=== PATIENT | male | born 1980 | race Caucasian/White ===

== ENCOUNTER 2023-06-08 11:03 | Outpatient (OUT) | payer OTHER, SELFPAY ==
--- NOTE | 2023-06-08 11:10 | XR_ITS ---
The [address] [address] Patient Name: MONICA ARAMBULA MRN: [id number] date: 1980 Sex: M Assigned Patient Location: RAD Current Patient Location: RAD Accession/Order Number: [id number] Exam Date: 06/08/2023 11:17 Report Date: 06/08/2023 11:38 At the request of: CHON GUERRERO Procedure: XR chest 2V EXAM: XR chest 2V HISTORY: Personal history-other diseases respiratory system - Z87.09 COMPARISON: None. TECHNIQUE: PA and lateral views of the chest. FINDINGS: The cardiomediastinal silhouette is normal. 6.8 mm pulmonary nodule in the right upper lobe. There is no pneumothorax. No pleural effusion is noted. The osseous structures are intact. XR/XR chest 2V IMPRESSION: 6.8 mm pulmonary nodule in the right upper lobe. Repeat chest x-ray is recommended in 3-6 months. Electronically authenticated by: ROLAND PARKER Date: 06/08/2023 11:38
--- NOTE | 2023-06-08 11:10 | XR_ITS ---
[address] [address] Patient Name: MONICA ARAMBULA MRN: [id number] date: 1980 Sex: M Assigned Patient Location: RAD Current Patient Location: [facility] Accession/Order Number: [id number] Exam Date: 06/08/2023 11:17 Report Date: 06/08/2023 12:25 At the request of: CHON GUERRERO Procedure: XR shoulder RT min 2V EXAM: XR shoulder RT min 2V HISTORY: Pain in right shoulder M25.511 COMPARISON: None. TECHNIQUE: 3 views FINDINGS: No acute fracture or dislocation. Mild degenerative changes of the acromioclavicular joint. Unremarkable soft tissues. XR/XR shoulder RT min 2V IMPRESSION: Mild degenerative changes as above. Electronically authenticated by: ROLAND PARKER Date: 06/08/2023 12:25
== END 2023-06-08 11:04 | disposition home or self-care (01) ==
LOC: RAD 11:06
PROVIDERS: PCP Nurse Practitioner Family; Visit Provider Nurse Practitioner Family
DX: M25.511 Pain in right shoulder (principal); Z87.09 Personal history of other diseases of the respiratory system; R91.1 Solitary pulmonary nodule
CPT/HCPCS: 71046; 73030

== ENCOUNTER 2023-06-19 02:14 | Emergency (ER) | payer OTHER, SELFPAY ==
[2023-06-19 02:18] VITALS: BP 160/90; PULSE 54; RESP 18; TEMP 36.4; O2SAT 100; BMI 33.2
--- NOTE | 2023-06-19 02:44 | ED.ANXIETY1 ---
HPI - Anxiety General Chief Complaint: Anxiety Stated Complaint: ANXIOUS/FEELS FUNNY Time Seen by Provider: 06/19/23 02:40 Source: patient Mode of arrival: walk-in Limitations: no limitations History of Present Illness HPI narrative: past history of anxiety. States in the past eating could trigger his anxiety. Tonight he felt hungry and ate some cookies. Began to feel like he could not breathe. Like he needed to take a deep breath but is wasn't helping. Drove himself here. No chest pain. No fever. MD complaint: Reports anxiety Related Data Home Medications Medication Instructions Recorded Confirmed atenolol 50 mg tablet 50 mg PO Q24H 06/19/23 06/19/23 citalopram 10 mg/5 mL oral solution 10 mg PO DAILY 06/19/23 06/19/23 Allergies Allergy/AdvReac Type Severity Reaction Status Date / Time hydrocodone [From [place]] Allergy Unknown Verified 06/19/23 02:22 Review of Systems ROS Status of ROS 10 or more systems reviewed and unremarkable except as noted in history and below PFSH PFS Social History Smoking status: Former smoker Exam Constitutional Vital Signs, click to edit/add: Last Vital Signs Temp 97.5 F L 06/19/23 02:18 Pulse 54 L 06/19/23 02:18 Resp 18 06/19/23 02:18 BP 160/90 H 06/19/23 02:18 Pulse Ox 100 06/19/23 02:18 O2 Del Method Room Air 06/19/23 02:18 Common normals: average body habitus and oriented x3 General appearance: anxious HENMT Common normals: normocephalic and head/scalp atraumatic Eye Common normals: EOMs intact bilaterally, conjunctivae normal and no scleral icterus Respiratory Common normals: normal respiratory effort, no retractions, no use of accessory muscles and clear to auscultation bilaterally Cardio Common normals: regular rate, regular rhythm, S1 normal heart sound and S2 normal heart sound GI Common normals: Normal to inspection, nondistended, normoactive bowel sounds present, soft to palpation and non-tender Extremity Common normals: normal to inspection and full ROM Neuro Common normals: oriented x3, moves all extremities, no focal motor deficits and no sensory deficits noted Psych Mood and affect: anxious Course Vital Signs Vital signs: Vital Signs Temperature 97.5 F L 06/19/23 02:18 Pulse Rate 54 L 06/19/23 02:18 Respiratory Rate 18 06/19/23 02:18 Blood Pressure 160/90 H 06/19/23 02:18 Pulse Oximetry 100 06/19/23 02:18 Oxygen Delivery Method Room Air 06/19/23 02:18 Temperature 97.5 F L 06/19/23 02:18 Pulse Rate 54 L 06/19/23 02:18 Respiratory Rate 18 06/19/23 02:18 Blood Pressure 160/90 H 06/19/23 02:18 Pulse Oximetry 100 06/19/23 02:18 Oxygen Delivery Method Room Air 06/19/23 02:18 MDM - Anxiety MDM Narrative Medical decision making narrative: patient presents with anxiety attack. Past history of the same. treated with Benadryl and observed in the department for several hours. Feeling better now and discharged home. Patient to followup with his family doctor Discharge Plan Discharge Chief Complaint: Anxiety Clinical Impression: Acute anxiety Patient Disposition: Home, Self-Care Prescriptions / Home Meds: No Action citalopram 10 mg/5 mL solution 10 mg PO DAILY atenolol 50 mg tablet 50 mg PO Q24H Instructions: Anxiety (ED) Stand Alone Forms: Portal Instructions Referrals: CHON GUERRERO [Primary Care Provider] - 1 week
[2023-06-19] MEDS: DIPHENHYDRAMINE HCL 25 MG CAPSULE 50 MG PO (03:00)
--- NOTE | 2023-06-19 03:31 | PC.NURSE ---
patient states he doesnt feel as panicky and thinks the benadryl is starting to work but wants a little more time for it to take more effect.
[2023-06-19 05:42] VITALS: BP 134/85; PULSE 55; RESP 16; O2SAT 99
== END 2023-06-19 05:44 | disposition home or self-care (01) ==
PROVIDERS: Emergency Provider Internal Medicine; PCP Nurse Practitioner Family
DX: F41.9 Anxiety disorder, unspecified (principal); Z79.899 Other long term (current) drug therapy; Z87.891 Personal history of nicotine dependence
CPT/HCPCS: 99283

== ENCOUNTER 2024-10-10 08:15 | Outpatient (OUT) | payer OTHER, SELFPAY ==
--- NOTE | 2024-10-10 09:19 | PC.NURSE ---
Nursing Note Cardiac Stress Test Reviewed: Medication, allergies and patient history reviewed. Stress Test: [ x] Patient tolerated stress test well. [ ] Patient unable to tolerate walking on treadmill. Switched to Lexiscan stress test. [x ] No chest pain noted per patient [ ] Chest pain that resolved prior to leaving stress lab. [ ] No dyspnea noted. [x ] Dyspnea that resolved prior to leaving stress lab. [x ] Patient left stress lab asymptomatic and hemodynamically stable. [ ] Patient taken to the Emergency Room due to non-resolving symptoms following stress test. [ x] Patient achieved target heart rate. [ ] Patient unable to achieve target heart rate. [ ] Aminophylline administered as reversal agent to Lexiscan (Regadenoson). [ ] Nitro administered. Nursing Comments:Pt tolerated well. No symptoms noted per patient. Pt had regular TM stress test.
--- NOTE | 2024-10-11 06:23 | P.STRESS_ITS ---
Stress Test Stress Test Allergies Allergy/AdvReac Type Severity Reaction Status Date / Time hydrocodone (From [place]) Allergy Unknown Verified 06/19/23 02:22 Requesting physician: CHON GUERRERO Procedure: Exercise stress test General Information: Reason for Stress Test: Chest pain Cardiac History and Risk Factors: Former smoker Resting 12 - Lead Electrocardiogram: No resting EKG was provided for review! Stress Test: Protocol: Lior protocol was followed Exercise capacity: Excellent exercise capacity. Total exercise time of 12 minutes 14 seconds reached Lior stage 5 at 5 MPH, 18 % grade, & 14.2 METs. Blood pressure: Initial: 162/80, Maximum: 204/92 Rate & rhythm: Patient remained in sinus rhythm during the exercise and recovery portions of the study.? The maximum heart rate was 146, which was 83% of the maximum predicted heart rate. ST-segments & T-waves: Poor quality tracings with artifact during exercise despite attempts to adjust signal acquisition. No glaring abnormalities during recovery phase. Patient response/symptoms: There were no symptoms similar to the chief complaint. Interpretation: Non-diagnostic study; did not meet 85% threshold of predicted heart rate. No electrocardiographical evidence of ischemia during recovery. Asymptomatic of chief complaint. Jacob treadmill score is 12.2, which places patient in a low risk category. Clinical correlation required.
== END 2024-10-10 08:16 | disposition home or self-care (01) ==
LOC: CARD 08:15
PROVIDERS: PCP Nurse Practitioner Family; Visit Provider Nurse Practitioner Family
DX: R07.89 Other chest pain (principal); Z82.49 Family history of ischemic heart disease and other diseases of the circulatory system
CPT/HCPCS: 93017

== ENCOUNTER 2024-11-23 04:15 | Emergency (ER) | payer OTHER, SELFPAY ==
[2024-11-23 04:18] VITALS: BP 123/90; PULSE 83; TEMP 37.2; O2SAT 99; BMI 31.7
--- OUTSIDE RECORDS SUMMARY | 2024-11-23 04:25 | XMS_ITS | CCD ---
Author Organization [facility] Care Team Providers Care Shot Grinder Operator Name Role Phone HOANG SALASTorZEKE Unavailable Unavailable NO REFERRING FERMIN Leyva Unavailable Unavailable VEL CHING Unavailable Unavailable Reji Hughes Unavailable Reji Hughes Primary Care Physician [phone] GISSELL, DR DENT Admitting Unavailable ELLEN, DR LEI Primary Care Unavailable GISSELL, DR DENT Attending Unavailable GISSELL, DR DENT Consulting Unavailable ELLEN, DR LEI Primary Care Unavailable ELLEN, DR LEI Admitting Unavailable ELLEN, DR LEI Attending Unavailable ELLEN, DR LEI Consulting Unavailable ZIEBER, DR GUS [place] Consulting Unavailable TIMMIS, DR VEGA Attending Unavailable TIMMIS, DR VEGA Consulting Unavailable ELLEN, DR LEI Primary Care Unavailable TIMMIS, DR VEGA Admitting Unavailable VANESSA, DR GUS [place] Consulting Unavailable ELLEN, DR LEI Primary Care Unavailable GREG RASHEED Admitting Unavailable FRAN, GREG Attending Unavailable FRAN, GREG Consulting Unavailable LIVE LOWERY Consulting Unavailable ELLEN, DR LEI Primary Care Unavailable HILARIO CHEEK Admitting Unavailable ADIA, HILARIO Attending Unavailable HILARIO CHEEK Consulting Unavailable KARMEN, DR CATARINA Gonzalez Admitting Unavailberyl HUGHES, DR LEI Primary Care Unavailable KARMEN, DR CATARINA Gonzalez Attending UnavailSCOTT Parra Consulting Unavailable Mahnaz Castillo Unavailable Gertrudis Pham Unavailable MEL MAST Attending Unavailable Gertrudis Pham APRN Primary Care Provider Noelle Colunga MD Attending Provider Gertrudis Pham Primary Care Unavailable Noelle Colunga Attending Unavailable Keanu Imraad Admitting Unavailable Allergies Allergy Classification Reported Allergen(s) Allergy Type Date of Onset Reaction(s) Facility Acetaminophen (1 source) Acetaminophen Drug Allergy 4 labored breathing [facility] Opioid Agonists (2 sources) HYDROcodone Drug Allergy 4 labored breathing, Unknown Reaction [facility] (4 sources) HYDROcodone; Translations: [HYDROCODONE] Drug Allergy 5 labored breathing [facility] (1 source) Mushroom (edible); Translations: [MUSHROOMS] Propensity to adverse reactions (disorder) [facility] (7 sources) oxyCODONE; Translations: [OXYCODONE] Drug Allergy 5 Unknown [facility] (1 source) Shellfish; Translations: [SHELLFISH DERIVED] Propensity to adverse reactions (disorder) [facility] (1 source) OPIATES; Translations: [OPIATES] Propensity to adverse reactions (disorder) [facility] (2 sources) Acetaminophen / HYDROcodone; Translations: [acetaminophen-hy drocodone] Drug Allergy 5 Dyspnea (finding) [facility] Work Phone: (1 source) Shellfish Propensity to adverse reactions to drug [facility] Work Phone: (6 sources) Acetaminophen / HYDROcodone Drug Allergy 5 labored breathing [facility] (1 source) oxyCODONE Drug Allergy 5 [facility] (1 source) Shellfish Drug allergy (disorder) 0 [facility] (2 sources) Acetaminophen; Translations: [acetaminophen] Drug Allergy 5 labored breathing [facility] Medications Current Medications Medication Drug Class(es) Dates Sig (Normalized) Sig (Original) 0.5 ML semaglutide 0.5 MG/ML Auto-Injector [Wegovy] (2 sources) Start: 09-28-2023 inject 0.25 mg by subcutaneous injection every week Wegovy 0.25 MG/0.5ML 0.25mg Subcutaneous Once a week for 30 days E78.1, Z68.32 05 Sep, 2023 Active atenolol 50 mg oral tablet (12 sources) beta-Adrenergic Nancy Start: 02-17-2024 End: 09-22-2024 take 1 tablet by mouth once daily Atenolol 50 mg tablet Active 50 MG PO Daily September 22, 2024 11:07am take 1 tablet by carole th every twenty-four hours Atenolol 50 MG 1 tablet Oral daily for 90 days Active calcium carbonate 500 mg chewable tablet (1 source) calcium carbonat e 500 MG Chew Tab tablet Chew 500 mg daily. Active citalopram 2 mg/ml oral solution (8 sources) Serotonin Reuptake Inhibitor Start: 03-14-2024 take 30 mg by mouth once daily Citalopram 10 mg/5 mL solution Active 30 MG PO Daily March 13, 2024 11:00pm take 15 mL by mouth once daily C italopram Hydrobromide 10 MG/5ML 15 mL Oral daily for 30 days Active CeleXA Active take 30 mg by mouth once daily c italopram 20 MG Tab tablet Take 30 mg by mouth daily. Active diphenhydrAMINE hydrochloride 25 mg oral capsule (5 sources) Histamine-1 Receptor Antagonist Start: 03-14-2024 take 1 capsule by mouth once daily at bedtime as needed Diphenhydramine Hcl 25 mg capsule Active 25 MG PO Daily at bedtime as needed for insomnia March 13, 2024 11:00pm take 1 capsule by mo [facility] every twenty-four hours diphenhydrAMINE HCl 25 MG 1 capsule at bedtime as needed Orally Once a day Active Fish Oils (2 sources) take 1 capsule by mouth twice daily Fish Oil 500 MG 1 capsule Orally Twice a day Active fluticasone propionate 0.05 mg/actuat metered dose nasal spray (1 source) Corticosteroid Start: 01-30-20 23 take 2 spray(s) nasal route once daily Fluticasone Propionate 50 MCG/ACT 2 sprays Nasally Once a day for 14 day(s) Jan, Active losartan potassium 25 mg oral tablet (10 sources) Angiotensin 2 Receptor Nancy Start: 02-17-20 End: 09-25-20 take 1 tablet by mouth once daily Losartan 25 mg tablet Active 25 MG PO Daily September 25, 2024 1:14pm Start: 08-31-2023 take 1 tablet by carole th every twenty-four hours Losartan Potassium 25 MG 1 tablet Orally Once a day for 30 days Aug, Active Goddard 4-Hni-Okz-Fish Oil (Fish Oil) 1,200 (144-216) mg capsule (2 sources) Start: 03-27-2024 take 1 capsule by mouth once daily Goddard 4-Osy-Gdo-Fish Oil (Fish Oil) 1,200 (144-216) mg capsule Active 1 CAP PO Daily March 26, 2024 11:00pm Start: 03-27-2024 Goddard 3-Dha-Ep a-Fish Oil (Fish Oil) 1,200 (144-216) mg capsule Active CAP PO March 27, 2024 12:00am predniSONE 20 mg oral tablet (1 source) Start: 01-29-2023 take 1 tablet by mouth every twelve hours predniSONE 20 MG 1 tablet Orally bid for 5 day(s) Jan, Active Sod Picosulf-Mag Ox-Citric Ac (1 source) Start: 09-28-2024 Sod Picosulf-M ag Ox-Citric Ac (Clenpiq) 10 mg-3.5 gram- 12 gram/175 mL solution Active 175 ML PO .COMPLEX 350 1 September 28, 2024 12:00am Follow instructions given by office triamcinolone acetonide 1 mg/ml topical cream (2 sources) Corticosteroid Start: 09-25-2024 End: 09-25-2024 Triamcinolone Acetonide 0.1 % cream Active 1 APPLIC TOPICAL Twice daily 80 7 September 25, 2024 1:14pm Completed/Discontinued Medications Medication Drug Class(es) Dates Sig (Normalized) Sig (Original) dextromethorphan hydrobromide 15 mg / guaiFENesin 400 mg / pseudoephedrine hydrochloride 60 mg oral tablet (1 source) alpha-Adrenergic Agonist, Uncompetitive Q-omdkcf-Z-aspartat e Receptor Antagonist, Sigma-1 Agonist Start: 12-01-2021 take 4 tablets by mouth every twenty-four hours as needed Capmist DM 60-15-400 MG as needed Orally every 4-6 hours as needed, max 4 tablets in 24 hours for 5 days Nov, Not-Taking metFORMIN hydrochloride 500 mg oral tablet (5 sources) Biguanide Start: 02-17-2024 End: 09-25-2024 take 1 tablet by mouth twice daily Metformin 500 mg tablet Discontinued 500 MG PO Twice daily 180 90 May 29, 2024 2:21pm September 25, 2024 1:06pm Problems Active Problems Problem Classification Problem Date Documented Date Episodic/Chronic Allergic reactions (2 sources) Eczema; Translations: [Dermatitis, unspecified] 09-25-2024 Episodic Anxiety disorders (20 sources) Anxiety state, unspecified; Translations: [Obsessive-compulsive disorder, unspecified] Onset: 05-21-2015 Chronic Disorders of lipid metabolism (7 sources) Hypertriglyceridemia; Translations: [Pure hyperglyceridemia] Chronic Esophageal disorders (2 sources) Gastro-esophageal reflux disease with esophagitis; Translations: [Gastro-esophageal reflux disease with esophagitis] Onset: 10-09-2018 Chronic Essential hypertension (11 sources) Essential hypertension; Translations: [Essential (primary) hypertension] Chronic Inflammation; infection of eye (except that caused by tuberculosis or sexually transmitteddisease) (4 sources) Abscess of left upper eyelid; Translations: [ABSCESS LEFT UPPER EYELID] Onset: 09-24-2022 Episodic Nonspecific chest pain (2 sources) Atypical chest pain; Translations: [Other chest pain] 09-25-2024 Episodic Other aftercare (1 source) Other long term acute care registered nurse (current) drug therapy; Translations: [OTH [facility] CURRENT DRUG THERAPY] Onset: 11-23-2022 Episodic Other ear and sense organ disorders (4 sources) Otalgia, left ear; Translations: [OTALGIA LEFT EAR] Onset: 09-02-2022 Episodic Other lower respiratory disease (1 source) Personal history of other diseases of the respiratory system Episodic Other nervous system disorders (6 sources) Chronic pain; Translations: [Other chronic pain] 03-27-2024 Chronic Other nervous system disorders (2 sources) Other chronic pain; Translations: [Other chronic pain] Chronic Other non-traumatic joint disorders (1 source) Pain in right shoulder Episodic Other nutritional; endocrine; and metabolic disorders (2 sources) Body mass index 30+ - obesity; Translations: [Body mass index (BMI) 32.0-32.9, adult] Chronic Other nutritional; endocrine; and metabolic disorders (1 source) Body mass index (BMI) 32.0-32.9, adult Chronic Other screening for suspected conditions (not mental disorders or infectious disease) (2 sources) Patient encounter status; Translations: [Encounter for screening for malignant neoplasm of colon] 09-25-2024 Episodic Other skin disorders (1 source) Eruption; Translations: [Rash and other nonspecific skin eruption] 09-25-2024 Episodic Other upper respiratory infections (2 sources) Acute upper respiratory infection, unspecified; Translations: [Acute pharyngitis, unspecified] Onset: 09-02-2022 Episodic Otitis media and related conditions (1 source) Unspecified nonsuppurative otitis media, right ear Episodic Residual codes; unclassified (1 source) Family history of cardiac disorder; Translations: [Family history of ischemic heart disease and other diseases of the circulatory system] 09-25-2024 Episodic Residual codes; unclassified (1 source) Family history of ischemic heart disease and other diseases of the circulatory system; Translations: [Family history of other cardiovascular diseases] 09-25-2024 Episodic Screening or history of mental health and substance abuse (2 sources) Personal history of tobacco use; Translations: [Personal history of nicotine dependence] Onset: 05-21-2015 Episodic Skin and subcutaneous tissue infections (1 source) Cutaneous abscess of face; Translations: [CUTANEOUS ABSCESS OF FACE] Onset: 11-23-2022 Episodic Thyroid disorders (5 sources) Non-toxic uninodular goiter; Translations: [Nontoxic single thyroid nodule] Onset: 05-22-2022 Chronic Unclassified (2 sources) COUGH, UNSPECIFIED; Translations: [COUGH, UNSPECIFIED] Onset: 09-02-2022 Viral infection (1 source) COVID-19; Translations: [COVID-19] Onset: 09-02-2022 Past or Other Problems Problem Classification Problem Date Documented Da te Episodic/Chronic Abdominal pain (4 sources) Epigastric pain; Translations: [EPIGASTRIC PAIN] Onset: 12-30-2021 Episodic Headache, including migraine (1 source) Headache; Translations: [HEADACHE] Onset: 05-21-2015 Episodic Other connective tissue disease (3 sources) Pain in limb; Translations: [Pain in limb] Onset: 05-21-2015 Episodic Other skin disorders (4 sources) Localized swelling, mass and lump, neck; Translations: [LOCALIZED SWELLING MASS AND LUMP NECK] Onset: 06-22-2022 Episodic Unclassified (1 source) COUGH, UNSPECIFIED; Translations: [COUGH, UNSPECIFIED] Onset: 08-31-2022 Results Test Name Value Interpretation Reference Range Facility [facility] 01-29-2023 S. pyogenes Org specific cx Ql (Throat) Negative IND [facility] Other Quick Strep IND [facility] Other Covid-19 PCR (CVDTB)on SARS-CoV-2 (COVID-19) RNA MARIELLA+probe Ql (Unsp spec) Detected Critically abnormal NOT DETECTED [facility] Comment on above: Result Comment: This test is not yet approved or cleared by the [place] FDA. When there are no FDA-approved or cleared tests available, and other criteria are met, FDA can make tests available under an emergency access mechanism called an Emergency Use Authorization (EUA). The EUA for this test is supported by the Factory Clerk of Health and Human Service's declaration that circumstances exist to justify the emergency use of in vitro diagnostics for the detection and/or diagnosis of the virus that causes COVID-19. This EUA will remain in effect for the duration of the COVID-19 declaration justifying emergency of IVDs, unless it is terminated or revoked by the FDA (after which the test may no longer be used). Performed By: #### C VDTBH #### [facility] [address] [place] [address] Dr. Cosmo Portillo GROUP A STREP CULTUREon S. pyogenes Ag Ql (Unsp spec) Culture Observations: NEGATIVE FOR GROUP A STREPTOCOCCUS. Normal [facility] Comment on above: Performed By: #### G RASTCX #### [facility] [address] [place] [address] Dr. Cosmo Portillo STREPT SCREENon 08-31-2022 STREP SCREEN A Negative Normal NEGATIVE [facility] Comment on above: Performed By: #### S SCRN #### [facility] [address] [place] [address] NECK ST W CONon [address] W CON EXAMINATION: CT NECK ST W CON HISTORY: Mass of neck COMPARISON: Ultrasound thyroid 05/22/2022 TECHNIQUE: Axial, Coronal, and Sagittal CT images created with IV contrast. Dose reduction techniques were achieved by using automated exposure control and/or adjustment of mA and/or kV according to patient size and/or use of iterative reconstruction technique. FINDINGS: NASOPHARYNX: No asymmetry of the fossae of Rosenmuller and torus tubarius. ORAL CAVITY: No visible mass. OROPHARYNX: No asymmetry of the facial and lingual tonsils. HYPOPHARYNX: No mass or other visible lesion. LARYNX: No mass or asymmetry of the vocal cords. SINUSES: No significant fluid or mucosal thickening. NECK GLADS: No visible abnormality of the parotid, submandibular, and thyroid glands. LYMPH NODES: No pathological-appear ing or enlarged lymph nodes. VASCULATURE: No suspicious abnormality. BONES: Straightening of the normal lordotic curvature; positioning versus muscle spasm. 6-7 and moderate degenerative disc disease. OTHER: No additional imaging findings. IMPRESSION: 1. No appreciable abnormal findings to account for patient's history. Electronically authenticated by: GUS MENDEZ Date: 2022-06-22 15:41 Normal [facility] Coding Summary.on 06-05-2022 Coding Summary. CD:[id number] CCf9pNk+PGhlYWQ+PE1 HNPTmN41xbJPrzQ0XE2 dEVP7OJSKEZWOHID8AK D4ysXE7JEnwV3NscwOt RsllsJItER14CAk2YVZ 6xTtqLXcfwP6thSAbJ1 u6GjHrSE95hZ38AYjvH UVtZrM1ZgWgpjbpyIIy B7kkJeOpbTYdJkp+PHR hYmxlIHdpZHRoPScxMD PuXoGcmSpkQP7jTx7bU GVyLWNvbGxhcHNlOiBj j4xgNXAzEAjmQD8poHg iY8CcbZZ3FPKak2v5Uy 48dHI+AWVvTRB3tNnsP Tfom977EsHmf9zgGFG0 vQEwEGrbAHP7P34pi0Z 2DLFmHNTePYU6fSK5eW 2pfOfeyxpvO1XwvROwW dS6CUN1oTMkdN2pqFlp jljphZ3yKur+X92AWQ6 QPOKARG5HAld7O6DaGb wvdHI+TB79NUOkWN57e WOmnPUmk8fcbGl9ZjKe NWQkCKZ1oMfzQHgjm3M zEHSbY10xmGNbd9S8AG ObdKtlwCRwXtTebJK2t Z5fGTkplwvqe8azykoc Uwycv0ehiu30bD17J37 sAOygZZEqCVG2BELhSL WdmMqyfd0xiM2dRr7+I Ghea9wpq8jfsAh4PjGf SDIeanEonDxjCWP8p6D uPt89Z6NnqRivt2XhAd h7yd93oAVtz0P2lCP9Z AxfYMFqjS1aQNwsIpP5 IVXhZoVftT27fYGtLRp dRh7tvMhrnWyxHS3uIA HhrmdfOOUpqL2ySGPsr RPqnKahTF1hJBJllohx j788JjMdYNA0QWWhlXT uZ9ZyvR1yEqUcQHKmMC YqQ9QpxJXnTWryX159Q MksAzR6WNUjrzMuI7Ip WBJbsRfyFhK8c2V5Qh1 Bw2WxnvrqPPE4IZefES I6EsHuOdLzIsP2O1PsH pq7BCOqeTmvVK6pX6Md USLlheogjeuwjVL9WJY jXNBalQ60jGWbYWzzYu 2ra7L5x004LBPdGGWno F38Sm6jhXkbGOXzxNJB mH5bcgwdx0jfogjrWvK qZJTzCNg4BYu1GWRddY nsQxOhSJG4UwG1RPN2o MOrzU7dpUbltqreaJ3v Oyc+Q74jgM5pNOZ1GQT 6uixyZJHhshFpNI32ZZ 69N9JsQxrpyWZepQS+P VKdzdUqkBcfID0jJkBu o0xur1QsZXdpB5KpMHM kPTcnHat8ECMzWXL7mM H3tR5dHEVbUPqec4T0l HS2K1LqmnDgud6aw1tw SJNiIBahB99tcUHkw4Z 6EHFgrYL7FDBxuBhpTz DtvE63Ytu+PGNvbGdyb 3UmCwohe0ato4rzxMv9 IjMwJSIgdmFsaWduPSJ 6g1ZiBc72I82qYSlsZT RoPSIxNSUiIHZhbGlnb j1sjJ9oKm8+PGNvbCB3 aJK3cA2aWUMbTnQ9KIa xF457VxBiqCQtNtxyq0 trw0aeuBm8TpGbPBDyh eXklMpvPKH1c8XsYc95 O60sXQudQYTxLUXvIOE bJULxdKmgfw4eoL0dTf 8+FY3fu9zgmu79oU99b HI+MZXmPHF2iPbaXQyz ZGLeoB2lVDweCfU4PXK wGhQzzP35zTPzUGpqOz 3fxBvcsVanGN7cOMVfc efap281RiJcf3edMXHh bLCgSClbOHS5U20bs4W 5IOOuEGBzXSF5hYY9fB 1hbGlnbjogbGVmdDsgd iEmsIhyVAjhBFilN352 IHRvcDsnPlBhdGllbnQ aUwDgTSr2M4OrXes6CH IjiIsePA7ukMOlFDxkI y1wdDujcCqxAG3bRMJc mtsqe217DiJcw4akXEQ weCMwJYtrAPO9R35vq5 S4LQVyZWHcVYM8fUX7h A7eeRvlkmnkbCGlvSvn msZrkMqtLHzrBFpcR82 6IHRvcDsnPkJpcnRoIE ReyDJ3WI03CI25nZQxq 6L3oEF9N7VbGBUbicrg butmkNZ2NBHcWDEflJ3 6Jx8epVxnSt7kDEGeTO C0BLYbrCKcJ7ExzC6uH zTaBBAqGAWdJ1PzhWQw BHwhM118CTxgLqL0OPF ukrBmY5YgQGUtvZpzHg E5d3B3Tq7RW7X0OR49T F66yCAju4X4qJB4E0Xl EUWinaddeyouuMD2RWD tDVXupL18Mz8ycAhzYq 6nVFDkQUL6ZDAzkMZjE 9UytT5lCqBsRJQdAJDy C4IicIYzPVleY094UYs xCgK7VPCshfKlU9VzPK LhmGzqHvC4d9B5Ry3LQ Vf7GF72RA28kNFxv9F3 bKD8W1OhHTSyiulorrh sgUP3QLHuARJtwN40Rf 5dfCkeWo9nUVVgYBC1E QWjtBWaV6SiyN5wSlJe NSSxWFZxZ4JdvQUwBOy hS163WIahAjY9FSFezu QmP0IyRQEtyGejJdM5w 3H8Wo4KPRIkCF30AYE0 dLC0DC61CO37Q3PnTtw vdGFibGU+PHRhYmxlIH dpZHRoPScxMDAlJyBzd VmkHB3yTb7iYLWxJURg mOwjbEDaVvDcu4thBHN uMAtpBZ6wgExtD0TtgI K8AJXxt5d9Rg02E35wU 3JvdXA+EAMdeUL0eCJ2 iY6sAwKqZlU3YGvsO17 9KxNjfKNvYixos3yey0 gmrIy6AdB1OXRactXpd GxpGYO3l0NaQq77F32x IHdpZHRoPSIxNSUiIHZ mkFjewg3jcJ3cCb0+PG SpcKA2kBC7uZ0jWnVsH eY6AVjeE412NvBxpPIj Vseno3eca1mawPo6IwE pBYTcgjAjbVrsBCZ4s6 VnDb10C8EvwXyzw3OeH tf0yx56eTMye5J3dXC6 E2ZpVFQitmbbkBCbaBn qNT0pQOWjxrqqRASxlN 3aWJEoB7p0WcJhQoC5Z ZclL4IkxyL7AGCecKAo MRgmGNK6M61hi3G8JUD eHTReJUD4fOG6wR5yjQ lnbjogbGVmdDsgdmVyd UpqKPvjOQqqU001IXFe ySftRTWyrM1hDEIirAK yiGdkYZ6kTHWwkjdnRy TNErPYVBFEIXCLFKB4Q 0BgJsh6AGAjtQjaAW7q vTImBYxoTr0foClisTz hGV5hRNLwwbouYCYppB 8kWMJknIQqeEnsPY2uX SWridmgp443XhLqINZ7 EWVqoCYsG4VioT2pOwC rOKDvRGNgZ2WzdLMsUI ajJ529FFscNhA8OUFjr kLeX4PeBUTkxSkkTbN8 z1G0Tb7rXZ9zAQ5oEYo 0VK49FF55bLQzn2Y4sC I1I8LwGVCeuvetbvgml AE9LRAjVWUipZ12nNEh EFgrVe2oc1Q4k850PBP tVDEyzR29On3wlAqyXC FmwYGJaM2glwjil7tfh kpdXrJlQAEyKYe0OOt6 XCSyxJjwIlKcWSS1EbO 0UAY7vEDnbF0wyLmegy pggI5lOyy+NDIgWWVhc eN8U6OeMrh7ECHtxKkb SK3kuDXiZLekZy9wuEs xxRyrIF7yONTgcqjfNT LlyO7tDCLoiUVomYjkF Y6vPQUmdrtqx066EfBv WRT0FKZtnJUcE3FzfV7 kUiJmHXSvTMQyZ7KhfR YoJKyhD670XIvjXlR0I HCogpSnV5MzFEVxxQtj RqX5g1P4No2FEWmtGV6 7HR61aHCki4D9qOI8L2 LiLKThoixdblqxiBH4N BToQEVfnE21oYRuYGxw Tn5rj8T6i262MPUjVJK piB32Yp9dbYbvMUSzpO OCbP5gvazck1kabbzjR nGvTSEbXLy9ILc4OVHg uFhnCqOfRIY3QbE1BLD 3jHWmuX7hcKgzjoqdhA 9wOyc+UO6qxbpjjnB3Y K35QZ51Q4QnJhzqdISn bGU+PHRhYmxlIHdpZHR oPScxMDAlJyBzdHlsZT 1zGd7dAWHbGIWemPpmv OAyUnRos8loOUYyDFvf EO9jyNqtZ2BwmUP6TLD nx5s0Yw50A71yF0DwqM A+KLPxtLP6kZA6bV0zX zRmLkN3WJmaH591RoFo zGXcNvjuj6har9sgpVj 9IjMwJSIgdmFsaWduPS U2q1VrMd15J16sTBriF HRoPSIyMCUiIHZhbGln wc2czM9fHh6+PGNvbCB 3tZT5jV6dVjNyIuT6AY uaM281BlElrIYmDqlwP 21bD3SxuHO+PHRyPjx0 NFKzuIfbTT4nhLMqLHb lYx4fQKU9WbTbRaWiZU pkO3ZjSUAidpbvxmkto KU3PUQwLEZrtW36Iv0g eHieOo6zQXDlNOD1IVK rpTSuX7MviB6gVjSrMZ OpYDKfK5VwqEYcDPidZ 748EAvvAsH1QPYnafAf R2IsAOQhwOyqRpC4r3Q 8Wh8XqUnouWEqAJ1xJt SoVGv8F1UwTix1GSKsb XzqIV9diNXwYSptXn5i kFsifAdeMX0jDBWelqm yz932LnKiq0mwUSQxbK CwWZduJBR1F55ot2I2X LPcKTJsVXH5sKE4eY2a bGlnbjogbGVmdDsgdmV vgBppYEvhXWgmJ538KU GjkIqcXxZEHsa0Q9DzN gl9CHFifOtdUL8nuTFc XKnrTw7mfNckaMizYF6 pEGNlmqwsl145YkEbe4 enMMJmxPOqOYzbZWG9U 48ox6U7JCBkWKZbVKY4 mNJ2pD5vfLyxnmqpmCY mdDsgdmVydGljYWwtYW qvA912ITWxyChtXh5XD jn3E5HzLim7PONosWdp MG1ihSImIHckIr2czPk ujEqeOI4uOBXrvrrzi9 71ZgZhy3pkTYDqwZKeL JvzPIA1Y49pz3R2XHDv WZMjFUW2dEP1iW0sdVc nbjogbGVmdDsgdmVydG lxDKinPXnpX031NSMtj DsnPlBheWVyOjwvdGQ+ HJ96sq48Z5FeXansAqy 9BGVwTZM9rMM9wN9nXU YhTLqsm1K3vXL5N3Qwe uJplg7qw5poRGAqCYsi Y29s (more content not included)... Normal [facility] Consent for Treatmenton 05-25 Consent for Treatment [id number] [id number]:[address] [facility] Discharge Instructionson Discharge Instructions [id number]:[address] [facility] ED Clinical Summaryon 2021 ED Clinical Summary [place] [id number] ED Clinical Summary Person Information Name: ELEAZAR MORGAN [place] Age: 41 Years : 1980 Sex: Male Language: Luxembourgish PCP: Reji Hughes DO Marital Status: Phone: [phone] Visit Id: Visit Reason: Throat pain - Adult; LUMP IN THROAT, HARD TO SWALLOW Speciality: Acuity: 4 Enc Type: Emergency Med Service: Emergency Arrival: 06/04/2022 12:24:59 Discharge: 06/04/2022 13:00:26 LOS: 000 00:36 Checkin: 06/04/2022 12:24:59 Checkout: 06/04/2022 13:00:26 Dispo Type: Home (Routine DC) EVENTS: Event Name Event Status Request Date/Time Start Date/Time Complete Date/Time Arrive Complete 06/04/2022 12:24:59 06/04/2022 12:24:59 06/04/2022 12:24:59 Document Home Meds Request 06/04/2022 12:24:59 Triage Complete 06/04/2022 12:24:59 06/04/2022 12:36:38 06/04/2022 12:36:38 Bed Assign Complete 06/04/2022 12:33:08 06/04/2022 12:33:08 06/04/2022 12:33:08 Dr Exam Complete 06/04/2022 12:33:08 06/04/2022 12:34:47 06/04/2022 12:34:47 RN Exam Complete 06/04/2022 12:33:08 06/04/2022 12:47:38 06/04/2022 12:47:38 Registration Complete 06/04/2022 12:34:47 06/04/2022 12:50:59 06/04/2022 12:50:59 Dr Exam Complete 06/04/2022 12:39:39 06/04/2022 12:39:39 06/04/2022 12:39:39 Discharge Complete 06/04/2022 12:40:11 06/04/2022 13:00:31 06/04/2022 13:00:31 Reg Complete Request 06/04/2022 12:50:59 Transfer Complete 06/04/2022 13:00:31 06/04/2022 13:00:31 06/04/2022 13:00:31 ADDRESS: [address] [place] [phone] PHYS DOC NOTES: MEDICAL INFORMATION: Prescriptions Given: PATIENT EDUCATION INFORMATION: Instructions: Thyroid Nodule Follow up: With: Address: When: [address], [facility], [address] [place] [phone] Business (1) In 3 days 06/07/2022 DIAGNOSIS: Thyroid nodule Normal Too [facility] ED Note-Physicianon 06-04-20 ED Note-Physician Basic Information Time Seen: Markel DIAZSteve 06/04/2022 12:34 Chief Complaint pt reports lump on right side of throat that is painful. pt reports difficulty swallowing. had outpt us at [facility]. speech is normal. History of Present Illness 41-year-old male comes to the ED for evaluation of a thyroid nodule. He had recent thyroid ultrasound performed at [facility]. This showed a thyroid nodule with recommendation for repeat scanning at 4 to 6 months. The ultrasound was performed approximate month ago. He states he has had discomfort and is seeking definitive diagnosis. He states he contacted his PCP and was supposed referred to a specialist but this never happened. He has no difficulty with speaking or swallowing. No fever, chills, nausea or vomiting. Review of Systems A 10 point review of systems is negative except as noted above. Medical and Surgical History: Reviewed and noted Social history: Lives at home Tobacco: Denies Physical Exam Vitals & Measurements T: 36.9 ?C(Oral) HR: 68(Peripheral) RR: 18 BP: 150/96 SpO2: 97% Nurses notes and vital signs reviewed and patient is not hypoxic. General: The patient appears well, resting comfortably. Skin: Warm, dry. Head: Atraumatic. Neck: No JVD. Eye: Normal conjunctiva. Ears, Nose, Mouth, and Throat: Moist mucous membranes. No appreciable neck swelling. No appreciable thyroid masses. No difficulty speaking or swallowing. Cardiovascular: Strong distal pulses. Chest wall: Respiratory: Respirations are nonlabored. Back: Normal range of motion. Musculoskeletal: Normal ROM with no gross deformity. Gastrointestinal: Urological: Neurological: Awake and alert. No focal deficits. Follows commands. Psychiatric: Cooperative. Medical Decision Making Patient has a benign physical examination. He has a ultrasound report with him that shows a small thyroid nodule. He is concerned for malignancy. He has no constitutional symptoms. No airway compromise. Difficulty speaking or swallowing. We will give him referral to ENT for further evaluation and definitive diagnosis. Patient was encouraged to return to the ED if symptoms worsen or change. Assessment/Plan Thyroid nodule (E04.1: Nontoxic single thyroid nodule) Disposition Plan Patient Discharge Condition Disposition: Discharged home Condition: Improved and stable Counseled: Patient and/or family were counseled to workup, results, treatment plan and follow-up recommendations Discharge Prescription List Prescriptions No active prescription medications Follow-up With When Contact Information Mel Mast In 3 days 06/07/2022 EDT [address] [facility] [address], [address] [place] [id number] Business (1) Additional Instructions: Patient Education Thyroid Nodule Attestation Patient seen and evaluated by the physician blood donor unit assistant. Attending physician was present in the emergency department and supervised care. This visit was performed by both the physician and an APC. I performed all aspects of the MDM as documented. This report was transcribed using voice recognition software. Every effort was made to ensure accuracy, however, inadvertently computerized manager adult mistakes may be present. Appropriate healthcare PPE was used in evaluating this patient. The patient was placed in a mask. The healthcare provider was wearing mask, gloves, and utilizing proper hand hygiene. All equipment was properly cleansed. Problem List/Past Medical History Ongoing No qualifying data Historical No qualifying data Medications Inpatient No active inpatient medications Home No active home medications Allergies Vicodin (Shortness of breath) Social History Alcohol - Denies Alcohol Use, 06/04/2022 Substance Abuse - Denies Substance Abuse, 06/04/2022 Tobacco - Denies Tobacco Use, 06/04/2022 Lab Results No qualifying data available. Diagnostic Results No qualifying data available. Normal [facility] Comment on above: Result Comment: Elec tronically Signed By: Steve Jean Baptiste PA-C\.br\Date and Time Signed: 06/04/22 12:51 EDT\.br\Electronically Co-Signed By: Vel Rubio DO\.br\Date and Time Co-Signed: 06/04/22 19:19 EDT ED Patient Education Noteon 06-04-2022 ED Patient Education Note Endocrinology Thyroid Nodule A thyroid nodule is an isolated growth of thyroid cells that forms a lump in your thyroid gland. The thyroid gland is a butterfly-shaped gland. It is found in the lower front of your neck. This gland sends chemical messengers (hormones) through your blood to all parts of your body. These hormones are important in regulating your body temperature and helping your body to use energy. Thyroid nodules are common. Most are not cancerous (benign). You may have one nodule or several nodules. Different types of thyroid nodules include nodules that: ? Grow and fill with fluid (thyroid cysts). ? Produce too much thyroid hormone (hot nodules or hyperthyroid). ? Produce no thyroid hormone (cold nodules or hypothyroid). ? Form from cancer cells (thyroid cancers). What are the causes? In most cases, the cause of this condition is not known. What increases the risk? The following factors may make you more likely to develop this condition. ? Age. Thyroid nodules become more common in people who are older than 45 years of age. ? Gender. ? Benign thyroid nodules are more common in women. ? Cancerous (malignant) thyroid nodules are more common in men. ? A family history that includes: ? Thyroid nodules. ? Pheochromocytoma. ? Thyroid carcinoma. ? Hyperparathyroidism . ? Certain kinds of thyroid diseases, such as Jaielne's thyroiditis. ? Lack of iodine in your diet. ? A history of head and neck radiation, such as from previous cancer treatment. What are the signs or symptoms? In many cases, there are no symptoms. If you have symptoms, they may include: ? A lump in your lower neck. ? Feeling a lump or tickle in your throat. ? Pain in your neck, jaw, or ear. ? Having trouble swallowing. Hot nodules may cause symptoms that include: ? Weight loss. ? Warm, flushed skin. ? Feeling hot. ? Feeling nervous. ? A racing heartbeat. Cold nodules may cause symptoms that include: ? Weight gain. ? Dry skin. ? Brittle hair. This may also occur with hair loss. ? Feeling cold. ? Fatigue. Thyroid cancer nodules may cause symptoms that include: ? Hard nodules that feel stuck to the thyroid gland. ? Hoarseness. ? Lumps in the glands near your thyroid (lymph nodes). How is this diagnosed? A thyroid nodule may be felt by your health care provider during a physical exam. This condition may also be diagnosed based on your symptoms. You may also have tests, including: ? An ultrasound. This may be done to confirm the diagnosis. ? A biopsy. This involves taking a sample from the nodule and looking at it under a microscope. ? Blood tests to make sure that your thyroid is working properly. ? A thyroid scan. This test uses a radioactive tracer injected into a vein to create an image of the thyroid gland on a computer screen. ? Imaging tests such as MRI or CT scan. These may be done if: ? Your nodule is large. ? Your nodule is blocking your airway. ? Cancer is suspected. How is this treated? Treatment depends on the cause and size of your nodule or nodules. If the nodule is benign, treatment may not be necessary. Your health care provider may monitor the nodule to see if it goes away without treatment. If the nodule continues to grow, is cancerous, or does not go away, treatment may be needed. Treatment may include: ? Having a cystic nodule drained with a needle. ? Ablation therapy. In this treatment, alcohol is injected into the area of the nodule to destroy the cells. Ablation with heat (thermal ablation) may also be used. ? Radioactive iodine. In this treatment, radioactive iodine is given as a pill or liquid that you drink. This substance causes the thyroid nodule to shrink. ? Surgery to remove the nodule. Part or all of your thyroid gland may need to be removed as well. ? Medicines. Follow these instructions at home: ? Pay attention to any changes in your nodule. ? Take uqcr-log-xlefhob and prescription medicines only as told by your health care provider. ? Keep all follow-up visits as told by your health care provider. This is important. Contact a health care provider if: ? Your voice changes. ? You have trouble swallowing. ? You have pain in your neck, ear, or jaw that is getting worse. ? Your nodule gets bigger. ? Your nodule starts to make it harder for you to breathe. ? Your muscles look like they are shrinking (muscle wasting). Get help right away if: ? You have chest pain. ? There is a loss of consciousness. ? You have a sudden fever. ? You feel confused. ? You are seeing or hearing things that other people do not see or hear (having hallucinations). ? You feel very weak. ? You have mood swings. ? You feel very restless. ? You feel suddenly nauseous or throw up. ? You suddenly have diarrhea. Summary ? A thyroid nodule is an isolated growth of thyroid cells that forms a lump in your thyroid gland. ? Thyroid no (more content not included)... Normal [facility] ED Patient Summaryon 022 ED Patient Summary [address] [address] Patient Discharge Instructions Person Information Name: ELEAZAR MORGAN Age: 41 Years Arrival Date: 06/04/2022 12:24:59 Discharge Diagnosis: Thyroid nodule Primary Care Physician: Reji Hughes DO Provider Information Primary Provider: Vel Rubio DO Advanced Perch Mender:Steve Jean Baptiste PA-C The exam and treatment you received in the Emergency Department were for an urgent problem and are not intended as complete care. It is important that you follow up with a doctor, nurse practitioner, or physician?s blood donor unit assistant for ongoing care. If your symptoms become worse or you do not improve as expected and you are unable to reach your usual health care provider, you should return to the Emergency Department. We are available 24 hours a day. ELEAZAR MORGAN has been given the following list of patient education materials, prescriptions and follow-up instructions: Follow-up Instructions: With: Address: When: Mel Mast [address] [place] [address] [address], [address] [place] [address] Business (1) In 3 days 06/07/2022 In the event that this physician does not participate in your insurance network, please consult with your insurance company to find a nearby participating provider. Patient Education Materials: Thyroid Nodule A MESSAGE TO ALL PATIENTS REGARDING OPIOIDS PRESCRIPTION OPIOIDS: WHAT YOU NEED TO KNOW Prescription opioids can be used to help relieve thqwvnjf-vm-cyyqjl pain and are often prescribed following a surgery or injury, or for certain health conditions. These medications can be an important part of the treatment but also come with serious risks. It is important to work with your healthcare provider to make sure you are getting the safest, most effective care. WHAT ARE THE RISKS AND SIDE EFFECTS OF OPIOID USE? Prescription opioids carry serious risks of addiction and overdose, especially with prolonged use. An opioid overdose, often marked by slowed breathing, can cause sudden . The use of prescription opioids can have a number of side effects as well, even when taken as directed: ? Tolerance?meaning you might need to take more of the medication for the same pain relief ? Physical dependence?meaning you have symptoms of withdrawal when a medication is stopped ? Increased sensitivity to pain ? Constipation ? Nausea, vomiting, and dry mouth ? Sleepiness and dizziness ? Confusion ? Depression ? Low levels of testosterone that can result in lower sex drive, energy, and strength ? Itching and sweating RISKS ARE GREATER WITH: ? History of drug misuse, substance use disorder, or overdose ? Mental health conditions (such as depression or anxiety) ? Sleep apnea ? Older age (65 years and older) ? Avoid alcohol while taking prescription opioids. Also, unless specifically advised by your health care provider, medications to avoid include: ? Benzodiazepines (such as Xanax or Valium) ? Muscle relaxants (such as Soma or Flexeril) ? Hypnotics (such as Ambien or Lunesta) ? Other prescription opioids KNOW YOUR OPTIONS Talk to your health care provider about ways to manage your pain that don?t involve prescription opioids. Some of these options may actually work better and have fewer risks and side effects. Options may include: ? Pain relievers such as acetaminophen, ibuprofen, and naproxen ? Some medication that are also used for depression or seizures ? Physical therapy and exercise ? Cognitive behavioral therapy, a psychological, goal-directed approach, in which patients learn how to modify physical, behavioral, and emotional triggers of pain and stress. IF YOU ARE PRESCRIBED OPIOIDS FOR PAIN: ? Never take opioids in greater amounts or more often than prescribed. ? Follow up with your primary health care provider. o Work together to create a plan on how to manage your pain. o Talk about ways to help manage your pain that don?t involve prescription opioids. o Talk about any and all concerns and side effects. ? Help prevent misuse and abuse o Never sell or share prescription opioids. o Never use another person?s prescription opioids. ? Store prescription opioids in a secure place and out of reach of others (this may include visitors, children, friends, and family). ? Safely dispose of unused prescription opioids: Find your community drug take-back program or your pharmacy mail-back program, or flush them down the toilet, following guidance from the Food and Drug Administration (www.fda.gov/Drugs/ ResourcesForYou). ? Visit www.cdc.gov/drugove rdose to learn about the risks of opioids abuse and overdose. ? If you believe you may be struggling with addiction, tell your health insurance healthcare consultant and ask for guidance or call [facility]?S National Helpline at 6-421-587-AMMQ. c (more content not included)... Normal [facility] US THYROIDon 05-22-2022 US THYROID EXAMINATION: US THYROID HISTORY: Thyroid nodule COMPARISON: No relevant comparison available. FINDINGS: RIGHT LOBE: Triangular shaped hypoechoic 14 x 10 x 9 mm area within posterior mid body; nodule versus shadowing from calcification. Lobe size: 5.1 x 1.9 x 2.2 cm LEFT LOBE: Normal size and echotexture. Lobe size: 3.5 x 1.4 x 1.2 cm ISTHMUS: Normal size and echotexture. Thickness: 3 mm IMPRESSION: 1. No abnormal findings within lower neck in area of patient's palpable lump. 2. Complex nodule versus shadowing from calcification within right lobe. Follow-up ultrasound evaluation of thyroid in 4-6 months is recommended. Electronically authenticated by: GUS MENDEZ Date: 2022-05-22 17:20 Normal [facility] AMYLASEon 12-30-2021 Amylase [Catalytic activity/Vol] 50 U/L Normal 31-110 [facility] Comment on above: Performed By: #### S SCRN #### [facility] [address] [place] [address] [address] Cosmo Portillo CARDIAC ROLAND 3-6on 2 CK [Catalytic activity/Vol] 50 U/L Critically low 55-170 [facility] Comment on above: Performed By: #### C MREP #### [facility] [address] [place] [address] [address] Cosmo Portillo CK.MB [Mass/Vol] 0.68 ng/mL Normal <=2.[address] [facility] Comment on above: Performed By: #### C MREP #### [facility] [address] [place] [address] [address] Cosmo Portillo HSTROP 5.5 pg/mL Normal 4.0-42.2 [facility] Comment on above: Result Comment: CUT- OFF POINTS HAVE BEEN ESTABLISHED BASED ON THE FOURTH UNIVERSAL DEFINITIONS OF MYOCARDIAL INFARCTION. THE UPPER REFERENCE LIMIT (URL) OF TROPONIN, DEFINED THE 99TH PERCENTILE OF cTnI DISTRIBUTION IN A REFERENCE POPULATION, HAS BEEN CONFIRMED THE DECISION THRESHOLD FOR AR DIAGNOSIS. Performed By: #### C MREP #### [facility] [address] [place] [address] [address] Cosmo Portillo CARDIAC ROLAND ADMITon 022 CK [Catalytic activity/Vol] 52 U/L Critically low 55-170 [facility] Comment on above: Performed By: #### C MADM, CMP, JUSTIN, LIPA #### [facility] [address] [place] [address] Dr. Cosmo Portillo CK.MB [Mass/Vol] 0.64 ng/mL Normal <=2.[address] [facility] Comment on above: Performed By: #### C MADM, CMP, JUSTIN, LIPA #### [facility] [address] [place] [address] Dr. Cosmo Portillo HSTROP 5.6 pg/mL Normal 4.0-42.2 [facility] Comment on above: Result Comment: CUT- OFF POINTS HAVE BEEN ESTABLISHED BASED ON THE FOURTH UNIVERSAL DEFINITIONS OF MYOCARDIAL INFARCTION. THE UPPER REFERENCE LIMIT (URL) OF TROPONIN, DEFINED THE 99TH PERCENTILE OF cTnI DISTRIBUTION IN A REFERENCE POPULATION, HAS BEEN CONFIRMED THE DECISION THRESHOLD FOR AR DIAGNOSIS. Performed By: #### C MADM, CMP, JUSTIN, LIPA #### [facility] [address] [place] [address] Dr. Cosmo Portillo MAKENZIE 29.0 ng/mL Normal <=121.0 [facility] Comment on above: Performed By: #### C MADM, CMP, JUSTIN, LIPA #### [facility] [address] [place] [address] Dr. Cosmo Portillo CBC AUTO DIFFon 12-30-2021 BASO # 0.1 103/ul Normal 0.0-0.1 [facility] Comment on above: Performed By: #### C BC #### [facility] [address] [place] [address] Dr. Cosmo Portillo Basophils/100 WBC (Bld) 1.0 % Normal 0.2-2.0 [facility] Comment on above: Performed By: #### C BC #### [facility] [address] [place] [address] Dr. Cosmo Portillo EO # 0.2 103/ul Normal 0.0-0.7 [facility] Comment on above: Performed By: #### C BC #### [facility] [address] [place] [address] Dr. Cosmo Portillo Eosinophils/100 WBC (Bld) 2.4 % Normal 0.9-7.0 [facility] Comment on above: Performed By: #### C BC #### [facility] [address] [place] [address] Dr. Cosmo Portillo Erythrocyte distribution width (RBC) [Ratio] 12.0 % Normal 11.0-15.0 [facility] Comment on above: Performed By: #### C BC #### [facility] [address] [place] [address] Dr. Cosmo Portillo Hematocrit (Bld) [Volume fraction] 43.7 % Normal 42.0-54.0 [facility] Comment on above: Performed By: #### C BC #### [facility] [address] [place] [address] Dr. Cosmo Portillo Hemoglobin (Bld) [Mass/Vol] 15.2 g/dL Normal 14.0-18.0 [facility] Comment on above: Performed By: #### C BC #### [facility] [address] [place] [address] Dr. Cosmo Portillo IG # 0.06 10e3/ul Critically high 0.00-0.03 [facility] Comment on above: Performed By: #### C BC #### [facility] [address] [place] [address] Dr. Cosmo Portillo IG % 0.7 % Critically high 0.0-0.5 [facility] Comment on above: Performed By: #### C BC #### [facility] [address] [place] [address] Dr. Cosmo Portillo LYMPH # 2.5 103/ul Normal 1.2-3.8 [facility] Comment on above: Performed By: #### C BC #### [facility] [address] [place] [address] Dr. Cosmo Portillo Lymphocytes/100 WBC (Bld) 29.1 % Normal 20.5-60.0 [facility] Comment on above: Performed By: #### C BC #### [facility] [address] [place] [address] Dr. Cosmo Portillo MANUAL DIFF REQ NO Normal [facility] Comment on above: Performed By: #### C BC #### [facility] [address] [place] [address] Dr. Cosmo Portillo MCH (RBC) [Entitic mass] 29.7 pg Normal 25.9-34.0 [facility] Comment on above: Performed By: #### C BC #### [facility] [address] [place] [address] Dr. Cosmo Portillo MCHC (RBC) [Mass/Vol] 34.8 g/dL Normal 29.9-35.2 [facility] Comment on above: Performed By: #### C BC #### [facility] [address] [place] [address] Dr. Cosmo Portillo MCV (RBC) [Entitic vol] 85.4 fL Normal 80.0-94.0 [facility] Comment on above: Performed By: #### C BC #### [facility] [address] [place] [address] Dr. Cosmo Portillo MONO # 0.7 103/ul Normal 0.3-0.8 [facility] Comment on above: Performed By: #### C BC #### [facility] [address] [place] [address] Dr. Cosmo Portillo Monocytes/100 WBC (Bld) 8.8 % Normal 1.7-12.0 [facility] Comment on above: Performed By: #### C BC #### [facility] [address] [place] [address] Dr. Cosmo Portillo NEUT # 4.9 103/ul Normal 1.4-6.5 [facility] Comment on above: Performed By: #### C BC #### [facility] [address] [place] [address] Dr. Cosmo Portillo Neutrophils/100 WBC (Bld) 58.0 % Normal 43.0-75.0 [facility] Comment on above: Performed By: #### C BC #### [facility] [address] [place] [address] Dr. Cosmo Portillo Platelet mean volume (Bld) [Entitic vol] 9.2 fL Critically low 9.5-13.5 [facility] Comment on above: Performed By: #### C BC #### [facility] [address] [place] [address] Dr. Cosmo Portillo PLT 236 103/ul Normal 150-450 [facility] Comment on above: Performed By: #### C BC #### [facility] [address] [place] [address] Dr. Cosmo Portillo RBC 5.12 106/ul Normal 4.70-6.10 [facility] Comment on above: Performed By: #### C BC #### [facility] [address] [place] [address] Dr. Cosmo Portillo WBC 8.4 103/ul Normal 4.0-11.0 [facility] Comment on above: Performed By: #### C BC #### [facility] [address] [place] [address] Dr. Cosmo Portillo LIPASEon 12-30-2021 Lipase [Catalytic activity/Vol] 141.0 U/L Normal 23.0-300.0 [facility] Comment on above: Performed By: #### C MADM, CMP, JUSTIN, LIPA #### [facility] [address] [place] [address] Dr. Cosmo Portillo PROF 14(COMP METB)on 022 Albumin [Mass/Vol] 3.5 g/dL Normal 3.5-5.0 [facility] Comment on above: Performed By: #### S SCRN #### [facility] [address] [place] [address] Dr. Cosmo Portillo Albumin/Globulin [Mass ratio] 0.9 {ratio} Normal [facility] Comment on above: Performed By: #### S SCRN #### [facility] [address] [place] [address] [address] Cosmo Portillo ALP [Catalytic activity/Vol] 126 U/L Normal 38-126 [facility] Comment on above: Performed By: #### S SCRN #### [facility] [address] [place] [address] Dr. Cosmo Portillo ALT [Catalytic activity/Vol] 22 U/L Normal 21-72 [facility] Comment on above: Performed By: #### S SCRN #### [facility] [address] [place] [address] [address] Cosmo Portillo Anion gap [Moles/Vol] 11.6 mmol/L Normal [facility] Comment on above: Performed By: #### S SCRN #### [facility] [address] [place] [address] Dr. Cosmo Portillo AST [Catalytic activity/Vol] 17 U/L Normal 17-59 [facility] Comment on above: Performed By: #### S SCRN #### [facility] [address] [place] [address] Dr. Cosmo Portillo Bilirubin [Mass/Vol] 0.5 mg/dL Normal 0.2-1.3 [facility] Comment on above: Performed By: #### S SCRN #### [facility] [address] [place] [address] Dr. Cosmo Portillo Calcium [Mass/Vol] 9.1 mg/dL Normal 8.4-10.2 [facility] Comment on above: Performed By: #### S SCRN #### [facility] [address] [place] [address] Dr. Cosmo Portillo Chloride [Moles/Vol] 100 mmol/L Normal 98-107 [facility] Comment on above: Performed By: #### S SCRN #### [facility] [address] [place] [address] Dr. Cosmo Portillo CO2 [Moles/Vol] 25.2 mmol/L Normal 22.0-30.0 [facility] Comment on above: Performed By: #### S SCRN #### [facility] [address] [place] [address] Dr. Cosmo Portillo Creatinine [Mass/Vol] 1.20 mg/dL Normal 0.66-1.25 [facility] Comment on above: Performed By: #### S SCRN #### [facility] [address] [place] [address] Dr. Cosmo Portillo EGFR-AF CYPRIOT >60 Normal >=60 [facility] Comment on above: Performed By: #### S SCRN #### [facility] [address] [place] [address] Dr. Cosmo Portillo EGFR-NON AF CYPRIOT >60 Normal >=60 [facility] Comment on above: Performed By: #### S SCRN #### [facility] [address] [place] [address] Dr. Cosmo Portillo Globulin (S) [Mass/Vol] 3.9 g/dL Normal [facility] Comment on above: Performed By: #### S SCRN #### [facility] [address] [place] [address] Dr. Cosmo Portillo Glucose [Mass/Vol] 116 mg/dL Critically high 74-106 [facility] Comment on above: Performed By: #### S SCRN #### [facility] [address] [place] [address] Dr. Cosmo Portillo Potassium [Moles/Vol] 3.8 mmol/L Normal 3.4-5.0 [facility] Comment on above: Performed By: #### S SCRN #### [facility] [address] [place] [address] Dr. Cosmo Portillo Protein [Mass/Vol] 7.4 g/dL Normal 6.1-8.2 [facility] Comment on above: Performed By: #### S SCRN #### [facility] [address] [place] [address] Dr. Cosmo Portillo Sodium [Moles/Vol] 133 mmol/L Critically low 137-145 [facility] Comment on above: Performed By: #### S SCRN #### [facility] [address] [place] [address] Dr. Cosmo Portillo Urea nitrogen [Mass/Vol] 19.0 mg/dL Normal 9.0-20.0 [facility] Comment on above: Performed By: #### S SCRN #### [facility] [address] [place] [address] [address] Cosmo Portillo Urea nitrogen/Creatinine [Mass ratio] 15.8 mg/mg Normal [facility] Comment on above: Performed By: #### S SCRN #### [facility] [address] [address] Dr. Cosmo Portillo XR ABD FLAT UP_PA Rosmery 12-30 XR ABD FLAT UP_PA CH EXAM: XR ABD FLAT UP_PA CH HISTORY: Epigastric pain. COMPARISON: CT abdomen pelvis performed 12/12/2019 and chest x-ray performed 09/10/2017 as well as abdominal x-ray performed 10/07/2017. TECHNIQUE: Frontal view of the chest and upright and supine views of the abdomen are obtained. FINDINGS: The cardiopulmonary silhouette is nonenlarged. Pulmonary vascular markings are within normal limits. There is no focal airspace consolidation. The costophrenic angles are clear. No pneumothorax. There is no free air under the diaphragm. The bowel gas pattern is nonobstructive. No dilated loops of small bowel evident and no air-fluid leveling is present. There is no evidence of visceromegaly or suspicious calcifications. Phleboliths are present within the pelvis. The osseous structures appear grossly intact. IMPRESSION: 1. No acute cardiopulmonary process identified. 2. Nonobstructive bowel gas pattern. Electronically authenticated by: LIVE LOWERY Date: 2021-12-30 02:08 [facility]Con 10-09-2018 ABSOLUTE BAS 0.1 X10 Normal [facility] Comment on above: Result Comment: Test ing performed at [place] [address] Performed By: #### L IPA2, ACBC, CHEM7F, ITROT, LIVR ####[place] [address] ABSOLUTE EOS 0.10 X10 Normal [facility] Comment on above: Performed By: #### L IPA2, ACBC, CHEM7F, ITROT, LIVR ####[facility] [place] [address] ABSOLUTE NEUTROPHIL COUNT 4.7 x10 Normal 1.0-7.0 [facility] Comment on above: Performed By: #### L IPA2, ACBC, CHEM7F, ITROT, LIVR ####[place] [address] Basophils/100 WBC Auto (Bld) 1.0 % Normal 0.0-2.0 [facility] Comment on above: Performed By: #### L IPA2, ACBC, CHEM7F, ITROT, LIVR ####[place] [address] DTYPE AUTO DIFF Normal [facility] Comment on above: Performed By: #### L IPA2, ACBC, CHEM7F, ITROT, LIVR ####[place] [address] Eosinophils/100 WBC Auto (Bld) 1.4 % Normal 0.0-11.0 [facility] Comment on above: Performed By: #### L IPA2, ACBC, CHEM7F, ITROT, LIVR ####[place] [address] Lymphocytes Auto #/vol (Bld) 1.80 X10 Normal [facility] Comment on above: Performed By: #### L IPA2, ACBC, CHEM7F, ITROT, LIVR ####[place] [address] Lymphocytes/100 WBC Auto (Bld) 23.6 % Normal 20.0-55.0 [facility] Comment on above: Performed By: #### L IPA2, ACBC, CHEM7F, ITROT, LIVR ####Testing performed at [place] [id number] Monocytes Auto #/vol (Bld) 0.7 X10 Normal [facility] Comment on above: Performed By: #### L IPA2, ACBC, CHEM7F, ITROT, LIVR ####[place] [address] Monocytes/100 WBC Auto (Bld) 9.9 % Normal 0.0-10.0 [facility] Comment on above: Performed By: #### L IPA2, ACBC, CHEM7F, ITROT, LIVR ####[place] [address] Neutrophils/100 WBC Auto (Bld) 64.1 % Normal 37.0-75.0 [facility] Comment on above: Performed By: #### L IPA2, ACBC, CHEM7F, ITROT, LIVR ####[place] [address] Erythrocyte distribution width Auto Ratio (RBC) 13.3 % Normal 11.5-14.5 [facility] Comment on above: Performed By: #### L IPA2, ACBC, CHEM7F, ITROT, LIVR ####[place] [address] Hematocrit Auto Volume Fraction (Bld) 45.8 % Normal 42.0-52.0 [facility] Comment on above: Performed By: #### L IPA2, ACBC, CHEM7F, ITROT, LIVR ####[place] [address] Hemoglobin mass conc (Bld) 16.1 g/dL Normal 14.0-18.0 [facility] Comment on above: Performed By: #### L IPA2, ACBC, CHEM7F, ITROT, LIVR ####[place] [address] MCH Auto Entitic mass (RBC) 29.9 pg Normal 26.0-35.0 [facility] Comment on above: Performed By: #### L IPA2, ACBC, CHEM7F, ITROT, LIVR ####[place] [address] MCHC Auto mass conc (RBC) 35.2 g/dL Normal 27.0-37.0 [facility] Comment on above: Performed By: #### L IPA2, ACBC, CHEM7F, ITROT, LIVR ####[place] [address] MCV Auto Entitic volume (RBC) 84.9 fL Normal 80.0-100.0 [facility] Comment on above: Performed By: #### L IPA2, ACBC, CHEM7F, ITROT, LIVR ####[place] [address] Platelet mean volume Auto Entitic volume (Bld) 7.6 fL Normal 7.4-11.0 [facility] Comment on above: Performed By: #### L IPA2, ACBC, CHEM7F, ITROT, LIVR ####[place] [address] Platelets Auto #/vol (Bld) 237 /cmm Normal 130.0-400.0 [facility] Comment on above: Performed By: #### L IPA2, ACBC, CHEM7F, ITROT, LIVR ####[place] [address] RBC Auto #/vol (Bld) 5.39 /cmm Normal 4.0-6.1 [facility] Comment on above: Performed By: #### L IPA2, ACBC, CHEM7F, ITROT, LIVR ####[place] [address] WBC Auto #/vol (Bld) 7.4 /cmm Normal 3.6-11.0 [facility] Comment on above: Performed By: #### L IPA2, ACBC, CHEM7F, ITROT, LIVR ####[place] [address] CHEM 7 FASTINGon 10-09-2018 Chloride molar conc 104 mmol/L Normal 98-107 [facility] Comment on above: Result Comment: Plea se note: Triglyceride levels of 600mg/dL or higher may positively bias chloride results by approximately 2.1 mmol Performed By: #### L IPA2, ACBC, CHEM7F, ITROT, LIVR ####[place] [address] CO2 molar conc 24 mmol/L Normal 22-30 [facility] Comment on above: Performed By: #### L IPA2, ACBC, CHEM7F, ITROT, LIVR ####[place] [address] Creatinine mass conc 1.1 mg/dL Normal 0.7-1.2 [facility] Comment on above: Performed By: #### L IPA2, ACBC, CHEM7F, ITROT, LIVR ####[place] [address] EST. GFR, >60 Normal [facility] Comment on above: Performed By: #### L IPA2, ACBC, CHEM7F, ITROT, LIVR ####[place] [address] EST. GFR,Non >60 Normal [facility] Comment on above: Performed By: #### L IPA2, ACBC, CHEM7F, ITROT, LIVR ####[place] [address] GFR/1.73 sq M predicted among non-blacks MDRD vol rate/area (S/P/Bld) Average GFR for 30-39 years old = 109. Normal [facility] Comment on above: Result Comment: Proration Clerk carolyne Kidney disease, GFR = <60.Kidney failure, GFR = <15.The GFR estimate is not adjusted for extreme body surface area or acute process, nor has it been validated for women or ethnic groups other than and .Testing performed at [place] [address] Performed By: #### L IPA2, ACBC, CHEM7F, ITROT, LIVR ####[place] [address] Glucose mass conc 105 mg/dL High 70-100 [facility] Comment on above: Result Comment: NORM AL <100 mg/dLPREDIABETES 101-126 mg/dLDIABETES 126 mg/dL or higher Performed By: #### L IPA2, ACBC, CHEM7F, ITROT, LIVR ####[place] [address] Potassium molar conc 4.0 mmol/L Normal 3.5-5.1 [facility] Comment on above: Performed By: #### L IPA2, ACBC, CHEM7F, ITROT, LIVR ####[place] [address] Sodium molar conc 138 mmol/L Normal 137-145 [facility] Comment on above: Performed By: #### L IPA2, ACBC, CHEM7F, ITROT, LIVR ####[place] [address] Urea nitrogen mass conc (Bld) 13 mg/dL Normal 7-20 [facility] Comment on above: Performed By: #### L IPA2, ACBC, CHEM7F, ITROT, LIVR ####[place] [address] ISTAT TROPONIN Ion 8 Troponin I.cardiac mass conc ng/mL Normal 0-0.08 [facility] Comment on above: Result Comment: Test ing performed at [place] [address] Performed By: #### L IPA2, ACBC, CHEM7F, ITROT, LIVR ####[place] [address] LIPASE,SERUMon 10-09-2018 LIPASE,SERUM 137 U/L Normal 23-300 [facility] Comment on above: Result Comment: Test ing performed at [place] [address] Performed By: #### L IPA2, ACBC, CHEM7F, ITROT, LIVR ####[place] [address] LIVER PANELon 10-09-2018 Albumin mass conc 4.3 g/dL Normal 2.9-5.3 [facility] Comment on above: Performed By: #### L IPA2, ACBC, CHEM7F, ITROT, LIVR ####[place] [address] ALP enzyme act/vol 102 U/L Normal 38-126 [facility] Comment on above: Performed By: #### L IPA2, ACBC, CHEM7F, ITROT, LIVR ####[place] [address] ALT enzyme act/vol 20 U/L Low 21-72 [facility] Comment on above: Result Comment: Test ing performed at [place] [address] Performed By: #### L IPA2, ACBC, CHEM7F, ITROT, LIVR ####[place] [address] AST enzyme act/vol 20 U/L Normal 17-59 [facility] Comment on above: Performed By: #### L IPA2, ACBC, CHEM7F, ITROT, LIVR ####[place] [address] Bilirubin mass conc 0.6 mg/dL Normal 0.2-1.3 [facility] Comment on above: Performed By: #### L IPA2, ACBC, CHEM7F, ITROT, LIVR ####[place] [address] Bilirubin.direct mass conc 0.2 mg/dL Normal 0-0.4 [facility] Comment on above: Performed By: #### L IPA2, ACBC, CHEM7F, ITROT, LIVR ####[place] [address] Protein mass conc 7.5 g/dL Normal 6.3-8.2 [facility] Comment on above: Performed By: #### L IPA2, ACBC, CHEM7F, ITROT, LIVR ####Testing performed at [address] [place] [address] Vital Signs Date Time Vital Sign Value Performing Clinician Facility 11-21-2024 10:24-0500 Diastolic blood pressure 86 mm[Hg] Gertrudis Pham HOLISTIC NUTRITIONIST Work Phone: [facility] 11-21-2024 10:24-0500 Heart rate 50 /min Gertrudis Pham HOLISTIC NUTRITIONIST Work Phone: [facility] 11-21-2024 10:24-0500 Respiratory rate 18 /min Gertrudis Pham HOLISTIC NUTRITIONIST Work Phone: [facility] 11-21-2024 10:24-0500 SaO2% (BldA) [Mass fraction] 97 % Gertrudis Pham HOLISTIC NUTRITIONIST Work Phone: [facility] 11-21-2024 10:24-0500 Systolic blood pressure 156 mm[Hg] Gertrudis Pham HOLISTIC NUTRITIONIST Work Phone: [facility] 11-21-2024 08:12-0500 Body height 175.26 cm Gertrudis Pham HOLISTIC NUTRITIONIST Work Phone: [facility] 11-21-2024 08:12-0500 Body weight 97.52 kg Gertrudis Pham HOLISTIC NUTRITIONIST Work Phone: [facility] 09-25-2024 13:02-0500 Body height 175.26 cm Gertrudis Pham HOLISTIC NUTRITIONIST Work Phone: [facility] 09-25-2024 13:02-0500 Body mass index (BMI) [Ratio] 32.1 kg/m2 Gertrudis Pham HOLISTIC NUTRITIONIST Work Phone: [facility] 09-25-2024 13:02-0500 Body temperature 97.6 [degF] Gertrudis Pham HOLISTIC NUTRITIONIST Work Phone: [facility] 09-25-2024 13:02-0500 Body weight 98.54 kg Gertrudis Pham APRN Work Phone: [facility] 09-25-2024 13:02-0500 Diastolic blood pressure 82 mm[Hg] Gertrudis Ankit HOLISTIC NUTRITIONIST Work Phone: [facility] 09-25-2024 13:02-0500 Heart rate 72 /min Gertrudis Ankit HOLISTIC NUTRITIONIST Work Phone: [facility] 09-25-2024 13:02-0500 SaO2% (BldA) [Mass fraction] 97 % Gertrudis Ankit HOLISTIC NUTRITIONIST Work Phone: [facility] 09-25-2024 13:02-0500 Systolic blood pressure 128 mm[Hg] Gertrudis Ankit HOLISTIC NUTRITIONIST Work Phone: [facility] 03-27-2024 13:12-0400 Body height 175.26 cm [facility] 03-27-2024 13:12-0400 Body mass index (BMI) [Ratio] 32.1 kg/m2 [facility] 03-27-2024 13:12-0400 Body weight 98.88 kg [facility] 03-27-2024 13:12-0400 Diastolic blood pressure 80 mm[Hg] [facility] 03-27-2024 13:12-0400 Heart rate 61 /min [facility] 03-27-2024 13:12-0400 SaO2% (BldA) [Mass fraction] 98 % [facility] 03-27-2024 13:12-0400 Systolic blood pressure 112 mm[Hg] [facility] 09-28-2023 13:00-0500 Body height 175.26 cm Gertrudis Pham Other [employer] Other 09-28-2023 13:00-0500 Body mass index (BMI) [Ratio] 32.78 kg/m2 Gertrudis Pham Other [employer] Other 09-28-2023 13:00-0500 Body weight 100.7 kg Gertrudis Schreibersaadiar Other [employer] Other 09-28-2023 13:00-0500 Diastolic blood pressure 82 mm[Hg] Gertrudis Abdoulrbacher Other [employer] Other 09-28-2023 13:00-0500 SaO2% (BldA) [Mass fraction] 98 % Gertrudis Valeriaacher Other [employer] Other 09-28-2023 13:00-0500 Systolic blood pressure 126 mm[Hg] Gertrudis Valeriaacher Other [employer] Other 08-31-2023 13:00-0500 Body height 175.26 cm Gertrudis Prakashr Other [employer] Other 08-31-2023 13:00-0500 Body mass index (BMI) [Ratio] 32.63 kg/m2 Gertrudis Prakashr Other [employer] Other 08-31-2023 13:00-0500 Body weight 100.25 kg Gertrudis Prakashr Other [employer] Other 08-31-2023 13:00-0500 Diastolic blood pressure 84 mm[Hg] Gertrudis Valeriaacher Other [employer] Other 08-31-2023 13:00-0500 SaO2% (BldA) [Mass fraction] 96 % Gertrudisjake Shawacher Other [employer] Other 08-31-2023 13:00-0500 Systolic blood pressure 144 mm[Hg] Gertrudis Randallyahaira Other [employer] Other 05-26-2023 13:00-0400 Body height 175.26 cm Gertrudis Randallyahaira Other [employer] Other 05-26-2023 13:00-0400 Body mass index (BMI) [Ratio] 33.67 kg/m2 Gertrudis Randallyahaira Other [employer] Other 05-26-2023 13:00-0400 Body weight 103.42 kg Gertrudis Pham Other [employer] Other 05-26-2023 13:00-0400 Diastolic blood pressure 70 mm[Hg] Gertrudis Pham Other [employer] Other 05-26-2023 13:00-0400 Systolic blood pressure 120 mm[Hg] Gertrudis Pham Other [employer] Other 01-29-2023 10:05-0400 Body height 175.26 cm Mahnaz Anna Other [employer] Other 01-29-2023 10:05-0400 Body mass index (BMI) [Ratio] 34.05 kg/m2 Mahnaz Anna Other [employer] Other 01-29-2023 10:05-0400 Body temperature 96.4 [degF] Mahnaz Anna Other [employer] Other 01-29-2023 10:05-0400 Body weight 104.6 kg Mahnaz Castillo Other [employer] Other 01-29-2023 10:05-0400 Diastolic blood pressure 92 mm[Hg] Mahnaz Castillo Other [employer] Other 01-29-2023 10:05-0400 Respiratory rate 18 /min Mahnaz Castillo Other [employer] Other 01-29-2023 10:05-0400 SaO2% (BldA) [Mass fraction] 99 % Mahnaz Castillo Other [employer] Other 01-29-2023 10:05-0400 Systolic blood pressure 130 mm[Hg] Mahnaz Castillo Other [facility] [employer] [employer] Other 06-04-2022 12:34-0400 Body temperature 98.42 [degF] Vel Rubio [facility] 06-04-2022 12:34-0400 Diastolic blood pressure 96 mm[Hg] Vel Rubio [facility] 06-04-2022 12:34-0400 Heart rate 68 /min Vel Rubio [facility] 06-04-2022 12:34-0400 Respiratory rate 18 /min Vel Rubio [facility] 06-04-2022 12:34-0400 SaO2% (BldA) [Mass fraction] 97 % Vel Rubio [facility] 06-04-2022 12:34-0400 Systolic blood pressure 150 mm[Hg] Vel Rubio [facility] Encounters Encounter Date Encounter Type Care Provider Facility Start: 11-21-2024 Non-patient / Non-visit Odalys Pham APRN Work Phone: [facility] Work Phone: Start: 11-21-2024 End: 11-21-2024 Admission to same day surgery center Gertrudis Ankit HOLISTIC NUTRITIONIST Work Phone: [facility] Work Phone: Start: 11-21-2024 End: 11-21-2024 ambulatory Gertrudis Ankit HOLISTIC NUTRITIONIST Work Phone: [facility] Work Phone: Start: 09-25-2024 End: 09-25-2024 Patient encounter procedure Gertrudis Pham HOLISTIC NUTRITIONIST Work Phone: [facility] Work Phone: Start: 09-19-2024 Non-patient / Non-visit Odalys salty Pham HOLISTIC NUTRITIONIST Work Phone: [facility] Work Phone: Start: 05-31-2024 End: 05-31-2024 ambulatory MEL MAST Not Available Start: 03-27-2024 Patient encounter status [facility] Start: 03-27-2024 End: 03-27-2024 ambulatory [facility] Work Phone: Start: 03-27-2024 End: 03-27-2024 Encounter for general adult medical examination without abnormal findings [facility] Start: 03-27-2024 End: 03-27-2024 Patient encounter procedure [facility] Work Phone: Start: 02-17-2024 Non-patient / Non-visit [facility] Work Phone: Start: 09-30-2023 End: 09-30-2023 ambulatory Gertrudis Pham Other [facility] [employer] Other Start: 09-30-2023 Telephone encounter Gertrudis Helm [facility] Start: 09-28-2023 End: 09-28-2023 ambulatory Gertrudis Schreiberluis Other [employer] Other Start: 09-28-2023 Office outpatient vi sit 15 minutes Gertrudis Schreiberluis [facility] Start: 08-31-2023 End: 08-31-2023 ambulatory Gertrudis Shawjayce Other [employer] Other Start: 08-31-2023 Office outpatient vi sit 15 minutes Gertrudis Schreiberluis [facility] Start: 05-26-2023 End: 05-26-2023 ambulatory Gertrudis Schreiberluis Other [employer] Other Start: 05-26-2023 Encounter for genera l adult medical examination without abnormal findings Gertrudis Pham [facility] Start: 05-26-2023 Periodic preventive med est patient 40-64yrs Gertrudis Pham [facility] Start: 01-29-2023 End: 01-29-2023 ambulatory Mahnaz Castillo Other [employer] Other Start: 01-29-2023 Office outpatient vi sit 15 minutes Mahnaz Castillo [facility] Start: 11-21-2022 End: 11-21-[address] JAILENE BORRERO Facility:[facility] Start: 09-24-2022 End: 09-24-[address] CATARINA PERAZA Facility:[facility] Start: 08-31-2022 End: 08-31-[address] REJI HUGHES Facility:[facility] Start: 06-22-2022 End: 06-23-[address] MEL MAST Facility:[facility] Start: 06-04-2022 End: 06-04-2022 Emergency department patient visit Vel Rubio [facility] Start: 05-22-2022 End: 05-23-[address] REJI HUGHES Facility:[facility] Start: 12-30-2021 End: 12-30-[address] REJI HUGHES Facility:[facility] Start: 10-11-2018 End: 10-11-2018 Patient encounter procedure Historical Provider [facility] [employer] [facility] Start: 10-09-2018 End: 10-09-2018 Emergency department patient visit VEL CHING [facility] Start: 05-21-2015 End: 05-21-2015 Emergency department patient visit DILEEP SALAS Facility:[facility] Procedures Date Procedure Procedure Detail Performing Clinician Start: 11-21-2024 Screening colonoscopy Kobe Pham APRN Work Phone: Start: 10-09-2018 End: 10-09-2018 CARDIAC RHYTHM Historical Provider Plan of Treatment Date Care Activity Detail Author Start: 11-21-2024 [facility] Start: 09-25-2024 Patient referral [facility] Work Phone: Start: 06-25-2018 Influenza vaccination INFLUENZA VACCINE (#1) [facility] Work Phone: Start: 1998 Third diphtheria, tetanus and acellular pertussis (DTaP) vaccination TDAP (ADULT) [facility] Work Phone: Start: 1997 Tetanus vaccination TETANUS [facility] Work Phone: Start: 1992 HIV screening HIV SCREENING DISCUSSION [facility] Work Phone: Cardiovascular stres s testing [facility] Patient Education Hemorrhoids Co jose angel polyps Know your Meds [facility] Work Phone: Patient referral [facility] Work Phone: Payers Date Payer Category Payer Self-pay 2015 [employer] ( and others) [id number] 3.19 1979 Unknown [id number] 1979 Unknown [id number] 1979 Unknown [id number] 1979 Unknown [id number] 1979 Unknown [id number] 1979 Unknown [id number] 1979 Unknown [id number] 1959 [employer] ( and others) [id number] Unknown [id number] Unknown [id number] Social History Date Type Detail Facility Start: 10-09-2018 End: 11-21-2024 Tobacco smoking status NHIS Former smoker [facility] Sex Assigned At Not on file [facility] Work Phone: Tobacco smoking status No Smokin g Status Entered [facility] Sex Assigned At Male [facility] Start: 03-27-2024 Tobacco smoking stat [facility] Never smoked tobacco (finding) [facility] Start: 1980 Sex Assigned At Male F [facility] Start: 11-21-2024 Sex Patient sex un known (finding) [facility] Goals Date Patient Goal Desired Activity /State Functional Status Date Assessment Result Facility 06-04-2022 Functional Status N/A [facility] Clinical Notes 06-04-2022 to 11-21-2024 Note Date & Type Note Facility 11-21-2024 Procedure note [facility] 11-21-2024 History and physi lainey note [facility] 09-25-2024 Evaluation note Diagnosis Onset Date Resolution Anxiety acute September 25, 2024 1:01pm Atypical chest pain acute Decem juliana 2023 1:01pm Eczema acute September 25, 2024 1:01pm Family history of heart disease acute September 25, 2024 1:01pm Hypertriglyceridemia acute Dece mber 2023 1:01pm Primary hypertension acute Dece mb2023 1:01pm PTSD (post-traumatic stress disorder) acute September 25, 2024 1:01pm Screening for colon cancer acute September 25, 2024 1:01pm [facility] Work Phone: [phone]) 660-762812-05-2023 Evaluation note* Encounter Date Diagnosis Assessment Notes Treatment Notes Treatment Clinical Notes Sep, Primary hypertension (ICD-10 - I10) To goal. Prior to your visit today we reviewed your chart and outlined the tetsing and treatment needed for your care. We discussed the possible complications of high blood pressure, including increased risk for heart disease, stroke, and kidney disease. Our goal is to keep your blood pressure below 130/85 (an preferably < 120/80) and maintain a healthy weight with a BMI less than 26. We are working together to acheive these goals with the following plan; healthier diet, increased activity and exercise, understanding your medicaitons, and your complaince. You have been given relevant education handouts. Sep, Hypertriglyceridemia (ICD-10 - E78.1) Currently has been working on diet and exercise but has not been able to lose weight. Sep, BMI 32.0-32.9,adult (ICD-10 - Z68.32) Patient is advised to work on healthy diet choices and appropriate servings, weight control, regular exercise as directed, reduced fat intake, and salt avoidance. Patient voiced understanding of this and agrees to this plan. The patient will begin Wegovy to help with both glycemic control and satiety. The risks, benefits and side effects were discussed; including but not limited to the risk of nausea, diarrhea and headache. The risk of hypoglycemia was particularly in conjunction with other diabetes medications and dose adjustments were discussed. The patient was also counseled on the risk of pancreatitis. Patient was counseled on the risk of medullary thyroid cancer seen in rat models. The patient denies any previous history of pancreatitis, pancreatic cancer, chronic kidney disease or personal or family history of medullary thyroid cancer or MEN syndrome. The patient was counseled on the potential worsening of diabetic retinopathy and watch closely for any visual changes and monitor patient closely with diabetic utilization review specialist. -Begin 0.25 Wegovy every week. The patient will stop the Wegovy any significant nausea, vomiting, abdominal pain or other side effects. Intial weight is 222 [employer] Other 11-07-2023 Evaluation note* Encounter Date Diagnosis Assessment Notes Treatment Notes Treatment Clinical Notes Aug, Primary hypertension (ICD-10 - I10) Above goal. Discussed with pt and will add Losartan to regimen, pt agreeable and would like to proceed. Follow-up in 4 weeks. Prior to your visit today we reviewed your chart and outlined the tetsing and treatment needed for your care. We discussed the possible complications of high blood pressure, including increased risk for heart disease, stroke, and kidney disease. Our goal is to keep your blood pressure below 130/85 (an preferably < 120/80) and maintain a healthy weight with a BMI less than 26. We are working together to acheive these goals with the following plan; healthier diet, increased activity and exercise, understanding your medicaitons, and your complaince. You have been given relevant education handouts. [employer] Other 08-02-2023 Evaluation note* Encounter Date Diagnosis Assessment Notes Treatment Notes Treatment Clinical Notes May, Anxiety (ICD-10 - F41.9) Remains stable on current therapeutic dose. Patient is encouraged to stay active and remain involved. Try to keep themselves busy. Take medication as directed and we will continue to monitor. [facility]. May, Wellness examination (ICD-10 - Z00.00) Personalized health advice was given to the beneficiary including a written plan for screenings discussed and provided. Advanced care planning reviewed and/or information given as requested. Additional counseling was provided here today in regards to general topics regarding health education were discussed in detail. All preventative issues were discussed including remaining a nonsmoker, colorectal screening, the importance of proper sleep for brain health maintenance, maintaining a heart-healthy balanced diet, recognizing and addressing signs of anxiety and depression, maintaining positive relationships with family and friends. May, PTSD (post-traumatic stress disorder) (ICD-10 - F43.10) May, Primary hypertension (ICD-10 - I10) To goal. Prior to your visit today we reviewed your chart and outlined the tetsing and treatment needed for your care. We discussed the possible complications of high blood pressure, including increased risk for heart disease, stroke, and kidney disease. Our goal is to keep your blood pressure below 130/85 (an preferably < 120/80) and maintain a healthy weight with a BMI less than 26. We are working together to acheive these goals with the following plan; healthier diet, increased activity and exercise, understanding your medicaitons, and your complaince. You have been given relevant education handouts. May, Other chronic pain (ICD-10 - G89.29) XR ordered, RICE therapy. otc ibuprofen/tylenol prn for pain. ice/warm compresses as directed. immediate eval if warning symptoms of neurovascular compromise. Will call with update and further recommendations once resutls recieved. otherwise follow up with if new/worsening symptoms. pt verbalizes understanding and agrees c tx plan. 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 Order placed. [employer] Other 04-07-2023 Evaluation note* Encounter Date Diagnosis Assessment Notes Treatment Notes Treatment Clinical Notes Jan, Sore throat (ICD-10 - J02.9) Jan, Right otitis media with effusion (ICD-10 - H65.91) Middle ear infection: adult home care material was printed Drink plenty fluids, get plenty of rest. Take the prednisone as prescribed until gone. Use the fluticasone nasal spray as prescribed and your symptoms improved. Take Tylenol or Motrin as needed for aches pains or fevers. Follow-up with your family physician if no improvement in 2 to 3 days [employer] Other 08-11-2022 Hospital Discharge instructions Patient Education 06/04/2022 13:00:31 Thyroid Nodule Thyroid Nodule A thyroid nodule is an isolated growth of thyroid cells that forms a lump in your thyroid gland. The thyroid gland is a butterfly-shaped gland. It is found in the lower front of your neck. This glandsends chemical messengers (hormones) through your blood to all parts of your body. These hormones are important in regulating your body temperature and helping your body to use energy. Thyroid nodules are common. Most are not cancerous (benign). You may have one nodule or several nodules. Different types of thyroid nodules include nodules that: Grow and fill with fluid (thyroid cysts). Produce too much thyroid hormone (hot nodules or hyperthyroid). Produce no thyroid hormone (cold nodules or hypothyroid). Form from cancer cells (thyroid cancers). What are the causes? In most cases, the cause of this condition is not known. What increases the risk? The following factors may make you more likely to develop this condition. Age. Thyroid nodules become more common in people who are older than 45 years of age. Gender. ?Benign thyroid nodules are more common in women. ?Cancerous (malignant) thyroid nodules are more common in men. A family history that includes: ?Thyroid nodules. ?Pheochromocytoma. ?Thyroid carcinoma. ?Hyperparathyroidism. Certain kinds of thyroid diseases, such as Jailene's thyroiditis. Lack of iodine in your diet. A history of head and neck radiation, such as from previous cancer treatment. What are the signs or symptoms? In many cases, there are no symptoms. If you have symptoms, they may include: A lump in your lower neck. Feeling a lump or tickle in your throat. Pain in your neck, jaw, or ear. Having trouble swallowing. Hot nodules may cause symptoms that include: Weight loss. Warm, flushed skin. Feeling hot. Feeling nervous. A racing heartbeat. Cold nodules may cause symptoms that include: Weight gain. Dry skin. Brittle hair. This may also occur with hair loss. Feeling cold. Fatigue. Thyroid cancer nodules may cause symptoms that include: Hard nodules that feel stuck to the thyroid gland. Hoarseness. Lumps in the glands near your thyroid (lymph nodes). How is this diagnosed? A thyroid nodule may be felt by your health care provider during a physical exam. This condition may also be diagnosed based on your symptoms. You may also have tests, including: An ultrasound. This may be done to confirm the diagnosis. A biopsy. This involves taking a sample from the nodule and looking at it under a microscope. Blood tests to make sure that your thyroid is working properly. A thyroid scan. This test uses a radioactive tracer injected into a vein to create an image of the thyroid gland on a computer screen. Imaging tests such as MRI or CT scan. These may be done if: ?Your nodule is large. ?Your nodule is blocking your airway. ?Cancer is suspected. How is this treated? Treatment depends on the cause and size of your nodule or nodules. If the nodule is benign, treatment may not be necessary. Your health care provider may monitor the nodule to see if it goes away without treatment. If the nodule continues to grow, is cancerous, or does not go away, treatment may beneeded. Treatment may include: Having a cystic nodule drained with a needle. Ablation therapy. In this treatment, alcohol is injected into the area of the nodule to destroy thecells. Ablation with heat (thermal ablation) may also be used. Radioactive iodine. In this treatment, radioactive iodine is given as a pill or liquid that you drink. This substance causes the thyroid nodule to shrink. Surgery to remove the nodule. Part or all of your thyroid gland may need to be removed as well. Medicines. Follow these instructions at home: Pay attention to any changes in your nodule. Take [id number]-xgmoajw and prescription medicines only as told by your health care provider. Keep all follow-up visits as told by your health care provider. This is important. Contact a health care provider if: Your voice changes. You have trouble swallowing. You have pain in your neck, ear, or jaw that is getting worse. Your nodule gets bigger. Your nodule starts to make it harder for you to breathe. Your muscles look like they are shrinking (muscle wasting). Get help right away if: You have chest pain. There is a loss of consciousness. You have a sudden fever. You feel confused. You are seeing or hearing things that other people do not see or hear (having hallucinations). You feel very weak. You have mood swings. You feel very restless. You feel suddenly nauseous or throw up. You suddenly have diarrhea. Summary A thyroid nodule is an isolated growth of thyroid cells that forms a lump in your thyroid gland. Thyroid nodules are common. Most are not cancerous (benign). You may have one nodule or several nodules. Treatment depends on the cause and size of your nodule or nodules. If the nodule is benign, treatment may not be necessary. Your health care provider may monitor the nodule to see if it goes away without treatment. If the nodule continues to grow, is cancerous, or does not go away, treatment may be needed. This information is not intended to replace advice given to you by your health care provider. Make sure you discuss any questions you have with your health care provider. Document Released: 09/03/2005 Document Revised: 05/26/2019 Document Reviewed: 05/29/2019 [employer] Patient Education 2020 [employer]. Follow Up Care 06/04/2022 12:26:56 With:Mel Mast Address: [address] [place] [address], [address] [place] [address]- Business (1) When:06/07/2022 12:40:08 [facility]08-11-2022 Evaluation + Plan noteExtracted from: Title:ED Note Author:Steve Jean Baptiste PA-C te:06/04/22 Thyroid nodule (E04.1: Nonto xic single thyroid nodule) [facility] [employer] Other Evaluation note* Diagnosis Onset Date Resolution Status Anxiety acute Hypertriglyceridemia acute Other chronic pain acute Primary hypertension acute PTSD (post-traumatic stress disorder) acute Wellness examination acute [facility] Work Phone: History and physical note Author Noelle Colunga [facility] Note Date/Time November 21, 2024 9 :34am [facility] [address] [place], [place] [id number] Gastroenterology H&P Signed Patient: Eleazar Morgan MR#: [id number] 1622 : 1980 Acct:[id number] Age/Sex: 44 / M Adm Date: 5 Loc: Room: Type: [facility] Attending Dr: Noelle Colunga MD Copies to: MD Gertrudis Pierre, HOLISTIC NUTRITIONIST, BRAID FOLDER~ Date of Service: 11/21/2024 HISTORY & PHYSICAL: Patient's history with special attention to the cardiovascular, pulmonary systems and the current problem was reviewed with the patient immediately prior to the procedure. Present medications and doses reviewed in the EMR. Allergies and pertinent laboratory tests were also reviewedat this time in the EMR. The physical examination, as below, was then performed. Indication, assessment and HPI: 44-year-old man here for screening colonoscopy Family history of GI malignancy? No PHYSICAL EXAMINATION General appearance: NAD Skin: No jaundice Head: NC/AT Eyes: Anicteric Neck: Supple Lungs: Normal respiratory effort, no use of accessory muscles Abdomen: nondistended Neuro: Ox3. REVIEW OF SYSTEMS Constitutional: Denies malaise, fevers Cardiovascular: Denies chest pain, palpitations Respiratory: Denies shortness of breath, wheezing Gastrointestinal: As per HPI Genitourinary: Denies dysuria, polyuria Musculoskeletal: Denies joint swelling, joint stiffness Neurological: Denies confusion, numbness, tingling Endocrine: Denies fatigue Written informed consent obtained from the patient. Risks (including but not limited to perforation, infection, bloating, bleeding, need for emergent surgeryand loss of life), benefits and alternatives explained and questions answered. The patient verbalized understanding. Based on history patient is an appropriate candidate for the procedure. Noelle Colunga M.D. Documented By: Noelle Colunga MD 11/21/2425 Signed By: <Electronically signed by Noelle Colunga MD> 11/21/24 1359 [facility] Work Phone: History general Narrative - Reported* Type Description Date Medical History PTSD Medical History anxiety Surgical History peritonsillar abscess Surgical History tonsillectomy and adenoidectomy Surgical History lipoma Hospitalization History see above [facility] [employer] Other Hospital course Narrative No data available for this section [facility] Discharge instructions Additional Instructions DISCHARGE INSTRUCTIONS FOR COLONOSCOPY WHAT TO EXPECT: - You may feel full, gassy or cramping after your procedure. In some cases, this may be from a few hours to a day. Walking may help relieve the discomfort. - If you have polyp(s) removed you may note some minor bloody discharge after your first bowel movements. - You should begin to recover from anesthesia within 1 hour of the procedure, however may feel groggy for the next 24 hours. DO's AND DON'Ts: - Call your doctor right away if you have a hard abdomen, severe pain, are passing lots of bright red blood or clots. - Call your doctor if you develop any rashes, hives or difficulty breathing. - Let your doctor know if you have not had a bowel movement by 3 days after your procedure. - If you take 81 mg aspirin for your heart it is safe to resume this medication. - If you take other blood thinner medications your doctor will instruct you when these can safely be resumed. - Do NOT drive for 24 hours. - Do NOT operate machinery such as power tools, [employer] mowers, snow blowers, sewing machines, etc. for 24 hours. - Avoid alcoholic beverages and drugs for allergies, nerves, or sleep. - Do NOT stay alone. Do NOT leave your child unattended. - Do NOT make important personal or business decisions or sign any legal documents. - Eat solid foods and drink liquids in smaller amounts than usual until normal appetite returns. If you should experience an upset stomach, liquids high in sugar content (soda, David-Aid, non-acid juices) are recommended. - You can resume normal activities tomorrow. FOLLOW UP & RECOMMENDATIONS: -Notify the doctor if you have any problems. -Repeat colonoscopy in 3 years. -Follow up with PCP. -Office number [phone]. [facility] Work Phone: Progress note No data available for this section [facility] Summary Purpose Family History No Family History Records Found Relationship Condition Age at Onset Recorded Date/T santino father Unknown Relationship Condition Age at Onset Recorded Date/T santino father Unknown grandparent Diabetes mellitus Unknown Heart disease Unknown Advance Directives No Advanced Directives Records Found Advance Directive Response Recorded Date/ Time Advance Directives No March 27 1:11pm Advance Directive Response Recorded Date/ Time Advance Directives No March 27 12:11pm Chief Complaint and Reason for Visit Chief Complaint Amb Documentation 6 month follow up Reason for Visit Anxiety Hypertriglyceridemia Other chronic pain Primary hypertension PTSD (post-traumatic stress disorder) Wellness examination Chief Complaint Admit Date CC Adult Risk Stratification September 192023 12:27pm 6 month f/u September 25, 2024 1 :01pm Screening November 21, 2024 7 :50am Screening November 21, 2024 9 :25am Reason for Visit Admit Date Anxiety September 25, 2024 1 :01pm Atypical chest pain September 25, 2024 1 :01pm Eczema September 25, 2024 1 :01pm Family history of heart disease September 25, 2024 1:01pm Hypertriglyceridemia September 25, 2024 1:01pm Primary hypertension September 25, 2024 1:01pm PTSD (post-traumatic stress disorder) De shwetaber 2023 1:01pm Screening for colon cancer September 25, 2024 1:01pm Additional Source Comments (unrecognized sect ion and content) No Status Records FoundNo Status Records FoundNo Status Records FoundNo Status Records FoundNo Status Records FoundNo Status Records Found INFORMATION SOURCE (unrecogn ized section and content) DATE CREATED AUTHOR 04/20/2018 [facility] DATE CREATED AUTHOR AUTHOR'S ORGANIZ ATION 10/13/2018 [facility] DATE CREATED AUTHOR AUTHOR'S ORGANIZ ATION 06/18/2022 [facility] DATE CREATED AUTHOR AUTHOR'S ORGANIZ ATION 11/23/2022 [facility] DATE CREATED AUTHOR AUTHOR'S ORGANIZ ATION 06/02/2024 [facility] EPIC DATE CREATED AUTHOR AUTHOR'S ORGANIZ ATION 11/22/2024 [facility] Care Team (unrecognized sect ion and content) Team Status: Active Member Role Status Dates Gertrudis Pham APRN MOTION STUDY ENGINEER-C Primary Care Provider Active Team Status: Active Member Role Status Dates Reji Hughes DO Primary Care Provider Active Start: February 17, 2024 PAULETTE Antonio Attending Provider Active Start : February 17, 2024 Team Status: Inactive Member Role Status Dates Gertrudis Pham APRN MOTION STUDY ENGINEER-C Primary Care Provider, Attending Provider Active Start: March 27, 2024 End: March 27, 2024 Team Status: Active Member Role Status Dates Gertrudis Pham APRN MOTION STUDY ENGINEER-C Primary Care Provider, Attending Provider Active Start: September 19, 2024 Team Status: Inactive Member Role Status Dates Gertrudis Pham APRN MOTION STUDY ENGINEER-C Primary Care Provider, Attending Provider Active Start: September 25, 2024 End: September 25, 2024 Team Status: Inactive Member Role Status Dates Gertrudis Pham APRN MOTION STUDY ENGINEER-C Primary Care Provider Active Start: October End: November 21, 2024 Noelle Colunga MD Attending Provider Active Start: November 21, 2024 End: November 21, 2024 Team Status: Active Member Role Status Dates Gertrudis Pham APRN MOTION STUDY ENGINEER-C Primary Care Provider Active Start: October Noelle Colunga MD Attending Provider, Other Provider Active Start: November 21, 2024 REASON FOR VISIT (unrecogniz ed section and content) sore throatEstablish/Right S houlderBP Medication4 week follow upMedications Goals (unrecognized section and content) Goals may be documented in a n alternate section FOR RECORDS PERTAINING TO PATIENTS WHO ARE OR HAVE BEEN ENROLLED IN A CHEMICAL DEPENDENCY/SUBSTANCEABUSE PROGRAM, SOME INFORMATION MAY BE OMITTED. This clinical summary was aggregated from multiple sources. Caution should be exercised in using it in the provision of clinical care. This summary normalizes information from multiple sources, and as a consequence, information in this document may materially change the coding, format and clinical context of patient data. In addition, data may be omitted in some cases. CLINICAL DECISIONS SHOULD BE BASED ON THE PRIMARY CLINICAL RECORDS. [employer] provides no warranty or guarantee of the accuracy or completeness of information in this document.
--- NOTE | 2024-11-23 04:33 | PC.NURSE ---
patient complains of nausea and vomiting diarrhea onset last night around 11: 00 pm
--- NOTE | 2024-11-23 04:39 | ED_ITS ---
HPI - Nausea/Vomiting/Diarrhea General Chief complaint: Nausea/Vomiting/Diarrhea Stated complaint: FLU LIKE SYMPTOMS/ GENERAL WEAKNESS Time Seen by Provider: 11/23/24 04:30 Source: patient Mode of arrival: Wheelchair Limitations: no limitations History of Present Illness HPI Narrative: 44 male presents for nausea vomiting and diarrhea which started at 11 PM, 5 and half hours ago. He states to children in his house were throwing up tonight as well. No hematemesis or hematochezia and he has not had a fever. Related Data Home Medications ?Medication ?Instructions ?Recorded ?Confirmed atenolol 50 mg tablet 50 mg PO Q24H 06/19/23 06/19/23 citalopram 10 mg/5 mL oral solution 10 mg PO DAILY 06/19/23 06/19/23 Previous Rx's ?Medication ?Instructions ?Recorded ondansetron 4 mg disintegrating 4 mg PO Q6H PRN nausea and 11/23/24 tablet vomiting #20 tabs Allergies Allergy/AdvReac Type Severity Reaction Status Date / Time hydrocodone (From [place]) Allergy Unknown Unknown Verified 11/23/24 04:23 Review of Systems ROS Narrative A ten point review of systems is negative except as noted above. PFSH PFSH Social History Smoking status: Former smoker Exam Narrative Exam Narrative: Nurses note and vital signs reviewed and patient is not hypoxic. General: The patient appears well and in no apparent distress. Patient is resting comfortably on cart. Skin: Warm, dry, pallor noted. There is no rash noted. Head: Normocephalic, atraumatic Eye: Normal conjunctiva, no drainage Ears, Nose, Mouth, and Throat: oral mucosa is moist. Nares patent. Cardiovascular: Regular Rate and Rhythm Respiratory: Patient is in no distress, no accessory muscle use, lungs are clear to auscultation, no wheezing, rales or rhonchi Back: non-tender GI: Soft and nontender Musculoskeletal: The patient has no evidence of calf tenderness, no pitting edema, symmetrical pulses noted bilaterally Neurological: A&O, normal speech Psychiatric: Cooperative Constitutional Vital Signs, click to edit/add: Last Vital Signs Temp 98.9 F 11/23/24 04:18 Pulse 83 11/23/24 04:18 Resp 22 H 11/23/24 04:18 BP 123/90 11/23/24 04:18 Pulse Ox 99 11/23/24 04:18 O2 Del Method Room Air 11/23/24 04:18 Course Vital Signs Vital signs: Vital Signs Temperature 98.9 F 11/23/24 04:18 Pulse Rate 83 11/23/24 04:18 Respiratory Rate 22 H 11/23/24 04:18 Blood Pressure 123/90 11/23/24 04:18 Pulse Oximetry 99 11/23/24 04:18 Oxygen Delivery Method Room Air 11/23/24 04:18 Temperature 98.9 F 11/23/24 04:18 Pulse Rate 83 11/23/24 04:18 Respiratory Rate 22 H 11/23/24 04:18 Blood Pressure 123/90 11/23/24 04:18 Pulse Oximetry 99 11/23/24 04:18 Oxygen Delivery Method Room Air 11/23/24 04:18 MDM - Nausea/Vomiting/Diarrhea MDM Narrative Medical decision making narrative: Blood work is nonspecific and he feels improved after being given IV fluids and IV Zofran. Prescription given for Zofran ODT. Treatment diagnosis and follow- up were discussed with the patient. Differential Diagnosis Differential diagnosis: Likely food poisoning, gastroenteritis and dehydration Lab Data Attestation: I reviewed the patient's lab results. Labs: Lab Results 11/23/24 11/23/24 Range/Units 04:23 04:45 WBC 12.3 H (4.0-11.0) 10^3/uL RBC 5.76 (4.70-6.10) 10^6/uL Hgb 17.4 (14.0-18.0) g/dL Hct 49.1 (42.0-54.0) % MCV 85.2 (80.0-94.0) fL MCH 30.2 (25.9-34.0) pg MCHC 35.4 H (29.9-35.2) g/dL RDW 11.9 (11.0-15.0) % Plt Count 213 (150-450) 10^3/uL MPV 9.8 (9.5-13.5) fL Seg Neuts % (Manual) 88.0 H (43.0-75.0) Lymphocytes % (Manual) 5.0 L (20.5-60.0) % Monocytes % (Manual) 7.0 (1.7-12.0) % Eosinophils % (Manual) 0.0 L (0.9-7.0) % Basophils % (Manual) 0.0 L (0.2-2.0) % Neutrophils # (Manual) 10.82 H (1.4-6.5) 10^3/uL Band Neutrophils # 0.6 H (0.0-0.3) 10^3/uL Lymphocytes # (Manual) 0.61 L (1.20-3.80) 10^3/uL Monocytes # (Manual) 0.86 H (0.30-0.80) 10^3/uL Eosinophils # (Manual) 0.00 (0.00-0.70) 10^3/uL Basophils # (Manual) 0.00 (0.00-0.10) 10^3/uL Sodium 138 (136-145) mmol/L Potassium 4.2 (3.5-5.1) mmol/L Chloride 102 (98-107) mmol/L Carbon Dioxide 21.5 (21.0-32.0) mmol/L Anion Gap 18.7 BUN 19.0 H (7.0-18.0) mg/dL Creatinine 1.38 H (0.70-1.30) mg/dL Est GFR ( Amer) >60 (>=60 mL/min/1.73m^2) Est GFR (Non-Af Amer) 56 L (>=60 mL/min/1.73m^2) BUN/Creatinine Ratio 13.8 Glucose 154 H (74-106) mg/dL Calcium 9.2 (8.5-10.1) mg/dL Influenza Type A Ag Negative Influenza Type B Ag Negative SARS-CoV-2 Ag (CV2AG) Negative (NEGATIVE) Discharge Plan Discharge Chief Complaint: Nausea/Vomiting/Diarrhea Clinical Impression: Nausea, vomiting, and diarrhea Patient Disposition: Home, Self-Care Time of Disposition Decision: 06:53 Condition: Good Mode of Transportation: Private Vehicle Prescriptions / Home Meds: New ondansetron 4 mg tablet,disintegrating 4 mg PO Q6H PRN (Reason: nausea and vomiting) Qty: 20 0RF No Action citalopram 10 mg/5 mL solution 10 mg PO DAILY atenolol 50 mg tablet 50 mg PO Q24H Print Language: Gabonese Instructions: Acute Nausea and Vomiting (ED), Acute Diarrhea (ED) Referrals: CHON GUERRERO [Primary Care Provider] - 1 week
[2024-11-23 04:55] LABS: Hematocrit 49.1 % (42.0-54.0); Hemoglobin 17.4 g/dL (14.0-18.0); Mean Corpuscular HGB Conc 35.4 g/dL (29.9-35.2); Mean Corpuscular Hemoglobin 30.2 pg (25.9-34.0); Mean Corpuscular Volume 85.2 fL (80.0-94.0); Mean Platelet Volume 9.8 fL (9.5-13.5); Platelet Count 213 10^3/uL (150-450); Red Blood Count 5.76 10^6/uL (4.70-6.10); Red Cell Distribution Width 11.9 % (11.0-15.0); White Blood Count 12.3 10^3/uL (4.0-11.0)
[2024-11-23 05:00] LABS: Anion Gap 18.7; BUN Creatinine Ratio 13.8; Calcium 9.2 mg/dL (8.5-10.1); Carbon Dioxide 21.5 mmol/L (21.0-32.0); Chloride 102 mmol/L (98-107); Estimated GFR (African America >60 (>=60 mL/min/1.73m^2); Estimated GFR (Non-African Ame 56 (>=60 mL/min/1.73m^2); Glucose 154 mg/dL (74-106); Potassium 4.2 mmol/L (3.5-5.1); Sodium 138 mmol/L (136-145)
[2024-11-23] MEDS: 0.9 % SODIUM CHLORIDE 1,000 ML 1000 ML IV ×2 (05:00→06:03)
[2024-11-23] MEDS: ONDANSETRON PF 4 MG/2 ML VIAL IV ×2 (05:00→05:40)
[2024-11-23 05:08] LABS: Influenza Virus A Antigen Negative; Influenza Virus B Antigen Negative; Internal Control Within Normal Limits; SARS-CoV-2 Ag NEGATIVE (NEGATIVE)
[2024-11-23 05:29] LABS: Band Neutrophils Absolute 0.6 10^3/uL (0.0-0.3); Lymphocytes Absolute Manual 0.61 10^3/uL (1.20-3.80); Monocytes Absolute Manual 0.86 10^3/uL (0.30-0.80); Segmented Neut Absolute Manual 10.82 10^3/uL (1.4-6.5)
== END 2024-11-23 07:09 | disposition home or self-care (01) ==
PROVIDERS: Emergency Provider Emergency Medicine; PCP Nurse Practitioner Family
DX: R11.2 Nausea with vomiting, unspecified (principal); R19.7 Diarrhea, unspecified; Z87.891 Personal history of nicotine dependence
CPT/HCPCS: 36415; 80048; 85007; 85027; 87804; 87811; 96361; 96374; 96376; 99284; J2405

== ENCOUNTER 2025-03-16 15:25 | Emergency (ER) | payer OTHER, SELFPAY ==
--- OUTSIDE RECORDS SUMMARY | 2024-07-04 11:00 | XMS_ITS | Encounter Summary ---
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 This section includes the names of all active insurance providers for the patient. Insurance Provider Type of Coverage Plan Name Start of Policy Coverage End of Policy Coverage Group Number Member ID Insurance Provider's Telephone Number Policy Fiore's Name Patient's Relationship to Policy Fiore [facility] 2024 [facility] Oct 25, 2024 [employer] [id number] [phone] PRICILLA ARAMBULA PATIENT Selected Encounter This section includes the information on record at [place] for the Encounter. Date/Time Encounter Type Encounter Description Reason Provider Source Jul 04, 2024 03:00 PM OFFICE O/P EST MOD 30 MIN [facility] - [facility] ICD-10-CM F43.12 Post-traumatic stress disorder, chronic CORE,OLIVIA SEQUEIRA Encounter Template Text not used by [place] Assessments - Encounter Diagnoses This section includes the primary and secondary diagnoses documented for the Encounter. Date/Time Primary/Secondary Diagnosis Diagnosis Name Provider Source Jul 05, 2024 05:41 AM PRIMARY Post-traumatic stress disorder, chronic [facility] Jul 05, 2024 05:41 AM SECONDARY Generalized anxiety disorder OLIVIA WRIGHT [facility] Jul 05, 2024 05:41 AM SECONDARY Panic disorder [episodic paroxysmal anxiety] OLIVIA WRIGHT [facility] Plan of Treatment: Future Appointments (+ 6 months) and Future Tests (+/- 45 days) The Plan of Treatment section includes future care activities for the patient from all [place] treatmentfacilities. This section includes future appointments and future orders which are active, pending or scheduled. Future Appointments This section includes appointments that were scheduled to occur 6 months from the date of the Encounter, up to a maximum of 20 appointments. The data comes from all [place] treatment facilities. Appointment Date/Time Appointment Type Appointme nt Facility Name Nov 30, 2024 01:00 PM AMBULATORY - NONE [facility] Dec 04, 2024 01:00 PM AMBULATORY - PSYCHIATRY [facility] Active, Pending, and Scheduled Orders This section includes a listing of several types of active, pending, and scheduled orders, including clinic medications orders, diagnostic test orders, procedure orders and consult orders; where the start date of the order is 45 days before the date of the Encounter or 45 days after the date of theEncounter. The data comes from all [place] treatment facilities. Test Date/Time Test Type Test Details Facility Name Jul 26, 2024 12:00 AM Laboratory - Chemi stry Order OCCULT BLOOD FIT X1 SCREEN ([facility] ONLY) STOOL FECES SP [facility] Social History: Smoking Status (Most current) and Tobacco Use (All prior to encounter date) This section includes the most current, and the historical, smoking and tobacco- related health factors from the [place] facility where the Encounter took place. Current Smoking Status This section includes the most current smoking, or tobacco-related health factor, from the [place] facility where the Encounter took place. Date/Time Current Smoking Status Comment Facil ity Jul 07, 2023 01:00 PM VA-TOBACCO FORMER USER [facility] Tobacco Use History This section includes a history of the smoking, or tobacco-related health factors, that were collected on or before the date of the Encounter. The data comes from the [place] facility where the Encounter took place. Date/Time Smoking Status/Tobacco Use Comment F acility Jul 07, 2023 01:00 PM VA-TOBACCO QUIT 15 YRS OR MORE [facility] Jun 24, 2022 01:30 PM VA-TOBACCO FORMER USER [facility] Jun 24, 2022 01:30 PM VA-TOBACCO QUIT 5 TO < 15 YRS [facility] May 10, 2019 02:27 PM VA-TOBACCO NEVER USED [facility] Apr 04, 2018 11:26 AM VA-TOBACCO FORMER USER [facility] Apr 04, 2018 11:26 AM VA-TOBACCO QUIT 5 TO < 15 YRS [facility] Advance Directives: All historical and current Section Date Range: From patient's date of to the date document was created. This section includes ALL of a patient's completed or amended VA Advance and Rescinded Directives. The entries below indicate that a directive exists for the patient, but an actual copy is not included with this document. The data comes from all [place] facilities. Date Advance Directives Provider Source Feb 18, 2016 ADVANCE DIRECTIVE DISCUSSION ABDULLAHI VILLAGOMEZ GARIBAY [facility] Encounter Notes: All associated encounter notes This section contains the clinical notes associated to the Encounter. Date/Time Encounter Note(s) Provider Source Jul 04, 2024 03:19 PM PSYCHIATRY NOTE: LOCAL TITLE: [facility] PSYCHIATRY NOTE (T) STANDARD TITLE: PSYCHIATRY NOTE DATE OF NOTE: JUL 04, 2024@15:19 ENTRY DATE: JUL 04, 2024@15:20:17 AUTHOR: OLIVIA WRIGHT COSIGNER: URGENCY: STATUS: COMPLETED PSYCHIATRIC PROGRESS NOTE Time in: 1515 pm Time out: 1600 pm Total time: 30 minutes Therapy time: 16 minutes CC: medication follow up HPI: is a 43 year old male 80% SC 70% for PTSD. denies depression. He reports his appetite has been good. Good motivation. His anxiety is daily but not panic level like it used to be . He reports he use to have multiple panic attacks a day. 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 He reports he feels his medication is working and doesn't want to try anything else. His sleep is fine, I have nightmares but go back to sleep. He denies suicidal and homicidal thoughts or plans. SUBSTANCE USE HX: Nicotine : denies Alcohol : denies Cannabis : denies ALLERGIES: ALLERGIES/ADVERSE REACTIONS Type: DRUG Date/Time Reactant Severity Reaction 12/22/2022 15:42 LISINOPRIL COUGH 03/07/2007 13:45 OXYCODONE UNKNOWN 03/07/2007 13:44 VICODIN UNKNOWN Type: FOOD Date/Time Reactant Severity Reaction 12/22/2022 15:41 SHELLFISH DYSPNEA Active Outpatient Medications (including Supplies): Active Outpatient Medications Status ===== 1) ATENOLOL 50MG TAB TAKE ONE TABLET BY MOUTH EVERY DAY ACTIVE FOR HIGH BLOOD PRESSURE 2) CITALOPRAM HYDROBROMIDE 10MG/5ML SOLN TAKE 15ML BY ACTIVE MOUTH EVERY DAY Active Non-VA Medications Status ===== 1) Non-VA DIPHENHYDRAMINE HCL 25MG CAP 25MG MOUTH AT ACTIVE BEDTIME 3 Total Medications LABS: [facility] - Chem & Hematology (max 6 months) ---- No data available CY - Cytopathology (max 6 months) No data available EM - Electron Microscopy (max 6 months) ------ No data available FABRICE - Microbiology (max 6 months) No data available SP - Surgical Pathology (max 6 months) ----- No data available REVIEW OF SYSTEMS: Muscle strength and Tone: Gait and Station: PHYSICAL EXAM: Vitals: Measurement DT TEMP PULSE RESP BP HEIGHT F(C) IN(CM) 07/04/2024 14:39 97.6(36.4) 51 16 114/69 69(175.26) Measurement DT WEIGHT PAIN LB(KG)[BMI] 07/04/2024 14:39 MENTAL STATUS EXAMINATION: Level of Consciousness: Alert and Oriented to 4 Behavior: Cooperative - Eye Contact: Good Grooming & Hygiene: Good - Dress: Kempt Psychomotor Activity: WNL Speech: Normal rate, volume and prosody Cognition: Thought Process: Thought Content: Delusions: Hallucinations: Suicidal Ideation: - Intent to : Homicidal Ideation: Mood: Affect: Insight: - Judgment: SELF-MEDICATION ASSESSMENT: Current medication regime reviewed with Client. Client/caregiver was able to verbalize names of medications, dosage, indications, common side effects and proper administration. Client/caregiver knowledgeable regarding obtaining refills, security and proper storage. Client/caregiver assessed to be appropriate to self-medicate. Patient was educated on condition, diagnosis, treatment plan, options for treatment, side effects, tardive dyskinesia, metabolic effects, addictive potential, risk/benefit ratio and use off-label medications. RISK ASSESSMENT Does patient have firearms at home? Yes Patient assessed for other lethal means? Yes Suicidal risk assessment completed: Yes Prior suicide attempts: The risk for harming self is considered: Acute - Low Chronic - Low Risk factors: Access to lethal means History of mental health hospitalization(s) Medical conditions and health-related problems Psychological conditions Protective factors: Supportive and caring family and friends Ovid skills (such as problem-solving, conflict resolution, anger management, impulse control, etc.) Access to appropriate medical and mental health care Access to immediate and ongoing support and care Violence assessment completed: Yes Prior history of violence: No The risk of violence towards others is considered: Low PSYCHOTHERAPY NOTE Therapy provided: supportive Issues discussed: medication, mood PTSD symptoms Goals of therapy: active listening, support Treatment plan: continue plan of care MEDICATION MANAGEMENT TREATMENT PLAN DIAGNOSIS: PTSD GOALS OF THERAPY: lower symptoms METHOD OF THERAPY/INTERVENTIONS: Will continue to assess adherence and efficacy of medications Will continue to monitor symptoms and reassess at the next apt PROGRESS TOWARDS GOAL: Patient is compliant with medication - patient reports symptoms continue to be adequately controlled TREATMENT PLAN UPDATED: Date: Jun Treatment Plan has been discussed with patient/caregiver. IMPRESSION/FORMULATION: [place] verbalizes his medication continues to manage symptoms and does not want to change to anything else. He has been eating healthier and losing weight. He continues with low anxiety daily but can deal with it . He denies side effects . He denies suicidal and homicidal thoughts or plans. DIAGNOSIS/PLAN: PTSD, panic disorder in remission , personality disorder 1. Continue Citalopram hydrobromide 10 mg/5mL solution 2. Vistaril 25 mg BID prn anxiety Does patient have a diagnosis or history of opioid use disorder or stimulant use disorder? No RTC:3 months Patient was provided with the [facility]/ Crisis Line - Dial [phone], press #1 . Instructed to call 911 or to go to the nearest ER if suicidal ideation occurs. Call clinic with any questions, concerns or in crisis. Follow up with PCP for medical issues. Medication education and counseling for new medications added today was provided to the patient/caregiver based on the individual's needs. This included why the medication was prescribed, how it should be taken and for how long, what to expect from it and what happens if not taken as prescribed. The patient/caregiver was also informed about risks and potential adverse effects of this medication and agreed to medication trial. I certify that the patient/caregiver understood my education and instructions. MEDICATION RECONCILIATION MEDICATION RECONCILIATION REPORT reviewed and discussed with patient. VA prescription medications: Patient verifies that they are in receipt of a complete and accurate list of medications. Prescription medications from another source: Patient verifies that they are in receipt of a complete and accurate list of medications. Over the counter medications, vitamins, herbals, and nutritional supplements: Patient verifies that they are in receipt of a complete and accurate list of medications. Reviewed current medications with the patient and gave them an updated list. /hernan/ OLIVIA WRIGHT CLINICAL NURSE SPECIALIST Signed: 07/05/2024 05:41 OLIVIA WRIGHT CBKAY Jul 04, 2024 03:16 PM PRIMARY CARE NURSI MYNOR NOTE: LOCAL TITLE: OUTPATIENT NURSING INTAKE NOTE (T) STANDARD TITLE: PRIMARY CARE NURSING NOTE DATE OF NOTE: JUL 04, 2024@15:16 ENTRY DATE: JUL 04, 2024@15:16:46 AUTHOR: GUS PARK COSIGNER: URGENCY: STATUS: COMPLETED Hemoglobin A1C Results: Collection DT Specimen Test Name Result Units Ref Range 04/04/2018 11:32 BLOOD HEMOGLOBIN A1C 5.2 % 3.0 - 6.1 01/31/2016 09:00 BLOOD HEMOGLOBIN A1C 4.9 % 3.0 - 6.1 04/11/2014 13:46 BLOOD HEMOGLOBIN A1C 5.1 % 3.0 - 6.1 Review Allergies Allergies reviewed and updated per protocol. ALLERGIES/ADVERSE REACTIONS Type: DRUG Date/Time Reactant Severity Reaction 12/22/2022 15:42 LISINOPRIL COUGH 03/07/2007 13:45 OXYCODONE UNKNOWN 03/07/2007 13:44 VICODIN UNKNOWN Type: FOOD Date/Time Reactant Severity Reaction 12/22/2022 15:41 SHELLFISH DYSPNEA MEDICATION LIST REVIEW REPORT Patient states no change in documented OTC/Herbals at this visit. 1. Has the patient been feeling sad or distressed? No 2. Has the patient been having personal or family problems? No 3. Has the patient been experiencing worry and/or stress? No 4. Has the patient been having problems with drugs and/or alcohol? No 5. Crisis Line pocket card was provided to patient. No/patient declined [facility] not documented this visit. /hernan/ GUS PARK LICENSED PRACTICAL NURSE Signed: 07/04/2024 15:17 GUS PARK OC
--- OUTSIDE RECORDS SUMMARY | 2024-12-04 09:00 | XMS_ITS | Encounter Summary ---
Author Name [facility] [facility] [place] Address [address] [place] [address] Care Team Providers Care Tunnel Kiln Firer Name Role Phone JAIME BROOKS Primary Care [...] Fiore's Name Patient's Relationship to Policy Fiore [facility] [address] [facility] Oct 25, 2024 [facility] [phone] PRICILLA ARAMBULA PATIENT Selected Encounter This section includes the information on record at [place] for the Encounter. Date/Time Encounter Type Encounter Description Reason Provider Source Dec 04, 2024 01:00 PM OFFICE O/P EST MOD 30 MIN [facility] - [facility] ICD-10-CM F43.12 Post-traumatic stress disorder, chronic CORE,OLIVIA L IHE Encounter Template Text not used by [place] Assessments - Encounter Diagnoses This section includes the primary and secondary diagnoses documented for the Encounter. Date/Time Primary/Secondary Diagnosis Diagnosis Name Provider Source Dec 04, 2024 01:17 PM PRIMARY Post-traumatic stress disorder, chronic CORE,OLIVIA L [facility] Dec 04, 2024 01:17 PM SECONDARY Generalized anxiety disorder KYLE,OLIVIA CARRENO [facility] Dec 04, 2024 01:17 PM SECONDARY Other specified phobia OLIVIA WRIGHT [facility] Dec 04, 2024 01:17 PM SECONDARY Panic disorder [episodic paroxysmal anxiety] KYLE,OLIVIA Streeter [facility] Plan of Treatment: Future Appointments (+ 6 months) and Future Tests (+/- 45 days) The Plan of Treatment section includes future care activities for the patient from [facility] [place] [facility] This section includes future appointments and future orders which are active, pending or scheduled. Future Appointments This section includes appointments that were scheduled to occur 6 months from the date of the Encounter, up to a maximum of 20 appointments. The data comes from all [place] treatment facilities. Appointment Date/Time Appointment Type Appointme nt Facility Name May 28, 2025 01:00 PM AMBULATORY - PSYCHIATRY [facility] Active, Pending, and Scheduled Orders This section includes a listing of several types of active, pending, and scheduled orders, including clinic medications orders, diagnostic test orders, procedure orders and consult orders; where the start date of the order is 45 days before the date of the Encounter or 45 days after the date of theEncounter. The data comes from all [facility]. Test Date/Time Test Type Test Details Facility Name Nov 29, 2024 12:00 AM Laboratory - Chemi stry Order COMPREHENSIVE METABOLIC PANEL LT GREEN PLASMA SP [facility] Nov 29, 2024 12:00 AM Laboratory - Chemi stry Order OCCULT BLOOD FIT X1 SCREEN VIAL (FOBT) FECES [facility] Nov 29, 2024 12:00 AM Laboratory - Chemi stry Order [facility] Nov 29, 2024 12:00 AM Laboratory - Chemi stry Order PROSTATE SPECIFIC ANTIGEN GOLD TOP SERUM EV [facility] Nov 29, 2024 12:00 AM Laboratory - Chemi stry Order MAGNESIUM LT GREEN PLASMA [facility] Lab Results: +/- 30 days of the encounter This section includes the Chemistry and Hematology Lab Results on record with [place] for the patient. Radiology Reports and Pathology Reports are provided separately, in subsequent sections. Lab Results This section contains the Chemistry/Hematology Results that were resulted 30 days before or 30 daysafter the date of the Encounter. Date/Time Source Result Type Result - Unit Interpretation Reference Range Specimen Type Comment Nov 30, 2024 01:06 PM [facility] PROSTATE SPECIFIC ANTIGEN SERUM Specimen Type : SERUM Comment: TPSA Testing males >= 70 y/o is not recommended if there is a TPSA history of previously normal PSA testing. TPSA Assay performed on Act-On Software using CMIA methodology. TPSA Patient results determined by assays using different TPSA manufacturers or methods may not be comparable. Ordering Provider: KIT MASSEY Report Released Date/Time: Dec 15, 2023 01:51 PM Reporting Lab: [address] [address] Performing Lab: [address] [address] PROSTATE SPECIFIC ANTIGEN 0.912 ng/mL <2 .500 Nov 30, 2024 01:06 PM [facility] MAGNESIUM PLASMA Specimen Type: PLASMA Comment: DLDLREF RANGE: NEAR OR ABOVE OPTIMAL: 100-129 mg/dL BORDERLINE DLDLHIGH: 130-159 mg/dL HIGH: 160-189 mg/dL VERY HIGH: >=190 GLUCOSE The ADA recommends a fasting glucose of 99 mg/dL as the GLUCOSE upper limit of normal. TP Per package insert reference range for recumbent is 6.0 to 7.8 TP g/dL and for >60 y/o is lower by 0.2 g/dL. Plasma samples will TP generally have higher values (about 0.2 to 0.4 g/dL higher) due TP to presence of fibrinogen. TRIG REF RANGE: BORDERLINE HIGH: 150-199 mg/dL HIGH: 200-499 mg/dL TRIG VERY HIGH: >=500 mg/dL CHOL REF RANGE: BORDERLINE HIGH: 200-239 mg/dL HIGH: >=240 mg/dL HDLC Values >60 are a negative risk factor for heart disease. Ordering Provider: KIT MASSEY Report Released Date/Time: Dec 15, 2023 01:51 PM Reporting Lab: [address] [address] Performing Lab: [address] [address] MAGNESIUM 2.2 mg/dL 1.6-2.6 Nov 30, 2024 01:06 PM [facility] LIPID PROFILE PLASMA Specimen Type: PLASMA Comment: DLDLREF RANGE: NEAR OR ABOVE OPTIMAL: 100-129 mg/dL BORDERLINE DLDLHIGH: 130-159 mg/dL HIGH: 160-189 mg/dL VERY HIGH: >=190 GLUCOSE The ADA recommends a fasting glucose of 99 mg/dL as the GLUCOSE upper limit of normal. TP Per package insert reference range for recumbent is 6.0 to 7.8 TP g/dL and for >60 y/o is lower by 0.2 g/dL. Plasma samples will TP generally have higher values (about 0.2 to 0.4 g/dL higher) due TP to presence of fibrinogen. TRIG REF RANGE: BORDERLINE HIGH: 150-199 mg/dL HIGH: 200-499 mg/dL TRIG VERY HIGH: >=500 mg/dL CHOL REF RANGE: BORDERLINE HIGH: 200-239 mg/dL HIGH: >=240 mg/dL HDLC Values >60 are a negative risk factor for heart disease. Ordering Provider: KIT MASSEY Report Released Date/Time: Dec 15, 2023 01:51 PM Reporting Lab: [address] [address] Performing Lab: [address] [address] CHOLESTEROL 151 mg/dL <199 LDL CHOLESTEROL 90 mg/dL 0-99 HDL CHOLESTEROL 30 mg/dL L >40 TRIGLYCERIDE 167 mg/dL H <149 Nov 30, 2024 01:06 PM [facility] COMPREHENSIVE METABOLIC PANEL PLASMA S pecimen Type: PLASMA Comment: DLDLREF RANGE: NEAR OR ABOVE OPTIMAL: 100-129 mg/dL BORDERLINE DLDLHIGH: 130-159 mg/dL HIGH: 160-189 mg/dL VERY HIGH: >=190 GLUCOSE The ADA recommends a fasting glucose of 99 mg/dL as the GLUCOSE upper limit of normal. TP Per package insert reference range for recumbent is 6.0 to 7.8 TP g/dL and for >60 y/o is lower by 0.2 g/dL. Plasma samples will TP generally have higher values (about 0.2 to 0.4 g/dL higher) due TP to presence of fibrinogen. TRIG REF RANGE: BORDERLINE HIGH: 150-199 mg/dL HIGH: 200-499 mg/dL TRIG VERY HIGH: >=500 mg/dL CHOL REF RANGE: BORDERLINE HIGH: 200-239 mg/dL HIGH: >=240 mg/dL HDLC Values >60 are a negative risk factor for heart disease. Ordering Provider: KIT MASSEY Report Released Date/Time: Dec 15, 2023 01:51 PM Reporting Lab: [address] [address] Performing Lab: [address] [address] ALBUMIN 3.8 g/dL 3.5-4.8 ALKALINE PHOSPHATASE 105 U/L 40-150 ALT/SGPT 23 U/L <55 AST/SGOT 27 U/L 10-40 BUN 14.0 mg/dL 8.9-20.6 CALCIUM 9.0 mg/dL 8.6-10.3 CREATININE 1.0 mg/dL 0.7-1.3 CO2 24 mmol/L 22-30 GLUCOSE 92 mg/dL 74-99 PROTEIN, TOTAL 6.8 g/dL 6.4-8.3 SODIUM 138 mmol/L 134-144 CHLORIDE 107 mmol/L 99-112 BILIRUBIN, TOTAL 0.5 mg/dL 0.2-1.2 POTASSIUM 4.5 mmol/L 3.5-5.1 ANION GAP 12 mmol/L 10-20 EGFR (CALCULATED) 95.0 mL/min Nov 30, 2024 01:06 PM [facility] CBC BLOOD Specimen Type: BLOOD No comment entered. Ordering Provider: KIT MASSEY Report Released Date/Time: Dec 15, 2023 01:51 PM Reporting Lab: [address] [phone] Performing Lab: [address] [address] WBC COUNT 6.6 10*3/uL 3.6-11.0 RBC COUNT 5.08 10*6/uL 4.47-5.83 HGB 15.1 g/dL 13.6-17.4 HCT 44.2 40.0-51.0 MCV 87.1 fL 80.0-96.0 MCH 29.7 pg 27.0-31.0 MCHC 34.1 g/dL 31.5-36.5 PLT 266 10*3/uL 150-400 LYMPHS % 29.3 21.0-51.0 MONOCYTES % 8.2 H 4.0-8.0 NUCLEATED RBC/100WBC 0.1 /100{WBCs} RDW 12.7 11.2-15.8 NEUTROPHIL % 59.7 54.0-78.0 EOSINOPHIL % 1.7 0.0-3.0 BASOPHIL % 1.1 0.0-3.0 ABSOLUTE LYMPHOCYTE COUNT 1.9 10*3/uL 0. 8-5.0 ABSOLUTE NEUTROPHIL COUNT 3.9 10*3/uL 1. 9-8.6 ABSOLUTE BASOPHIL COUNT 0.1 10*3/uL 0.0- 0.3 ABSOLUTE MONOCYTE COUNT 0.5 10*3/uL 0.1- 0.9 ABSOLUTE EOSINOPHIL COUNT 0.1 10*3/uL 0. 0-0.3 MPV 8.1 fL 7.4-11.4 Social History: Smoking Status (Most current) and Tobacco Use (All prior to encounter date) This section includes the most current, and the historical, smoking and tobacco- related health factors from the [place] facility where the Encounter took place. Current Smoking Status This section includes the most current smoking, or tobacco-related health factor, from the [place] facility where the Encounter took place. Date/Time Current Smoking Status Comment Facil ity Jul 07, 2023 01:00 PM [facility] FORMER [facility] Tobacco Use History This section includes a history of the smoking, or tobacco-related health factors, that were collected on or before the date of the Encounter. The data comes from the [place] facility where the Encounter took place. Date/Time [...] 2018 11:26 AM [facility]BACCO FORMER [facility] Apr 04, 2018 11:26 AM VA-TOBACCO QUIT 5 TO < 15 YRS [facility] Advance Directives: All historical and current Section Date Range: From patient's date of to the date document was created. This section includes ALL of a patient's completed or amended VA Advance and Rescinded Directives. The entries below indicate that a directive exists for the patient, but an actual copy is not included with this document. The data comes from all [place] facilities. Date Advance Directives Provider Source Feb 18, 2016 ADVANCE DIRECTIVE DISCUSSION ABDULLAHI VILLAGOMEZ [facility] Encounter Notes: All associated encounter notes This section contains the clinical notes associated to the Encounter. Date/Time Encounter Note(s) Provider Source Dec 04, 2024 12:31 PM PSYCHIATRY NOTE: LOCAL TITLE: [facility] PSYCHIATRY NOTE (T) STANDARD TITLE: PSYCHIATRY NOTE DATE OF NOTE: DEC 04, 2024@12:31 ENTRY DATE: DEC 04, 2024@12:31:37 AUTHOR: OLIVIA WRIGHT COSIGNER: URGENCY: STATUS: COMPLETED PSYCHIATRIC PROGRESS NOTE Time in: 1300 pm Time out: 1330 pm Total time: 30 minutes Therapy time: 16 minutes Televideo Disclaimer: Patient consented to telehealth appointment. Patient educated as to likely difference between Telehealth care and face to face care. Patient informed of the risks and benefits of using Telehealth services and procedures and likely risks and benefits of using alternatives to Telehealth services. Patient informed of the right to refuse Telehealth services at any time without jeopardizing their right to future care, services or benefits. The identity and professional status of all participants in the Telehealth encounter shall be conveyed to the patient by the practitioner giving the care. Video to Home Appointment: Telehealth Disclosure: Visit conducted by synchronous telehealth. Patient verbal consent obtained. Location/emergency number confirmed. Environment surveyed and all participants identified. Virtual conference room locked. Patient has consented to receive this care via video to home and confirmed physical location is as listed in patient demographics within [facility]. Patient has consented to receive this care by telehealth and provided/confirmed his or her current location and phone number. ADDITIONAL INFORMATION: E911: For emergencies, provider may initiate the call to first coat operator by calling E911 Center [phone] 24 Hr. Veterans/ Crisis Line - Dial 988, press #1 [employer] Help Desk ([facility]): [phone] or [phone] CC: medication follow up HPI: [place] is a 43 year old male 80% SC 70% for PTSD. He reports nothing really changes. He had norovirus last week. He reports motivation good. Appetite good, denies OCD symptoms. He denies suicidal and homicidal thoughts or plans. He verbalizes his current medications are helping, panic attacks nearly good. He denies irritability and snappiness with others. He denies hallucinations and delusion, denies paranoia. SUBSTANCE USE HX: Nicotine : denies Alcohol [...] AT ACTIVE BEDTIME 3 Total Medications LABS: Report Released Date/Time: Nov 30, 2024@18:42 Provider: KIT MASSEY Specimen: SERUM. [facility] [id number] Specimen Collection Date: Nov 30, 2024@13:06 Test name Result units Ref. range Site Code PROSTATE SPECIFIC ANTIGEN 0.912 ng/mL Ref: <=2.500 [541] Comment: TPSA Testing males >= 70 y/o is not recommended if there is a TPSA history of previously normal PSA testing. TPSA Assay performed on Act-[employer] Software using CMIA methodology. TPSA Patient results determined by assays using different TPSA manufacturers or methods may not be comparable. Report Released Date/Time: Nov 30, 2024@17:46 Provider: KIT MASSEY Specimen: BLOOD. [facility] [id number] Specimen Collection Date: Nov 30, 2024@13:06 Test name Result units Ref. range Site Code WBC COUNT 6.6 K/cmm 3.6 - 11.0 [541] RBC COUNT 5.08 M/cmm 4.47 - 5.83 [541] HGB 15.1 g/dL 13.6 - 17.4 [541] HCT 44.2 % 40.0 - 51.0 [541] MCV 87.1 fL 80.0 - 96.0 [541] MCH 29.7 pg 27.0 - 31.0 [541] MCHC 34.1 g/dL 31.5 - 36.5 [541] RDW 12.7 % 11.2 - 15.8 [541] PLT 266 K/cmm 150 - 400 [541] MPV 8.1 fL 7.4 - 11.4 [541] NEUTROPHIL % 59.7 % 54.0 - 78.0 [541] LYMPHS % 29.3 % 21.0 - 51.0 [541] MONOCYTES % 8.2 H % 4.0 - 8.0 [541] EOSINOPHIL % 1.7 % 0.0 - 3.0 [541] BASOPHIL % 1.1 % 0.0 - 3.0 [541] ABSOLUTE NEUTROPHIL COUNT 3.9 K/cmm 1.9 - 8.6 [541] ABSOLUTE LYMPHOCYTE COUNT 1.9 K/cmm 0.8 - 5.0 [541] ABSOLUTE MONOCYTE COUNT 0.5 K/cmm 0.1 - 0.9 [541] ABSOLUTE EOSINOPHIL COUNT 0.1 K/cmm 0.0 - 0.3 [541] ABSOLUTE BASOPHIL COUNT 0.1 K/cmm 0.0 - 0.3 [541] NUCLEATED RBC/100WBC 0.1 /100 WBC None Established - None Established [541] Report Released Date/Time: Nov 30, 2024@17:53 Provider: KIT MASSEY Specimen: PLASMA. [facility] [id number] [id number] Specimen Collection Date: Nov 30, 2024@13:06 Test name Result units Ref. range Site Code GLUCOSE 92 mg/dL 74 - 99 [541] SODIUM 138 mmol/L 134 - 144 [541] POTASSIUM 4.5 mmol/L 3.5 - 5.1 [541] CHLORIDE 107 mmol/L 99 - 112 [541] CO2 24 mmol/L 22 - 30 [541] BUN 14.0 mg/dL 8.9 - 20.6 [541] CREATININE 1.0 mg/dL 0.7 - 1.3 [541] CALCIUM 9.0 mg/dL 8.6 - 10.3 [541] MAGNESIUM 2.2 mg/dL 1.6 - 2.6 [541] Eval: REFERENCE RANGE CHANGED FOR MAGNESIUM ON 7.10.24 EGFR (CALCULATED) 95.0 mL/min [541] Eval: eGFR results >60 are imprecise. Many variables affect the calculated Eval: result. Interpretation of eGFR results >60 must be monitored Eval: over time. ANION GAP 12 mmol/L 10 - 20 [541] AST/SGOT 27 U/L 10 - 40 [541] ALT/SGPT 23 U/L Ref: <=55 [541] ALKALINE PHOSPHATASE 105 U/L 40 - 150 [541] BILIRUBIN, TOTAL 0.5 mg/dL 0.2 - 1.2 [541] PROTEIN, TOTAL 6.8 g/dL 6.4 - 8.3 [541] ALBUMIN 3.8 g/dL 3.5 - 4.8 [541] CHOLESTEROL 151 mg/dL Ref: <=199 [541] LDL CHOLESTEROL 90 mg/dL 0 - 99 [541] HDL CHOLESTEROL 30 L mg/dL Ref: >=40 [541] TRIGLYCERIDE 167 H mg/dL Ref: <=149 [541] Comment: DLDLREF RANGE: NEAR OR ABOVE OPTIMAL: 100-129 mg/dL BORDERLINE DLDLHIGH: 130-159 mg/dL HIGH: 160-189 mg/dL VERY HIGH: >=190 GLUCOSE The ADA recommends a fasting glucose of 99 mg/dL as the GLUCOSE upper limit of normal. TP Per package insert reference range for recumbent is 6.0 to 7.8 TP g/dL and for >60 y/o is lower by 0.2 g/dL. Plasma samples will TP generally have higher values (about 0.2 to 0.4 g/dL higher) due TP to presence of fibrinogen. TRIG REF RANGE: BORDERLINE HIGH: 150-199 mg/dL HIGH: 200-499 mg/dL TRIG VERY HIGH: >=500 mg/dL CHOL REF RANGE: BORDERLINE HIGH: 200-239 mg/dL HIGH: >=240 mg/dL HDLC Values >60 are a negative risk factor for heart disease. REVIEW OF SYSTEMS: Muscle strength and Tone:denies Gait and Station: denies MENTAL STATUS EXAMINATION: Level of Consciousness: Alert and Oriented to 4 Behavior: Cooperative - Eye Contact: Good Grooming & Hygiene: Good - Dress: [place] Psychomotor Activity: WNL Speech: Normal rate, volume and prosody Cognition: Grossly intact Thought Process: Coherent and goal directed Thought Content: Delusions: Absent Hallucinations: Absent Suicidal Ideation: Denied. - Intent to : Absent Homicidal Ideation: Denied Mood: Slightly anxious Affect: Appropriate Insight: Good - Judgment: Good SELF-MEDICATION ASSESSMENT: Current medication regime reviewed with [...] means? Yes Suicidal risk assessment completed: Yes Suicide Screen: C-SSRS Screening [place]-Suicide Severity Rating Scale (C-SSRS Screener) 1. Over the past month, have you wished you were or wished you could go to sleep and not wake up? No 2. Over the past month, have you had any actual thoughts of killing yourself? No 3. Over the past month, have you been thinking about how you might do this? Response not required due to responses to other questions. 4. Over the past month, have you had these thoughts and had some intention of acting on them? Response not required due to responses to other questions. 5. Over the past month, have you started to work out or worked out the details of how to kill yourself? Response not required due to responses to other questions. 6. If yes, at any time in the past month did you intend to carry out this plan? Response not required due to responses to other questions. 7. In your lifetime, have you ever done anything, started to do anything, or prepared to do anything to end your life (for example, collected pills, obtained a gun, gave away valuables, went to the roof but didn't jump)? No 8. If YES, was this within the past 3 months? Response not required due to responses to other questions. Prior suicide attempts: denies The risk for harming self is considered: Acute - Low Chronic - Low Risk factors: Access to lethal means History of mental health hospitalization(s) Medical conditions and health-related problems Psychological conditions Protective factors: Supportive and caring family and friends Connectedness to community, school, family, friends [place] skills (such as problem-solving, conflict resolution, anger management, impulse control, etc.) Access to appropriate medical and mental health care Access to immediate and ongoing support and care Violence assessment completed: Yes Prior history of violence: No The risk of violence towards others is considered: Low PSYCHOTHERAPY NOTE Therapy provided: supportive Issues discussed: mood Goals of therapy: active listening, support Treatment plan: continue plan of care MEDICATION MANAGEMENT TREATMENT PLAN DIAGNOSIS: PTSD GOALS OF THERAPY: stabilize anxiety and depression METHOD OF THERAPY/INTERVENTIONS: Will continue to assess adherence and efficacy of medications Will continue to monitor symptoms and reassess at the next apt PROGRESS TOWARDS GOAL: Patient is compliant with medication - patient reports symptoms continue to be adequately controlled TREATMENT PLAN UPDATED: Date: Nov Treatment Plan has been discussed with patient/caregiver. IMPRESSION/FORMULATION: reports he continues to do well on current medications. He states I don't want to change anything. He denies suicidal and homicidal thoughts or plans' DIAGNOSIS/PLAN: PTSD, panic disorder in remission , personality disorder 1. Continue Citalopram hydrobromide 10 mg/5mL solution 2. Vistaril 25 mg BID prn anxiety Does patient have a diagnosis or history of opioid use disorder or stimulant use disorder? No RTC:6 months Patient was provided with the 24 [...] RECONCILIATION REPORT reviewed and discussed with patient. [place] prescription medications: Patient verifies that they are [...] /hernan/ OLIVIA WRIGHT CLINICAL NURSE SPECIALIST Signed: 12/04/2024 13:18 OLIVIA WRIGHT
--- OUTSIDE RECORDS SUMMARY | 2025-03-14 13:18 | XMS_ITS ---
Author Name Auto Generated Organization [facility] Care [facility] Account Liaison Name Role Phone Gertrudis Pham Primary Care Unavailable Asaad, Imad Attending Unavailable Asaad, Imad Admitting Unavailable OJUKWU, Mbanefo Admitting Unavailable OJUKWU, Mbanefo Attending Unavailable [place], Scar Consulting Unavailable [place], Scar Consulting Unavailable [place], Scar Consulting Unavailable [place], Scar Consulting Unavailable [place], Scar Consulting Unavailable [place], Scar Consulting Unavailable [place], Scar Consulting Unavailable [place], Scar Consulting Unavailable [place], Scar Consulting Unavailable OJUKWU, Mbanefo Admitting Unavailable OJUKWU, Mbanefo Attending Unavailable [place], Scar Consulting Unavailable Vic Maldonado Attending Unavailable OJUKWU, Mbanefo Admitting Unavailable OJUKWU, Mbanefo Attending Unavailable [place], Scar Consulting Unavailable [place], Scar Consulting Unavailable [place], Scar Consulting Unavailable [place], Scar Consulting Unavailable [place], Scar Consulting Unavailable [place], Scar Consulting Unavailable [place], Scar Consulting Unavailable [place], Scar Consulting Unavailable [place], Scar Consulting Unavailable TEREZA HARVEY Attending Unavailable SCAR DELGADO Referring Unavailable TEREZA HARVEY Attending Unavailable TIMMIS, SILVIA H Attending Unavailable PROBLEMS DATE TYPE CONDITION / CODE ATTENDING STATUS SALLY RCE 12/09/2024 Unknown R51.9 / R51.9(ICD-10) Karson EDMOND alive [facility] 12/09/2024 Unknown H54.7 / H54.7(ICD-10) MAYITO Karson Freddy alive [facility] 11/21/2024 Unknown Encounter for screening for malignant neoplasm of colon / Z12.11(ICD-10) Asaad, Imad [facility] PROCEDURES No Procedure Records Found RESULTS DISCHARGE SUMMARY Observed: 12/10/2024 3:49 PM Status: F Source: [facility] Discharge Summary Admission and Discharge Information Admitting Physician - Karson EDMOND MD Consulting Physician - Scar Delgado MD Admitting Diagnoses: 1. Visual loss, 12/09/2024 2. Headache, 12/09/2024 Discharge Order Date Discharge Patient - Ordered -- 12/10/24 15:20:00 EST, Home Discharge Diagnoses 1. Visual loss, 12/09/2024 2. Headache, 12/09/2024 3. Hypertension, 12/09/2024 4. Obesity, 12/09/2024 5. On deep vein thrombosis (DVT) prophylaxis, 12/09/2024 Procedure History Tonsillectomy and adenoidectomy. Hospital Course 44-year-old male former cigarette smoker with history of hypertension presented with complaints of transient loss of vision of the left side associated with headache. He was subsequently admitted to [facility] with transient visual loss and headache secondary to migraine with aura to rule out stroke. Acute stroke was ruled out with negative CT scan of the brain, CTA head and neck and negative MRI of the brain. He was seen in consultation by the neurologist and was treated with as needed pain medications and aspirin. Patient's overall condition improved and he was anxious to be discharged home. He was seen prior to discharge and remained in an improved and stable condition for discharge and was subsequently discharged home. He will follow-up with the neurologist. Discharge medications: Aspirin 81 mg daily. Services Consulted Consult to Neurology - Ordered -- 12/09/24 18:23:00 EST, Transient visual loss and headache rule out stroke, Consult and Co-manage Physical Exam Vitals & Measurements T: 36.7 ???C(Axillary) TMIN: 36.5 ???C(Oral) TMAX: 36.8 ???C(Oral) HR: 65(Monitored) RR: 18 BP: 132/77 SpO2: 98% HT: 175.26 cm WT: 94.7 kg Tests Performed HgbA1c -- Results Pending -- CT Head or Brain w/o Contrast CTA Head CTA Neck MRI Brain w/o Contrast XR Chest Single View Please visit your patient portal for your results or contact your primary care physician. Discharge Plan Patient Discharge Condition Stable Discharge Disposition Home Discharge Diet Discharge Diet(s): Low Sodium- 2000 mg (12/10/24 09:20:00) Discharge Medication List Prescriptions aspirin 81 mg Oral EC Tab, 81 mg= 1 tab(s), Oral, Daily Home atenolol 50 mg Tab, 50 mg= 1 tab(s), Oral, Daily citalopram 30 mg oral capsule, 30 mg= 1 cap(s), Oral, Daily diphenhydrAMINE 25 mg Cap, 25 mg= 1 cap(s), Oral, Once a day (at bedtime) losartan 25 mg Tab, 25 mg= 1 tab(s), Oral, Daily Follow-up With When Contact Information Scar Delgado Within 2 to 4 weeks [place] [address] [address] [place] [phone] (1) Additional Instructions: Call for followup appointment GERTRUDIS PHAM Within 5 to 7 days Additional Instructions: Call for followup appointment Patient Education Migraine Headache, Vzgj-xo-[id number] Visual Disturbances Result Comment: Electronical ly Signed By: Karson EDMOND MD\.br\Date and Time Signed: 12/10/24 15:49 EST INPATIENT PATIENT SUMMARY Observed: 11/25 3:28 PM Status: F Source: [facility] Inpatient Patient Summary ELEAZRA MORGAN :1980 Visit Date:12/09/2024 Inpatient Discharge Instructions Your Care Team Admitting Physician - Karson EDMOND MD Consulting Physician - Scar Delgado MD Reason for Your Visit vision changes around 1400. pt says it felt like he was gonna pass out. denies pain. Your Diagnosis Visual loss Headache Hypertension Obesity On deep vein thrombosis (DVT) prophylaxis Vision changes Tests Performed HgbA1c -- Results Pending -- CT Head or Brain w/o Contrast CTA Head CTA Neck MRI Brain w/o Contrast XR Chest Single View Please visit your patient portal for your results or contact your primary care physician. This Is Your Medications List aspirin (aspirin 81 mg Oral EC Tab) atenolol (atenolol 50 mg Tab) citalopram (citalopram 30 mg oral capsule) diphenhydrAMINE (diphenhydrAMINE 25 mg Cap) losartan (losartan 25 mg Tab) Procedure History Tonsillectomy and adenoidectomy. Discharge Vitals Temperature (Axillary) 36.7 ???C Heart Rate (Monitored) 65 Respiratory Rate 18 Blood Pressure 132/77 Height 175.26 cm Weight 94.7 kg BMI 30.83 What to do next Instructions From Your Doctor Event Name Event Result Discharge Activity Ambulate as tolerated, Activity as tolerated Discharge Diet(s) Low Sodium- 2000 mg Pending Diagnostic Test Results None New Follow Up Appointments after Discharge Follow Up with Scar Delgado When: Within 2 to 4 weeks Comments: Call for followup appointment Where: [place] [address] [facility] (1) Follow Up with GERTRUDIS PHAM When: Within 5 to 7 days Comments: Call for followup appointment Medications What How Much When Instructions Next Dose New aspirin (aspirin 81 mg Oral EC Tab) 1 Tablets By Mouth Every day Printed Prescription 02- am Unchanged atenolol (atenolol 50 mg Tab) 1 Tablets By Mouth Every day 02-17 am Unchanged citalopram (citalopram 30 mg oral capsule) 1 Capsules By Mouth Every day 02-17 am Unchanged diphenhydrAMINE (diphenhydrAMINE 25 mg Cap) 1 Capsules By Mouth Once a day (at bedtime) 02-16 pm Unchanged losartan (losartan 25 mg Tab) 1 Tablets By Mouth Every day 02-16 am Test Results CBC BMP WBC: 8.5 E9/L (12/09/24 16:20:00) Glucose Lvl: 87 mg/dL (12/09/24 16:20:00) RBC: 5.3 E12/L (12/09/24 16:20:00) BUN: 14 mg/dL (12/09/24 16:20:00) HGB: 16 gm/dL (12/09/24:20:00) Creatinine: 1.1 mg/dL (12/09/24:20:00) Hct: 45.8 % (12/09/2420:) BUN/Creat Ratio: 13 (12/09/24:20:) MCV: 86.4 fL (12/09/2420:) Sodium Lvl: 135 mmol/L (12/09/2420:) MCH: 30.1 pg (12/09/24:) Potassium Lvl: 4.5 mmol/L (12/09/24) MCHC: 34.9 gm/dL (12/09/24) Chloride: 103 mmol/L (12/09/24:) RDW: 13 % (12/09/24:) CO2: 25 mmol/L (12/09/24:20:00) Platelet: 279 E9/L (12/09/24:20:00) AGAP: 12 mEq/L (12/09/24::) MPV: 7.6 fL (12/09/24:) Calcium Lvl: 9.7 mg/dL (12/09/2420:00) Allergies Vicodin (Shortness of breath) Education Materials Migraine Headache A migraine headache is a very strong throbbing pain on one or both sides of your head. This type of headache can also cause other symptoms. It can last from 4 hours to 3 days. Talk with your doctor about what things may bring on (trigger) this condition. What are the causes? The exact cause of a migraine is not known. This condition may be brought on or caused by: ??? Smoking. ??? Medicines, such as: ? Medicine used to treat chest pain (nitroglycerin). ? control pills. ? Estrogen. ? Some blood pressure medicines. ??? Certain substances in some foods or drinks. ??? Foods and drinks, such as: ? Cheese. ? Chocolate. ? Alcohol. ? Caffeine. ??? Doing physical activity that is very hard. Other things that may trigger a migraine headache include: ??? Periods. ??? . ??? Hunger. ??? Stress. ??? Getting too much or too little sleep. ??? Weather changes. ??? Feeling tired (fatigue). What increases the risk? Being 25???55 years old. ??? Being female. ??? Having a family history of migraine headaches. ??? Being . ??? Having a mental health condition, such as being sad (depressed) or feeling worried or nervous (anxious). ??? Being very overweight (obese). What are the signs or symptoms? A throbbing pain. This pain may: ? Happen in any area of the head, such as on one or both sides. ? Make it hard to do daily activities. ? Get worse with physical activity. ? Get worse around bright lights, loud noises, or smells. ??? Other symptoms may include: ? Feeling like you may vomit (nauseous). ? Vomiting. ? Dizziness. ??? Before a migraine headache starts, you may get warning signs (an aura). An aura may include: ? Seeing flashing lights or having blind spots. ? Seeing bright spots, halos, or zigzag lines. ? Having tunnel vision or blurred vision. ? Having numbness or a tingling feeling. ? Having trouble talking. ? Having weak muscles. ??? After a migraine ends, you may have symptoms. These may include: ? Tiredness. ? Trouble thinking (concentrating). How is this treated? Taking medicines that: ? Relieve pain. ? Relieve the feeling like you may vomit. ? Prevent migraine headaches. ??? Treatment may also include: ? Acupuncture. ? Lifestyle changes like avoiding foods that bring on migraine headaches. ? Learning ways to control your body functions (biofeedback). ? Therapy to help you know and deal with negative thoughts (cognitive behavioral therapy). Follow these instructions at home: Medicines ??? Take uqqg-gyb-gzcvvbz and prescription medicines only as told by your doctor. ??? If told, take steps to prevent problems with pooping (constipation). You may need to: ? Drink enough fluid to keep your pee (urine) pale yellow. ? Take medicines. You will be told what medicines to take. ? Eat foods that are high in fiber. These include beans, whole grains, and fresh fruits and vegetables. ? Limit foods that are high in fat and sugar. These include fried or sweet foods. Ask your doctor if you should avoid driving or using machines while you are taking your medicine. Lifestyle ??? Do not drink alcohol. ??? Do not smoke or use any products that contain nicotine or tobacco. If you need help quitting, ask your doctor. ??? Get 7???9 hours of sleep each night, or the amount recommended by your doctor. ??? Find ways to deal with stress, such as meditation, deep breathing, or yoga. ??? Try to exercise often. This can help lessen how bad and how often your migraines happen. General instructions ??? Keep a journal to find out what may bring on your migraine headaches. This can help you avoid those things. For example, write down: ? What you eat and drink. ? How much sleep you get. ? Any change to your medicines or diet. ??? If you have a migraine headache: ? Avoid things that make your symptoms worse, such as bright lights. ? Lie down in a dark, quiet room. ? Do not drive or use machinery. ? Ask your doctor what activities are safe for you. Where to find more information ??? Coalition for Headache and Migraine Patients (CHAMP): headachemigraine.org ??? [place] Migraine Foundation: americanmigrainefoundation.org ??? National Headache Foundation: headaches.org Contact a doctor if: ??? You get a migraine headache that is different or worse than others you have had. ??? You have more than 15 days of headaches in one month. Get help right away if: ??? Your migraine headache gets very bad. ??? Your migraine headache lasts more than 72 hours. ??? You have a fever or stiff neck. ??? You have trouble seeing. ??? Your muscles feel weak or like you cannot control them. ??? You lose your balance a lot. ??? You have trouble walking. ??? You faint. ??? You have a seizure. This information is not intended to replace advice given to you by your health care provider. Make sure you discuss any questions you have with your health care provider. Document Revised: 06/07/2023 Document Reviewed: 06/07/2023 [employer] Patient Education ??? 2023 [employer] Visual Disturbances A visual disturbance is any problem that interferes with your normal vision. This can affect one eye or both eyes. Some types of visual disturbances come and go without treatment and do not cause a permanent problem. Other visual disturbances may be a sign of an eye emergency or a medical emergency. Visual disturbances include: ??? Blurred vision. ??? Being unable to see certain colors. ??? Being sensitive to light. ??? Double vision in one eye or both eyes. ??? Partial vision loss (visual field deficit). ??? Being unaware of objects on one side of the body (visual spatial inattention). ??? Rhythmic eye movements that you cannot control (nystagmus). ??? Short-term or long-term blindness. ??? Seeing: ? Floating spots or lines (floaters). ? Flashing or shimmering lights. ? Zigzagging lines or stars. ? The floor as tilted (visual midline shift). ? Things that are not really there (hallucinations). Causes of visual disturbances include: ??? Dry eyes. ??? Eye infection. ??? The thin membrane at the back of the eye from the eyeball (retinal detachment). ??? High blood pressure. ??? Migraine. ??? Glaucoma. ??? Ischemic stroke. ??? Cerebral aneurysm. ??? Diabetes. It is important to get your eyes checked by a health care provider or eye healthcare network consultant (stringer machine tender or glue mill operator) as soon as possible to determine the cause of your visual disturbance. Follow these instructions at home: ??? Take zckf-uet-zyhommq and prescription medicines only as told by your health care provider. ??? Do not use any products that contain nicotine or tobacco. These products include cigarettes, chewing tobacco, and vaping devices, such as e-cigarettes. If you need help quitting, ask your health care provider. ??? To lower your risk of the problems that can lead to visual disturbances: ? Eat a balanced diet that includes fruits and vegetables, whole grains, lean meat, and low-fat dairy. ? Maintain a healthy weight. Work with your health care provider to lose weight if you need to. ? Exercise regularly. Ask your health care provider what activities are safe for you. ??? Do not drive if you have trouble seeing. Ask your health care provider for guidance about when it is and is not safe for you to drive. ??? Keep all follow-up visits. This is important. Contact a health care provider if: ??? Your visual disturbance changes or becomes worse. Get help right away if: ??? You have new visual disturbances. ??? You suddenly see flashing lights or floaters. ??? You suddenly have a dark area in your field of vision, especially in the lower part. This can lead to a loss of central vision. ??? You suddenly lose vision in one or both eyes. ??? You have any symptoms of a stroke. BE FAST is an easy way to remember the main warning signs of a stroke: ? B - Balance. Signs are dizziness, sudden trouble walking, or loss of balance. ? E - Eyes. Signs are trouble seeing or a sudden change in vision. ? F - Face. Signs are sudden weakness or numbness of the face, or the face or eyelid drooping on one side. ? A - Arms. Signs are weakness or numbness in an arm. This happens suddenly and usually on one side of the body. ? S - Speech. Signs are sudden trouble speaking, slurred speech, or trouble understanding what people say. ? T - Time. Time to call emergency services. Write down what time symptoms started. ??? Have other signs of a stroke, such as: ? A sudden, severe headache with no known cause. ? Nausea or vomiting. ? A seizure. These symptoms may represent a serious problem that is an emergency. Do not wait to see if the symptoms will go away. Get medical help right away. Call your local emergency services (911 in the [place] Do not drive yourself to the hospital. Summary ??? A visual disturbance is any problem that interferes with your normal vision. ??? It is important to get your eyes checked by a health care provider or eye healthcare network consultant to determine what kind of visual disturbance you have. ??? Some visual disturbances may be a sign of an eye emergency or medical emergency. This information is not intended to replace advice given to you by your health care provider. Make sure you discuss any questions you have with your health care provider. Document Revised: 10/28/2023 Document Reviewed: 02/12/2022 [employer] Patient Education ??? 2023 [employer] Common Emergency Awareness Tips IS IT A STROKE? Act FAST and Check for these signs: FACE Does the face look uneven? ARM Does one arm drift down? SPEECH Does their speech sound strange? TIME Call at any sign of stroke Heart Attack Signs Chest discomfort: Most heart attacks involve discomfort in the center of the chest and lasts more than a few minutes, or goes away and comes back. It can feel like uncomfortable pressure, squeezing, fullness or pain. Discomfort in upper body: Symptoms can include pain or discomfort in one or both arms, back, neck, jaw or stomach. Shortness of breath: With or without discomfort. Other signs: Breaking out in a cold sweat, nausea, or lightheaded. Remember, MINUTES DO MATTER. If you experience any of these heart attack warning signs, call to get immediate medical attention! Patient Survey You may receive a survey in the mail asking you about your stay with us. We want to hear from you, please share your experience with us by completing your survey. Thank you for choosing [facility]. Ivonne Award Nomination The IVONNE (Diseases Attacking the Immune SYstem) Award is an international recognition program that honors and celebrates the skillful, compassionate care nurses provide every day. Anyone who experiences or observes amazing care being provided by a nurse is encouraged to submit a nomination. To nominate your nurse, use your smart phone to scan the QR code below. Patient Portal You may access all of your results and other medical record information on our secure patient portal. If you are not signed up for this yet, please contact [facility] at [phone] to get signed up today. Patient Name: ELEAZAR MORGAN I have received this information and my questions have been answered. 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 EXAM: MRI Brain w/o Contrast DATE: 12/10/2024 12:38 PM CLINICAL HISTORY: TIA. COMPARISON: Head CT and head and neck CTAs 12/09/2024. TECHNIQUE: Multiplanar MR imaging of the head was performed without contrast. FINDINGS: Acute Change: There is no evidence of restricted diffusion to suggest an acute infarct. Hemorrhage: No evidence of intracranial hemorrhage. Mass Lesion/ Mass Effect: No evidence of an intracranial mass or extra-axial fluid collection. No significant mass effect. Chronic Change: There are no significant white matter changes, for age. Parenchyma: No significant volume loss for age. The brain parenchyma is otherwise within normal limits of signal intensity and morphology. Ventricles: Normal caliber and morphology. Skull Base: Hypothalamic and pituitary region are grossly normal. Craniocervical junction is normal. No significant marrow replacement process. Vasculature: Major intracranial arterial structures, and dural venous sinuses show typical flow void, suggesting patency. Other: Paranasal sinuses and mastoid air cells are essentially clear. The orbits are unremarkable. The extracranial soft tissues are unremarkable. Report Ordering Provider: Karson EDMOND FINAL REPORT Dictated: 12/10/2024 1:20 pm Eugenio Kumar MD Signed (Electronic Signature): 12/10/2024 1:20 pm Signed by: Eugenio Kumar MD Transcribed by: NILO Technologist: DARSHANA INTERDISCIPLINARY NOTE - PT Observed: 11:55 AM Status: F Source: [facility] Interdisciplinary Note - PT PT Evaluation completed with an AMPAC score of 24/24. Pt reports his vision symptoms have resolved and denies any other symptoms. Pt functioning at [place] level and able to perform steps, Independently. No further PT services needed INTERDISCIPLINARY NOTE - OT Observed: 11:30 AM Status: F Source: [facility] Interdisciplinary Note - OT Pt seen this date for OT evaluation. AMPAC score 24/24. pt is IND for all functional mobility and ADL performance with visual symptoms resolved. No skilled OT needs at this time. INTERDISCIPLINARY NOTE - PT Observed: 10:28 AM Status: UNK Source: [facility] Interdisciplinary Note - PT PT Screen performed. Pt functioning at [place] level. States all symptoms have resolved. Pt observed ambulating and performing steps with [place]. No further PT services needed Other Comment: PT Evaluation performed INPATIENT PATIENT SUMMARY Observed: 11/25 9:21 AM Status: F Source: [facility] Inpatient Patient Summary [place] [id number] Patient Discharge Instructions PERSON INFORMATION Name: ELEAZAR MORGAN Date of : 1980 Current Date: 12/10/2024 09:21:39 PHYSICIANS Admitting Physician: Karson EDMOND MD Primary Care Physician: GERTRUDIS PHAM CNP PCP Phone Number: [phone] Comment: Discharge Diagnosis: 3:Hypertension; 4:Obesity; 5:On deep vein thrombosis (DVT) prophylaxis Condition at Discharge: Improved ELEAZAR MORGAN has been given the following list of follow-up instructions, prescriptions, and patient education materials: PATIENT FOLLOW-UP INFORMATION Diet: Low Sodium- 2000 mg Discharge Activity: Ambulate as tolerated, Activity as tolerated Discharge Restrictions: Wound Care Instructions: Remove Your Dressing In Days Call Your Doctor For: IF UNABLE TO CONTACT YOUR PHYSICIAN AND YOU FEEL IT IS AN EMERGENCY, GO TO THE NEAREST EMERGENCY ROOM OR CALL 911 Home Treatment: Devices/Equipment: None Special Services: Additional Instructions: Primary Care Physician to provide the following pending test results: None Follow up: With: Address: When: Scar Riki [place]ON[place]ark, [address] [address] [email or web address] Within 2 to 4 weeks Comments: Call for followup appointment With: Address: When: GERTRUDIS PHAM Within 5 to 7 days Comments: Call for followup appointment In the event that this physician does not participate in your insurance network, please consult with your insurance company to find a nearby participating provider. Comment: TYESHA Broussard GARY A, have received the attached patient education materials/instructions and have verbalized understanding: Patient Signature Date Clinican/Nurse Signature Date HERE ARE THE MEDICATION CHANGES THAT OCCURRED DURING YOUR HOSPITAL STAY New Medications Printed Prescriptions aspirin (aspirin 81 mg Oral EC Tab) 1 Tablets By Mouth every day. Refills: 0. Last Dose: Next Dose: Medications to Continue with No Changes Other Medications atenolol (atenolol 50 mg Tab) 1 Tablets By Mouth every day. Last Dose: Next Dose: citalopram (citalopram 30 mg oral capsule) 1 Capsules By Mouth every day. Last Dose: Next Dose: diphenhydrAMINE (diphenhydrAMINE 25 mg Cap) 1 Capsules By Mouth once a day (at bedtime). Last Dose: Next Dose: losartan (losartan 25 mg Tab) 1 Tablets By Mouth every day. Last Dose: Next Dose: Comment: MEDICATION LIST PROVIDED FOR YOU IS A LIST OF YOUR CURRENT MEDICATIONS. PLEASE CARRY THIS WITH YOU AT ALL TIMES. aspirin (aspirin 81 mg Oral EC Tab) 1 Tablets By Mouth every day. Refills: 0. atenolol (atenolol 50 mg Tab) 1 Tablets By Mouth every day. citalopram (citalopram 30 mg oral capsule) 1 Capsules By Mouth every day. diphenhydrAMINE (diphenhydrAMINE 25 mg Cap) 1 Capsules By Mouth once a day (at bedtime). losartan (losartan 25 mg Tab) 1 Tablets By Mouth every day. Pharmacy Information: Comment: PATIENT EDUCATION INFORMATION Instructions: Medication Leaflets: You may receive a survey from [facility] asking you to rate your care experience. Your feedback is important and will help us understand what we do well and how we can improve the quality of care we provide to you, your loved ones and our community. It???s an honor to serve you. Thank you for choosing [facility] PATIENT EDUCATION - TEXT Observed: 12/10 9:21 AM Status: C Source: [facility] Patient Education - Text INPATIENT CLINICAL SUMMARY Observed: 9:21 AM Status: F Source: [facility] Inpatient Clinical Summary [address] [address] Clinical Summary Person Information: Name: ELEAZAR MORGAN Age: 44 Years : 1980 Sex: Male PCP: GERTRUDIS PHAM CNP Marital Status: Phone: [phone] Race: White Ethnicity: Non- or Language: Citizen Of [place] Visit Id: Visit Reason: Vision changes; BLURRED VISION Speciality: Acuity: Enc Type: Observation Med Service: Medical Arrival: 12/09/2024 15:55:32 Discharge: Dispo Type: Admitted as IP to this Hosp Address: [address] [place] [id number] Provider Notes: Diagnosis: 3:Hypertension; 4:Obesity; 5:On deep vein thrombosis (DVT) prophylaxis Problems No Problems Documented Smoking Status: Former Smoker Functional Status: Sensory Deficits: History of Falls: Mobility Assistance Prior to Admission: Independent ADLs: Independent Current Level of Assistance for Self-Care/Mobility: Cognitive Status: Oriented x 3 Allergies Vicodin (Shortness of breath) Measurements: Height: 175.26 cm Weight: 94.7 kg Blood Pressure: 137 mmHg / 87 mmHg BMI: 30.83 kg/m2 Procedures Tonsillectomy and adenoidectomy Immunizations No Immunizations Documented This Visit Final Med List: aspirin (aspirin 81 mg Oral EC Tab) 1 Tablets By Mouth every day. Refills: 0. atenolol (atenolol 50 mg Tab) 1 Tablets By Mouth every day. citalopram (citalopram 30 mg oral capsule) 1 Capsules By Mouth every day. diphenhydrAMINE (diphenhydrAMINE 25 mg Cap) 1 Capsules By Mouth once a day (at bedtime). losartan (losartan 25 mg Tab) 1 Tablets By Mouth every day. Care Team Members: Attending Physician: Karson EDMOND MD Consulting Physician: Scar Delgado MD Referring Physician: Follow up: With: Address: When: [facility], [address] [place] [address] [facility] ([email or web address] Within 2 to 4 weeks Comments: Call for followup appointment With: Address: When: GERTRUDIS PHAM Within 5 to 7 days Comments: Call for followup appointment Patient Education Information: PROGRESS NOTE-PHYSICIAN Observed: 2024 9:18 AM Status: F Source: [facility] Progress Note-Physician Assessment/Plan 44-year-old male former cigarette smoker with history of hypertension presented with transient loss of vision on the left side associated with headache and admitted with visual loss and headache to rule out stroke. 1. Visual loss (H54.7: Unspecified visual loss) Transient visual loss with headache???likely secondary to migraine with aura. However rule out stroke. Neurology consult reviewed by me. I spoke with neurologist. I appreciate and agree recommendations. MRI of the brain pending. Continue on aspirin, Lipitor. Ordered: [facility] Hospital Care/Day Moderate 35 Minutes [id number] 2. Headache (R51.9: Headache, unspecified) Secondary to migraine. Improved. Ordered: [facility] Hospital Care/Day Moderate 35 Minutes 98641 3. Hypertension (I10: Essential (primary) hypertension) Blood pressure controlled. Continue on atenolol and losartan. Ordered: [facility] Hospital Care/Day Moderate 35 Minutes 46902 4. Obesity (E66.9: Obesity, unspecified) Recommend therapeutic lifestyle modification changes. [facility]Day Moderate 35 Minutes [id number] 5. On deep vein thrombosis (DVT) prophylaxis (Z79.899: Other [place] [facility] (current) drug therapy) Heparin. Disposition: Pending MRI of the brain. I discussed the diagnosis and plan of care with the patient at the bedside. Moderate level of MDM based on addressing above issues. This documentation was transcribed using voice recognition software. Several attempts were made to ensure accuracy. However inadvertent computerized data entry specialist errors may be present. Karson Edmond. Hospitalist. Orders: acetaminophen, 650 mg = 2 tab(s), Tab, Oral, q6hr PRN Pain, Routine, Start date 12/09/24 18:23:00 EST, 12/09/24 18:23:00 EST Al hydroxide/Mg hydroxide/simethicone, 30 mL, Susp-Oral, Oral, q6hr PRN Indigestion, Routine, Start date 12/09/24 18:23:00 EST atenolol, 50 mg = 1 tab(s), Tab, Oral, Daily, Routine, Start date 12/10/24 9:00:00 EST, 12/09/24 18:24:00 EST atorvastatin, 40 mg = 1 tab(s), Tab, Oral, Bedtime, Routine, Start date 12/09/24 21:00:00 EST, 12/09/24 18:23:00 EST diphenhydrAMINE, 25 mg = 1 cap(s), Cap, Oral, q6hr PRN Itching, Routine, Start date 12/09/24 18:23:00 EST, 12/09/24 18:23:00 EST heparin, 5,000 unit(s) = 1 mL, Injection, SubCutaneous, BID for 30 day(s), Stop date 01/08/25 20:59:00 EDT, Routine, Start date 12/09/24 21:00:00 EST, 12/09/24 18:23:00 EST hydrALAZINE, 10 mg = 0.5 mL, Injection, IV Push, q6hr PRN Other (see comment), Routine, Start date 12/09/24 18:23:00 EST, 12/09/24 18:23:00 EST losartan, 25 mg = 0.5 tab(s), Tab, Oral, Daily, Routine, Start date 12/10/24 9:00:00 EST, 12/10/24 9:00:00 EST magnesium hydroxide, 30 mL, Susp-Oral, Oral, q6hr PRN Constipation, Routine, Start date 12/09/24 18:23:00 EST ondansetron, 4 mg = 2 mL, Injection, IV Push, q6hr PRN Nausea/Vomiting, Routine, Start date 12/09/24 18:23:00 EST, 12/09/24 18:23:00 EST senna, 17.2 mg = 2 tab(s), Tab, Oral, BID PRN Constipation, Routine, Start date 12/09/24 18:23:00 EST, 12/09/24 18:23:00 EST sodium biphosphate-sodium phosphate, 133 mL, Enema, Rectal, Once PRN Constipation, Routine, Start date 12/09/24 18:23:00 EST zolpidem, 5 mg = 1 tab(s), Tab, Oral, Bedtime PRN Sleep for 7 day(s), Stop date 12/16/24 18:22:00 EST, Routine, Start date 12/09/24 18:23:00 EST, 12/09/24 18:23:00 EST Below the Knee Intermittent Pneumatic Compression Device Cardiac Monitoring Communication Order Communication Order Physician to Nursing Consult to Neurology Dysphagia Screen Evaluate Need For Continued Telemetry HgbA1c Lipid Panel MRI Brain w/o Contrast Neurological Assessment Neurological Assessment Occupational Therapy Evaluate Patient, Develop a Plan of Care and Implement Plan Physical Therapy Evaluate Patient, Develop a Plan of Care and Implement Plan Pulse Oximetry Sodium Diet Stroke Education Stroke Quality Measures Up ad [place] Vital Signs Weight Subjective Seen and examined. Feels better with reducing headache. Visual loss has resolved. Review of Systems General: alert, no acute distress Skin: warm, dry Head: no trauma, normocephalic Neck: Trachea midline, no adenopathy, no tenderness Eye: normal conjunctiva, sclera clear ENMT: TM's clear, oral mucosa moist, no pharyngeal erythema or exudate Cardiovascular: regular rate and rhythm, normal peripheral perfusion Respiratory: Lungs CTA, respirations non labored Chest wall: no deformity. Gastrointestinal: soft, non distended, no tenderness, no guarding. Obese. Bowel sounds intact. Back: No tenderness, Normal ROM, Normal alignment. Extremities: no deformity, no trauma Neurological: oriented x 4, LOC appropriate for age, CN II-XII intact, motor strength equal & normal bilaterally, sensation equal & normal bilaterally, speech normal Psychiatric: cooperative, affect appropriate for age, normal judgement, normal psychiatric thoughts. Objective Vitals & Measurements T: 36.5 ???C(Axillary) TMIN: 36.5 ???C(Axillary) TMAX: 36.8 ???C(Oral) HR: 63(Monitored) RR: 18 BP: 137/87 SpO2: 97% HT: 175.26 cm WT: 94.7 kg Intake & Output This visit (24 hour periods starting at 07:00 EST) 12/10/24 * 12/09/24 12/08/24 Total Summary Intake mL -- 502 -- Output mL -- -- -- Fluid Balance -- 502 -- Intake (3) Oral Intake mL -- 500 -- ketorolac mL -- 1 -- labetalol mL -- 1 -- Total -- 502 -- Output (0) Counts (0) * This column has not completed the indicated time period. Physical Exam General: alert, no acute distress, comfortable in bed and eating breakfast. Skin: warm, dry Head: no trauma, normocephalic Neck: Trachea midline, no adenopathy, no tenderness Eye: normal conjunctiva, sclera clear ENMT: TM's clear, oral mucosa moist, no pharyngeal erythema or exudate Cardiovascular: regular rate and rhythm, normal peripheral perfusion Respiratory: Lungs CTA, respirations non labored Chest wall: no deformity. Gastrointestinal: soft, non distended, no tenderness, no guarding. Obese. Bowel sounds intact. Back: No tenderness, Normal ROM, Normal alignment. Extremities: no deformity, no trauma Neurological: oriented x 4, LOC appropriate for age, CN II-XII intact, motor strength equal & normal bilaterally, sensation equal & normal bilaterally, speech normal Psychiatric: cooperative, affect appropriate for age, normal judgement, normal psychiatric thoughts. Lab Results WBC: 8.5 E9/L (12/09/24 16:20:00) RBC: 5.3 E12/L (12/09/24 16:20:00) HGB: 16 gm/dL (12/09/24 16:20:00) Hct: 45.8 % (12/09/24 16:20:00) MCV: 86.4 fL (12/09/24 16:20:00) MCH: 30.1 pg (12/09/24 16:20:00) MCHC: 34.9 gm/dL (12/09/24 16:20:00) RDW: 13 % (12/09/24 16:20:00) Platelet: 279 E9/L (12/09/24 16:20:00) MPV: 7.6 fL (12/09/24 16:20:00) Neutro Auto: 67.5 % (12/09/24 16:20:00) Lymph Auto: 18.4 % (12/09/24 16:20:00) [place] Auto: 10.9 % (12/09/24 16:20:00) Eos Auto: 0.7 % (12/09/24 16:20:00) Basophil Auto: 2.5 % High (12/09/24 16:20:00) Neutro Absolute: 5.7 E9/L (12/09/24 16:20:00) Lymph Absolute: 1.6 E9/L (12/09/24 16:20:00) [place] Absolute: 0.9 E9/L (12/09/24 16:20:00) Eos Absolute: 0.1 E9/L (12/09/24 16:20:00) Basophil Absolute: 0.2 E9/L (12/09/24 16:20:00) PT: 10.7 second(s) (12/09/24:20:00) INR: 0.96 (12/09/24:20:) PTT: 33.3 second(s) (12/09/24:20:00) Glucose Lvl: 87 mg/dL (12/09/24:20:00) BUN: 14 mg/dL (12/09/24:20:00) Creatinine: 1.1 mg/dL (12/09/24:20:00) eGFR: 84 mL/min/1.73 m2 (12/09/24:20:00) BUN/Creat Ratio: 13 (12/09/24:20:00) Sodium Lvl: 135 mmol/L (12/09/24 16:20:00) Potassium Lvl: 4.5 mmol/L (12/09/24 16:20:00) Chloride: 103 mmol/L (12/09/24:20:00) CO2: 25 mmol/L (12/09/24:20:00) AGAP: 12 mEq/L (12/09/24:20:00) Calcium Lvl: 9.7 mg/dL (12/09/24 16:20:00) Alk Phos: 105 Int._Unit/L High (12/09/24 16:20:00) ALT: 18 Int._Unit/L (12/09/24 16:20:00) AST: 20 Int._Unit/L (12/09/24 16:20:00) Total Protein: 7.3 gm/dL (12/09/24 16:20:00) Albumin Lvl: 4.3 gm/dL (12/09/24 16:20:00) Globulin: 3 gm/dL (12/09/24 16:20:00) A/G Ratio: 1.4 (12/09/24 16:20:00) Bili Total: 0.7 mg/dL (12/09/24 16:20:00) Chol: 183 mg/dL (12/10/24 06:08:00) Tri mg/dL High (12/10/24 06:08:00) HDL: 37 mg/dL (12/10/24 06:08:00) LDL Direct: 86 mg/dL (12/10/24 06:08:00) VLDL: 50 mg/dL High (12/10/24 06:08:00) Troponin HS: 3.7 pg/mL Low (12/09/24 16:20:00) Glucose Cap: 84 mg/dL (12/09/24 16:10:00) POC Device SN: [id number] (12/09/24 16:10:00) POC User ID: [id number] (12/09/24 16:10:00) POC Username: [email or web address] Username (12/09/24 16:10:00) UA Spec Desc: Clean Catch (12/09/24 17:24:00) UA Color: Colorless Abnormal (12/09/24 17:24:00) UA Clarity: Clear (12/09/24 17:24:00) UA Spec Grav: 1.025 (12/09/24 17:24:00) UA pH: 7.5 (12/09/24 17:24:00) UA Protein: Negat (12/09/24 17:24:00) UA Glucose: Negat (12/09/24 17:24:00) UA Ketones: Negat (12/09/24 17:24:00) UA Bili: Negat (12/09/24 17:24:00) UA Blood: Negat (12/09/24 17:24:00) UA Nitrite: Negat (12/09/24 17:24:00) UA Urobilinogen: Negat (12/09/24 17:24:00) UA Leuk Est: Negat (12/09/24 17:24:00) Problem List/Past Medical History Ongoing No qualifying data Historical No qualifying data Medications Inpatient acetaminophen 325 mg Tab, 650 mg= 2 tab(s), Oral, q6hr, PRN Al hydroxide/Mg hydroxide/simethicone 200 mg-200 mg-20 mg/5 mL oral suspension, 30 mL, Oral, q6hr, PRN atenolol 50 mg Tab, 50 mg= 1 tab(s), Oral, Daily atorvastatin 40 mg Tab, 40 mg= 1 tab(s), Oral, Bedtime citalopram 20 mg Tab, 30 mg= 1.5 tab(s), Oral, Daily diphenhydrAMINE 25 mg Cap, 25 mg= 1 cap(s), Oral, q6hr, PRN Fleet Enema, 133 mL, Rectal, Once, PRN heparin 5000 units/mL Inj, 5000 unit(s)= 1 mL, SubCutaneous, BID hydrALAZINE 20 mg/mL Inj, 10 mg= 0.5 mL, IV Push, q6hr, PRN losartan 50 mg Tab, 25 mg= 0.5 tab(s), Oral, Daily Milk of Magnesia 8% Susp-Oral, 30 mL, Oral, q6hr, PRN ondansetron 4 mg/2 mL Inj, 4 mg= 2 mL, IV Push, q6hr, PRN senna 8.6 mg Tab, 17.2 mg= 2 tab(s), Oral, BID, PRN zolpidem 5 mg Tab, 5 mg= 1 tab(s), Oral, Bedtime, PRN Home atenolol 50 mg Tab, 50 mg= 1 tab(s), Oral, Daily citalopram 30 mg oral capsule, 30 mg= 1 cap(s), Oral, Daily diphenhydrAMINE 25 mg Cap, 25 mg= 1 cap(s), Oral, Once a day (at bedtime) losartan 25 mg Tab, 25 mg= 1 tab(s), Oral, Daily Result Comment: Electronical ly Signed By: MAYITO LAUREN, Karson\.br\Date and Time Signed: 12/10/24 09:18 EST CONSULTATION NOTE Observed: 12/10/2024 7:18 AM Status: F Source: [facility] Consultation Note Chief Complaint vision changes around 1400. pt says it felt like he was gonna pass out. denies pain. Reason for Consultation Transient visual loss and headache rule out stroke History of Present Illness The patient is a 44-year-old male who was asked to see in neurological consultation for headache and vision loss. The patient has past medical history significant for hypertension. Patient does report episodic headaches which occur approximately 2 times per week. The patient states that he had a typical headache however this was associated with left visual field tunnel vision associated with blurred vision and kaleidoscope vision in the peripheral vision of the eye. States that this lasted for 45 minutes and then resolved. He states he had a second episode that lasted 15 minutes. He denies any unilateral numbness, weakness, slurred speech associated with the episodes. The patient was evaluated in the emergency room with a noncontrast CT scan of the brain which did not reveal evidence of acute infarct or hemorrhage. The patient did have a CT angiogram performed which did not reveal evidence of large vessel intracranial extra cranial cerebral artery stenosis or occlusion. The patient currently states that he is back to his baseline. Review of Systems Constitutional: no fever, no chills, no sweats, no weakness Respiratory: no shortness of breath, no cough, no orthopnea, no wheezing Cardiovascular: no chest pain, no palpitations, no edema Additional ROS info: Except as noted in the above Review of Systems and in the History of Present Illness all other systems have been reviewed and are negative or noncontributory. Physical Exam Vitals & Measurements T: 36.7 ???C(Oral) TMIN: 36.6 ???C(Oral) TMAX: 36.8 ???C(Oral) HR: 63(Peripheral) RR: 18 BP: 124/71 SpO2: 99% HT: 175.26 cm WT: 94.7 kg The patient is awake and alert. The patient is oriented x3. Language is intact including comprehension and fluency, fund of knowledge is intact, memory is intact. Cranial nerves: Pupils are equal round and reactive to light and accommodation, extraocular movements intact, visual delgado are full to confrontation, funduscopic exam is normal, face is symmetric bilaterally, sensations intact in the face, palate elevates bilaterally, tongue protrudes midline, hearing is intact to finger rub, shoulder shrug is symmetric. Motor exam: Strength testing is 5 out of 5 MRC scale strength in all 4 extremities. Deep tendon reflexes are 2+ and symmetric. Tone is normal throughout. Plantar reflexes flexor bilaterally. Sensory exam: Sensations intact to light touch and pinprick sensation in all 4 extremities. Cerebellar exam: [id number] reveals no ataxia. Gait is normal. The neurological exam was performed by a healthcare professional which was witnessed and supervised by me via video telemedicine visit consented to by the patient or appropriate patient sales representative sales manager. Date/Time:12/10/24 0755 Level of Consciousness: Alert = 0 Current month and age: Answers both correctly = 0 Open and close eyes/sugarcane planter release hand: Obeys both correctly = 0 Best gaze: Normal = 0 Visual field testing: No visual field loss = 0 Facial paresis: Normal symmetric movement = 0 Motor function left arm: Normal = 0 Motor function right arm: Normal = 0 Motor function left leg: Normal = 0 Motor function right leg: Normal = 0 Limb ataxia: No ataxia = 0 Sensory: Normal = 0 Best language: No aphasia = 0 Dysarthria: Normal articulation = 0 Extinction and inattention: Normal = 0 Total Score (severe deficit >22): 0 Notes: Assessment/Plan The patient is a 44 year old male with headache manifested as Pressure-type headache associated with left visual field tunnel vision and peripheral vision obscuration manifest as blurred or kaleidoscope vision.. Possible etiologies include an intracranial process such as hemorrhage or mass effect however the patient did have a CT scan of the brain which I personally reviewed and does not reveal any evidence of an acute intracranial process. Other possible etiologies include migraine headache or migraine variant contributing to the patient's symptoms. The patient did have CT angiogram of the head and neck which did not reveal evidence of large vessel intracranial extra cranial cerebral artery stenosis or occlusion. Recommend obtaining an MRI scan of the brain to assess for an acute intracranial process such as stroke which might have contributed to the patient's symptoms. I recommend aspirin 81 mg daily for secondary stroke prevention for now. I'll make further recommendations based on patient's clinical course and above evaluation. 1. Visual loss (H54.7: Unspecified visual loss) 2. Headache (R51.9: Headache, unspecified) 3. Hypertension (I10: Essential (primary) hypertension) 4. Obesity (E66.9: Obesity, unspecified) 5. 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 Medications Inpatient acetaminophen 325 mg Tab, 650 mg= 2 tab(s), Oral, q6hr, PRN Al hydroxide/Mg hydroxide/simethicone 200 mg-200 mg-20 mg/5 mL oral suspension, 30 mL, Oral, q6hr, PRN atenolol 50 mg Tab, 50 mg= 1 tab(s), Oral, Daily atorvastatin 40 mg Tab, 40 mg= 1 tab(s), Oral, Bedtime citalopram 20 mg Tab, 30 mg= 1.5 tab(s), Oral, Daily diphenhydrAMINE 25 mg Cap, 25 mg= 1 cap(s), Oral, q6hr, PRN Fleet Enema, 133 mL, Rectal, Once, PRN heparin 5000 units/mL Inj, 5000 unit(s)= 1 mL, SubCutaneous, BID hydrALAZINE 20 mg/mL Inj, 10 mg= 0.5 mL, IV Push, q6hr, PRN losartan 50 mg Tab, 25 mg= 0.5 tab(s), Oral, Daily Milk of Magnesia 8% Susp-Oral, 30 mL, Oral, q6hr, PRN ondansetron 4 mg/2 mL Inj, 4 mg= 2 mL, IV Push, q6hr, PRN senna 8.6 mg Tab, 17.2 mg= 2 tab(s), Oral, BID, PRN zolpidem 5 mg Tab, 5 mg= 1 tab(s), Oral, Bedtime, PRN Home atenolol 50 mg Tab, 50 mg= 1 tab(s), Oral, Daily citalopram 30 mg oral capsule, 30 mg= 1 cap(s), Oral, Daily diphenhydrAMINE 25 mg Cap, 25 mg= 1 cap(s), Oral, Once a day (at bedtime) losartan 25 mg Tab, 25 mg= 1 tab(s), Oral, Daily Allergies Vicodin (Shortness of breath) Social History Alcohol - Denies Alcohol Use, 06/04/2022 Never, 12/09/2024 Substance Abuse - Denies Substance Abuse, 06/04/2022 Never, 12/09/2024 Tobacco - No Risk, 12/09/2024 Former smoker, quit more than 30 days ago Tobacco Use:., 12/09/2024 Lab Results WBC: 8.5 E9/L (12/09/24 16:20:00) RBC: 5.3 E12/L (12/09/24 16:20:00) HGB: 16 gm/dL (12/09/24 16:20:00) Hct: 45.8 % (12/09/24 16:20:00) MCV: 86.4 fL (12/09/24 16:20:00) MCH: 30.1 pg (12/09/24 16:20:00) MCHC: 34.9 gm/dL (12/09/24 16:20:00) RDW: 13 % (12/09/24 16:20:00) Platelet: 279 E9/L (12/09/24 16:20:00) MPV: 7.6 fL (12/09/24 16:20:00) Neutro Auto: 67.5 % (12/09/24 16:20:00) Lymph Auto: 18.4 % (12/09/24 16:20:00) [place] Auto: 10.9 % (12/09/24 16:20:00) Eos Auto: 0.7 % (12/09/24 16:20:00) Basophil Auto: 2.5 % High (12/09/24 16:20:00) Neutro Absolute: 5.7 E9/L (12/09/24 16:20:00) Lymph Absolute: 1.6 E9/L (12/09/24 16:20:00) [place] Absolute: 0.9 E9/L (12/09/24 16:20:00) Eos Absolute: 0.1 E9/L (12/09/24 16:20:00) Basophil Absolute: 0.2 E9/L (12/09/24 16:20:00) PT: 10.7 second(s) (12/09/24 16:20:00) INR: 0.96 (12/09/24 16:20:00) PTT: 33.3 second(s) (12/09/24 16:20:00) Glucose Lvl: 87 mg/dL (12/09/24 16:20:00) BUN: 14 mg/dL (12/09/24 16:20:00) Creatinine: 1.1 mg/dL (12/09/24 16:20:00) eGFR: 84 mL/min/1.73 m2 (12/09/24 16:20:00) BUN/Creat Ratio: 13 (12/09/24 16:20:00) Sodium Lvl: 135 mmol/L (12/09/24 16:20:00) Potassium Lvl: 4.5 mmol/L (12/09/24 16:20:00) Chloride: 103 mmol/L (12/09/24:20:00) CO2: 25 mmol/L (12/09/24 16:20:00) AGAP: 12 mEq/L (12/09/24:20:00) Calcium Lvl: 9.7 mg/dL (12/09/24 16:20:00) Alk Phos: 105 Int._Unit/L High (12/09/24 16:20:00) ALT: 18 Int._Unit/L (12/09/24 16:20:00) AST: 20 Int._Unit/L (12/09/24 16:20:00) Total Protein: 7.3 gm/dL (12/09/24 16:20:00) Albumin Lvl: 4.3 gm/dL (12/09/24:20:00) Globulin: 3 gm/dL (12/09/24 16:20:00) A/G Ratio: 1.4 (12/09/24 16:20:00) Bili Total: 0.7 mg/dL (12/09/24 16:20:00) Chol: 183 mg/dL (12/10/24 06:08:00) Tri mg/dL High (12/10/24 06:08:00) HDL: 37 mg/dL (12/10/24 06:08:00) LDL Direct: 86 mg/dL (12/10/24 06:08:00) VLDL: 50 mg/dL High (12/10/24 06:08:00) Troponin HS: 3.7 pg/mL Low (12/09/24 16:20:00) Glucose Cap: 84 mg/dL (12/09/24 16:10:00) POC Device SN: [id number] (12/09/24 16:10:00) POC User ID: [id number] (12/09/24 16:10:00) POC Username: [email or web address] Username (12/09/24 16:10:00) UA Spec Desc: Clean Catch (12/09/24 17:24:00) UA Color: Colorless Abnormal (12/09/24 17:24:00) UA Clarity: Clear (12/09/24 17:24:00) UA Spec Grav: 1.025 (12/09/24 17:24:00) UA pH: 7.5 (12/09/24 17:24:00) UA Protein: Negat (12/09/24 17:24:00) UA Glucose: Negat (12/09/24 17:24:00) UA Ketones: Negat (12/09/24 17:24:00) UA Bili: Negat (12/09/24 17:24:00) UA Blood: Negat (12/09/24 17:24:00) UA Nitrite: Negat (12/09/24 17:24:00) UA Urobilinogen: Negat (12/09/24 17:24:00) UA Leuk Est: Negat (12/09/24 17:24:00) Result Comment: Electronical ly Signed By: Brittney Maynard RN\.br\Date and Time Signed: 12/10/24 07:19 EST\.br\Electronically Co-Signed By: Scar Delgado MD\.br\Date and Time Co-Signed: 12/10/24 09:55 EST\.br\Electronically Co- Signed By: Brittney Maynard RN CONSULTATION NOTE Observed: 12/10/2024 7:18 AM Status: F Source: [facility] Consultation Note Chief Complaint vision changes around 1400. pt says it felt like he was gonna pass out. denies pain. Reason for Consultation Transient visual loss and headache rule out stroke History of Present Illness The patient is a 44-year-old male who was asked to see in neurological consultation for headache and vision loss. The patient has past medical history significant for hypertension. Patient does report episodic headaches which occur approximately 2 times per week. The patient states that he had a typical headache however this was associated with left visual field tunnel vision associated with blurred vision and kaleidoscope vision in the peripheral vision of the eye. States that this lasted for 45 minutes and then resolved. He states he had a second episode that lasted 15 minutes. He denies any unilateral numbness, weakness, slurred speech associated with the episodes. The patient was evaluated in the emergency room with a noncontrast CT scan of the brain which did not reveal evidence of acute infarct or hemorrhage. The patient did have a CT angiogram performed which did not reveal evidence of large vessel intracranial extra cranial cerebral artery stenosis or occlusion. The patient currently states that he is back to his baseline. Review of Systems Constitutional: no fever, no chills, no sweats, no weakness Respiratory: no shortness of breath, no cough, no orthopnea, no wheezing Cardiovascular: no chest pain, no palpitations, no edema Additional ROS info: Except as noted in the above Review of Systems and in the History of Present Illness all other systems have been reviewed and are negative or noncontributory. Physical Exam Vitals & Measurements T: 36.7 ???C(Oral) TMIN: 36.6 ???C(Oral) TMAX: 36.8 ???C(Oral) HR: 63(Peripheral) RR: 18 BP: 124/71 SpO2: 99% HT: 175.26 cm WT: 94.7 kg The patient is awake and alert. The patient is oriented x3. Language is intact including comprehension and fluency, fund of knowledge is intact, memory is intact. Cranial nerves: Pupils are equal round and reactive to light and accommodation, extraocular movements intact, visual delgado are full to confrontation, funduscopic exam is normal, face is symmetric bilaterally, sensations intact in the face, palate elevates bilaterally, tongue protrudes midline, hearing is intact to finger rub, shoulder shrug is symmetric. Motor exam: Strength testing is 5 out of 5 MRC scale strength in all 4 extremities. Deep tendon reflexes are 2+ and symmetric. Tone is normal throughout. Plantar reflexes flexor bilaterally. Sensory exam: Sensations intact to light touch and pinprick sensation in all 4 extremities. Cerebellar exam: [id number]-wa-nlfw reveals no ataxia. Gait is normal. The neurological exam was performed by a healthcare professional which was witnessed and supervised by me via video telemedicine visit consented to by the patient or appropriate patient sales representative sales manager. Date/Time:12/10/24 0755 Level of Consciousness: Alert = 0 Current month and age: Answers both correctly = 0 Open and close eyes/sugarcane planter release hand: Obeys both correctly = 0 Best gaze: Normal = 0 Visual field testing: No visual field loss = 0 Facial paresis: Normal symmetric movement = 0 Motor function left arm: Normal = 0 Motor function right arm: Normal = 0 Motor function left leg: Normal = 0 Motor function right leg: Normal = 0 Limb ataxia: No ataxia = 0 Sensory: Normal = 0 Best language: No aphasia = 0 Dysarthria: Normal articulation = 0 Extinction and inattention: Normal = 0 Total Score (severe deficit >22): 0 Notes: Assessment/Plan The patient is a 44 year old male with headache manifested as Pressure-type headache associated with left visual field tunnel vision and peripheral vision obscuration manifest as blurred or kaleidoscope vision.. Possible etiologies include an intracranial process such as hemorrhage or mass effect however the patient did have a CT scan of the brain which I personally reviewed and does not reveal any evidence of an acute intracranial process. Other possible etiologies include migraine headache or migraine variant contributing to the patient's symptoms. The patient did have CT angiogram of the head and neck which did not reveal evidence of large vessel intracranial extra cranial cerebral artery stenosis or occlusion. Recommend obtaining an MRI scan of the brain to assess for an acute intracranial process such as stroke which might have contributed to the patient's symptoms. I recommend aspirin 81 mg daily for secondary stroke prevention for now. I'll make further recommendations based on patient's clinical course and above evaluation. 1. Visual loss (H54.7: Unspecified visual loss) 2. Headache (R51.9: Headache, unspecified) 3. Hypertension (I10: Essential (primary) hypertension) 4. Obesity (E66.9: Obesity, unspecified) 5. 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 Medications Inpatient acetaminophen 325 mg Tab, 650 mg= 2 tab(s), Oral, q6hr, PRN Al hydroxide/Mg hydroxide/simethicone 200 mg-200 mg-20 mg/5 mL oral suspension, 30 mL, Oral, q6hr, PRN atenolol 50 mg Tab, 50 mg= 1 tab(s), Oral, Daily atorvastatin 40 mg Tab, 40 mg= 1 tab(s), Oral, Bedtime citalopram 20 mg Tab, 30 mg= 1.5 tab(s), Oral, Daily diphenhydrAMINE 25 mg Cap, 25 mg= 1 cap(s), Oral, q6hr, PRN Fleet Enema, 133 mL, Rectal, Once, PRN heparin 5000 units/mL Inj, 5000 unit(s)= 1 mL, SubCutaneous, BID hydrALAZINE 20 mg/mL Inj, 10 mg= 0.5 mL, IV Push, q6hr, PRN losartan 50 mg Tab, 25 mg= 0.5 tab(s), Oral, Daily Milk of Magnesia 8% Susp-Oral, 30 mL, Oral, q6hr, PRN ondansetron 4 mg/2 mL Inj, 4 mg= 2 mL, IV Push, q6hr, PRN senna 8.6 mg Tab, 17.2 mg= 2 tab(s), Oral, BID, PRN zolpidem 5 mg Tab, 5 mg= 1 tab(s), Oral, Bedtime, PRN Home atenolol 50 mg Tab, 50 mg= 1 tab(s), Oral, Daily citalopram 30 mg oral capsule, 30 mg= 1 cap(s), Oral, Daily diphenhydrAMINE 25 mg Cap, 25 mg= 1 cap(s), Oral, Once a day (at bedtime) losartan 25 mg Tab, 25 mg= 1 tab(s), Oral, Daily Allergies Vicodin (Shortness of breath) Social History Alcohol - Denies Alcohol Use, 06/04/2022 Never, 12/09/2024 Substance Abuse - Denies Substance Abuse, 06/04/2022 Never, 12/09/2024 Tobacco - No Risk, 12/09/2024 Former smoker, quit more than 30 days ago Tobacco Use:., 12/09/2024 Lab Results WBC: 8.5 E9/L (12/09/24 16:20:00) RBC: 5.3 E12/L (12/09/24 16:20:00) HGB: 16 gm/dL (12/09/24 16:20:00) Hct: 45.8 % (12/09/24 16:20:00) MCV: 86.4 fL (12/09/24 16:20:00) MCH: 30.1 pg (12/09/24 16:20:00) MCHC: 34.9 gm/dL (12/09/24 16:20:00) RDW: 13 % (12/09/24 16:20:00) Platelet: 279 E9/L (12/09/24 16:20:00) MPV: 7.6 fL (12/09/24 16:20:00) Neutro Auto: 67.5 % (12/09/24 16:20:00) Lymph Auto: 18.4 % (12/09/24 16:20:00) [place] Auto: 10.9 % (12/09/24 16:20:00) Eos Auto: 0.7 % (12/09/24 16:20:00) Basophil Auto: 2.5 % High (12/09/24 16:20:00) Neutro Absolute: 5.7 E9/L (12/09/24 16:20:00) Lymph Absolute: 1.6 E9/L (12/09/24 16:20:00) [place] Absolute: 0.9 E9/L (12/09/24 16:20:00) Eos Absolute: 0.1 E9/L (12/09/24 16:20:00) Basophil Absolute: 0.2 E9/L (12/09/24 16:20:00) PT: 10.7 second(s) (12/09/24 16:20:00) INR: 0.96 (12/09/24 16:20:00) PTT: 33.3 second(s) (12/09/24 16:20:00) Glucose Lvl: 87 mg/dL (12/09/24 16:20:00) BUN: 14 mg/dL (12/09/24 16:20:00) Creatinine: 1.1 mg/dL (12/09/24 16:20:00) eGFR: 84 mL/min/1.73 m2 (12/09/24 16:20:00) BUN/Creat Ratio: 13 (12/09/24 16:20:00) Sodium Lvl: 135 mmol/L (02/15/25 16:20:00) Potassium Lvl: 4.5 mmol/L (12/09/24 16:20:00) Chloride: 103 mmol/L (12/09/24 16:20:00) CO2: 25 mmol/L (12/09/24 16:20:00) AGAP: 12 mEq/L (12/09/24 16:20:00) Calcium Lvl: 9.7 mg/dL (12/09/24 16:20:00) Alk Phos: 105 Int._Unit/L High (12/09/24 16:20:00) ALT: 18 Int._Unit/L (12/09/24 16:20:00) AST: 20 Int._Unit/L (12/09/24 16:20:00) Total Protein: 7.3 gm/dL (12/09/24 16:20:00) Albumin Lvl: 4.3 gm/dL (12/09/24:20:00) Globulin: 3 gm/dL (12/09/24:20:00) A/G Ratio: 1.4 (12/09/24 16:20:00) Bili Total: 0.7 mg/dL (12/09/24 16:20:00) Chol: 183 mg/dL (12/10/24 06:08:00) Tri mg/dL High (12/10/24 06:08:00) HDL: 37 mg/dL (12/10/24 06:08:00) LDL Direct: 86 mg/dL (12/10/24 06:08:00) VLDL: 50 mg/dL High (12/10/24 06:08:00) Troponin HS: 3.7 pg/mL Low (12/09/24 16:20:00) Glucose Cap: 84 mg/dL (12/09/24 16:10:00) POC Device SN: [id number] (12/09/24 16:10:00) POC User ID: [id number] (12/09/24 16:10:00) POC Username: [email or web address] Username (12/09/24 16:10:00) UA Spec Desc: Clean Catch (12/09/24 17:24:00) UA Color: Colorless Abnormal (12/09/24 17:24:00) UA Clarity: Clear (12/09/24 17:24:00) UA Spec Grav: 1.025 (12/09/24 17:24:00) UA pH: 7.5 (12/09/24 17:24:00) UA Protein: Negat (12/09/24 17:24:00) UA Glucose: Negat (12/09/24 17:24:00) UA Ketones: Negat (12/09/24 17:24:00) UA Bili: Negat (12/09/24 17:24:00) UA Blood: Negat (12/09/24 17:24:00) UA Nitrite: Negat (12/09/24 17:24:00) UA Urobilinogen: Negat (12/09/24 17:24:00) UA Leuk Est: Negat (12/09/24 17:24:00) Result Comment: Electronical ly Signed By: Brittney Maynard RN\.br\Date and Time Signed: 12/10/24 07:19 EST\.br\Electronically Co-Signed By: Scar Delgado MD\.br\Date and Time Co-Signed: 12/10/24 09:55 EST LIPID PANEL Collected: 12/10/2024 6:08 AM Status: F Source: [facility] TYPE CODE TESTS RESULT OUT OF RANGE REFERENCE UNITS LAB 2092-12([facility]) CHOLESTEROL:M CNC:PT:SER/PL :QN: 183 Normal 120-200 mg/dL LAB 2085-06([facility]) CHOLESTEROL.I N HDL:MCNC:PT:S ER/PLAS:QN: 37 Unknown mg/dL Result Comment: '>= 60 LOW R ISK' '<= 40 HIGH RISK' LAB 2088-10([facility]) CHOLESTEROL.I N LDL:MCNC:PT:S ER/PLAS:QN: 86 Normal <=129 mg/dL LAB 2571-8([facility]) TRIGLYCERIDE: MCNC:PT:SER/P LAS:QN: 250 High <=149 mg/dL LAB 55936-4([facility]) CHOLESTEROL.I N VLDL:MCNC:PT: SER/PLAS:QN:C ALCULATED 50 High 7-40 mg/dL Performed By: #### [id number] # ### [facility] [address] [place] [address] HGBA1C Collected: 12/10/2024 6:08 AM Status: F Source: [facility] TYPE CODE TESTS RESULT OUT OF RANGE REFERENCE UNITS LAB 4548-4(LOINC) HEMOGLOBIN A1C/HEMOGLOBIN. TOTAL:MFR:PT:BL D:QN: 5.2 Normal <=5.9 % Performed By: #### [id number] #### [facility] [address] [place] [address] ED PATIENT EDUCATION NOTE Observed: 11/25 7:48 PM Status: F Source: [facility] ED Patient Education Note ED PATIENT SUMMARY Observed: 12/09/2024 7:48 PM Status: F Source: [facility] ED Patient Summary [address] [address] Patient Discharge Instructions Person Information Name: ELEAZAR MORGAN Age: 44 Years Arrival Date: 12/09/2024 15:55:32 Discharge Diagnosis: 3:Hypertension; 4:Obesity; 5:On deep vein thrombosis (DVT) prophylaxis Primary Care Physician: GERTRUDIS PHAM CNP Provider Information Primary Provider: Vic Maldonado DO Advanced Care Associate:None The exam and treatment you received in the Emergency Department were for an urgent problem and are not intended as complete care. It is important that you follow up with a doctor, nurse practitioner, or physician???s assistant professor of physics for ongoing care. If your symptoms become worse or you do not improve as expected and you are unable to reach your usual health care provider, you should return to the Emergency Department. We are available 24 hours a day. KATIEELEAZAR OCONNOR has been given the following list of patient education materials, prescriptions and follow-up instructions: Follow-up Instructions: In the event that this physician does not participate in your insurance network, please consult with your insurance company to find a nearby participating provider. Patient Education Materials: A MESSAGE TO ALL PATIENTS REGARDING OPIOIDS PRESCRIPTION OPIOIDS: WHAT YOU NEED TO KNOW Prescription opioids can be used to help relieve ulzraxca-eh-wamlyl pain and are often prescribed following a [...] as well, even when taken as directed: ??? Tolerance???meaning you might need to take more of the medication for the same pain relief ??? Physical dependence???meaning you have symptoms of withdrawal when a medication is stopped ??? Increased sensitivity to pain ??? Constipation ??? Nausea, vomiting, and dry mouth ??? Sleepiness and dizziness ??? Confusion ??? Depression ??? Low levels of testosterone that can result in lower sex drive, energy, and strength ??? Itching and sweating RISKS ARE GREATER WITH: ??? History of drug misuse, substance use disorder, or overdose ??? Mental health conditions (such as depression or anxiety) ??? Sleep apnea ??? Older age (65 years and older) ??? Avoid alcohol while taking prescription opioids. Also, unless specifically advised by your health care provider, medications to avoid include: ??? Benzodiazepines (such as Xanax or Valium) ??? Muscle relaxants (such as Soma or Flexeril) ??? Hypnotics (such as Ambien or Lunesta) ??? Other prescription opioids KNOW YOUR OPTIONS Talk to your health care provider about ways to manage your pain that don???t involve prescription opioids. Some of these options may actually work better and have fewer risks and side effects. Options may include: ??? Pain relievers such as acetaminophen, ibuprofen, and naproxen ??? Some medication that are also used for depression or seizures ??? Physical therapy and exercise ??? Cognitive behavioral therapy, a psychological, goal-directed approach, in which patients learn how to modify physical, behavioral, and emotional triggers of pain and stress. IF YOU ARE PRESCRIBED OPIOIDS FOR PAIN: ??? Never take opioids in greater amounts or more often than prescribed. ??? Follow up with your primary health care provider. o Work together to create a plan on how to manage your pain. o Talk about ways to help manage your pain that don???t involve prescription opioids. o Talk about any and all concerns and side effects. ??? Help prevent misuse and abuse o Never sell or share prescription opioids. o Never use another person???s prescription opioids. ??? Store prescription opioids in a secure place and out of reach of others (this may include visitors, children, friends, and family). ??? Safely dispose of unused prescription opioids: Find your community drug take-back program or your pharmacy mail-back program, or flush them down the toilet, following guidance from the Food and Drug Administration (www.fda.gov/Drugs/ResourcesForYou). ??? Visit www.cdc.gov/drugoverdose to learn about the risks of opioids abuse and overdose. ??? If you believe you may be struggling with addiction, tell your health career portals teacher and ask for guidance or call [facility]???S Ev[employer] Helpline at 7-300-098-[employer]. v Source: US Department of Health and Human Services/Center for Disease Control & Prevention [facility] Medications Given: Medication Dose Route labetalol 5.00 mg IV Push Left Antecubital [place] ketorolac 30.00 mg IV Left Antecubital [place] Medication Information: Comment: Patient Portal You may access all of your results and other medical record information on our secure patient portal. If you are not signed up for this yet, please contact [facility] at [phone] to get signed up today. IVONNE Award Nomination The IVONNE (Diseases Attacking the Immune SYstem) Award is an international recognition program that honors and celebrates the skillful, compassionate care nurses provide every day. Anyone who experiences or observes amazing care being provided by a nurse is encouraged to submit a nomination. To nominate your nurse, use your smart phone to scan the QR code below. You may receive a survey from [employer] asking you to rate your care experience. Your feedback is important and will help us understand what we do well and how we can improve the quality of care we provide to you, your loved ones and our community. It???s an honor to serve you. Thank you for choosing [facility] Patient Education Materials: TYESHA Broussard GARY A , have received the following patient education materials/instructions and have verbalized understanding: Patient Education Materials: Follow-up Instructions: Patient Signature Date Clinician/Nurse Signature Date 12/09/2024 19:48:23 ED CLINICAL SUMMARY Observed: 12/09/2024 7:48 PM Status: F Source: [facility] ED Clinical Summary [place] [id number] ED Clinical Summary Person Information Name: ELEAZAR MORGAN [facility] Age: 44 Years : 1980 Sex: Male Language: Citizen Of [place] PCP: GERTRUDIS PHAM CNP Marital Status: Phone: [phone] Visit Id: Visit Reason: Vision changes; BLURRED VISION Speciality: Acuity: 2 Enc Type: Observation Med Service: Medical Arrival: 12/09/2024 15:55:32 Discharge: LOS: 000 03:53 Checkin: 12/09/2024 15:55:32 Checkout: 12/09/2024 19:48:21 Dispo Type: Admitted as IP to this [facility] EVENTS: Event Name Event Status Request Date/Time Start Date/Time Complete Date/Time Arrive Complete 12/09/2024 15:55:32 12/09/2024 15:55:32 12/09/2024 15:55:32 Document Home Meds Request 12/09/2024 15:55:32 Triage Complete 12/09/2024 15:55:32 12/09/2024 16:14:10 12/09/2024 16:14:10 Registration Complete 12/09/2024 16:00:54 12/09/2024 16:00:54 12/09/2024 16:00:54 Reg Complete Request 12/09/2024 16:00:54 Reg Bed Request Complete 12/09/2024 16:00:54 12/09/2024 16:00:54 12/09/2024 16:00:54 Bed Assign Complete 12/09/2024 16:08:54 12/09/2024 16:08:54 12/09/2024 16:08:54 Dr Exam Complete 12/09/2024 16:08:54 12/09/2024 16:11:22 12/09/2024 16:11:22 RN Exam Complete 12/09/2024 16:08:54 12/09/2024 16:28:45 12/09/2024 16:28:45 Registration Start 12/09/2024 16:11:22 12/09/2024 17:55:09 Pending Labs Complete 12/09/2024 16:11:53 12/09/2024 16:11:53 12/09/2024 16:11:53 CT Complete 12/09/2024 16:13:22 12/09/2024 16:13:56 12/09/2024 16:19:42 Dr Exam Complete 12/09/2024 16:13:57 12/09/2024 16:13:57 12/09/2024 16:13:57 EKG Complete 12/09/2024 16:14:26 12/09/2024 16:35:21 NPO Request 12/09/2024 16:14:26 Pending Labs Complete 12/09/2024 16:14:26 12/09/2024 18:32:11 Blood Collect Request 12/09/2024 16:14:26 Lab Complete 12/09/2024 16:14:26 12/09/2024 16:54:00 Patient Care Request 12/09/2024 16:14:26 X-Ray Complete 12/09/2024 16:14:26 12/09/2024 16:19:09 12/09/2024 16:20:53 RT Request 12/09/2024 16:14:26 Wet Read Complete 12/09/2024 16:20:53 12/09/2024 16:39:36 12/09/2024 16:39:36 RR Stroke Request 12/09/2024 16:22:03 Pending Labs Complete 12/09/2024 16:26:19 12/09/2024 16:26:19 12/09/2024 16:54:00 Lab Complete 12/09/2024 16:26:19 12/09/2024 16:26:19 12/09/2024 16:54:00 RR Stroke Request 12/09/2024 16:28:45 CT Complete 12/09/2024 17:04:04 12/09/2024 17:04:32 12/09/2024 17:21:30 Meds Admin Complete 12/09/2024 17:19:09 12/09/2024 17:26:24 Meds Admin Complete 12/09/2024 17:48:25 12/09/2024 17:51:18 Observation Request 12/09/2024 17:55:08 Patient Care Request 12/09/2024 17:55:10 Patient Care Request 12/09/2024 17:55:10 Patient Care Request 12/09/2024 17:55:11 Patient Care Request 12/09/2024 17:55:11 Consult Request 12/09/2024 17:55:33 Hospitalist Consult Request 12/09/2024 17:55:33 Patient Care Request 12/09/2024 18:25:16 Consult Request 12/09/2024 18:25:16 Pending Labs Request 12/09/2024 18:25:16 Lab Request 12/09/2024 18:25:16 Meds Admin Request 12/09/2024 18:25:16 MRI Request 12/09/2024 18:25:16 Patient Care Request 12/09/2024 18:25:41 Inpatient Bed Ready Complete 12/09/2024 19:48:21 12/09/2024 19:48:21 12/09/2024 19:48:21 ADDRESS: [address] [place] [address] [id number] PHYS DOC NOTES: MEDICAL INFORMATION: Prescriptions Given: PATIENT EDUCATION INFORMATION: Instructions: Follow up: DIAGNOSIS: 3:Hypertension; 4:Obesity; 5:On deep vein thrombosis (DVT) prophylaxis HISTORY AND PHYSICAL Observed: 6:26 PM Status: F Source: [facility] History and Physical Chief Complaint vision changes around 1400. pt says it felt like he was gonna pass out. denies pain. History of Present Illness 44-year-old male former cigarette smoker with history of hypertension presented with transient loss of vision on the left side associated with headache. According to the patient he was in his usual state of health until today around 2 PM when he developed some visual changes. It felt like he was losing his peripheral vision on the left side. Above symptom was associated with dizziness that he felt like he was going to pass out. However he did not pass out. Above symptoms was associated with a headache also. His is a nurse who asked him to go to the emergency room. While in the emergency room the symptoms abated but reoccurred again hence he was referred for admission. He denies any chest pain, double vision, nausea, vomiting, palpitations, tingling, numbness or weakness of any body parts. In the emergency room his blood pressure was elevated and he was treated with labetalol and ketorolac for pain and he feels better now. He is being admitted with visual loss and headache to rule out stroke. Review of Systems Constitutional: no fever, no chills, no sweats, no weakness Skin: no Jaundice, no rash, no lesions, nopetechiae ENMT: no ear pain, no sore throat, no congestion, no hoarseness Respiratory: no shortness of breath, no cough, no orthopnea, no wheezing Cardiovascular: no chest pain, no palpitations, no edema Gastrointestinal: no nausea, no vomiting, no diarrhea, no GI bleeding Genitourinary: no dysuria, no hematuria, no discharge, no pain Musculoskeletal: no back pain, no trauma Neurologic: no headache, mild dizziness, no numbness, no weakness Psychiatric: no sleeping problems, no irritability, no mood swings/depression. Heme/Lymph: no bleeding tendency, no bruising tendency, no petechiae, no swollen nodes Allergy/Immunologic: no seasonal allergies, no food allergies, no recurrent infections, no impaired immunity Additional ROS info: Except as noted in the above Review of Systems and in the History of Present Illness all other systems have been reviewed and are negative or noncontributory. Scoring Michelle Fall Risk Score: 35 (12/09/24) Physical Exam Vitals & Measurements T: 36.8 ???C(Oral) HR: 65(Monitored) RR: 16 BP: 150/99 SpO2: 99% HT: 175 cm WT: 98.4 kg General: alert, no acute distress, comfortable in bed on room air. Skin: warm, dry Head: no trauma, normocephalic Neck: Trachea midline, no adenopathy, no tenderness Eye: normal conjunctiva, sclera clear ENMT: TM's clear, oral mucosa moist, no pharyngeal erythema or exudate Cardiovascular: regular rate and rhythm, normal peripheral perfusion Respiratory: Lungs CTA, respirations non labored Chest wall: no deformity. Gastrointestinal: soft, non distended, no tenderness, no guarding. Obese. Bowel sounds intact. Back: No tenderness, Normal ROM, Normal alignment. Extremities: no deformity, no trauma Neurological: oriented x 4, LOC appropriate for age, CN II-XII intact, motor strength equal & normal bilaterally, sensation equal & normal bilaterally, speech normal Psychiatric: cooperative, affect appropriate for age, normal judgement, normal psychiatric thoughts. Lab Results WBC: 8.5 E9/L (12/09/24 16:20:00) RBC: 5.3 E12/L (12/09/24 16:20:00) HGB: 16 gm/dL (12/09/24 16:20:00) Hct: 45.8 % (12/09/24 16:20:00) MCV: 86.4 fL (12/09/24 16:20:00) MCH: 30.1 pg (12/09/24 16:20:00) MCHC: 34.9 gm/dL (12/09/24 16:20:00) RDW: 13 % (12/09/24 16:20:00) Platelet: 279 E9/L (12/09/24 16:20:00) MPV: 7.6 fL (12/09/24 16:20:00) Neutro Auto: 67.5 % (12/09/24 16:20:00) Lymph Auto: 18.4 % (12/09/24 16:20:00) [place] Auto: 10.9 % (12/09/24 16:20:00) Eos Auto: 0.7 % (12/09/24 16:20:00) Basophil Auto: 2.5 % High (12/09/24 16:20:00) Neutro Absolute: 5.7 E9/L (12/09/24 16:20:00) Lymph Absolute: 1.6 E9/L (12/09/24 16:20:00) [place] Absolute: 0.9 E9/L (12/09/24 16:20:00) Eos Absolute: 0.1 E9/L (12/09/24 16:20:00) Basophil Absolute: 0.2 E9/L (12/09/24 16:20:00) PT: 10.7 second(s) (12/09/24 16:20:00) INR: 0.96 (12/09/24 16:20:00) PTT: 33.3 second(s) (12/09/24 16:20:00) Glucose Lvl: 87 mg/dL (12/09/24 16:20:00) BUN: 14 mg/dL (12/09/24 16:20:00) Creatinine: 1.1 mg/dL (12/09/24:20:00) eGFR: 84 mL/min/1.73 m2 (12/09/24 16:20:00) BUN/Creat Ratio: 13 (12/09/24 16:20:00) Sodium Lvl: 135 mmol/L (12/09/24 16:20:00) Potassium Lvl: 4.5 mmol/L (12/09/24 16:20:00) Chloride: 103 mmol/L (12/09/24 16:20:00) CO2: 25 mmol/L (12/09/24 16:20:00) AGAP: 12 mEq/L (12/09/24 16:20:00) Calcium Lvl: 9.7 mg/dL (12/09/24 16:20:00) Alk Phos: 105 Int._Unit/L High (12/09/24 16:20:00) ALT: 18 Int._Unit/L (12/09/24 16:20:00) AST: 20 Int._Unit/L (12/09/24 16:20:00) Total Protein: 7.3 gm/dL (12/09/24 16:20:00) Albumin Lvl: 4.3 gm/dL (12/09/24 16:20:00) Globulin: 3 gm/dL (12/09/24 16:20:00) A/G Ratio: 1.4 (12/09/24 16:20:00) Bili Total: 0.7 mg/dL (12/09/24 16:20:00) Troponin HS: 3.7 pg/mL Low (12/09/24 16:20:00) Glucose Cap: 84 mg/dL (12/09/24 16:10:00) POC Device SN: [id number] (12/09/24 16:10:00) POC User ID: [id number] (12/09/24 16:10:00) POC Username: [email or web address] Username (12/09/24 16:10:00) UA Spec Desc: Clean Catch (12/09/24 17:24:00) UA Color: Colorless Abnormal (12/09/24 17:24:00) UA Clarity: Clear (12/09/24 17:24:00) UA Spec Grav: 1.025 (12/09/24 17:24:00) UA pH: 7.5 (12/09/24 17:24:00) UA Protein: Negat (12/09/24 17:24:00) UA Glucose: Negat (12/09/24 17:24:00) UA Ketones: Negat (12/09/24 17:24:00) UA Bili: Negat (12/09/24 17:24:00) UA Blood: Negat (12/09/24 17:24:00) UA Nitrite: Negat (12/09/24 17:24:00) UA Urobilinogen: Negat (12/09/24 17:24:00) UA Leuk Est: Negat (12/09/24 17:24:00) Diagnostic Results CT brain analyzed by me: No acute brain pathology. CTA head and neck analyzed by me: No significant large vessel stenosis. Chest x-ray analyzed by me: No acute lung pathology. EKG analyzed by me: Sinus bradycardia. Rate of [address]-T segment changes. Assessment/Plan 44-year-old male former cigarette smoker with history of hypertension presented with transient loss of vision on the left side associated with headache and is being admitted with visual loss and headache to rule out stroke. 1. Visual loss (H54.7: Unspecified visual loss) Transient visual loss with headache???likely secondary to migraine???however rule out stroke. Admit to regular medical floor. I ordered MRI of the brain. Neurology consulted. Started patient on aspirin, Lipitor. Neurochecks. Bedside dysphagia test done. Patient does not have dysphagia. Ordered: Initial Hospital Care/Day Moderate 55 Minutes 62949 2. Headache (R51.9: Headache, unspecified) May be secondary to migraine headache versus uncontrolled hypertension. Improved. Treated with ketorolac in the emergency room. Continue as needed pain medications. Ordered: Initial Hospital Care/Day Moderate 55 Minutes 18518 3. Hypertension (I10: Essential (primary) hypertension) Continue on atenolol 50 mg daily and losartan 25 mg daily Ordered: Initial Hospital Care/Day Moderate 55 Minutes 51571 4. Obesity (E66.9: Obesity, unspecified) Recommend therapeutic lifestyle modification changes. Ordered: Initial Hospital Care/Day Moderate 55 Minutes 63403 5. 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 Disposition: The patient will be admitted under observation status with anticipation of staying less than 2 midnights in the hospital for the treatment of above transient left visual loss and headache to rule out stroke. I discussed the diagnosis and plan of care with the patient and spouse at the bedside. Moderate level of MDM based on addressing above issues. This documentation was transcribed using voice recognition software. Several attempts were made to ensure accuracy. However inadvertent computerized data entry specialist errors may be present. Karson Edmond. Hospitalist. Orders: acetaminophen, 650 mg = 2 tab(s), Tab, Oral, q6hr PRN Pain, Routine, Start date 12/09/24 18:23:00 EST, 12/09/24 18:23:00 EST Al hydroxide/Mg hydroxide/simethicone, 30 mL, Susp-Oral, Oral, q6hr PRN Indigestion, Routine, Start date 12/09/24 18:23:00 EST atenolol, 50 mg = 1 tab(s), Tab, Oral, Daily, Routine, Start date 12/10/24 9:00:00 EST, 12/09/24 18:24:00 EST atorvastatin, 40 mg = 1 tab(s), Tab, Oral, Bedtime, Routine, Start date 12/09/24 21:00:00 EST, 12/09/24 18:23:00 EST diphenhydrAMINE, 25 mg = 1 cap(s), Cap, Oral, q6hr PRN Itching, Routine, Start date 12/09/24 18:23:00 EST, 12/09/24 18:23:00 EST heparin, 5,000 unit(s) = 1 mL, Injection, SubCutaneous, BID for 30 day(s), Stop date 01/08/25 20:59:00 EDT, Routine, Start date 12/09/24 21:00:00 EST, 12/09/24 18:23:00 EST hydrALAZINE, 10 mg = 0.5 mL, Injection, IV Push, q6hr PRN Other (see comment), Routine, Start date 12/09/24 18:23:00 EST, 12/09/24 18:23:00 EST losartan, 25 mg = 0.5 tab(s), Tab, Oral, Daily, Routine, Start date 12/10/24 9:00:00 EST, 12/10/24 9:00:00 EST magnesium hydroxide, 30 mL, Susp-Oral, Oral, q6hr PRN Constipation, Routine, Start date 12/09/24 18:23:00 EST ondansetron, 4 mg = 2 mL, Injection, IV Push, q6hr PRN Nausea/Vomiting, Routine, Start date 12/09/24 18:23:00 EST, 12/09/24 18:23:00 EST senna, 17.2 mg = 2 tab(s), Tab, Oral, BID PRN Constipation, Routine, Start date 12/09/24 18:23:00 EST, 12/09/24 18:23:00 EST sodium biphosphate-sodium phosphate, 133 mL, Enema, Rectal, Once PRN Constipation, Routine, Start date 12/09/24 18:23:00 EST zolpidem, 5 mg = 1 tab(s), Tab, Oral, Bedtime PRN Sleep for 7 day(s), Stop date 12/16/24 18:22:00 EST, Routine, Start date 12/09/24 18:23:00 EST, 12/09/24 18:23:00 EST Below the Knee Intermittent Pneumatic Compression Device Cardiac Monitoring Communication Order Communication Order Physician to Nursing Consult to Neurology Dysphagia Screen Evaluate Need For Continued Telemetry HgbA1c Lipid Panel MRI Brain w/o Contrast Neurological Assessment Neurological Assessment Occupational Therapy Evaluate Patient, Develop a Plan of Care and Implement Plan Physical Therapy Evaluate Patient, Develop a Plan of Care and Implement Plan Pulse Oximetry Sodium Diet Stroke Education Stroke Quality Measures Up ad [place] Vital Signs Weight Problem List/Past Medical History Ongoing No qualifying data Historical No qualifying data Medications Inpatient acetaminophen 325 mg Tab, 650 mg= 2 tab(s), Oral, q6hr, PRN Al hydroxide/Mg hydroxide/simethicone 200 mg-200 mg-20 mg/5 mL oral suspension, 30 mL, Oral, q6hr, PRN atenolol 50 mg Tab, 50 mg= 1 tab(s), Oral, Daily atorvastatin 40 mg Tab, 40 mg= 1 tab(s), Oral, Bedtime diphenhydrAMINE 25 mg Cap, 25 mg= 1 cap(s), Oral, q6hr, PRN Fleet Enema, 133 mL, Rectal, Once, PRN heparin 5000 units/mL Inj, 5000 unit(s)= 1 mL, SubCutaneous, BID hydrALAZINE 20 mg/mL Inj, 10 mg= 0.5 mL, IV Push, q6hr, PRN losartan 50 mg Tab, 25 mg= 0.5 tab(s), Oral, Daily Milk of Magnesia 8% Susp-Oral, 30 mL, Oral, q6hr, PRN ondansetron 4 mg/2 mL Inj, 4 mg= 2 mL, IV Push, q6hr, PRN senna 8.6 mg Tab, 17.2 mg= 2 tab(s), Oral, BID, PRN zolpidem 5 mg Tab, 5 mg= 1 tab(s), Oral, Bedtime, PRN Home No active home medications Allergies Vicodin (Shortness of breath) Social History Alcohol - Denies Alcohol Use, 06/04/2022 Never, 12/09/2024 Substance Abuse - Denies Substance Abuse, 06/04/2022 Never, 12/09/2024 Tobacco - Denies Tobacco Use, 06/04/2022 Never (less than 100 in lifetime) Tobacco Use:. Never Smokeless Tobacco Use:., 12/09/2024 Result Comment: Electronical ly Signed By: MAYITO LAUREN, Karson\.br\Date and Time Signed: 12/09/24 18:26 EST UA WITH CULT RFLX Collected: 5:24 PM Status: F Source: [facility] TYPE CODE TESTS RESULT OUT OF RANGE REFERENCE UNITS LAB 9194-2([facility]) CLASS:TYPE:PT :URINE COLLECTION METHOD:NOM:* Clean Catch Normal LAB 69828-9([facility]) COLOR:TYPE:PT :URINE:NOM:AU TO Colorless Abnormal Yellow Result Comment: Microscopic readings are only performed on those samples that meet specific criteria set forth by [facility]. LAB 88486-5([facility]) CLARITY:TYPE: PT:URINE:NOM: Clear Normal Clear LAB 5811-5([facility]) SPECIFIC GRAVITY:RDEN: PT:URINE:SEMI QN:TEST STRIP 1.025 Unknown 1.005-1.030 LAB 5803-2([facility]) PH:LSCNC:PT:U RINE:SEMIQN:T EST STRIP 7.5 Unknown 5.0-9.0 LAB 21392-5([facility]) PROTEIN:PRTHR :PT:URINE:ORD :TEST STRIP Negative Normal Negative mg/dL LAB 39146-4(LOINC) GLUCOSE:PRTHR :PT:URINE:ORD :TEST STRIP Negative Normal Negative mg/dL LAB 44878-6(LOINC) KETONES:PRTHR :PT:URINE:ORD :TEST STRIP.AUTOMAT ED Negative Normal Negative mg/dL LAB 69065-1(LOINC) BILIRUBIN:PRT HR:PT:URINE:O RD:TEST STRIP.AUTOMAT ED Negative Normal Negative mg/dL LAB 48936-8(LOINC) HEMOGLOBIN:MC NC:PT:URINE:S EMIQN:TEST STRIP.AUTOMAT ED Negative Normal Negative mg/dL LAB 35202-6(LOINC) NITRITE:PRTHR :PT:URINE:ORD :TEST STRIP.AUTOMAT ED Negative Normal Negative mg/dL LAB 92335-8(LOINC) UROBILINOGEN: MCNC:PT:URINE :SEMIQN:TEST STRIP Negative Normal Negative mg/dL LAB 80220-8(LOINC) LEUKOCYTE ESTERASE:PRTH R:PT:URINE:OR D:TEST STRIP.AUTOMAT ED Negative Normal Negative CD:[id number] Performed By: #### [id number] #### [facility] [address] [place] [address] CTA NECK Observed: 12/09/2024 5:04 PM Status: F Source: [facility] Exam Date/Time: 12/09/2024 17:21 EST Reason for Exam: Stroke, follow up;Other (please specify) Report IMPRESSION: NEGATIVE CTA NECK. NEGATIVE CTA HEAD. EXAMINATION: CTA NECK WITH INTRAVENOUS CONTRAST MEDIUM. CLINICAL HISTORY: RAPID RESPONSE STROKE, FOLLOW UP COMPARISON: NONE TECHNIQUE: CTA neck obtained and formatted as contiguous axial images from aortic arch to skull base. Thin cut, overlap, 3-D MIP, sagittal, coronal, right and left anterior oblique reconstruction obtained during postprocessing. Intravenous contrast medium utilized. CTA head with intravenous contrast medium obtained and formatted as contiguous axial images. Thin cut, overlap, 3-D MIP, sagittal, and coronal reconstruction obtained during postprocessing. Intravenous contrast medium utilized. FINDINGS: RIGHT CAROTID: Right common carotid artery: [Arises from right brachiocephalic trunk. Normal in course and caliber]. Right carotid bifurcation: [Patent.] 0% stenosis by NASCET criteria. Right internal carotid artery: [Cervical, petrous, lacerum, clinoid, cavernous, and communicating segments patent.] LEFT CAROTID: Left common carotid artery: [Arises from aortic arch. Normal in course and caliber.] Left carotid bifurcation: [Patent.] 0% stenosis by NASCET criteria. Left internal carotid artery:[Cervical, petrous, lacerum, clinoid, cavernous, and communicating segments patent.] RIGHT VERTEBRAL: Right vertebral artery arises from right subclavian artery. Pre foraminal, foraminal, extradural, and intradural segments patent. Report LEFT VERTEBRAL: Left vertebral artery arises from left subclavian artery. Pre foraminal, foraminal, extradural, and intradural segments patent. CTA HEAD WITH INTRAVENOUS CONTRAST MEDIUM. FINDINGS: Anterior communicating artery:[Patent]. Right anterior cerebral artery: [A1 segment patent.] [A2 segment patent.] Left anterior cerebral artery: [A1 segment patent.] [A2 segment patent.] Right internal carotid artery: [Communicating segment patent.] Left internal carotid artery: [Communicating segments patent.] Right middle cerebral artery :[M1 segment patent.] [M2 segment patent.] Left middle cerebral artery: [M1 segment patent.] [M2 segment patent.] Right posterior communicating artery: [Congenitally absent.] Left posterior communicating artery: [Congenitally absent.] Persistent circulation: [Identified.] Right posterior cerebral artery: [P1 segment patent.] [P2 segment patent.] Left posterior cerebral artery: [P1 segment patent.] [P2 segment patent.] Basilar tip and basilar artery: [Patent.] All CT scans at this facility use dose modulation, iterative reconstruction, and/or weight based dosing when appropriate to reduce radiation dose to as low as reasonably achievable. Ordering Provider: Vic Maldonado FINAL REPORT Dictated: 12/10/2024 8:25 am James Hi MD Signed (Electronic Signature): 12/10/2024 8:25 am Signed by: James Hi MD Transcribed by: NILO Technologist: PRAVEEN CTA HEAD Observed: 12/09/2024 5:04 PM Status: F Source: [facility] Exam Date/Time: 12/09/2024 17:21 EST Reason for Exam: Cerebral hemorrhage suspected;Other (please specify) Report IMPRESSION: NEGATIVE CTA NECK. NEGATIVE CTA HEAD. EXAMINATION: CTA NECK WITH INTRAVENOUS CONTRAST MEDIUM. CLINICAL HISTORY: RAPID RESPONSE STROKE, FOLLOW UP COMPARISON: NONE TECHNIQUE: CTA neck obtained and formatted as contiguous axial images from aortic arch to skull base. Thin cut, overlap, 3-D MIP, sagittal, coronal, right and left anterior oblique reconstruction obtained during postprocessing. Intravenous contrast medium utilized. CTA head with intravenous contrast medium obtained and formatted as contiguous axial images. Thin cut, overlap, 3-D MIP, sagittal, and coronal reconstruction obtained during postprocessing. Intravenous contrast medium utilized. FINDINGS: RIGHT CAROTID: Right common carotid artery: [Arises from right brachiocephalic trunk. Normal in course and caliber]. Right carotid bifurcation: [Patent.] 0% stenosis by NASCET criteria. Right internal carotid artery: [Cervical, petrous, lacerum, clinoid, cavernous, and communicating segments patent.] LEFT CAROTID: Left common carotid artery: [Arises from aortic arch. Normal in course and caliber.] Left carotid bifurcation: [Patent.] 0% stenosis by NASCET criteria. Left internal carotid artery:[Cervical, petrous, lacerum, clinoid, cavernous, and communicating segments patent.] RIGHT VERTEBRAL: Right vertebral artery arises from right subclavian artery. Pre foraminal, foraminal, extradural, and intradural segments patent. Report LEFT VERTEBRAL: Left vertebral artery arises from left subclavian artery. Pre foraminal, foraminal, extradural, and intradural segments patent. CTA HEAD WITH INTRAVENOUS CONTRAST MEDIUM. FINDINGS: Anterior communicating artery:[Patent]. Right anterior cerebral artery: [A1 segment patent.] [A2 segment patent.] Left anterior cerebral artery: [A1 segment patent.] [A2 segment patent.] Right internal carotid artery: [Communicating segment patent.] Left internal carotid artery: [Communicating segments patent.] Right middle cerebral artery :[M1 segment patent.] [M2 segment patent.] Left middle cerebral artery: [M1 segment patent.] [M2 segment patent.] Right posterior communicating artery: [Congenitally absent.] Left posterior communicating artery: [Congenitally absent.] Persistent circulation: [Identified.] Right posterior cerebral artery: [P1 segment patent.] [P2 segment patent.] Left posterior cerebral artery: [P1 segment patent.] [P2 segment patent.] Basilar tip and basilar artery: [Patent.] All CT scans at this facility use dose modulation, iterative reconstruction, and/or weight based dosing when appropriate to reduce radiation dose to as low as reasonably achievable. Ordering Provider: Vic Maldonado FINAL REPORT Dictated: 12/10/2024 8:26 am James Hi MD Signed (Electronic Signature): 12/10/2024 8:26 am Signed by: James Hi MD Transcribed by: NILO Technologist: PRAVEEN ED NOTE-PHYSICIAN Observed: 12/09/2024 5:01 PM Status: F Source: [facility] ED Note-Physician Basic Information Time Seen: Vic Maldonado DO 12/09/2024 16:13 Chief Complaint vision changes around 1400. pt says it felt like he was gonna pass out. denies pain. History of Present Illness Patient is a 44 year old male presenting with visual changes. Patient stated he was driving home from a workout today around 1400 when he started having vision changes. Patient described the changes as kaleidoscope-like with his peripheral vision blurring. The patient could not tell which eye was experiencing those changes. Patient has a history of panic disorder and almost passed out when he experienced these visual changes. When the patient arrived home he attempted to read and found that the letters were overlapping each other and he had a difficult time reading. Patient then decided to come to the ER for evaluation. Patient endorsed a headache last night that started in the right neck and radiated along the right hemicranium to the right forehead. The headache went away after the patient went to bed. Patient denies any history of migraine headaches or visual changes. The patient has no history of stroke, atrial fibrillation, tobacco use and brain tumors. No other aggravating or relieving factors no other associated symptoms no other prior treatments or complaints. Family: Reviewed and noncontributory Social: lives at home Review of systems negative unless otherwise specified in the HPI. Physical Exam Vitals & Measurements T: 36.8 ???C(Oral) HR: 62(Peripheral) RR: 18 BP: 168/97 SpO2: 100% HT: 175 cm WT: 98.4 kg BMI: 32.13 General: The patient appears well and in no apparent distress. Patient is resting comfortably on cart. Skin: Warm, dry, no pallor noted. Head: Normocephalic, atraumatic Neck: No JVD Eye: PERRLA, EOMI ENT: Moist mucus membranes Cardiovascular: Regular rate normal peripheral perfusion Respiratory: No respiratory distress no accessory muscle use Chest Wall: no deformity Musculoskeletal: normal ROM, no deformity, no swelling GI: Soft no obvious distention. No rebound or rigidity. No guarding. No tenderness. Neurological: A&O moves all extremities equal strength and symmetry. No evidence of facial droop, no drift in all four extremities, sensation to temperature and light touch intact of LE and UE bilaterally, finger to nose intact, visual delgado intact. Pupils round and reactive to light. Stroke scale score is 0 performed by me at 3:59 PM Procedure Patient is not a candidate for tenecteplase given stroke scale score of 0 with nondisabling symptoms. Medical Decision Making Workup in the ER has been reviewed and noted. Initial head CT is negative. Labs benign. Patient did have some elevated blood pressure therefore was treated with IV labetalol here. He had complete resolution of symptoms but then they did recur therefore we added on CT angiogram. I was called by the radiologist there are no obvious large vessel occlusions. However the patient still has some trouble with the peripheral vision on that left side. He has developed a little bit of a headache on the right side as well so it is unclear this may be complex migraine but with his age, hypertension, and symptom constellation Case discussed with hospitalist for admission as he will need further testing. Critical care time 30 minutes exclusive from separate billable procedures I, Dr. Maldonado had a [id number] interaction with the patient. I personally performed a physical exam and medical decision making. I have verified the documentation by the student as accurately representing the information obtained. Assessment/Plan Headache (R51.9: Headache, unspecified) Visual loss (H54.7: Unspecified visual loss) Orders: ketorolac, 30 mg = 1 mL, Injection, IV, Once, Stop date 12/09/24 17:48:00 EST, STAT, Start date 12/09/24 17:48:00 EST, 12/09/24 17:48:00 EST labetalol, 5 mg = 1 mL, Injection, IV Push, Once, Stop date 12/09/24 17:18:00 EST, STAT, Start date 12/09/24 17:18:00 EST, 12/09/24 17:18:00 EST Capillary Glucose POC CTA Head CTA Neck ED Physician consult Hospitalist for continued care Medications Administered Given ketorolac 30 mg/mL Inj 1 mL, 30 mg, IV labetalol 5 mg/mL IV Domenica, 5 mg, IV Push Disposition Plan Discharge Prescription List Prescriptions No active prescription medications Follow-up No qualifying data available Problem List/Past Medical History Ongoing No qualifying data Historical No qualifying data Medications Inpatient No active inpatient medications Home No active home medications Allergies Vicodin (Shortness of breath) Social History Alcohol - Denies Alcohol Use, 06/04/2022 Never, 12/09/2024 Substance Abuse - Denies Substance Abuse, 06/04/2022 Never, 12/09/2024 Tobacco - Denies Tobacco Use, 06/04/2022 Never (less than 100 in lifetime) Tobacco Use:. Never Smokeless Tobacco Use:., 12/09/2024 Lab Results WBC: 8.5 E9/L (12/09/24 16:20:00) RBC: 5.3 E12/L (12/09/24 16:20:00) HGB: 16 gm/dL (12/09/24 16:20:00) Hct: 45.8 % (12/09/24 16:20:00) MCV: 86.4 fL (12/09/24 16:20:00) MCH: 30.1 pg (12/09/24 16:20:00) MCHC: 34.9 gm/dL (12/09/24 16:20:00) RDW: 13 % (12/09/24 16:20:00) Platelet: 279 E9/L (12/09/24 16:20:00) MPV: 7.6 fL (12/09/24 16:20:00) Neutro Auto: 67.5 % (12/09/24 16:20:00) Lymph Auto: 18.4 % (12/09/24 16:20:00) [place] Auto: 10.9 % (12/09/24 16:20:00) Eos Auto: 0.7 % (12/09/24 16:20:00) Basophil Auto: 2.5 % High (12/09/24 16:20:00) Neutro Absolute: 5.7 E9/L (12/09/24 16:20:00) Lymph Absolute: 1.6 E9/L (12/09/24 16:20:00) [place] Absolute: 0.9 E9/L (12/09/24 16:20:00) Eos Absolute: 0.1 E9/L (12/09/24 16:20:00) Basophil Absolute: 0.2 E9/L (12/09/24 16:20:00) PT: 10.7 second(s) (12/09/24 16:20:00) INR: 0.96 (12/09/24 16:20:00) PTT: 33.3 second(s) (12/09/24 16:20:00) Glucose Lvl: 87 mg/dL (12/09/24 16:20:00) BUN: 14 mg/dL (12/09/24 16:20:00) Creatinine: 1.1 mg/dL (12/09/24 16:20:00) eGFR: 84 mL/min/1.73 m2 (12/09/24:20:00) BUN/Creat Ratio: 13 (12/09/24 16:20:00) Sodium Lvl: 135 mmol/L (12/09/24 16:20:00) Potassium Lvl: 4.5 mmol/L (12/09/24:20:00) Chloride: 103 mmol/L (12/09/24:20:00) CO2: 25 mmol/L (12/09/24:20:00) AGAP: 12 mEq/L (12/09/24:20:00) Calcium Lvl: 9.7 mg/dL (12/09/24 16:20:00) Alk Phos: 105 Int._Unit/L High (12/09/24 16:20:00) ALT: 18 Int._Unit/L (12/09/24 16:20:00) AST: 20 Int._Unit/L (12/09/24 16:20:00) Total Protein: 7.3 gm/dL (12/09/24 16:20:00) Albumin Lvl: 4.3 gm/dL (12/09/24 16:20:00) Globulin: 3 gm/dL (12/09/24 16:20:00) A/G Ratio: 1.4 (12/09/24 16:20:00) Bili Total: 0.7 mg/dL (12/09/24 16:20:00) Troponin HS: 3.7 pg/mL Low (12/09/24 16:20:00) Glucose Cap: 84 mg/dL (12/09/24 16:10:00) POC Device SN: [id number] (12/09/24 16:10:00) POC User ID: [id number] (12/09/24 16:10:00) POC Username: [email or web address] Username (12/09/24 16:10:00) UA Spec Desc: Clean Catch (12/09/24 17:24:00) UA Color: Colorless Abnormal (12/09/24 17:24:00) UA Clarity: Clear (12/09/24 17:24:00) UA Spec Grav: 1.025 (12/09/24 17:24:00) UA pH: 7.5 (12/09/24 17:24:00) UA Protein: Negat (12/09/24 17:24:00) UA Glucose: Negat (12/09/24 17:24:00) UA Ketones: Negat (12/09/24 17:24:00) UA Bili: Negat (12/09/24 17:24:00) UA Blood: Negat (12/09/24 17:24:00) UA Nitrite: Negat (12/09/24 17:24:00) UA Urobilinogen: Negat (12/09/24 17:24:00) UA Leuk Est: Negat (12/09/24 17:24:00) Diagnostic Results No qualifying data available. EKG Results EC12/09/24: SINUS BRADYCARDIA No ectopy no ST elevation BORDERLINE ECG Signed By: Vic Maldonado DO 12/09/2024 16:39:24 Result Comment: Electronical ly Signed By: Evelio Cardenas MS, III\.br\Electronically Co-Signed By: Vic Maldonado DO\.br\Date and Time Co-Signed: 12/09/24 17:57 EST ED NOTE-PHYSICIAN Observed: 12/09/2024 5:01 PM Status: F Source: [facility] ED Note-Physician Basic Information Time Seen: Vic Maldonado DO 12/09/2024 16:13 Chief Complaint vision changes around 1400. pt says it felt like he was gonna pass out. denies pain. History of Present Illness Patient is a 44 year old male presenting with visual changes. Patient stated he was driving home from a workout today around 1400 when he started having vision changes. Patient described the changes as kaleidoscope-like with his peripheral vision blurring. The patient could not tell which eye was experiencing those changes. Patient has a history of panic disorder and almost passed out when he experienced these visual changes. When the patient arrived home he attempted to read and found that the letters were overlapping each other and he had a difficult time reading. Patient then decided to come to the ER for evaluation. Patient endorsed a headache last night that started in the right neck and radiated along the right hemicranium to the right forehead. The headache went away after the patient went to bed. Patient denies any history of migraine headaches or visual changes. The patient has no history of stroke, atrial fibrillation, tobacco use and brain tumors. No other aggravating or relieving factors no other associated symptoms no other prior treatments or complaints. Family: Reviewed and noncontributory Social: lives at home Review of systems negative unless otherwise specified in the HPI. Physical Exam Vitals & Measurements T: 36.8 ???C(Oral) HR: 62(Peripheral) RR: 18 BP: 168/97 SpO2: 100% HT: 175 cm WT: 98.4 kg BMI: 32.13 General: The patient appears well and in no apparent distress. Patient is resting comfortably on cart. Skin: Warm, dry, no pallor noted. Head: Normocephalic, atraumatic Neck: No JVD Eye: PERRLA, EOMI ENT: Moist mucus membranes Cardiovascular: Regular rate normal peripheral perfusion Respiratory: No respiratory distress no accessory muscle use Chest Wall: no deformity Musculoskeletal: normal ROM, no deformity, no swelling GI: Soft no obvious distention. No rebound or rigidity. No guarding. No tenderness. Neurological: A&O moves all extremities equal strength and symmetry. No evidence of facial droop, no drift in all four extremities, sensation to temperature and light touch intact of LE and UE bilaterally, finger to nose intact, visual delgado intact. Pupils round and reactive to light. Stroke scale score is 0 performed by me at 3:59 PM Procedure Patient is not a candidate for tenecteplase given stroke scale score of 0 with nondisabling symptoms. Medical Decision Making Workup in the ER has been reviewed and noted. Initial head CT is negative. Labs benign. Patient did have some elevated blood pressure therefore was treated with IV labetalol here. He had complete resolution of symptoms but then they did recur therefore we added on CT angiogram. I was called by the radiologist there are no obvious large vessel occlusions. However the patient still has some trouble with the peripheral vision on that left side. He has developed a little bit of a headache on the right side as well so it is unclear this may be complex migraine but with his age, hypertension, and symptom constellation Case discussed with hospitalist for admission as he will need further testing. Critical care time 30 minutes exclusive from separate billable procedures I, Dr. Maldonado had a dakt-fx-vphi interaction with the patient. I personally performed a physical exam and medical decision making. I have verified the documentation by the student as accurately representing the information obtained. Assessment/Plan Headache (R51.9: Headache, unspecified) Visual loss (H54.7: Unspecified visual loss) Orders: ketorolac, 30 mg = 1 mL, Injection, IV, Once, Stop date 12/09/24 17:48:00 EST, STAT, Start date 12/09/24 17:48:00 EST, 12/09/24 17:48:00 EST labetalol, 5 mg = 1 mL, Injection, IV Push, Once, Stop date 12/09/24 17:18:00 EST, STAT, Start date 12/09/24 17:18:00 EST, 12/09/24 17:18:00 EST Capillary Glucose POC CTA Head CTA Neck ED Physician consult Hospitalist for continued care Medications Administered Given ketorolac 30 mg/mL Inj 1 mL, 30 mg, IV labetalol 5 mg/mL IV Domenica, 5 mg, IV Push Disposition Plan Discharge Prescription List Prescriptions No active prescription medications Follow-up No qualifying data available Problem List/Past Medical History Ongoing No qualifying data Historical No qualifying data Medications Inpatient No active inpatient medications Home No active home medications Allergies Vicodin (Shortness of breath) Social History Alcohol - Denies Alcohol Use, 06/04/2022 Never, 12/09/2024 Substance Abuse - Denies Substance Abuse, 06/04/2022 Never, 12/09/2024 Tobacco - Denies Tobacco Use, 06/04/2022 Never (less than 100 in lifetime) Tobacco Use:. Never Smokeless Tobacco Use:., 12/09/2024 Lab Results WBC: 8.5 E9/L (12/09/24 16:20:00) RBC: 5.3 E12/L (12/09/24 16:20:00) HGB: 16 gm/dL (12/09/24 16:20:00) Hct: 45.8 % (12/09/24 16:20:00) MCV: 86.4 fL (12/09/24 16:20:00) MCH: 30.1 pg (12/09/24 16:20:00) MCHC: 34.9 gm/dL (12/09/24 16:20:00) RDW: 13 % (12/09/24 16:20:00) Platelet: 279 E9/L (12/09/24 16:20:00) MPV: 7.6 fL (12/09/24 16:20:00) Neutro Auto: 67.5 % (12/09/24 16:20:00) Lymph Auto: 18.4 % (12/09/24 16:20:00) [place] Auto: 10.9 % (12/09/24 16:20:00) Eos Auto: 0.7 % (12/09/24 16:20:00) Basophil Auto: 2.5 % High (12/09/24 16:20:00) Neutro Absolute: 5.7 E9/L (12/09/24 16:20:00) Lymph Absolute: 1.6 E9/L (12/09/24 16:20:00) [place] Absolute: 0.9 E9/L (12/09/24 16:20:00) Eos Absolute: 0.1 E9/L (12/09/24 16:20:00) Basophil Absolute: 0.2 E9/L (12/09/24 16:20:00) PT: 10.7 second(s) (12/09/24 16:20:00) INR: 0.96 (12/09/24:20:00) PTT: 33.3 second(s) (12/09/24 16:20:00) Glucose Lvl: 87 mg/dL (12/09/24 16:20:00) BUN: 14 mg/dL (12/09/24 16:20:00) Creatinine: 1.1 mg/dL (12/09/24 16:20:00) eGFR: 84 mL/min/1.73 m2 (12/09/24 16:20:00) BUN/Creat Ratio: 13 (12/09/24 16:20:00) Sodium Lvl: 135 mmol/L (12/09/24 16:20:00) Potassium Lvl: 4.5 mmol/L (12/09/24 16:20:00) Chloride: 103 mmol/L (12/09/24 16:20:00) CO2: 25 mmol/L (12/09/24 16:20:00) AGAP: 12 mEq/L (12/09/24 16:20:00) Calcium Lvl: 9.7 mg/dL (12/09/24 16:20:00) Alk Phos: 105 Int._Unit/L High (12/09/24 16:20:00) ALT: 18 Int._Unit/L (12/09/24 16:20:00) AST: 20 Int._Unit/L (12/09/24 16:20:00) Total Protein: 7.3 gm/dL (12/09/24 16:20:00) Albumin Lvl: 4.3 gm/dL (12/09/24 16:20:00) Globulin: 3 gm/dL (12/09/24 16:20:00) A/G Ratio: 1.4 (12/09/24 16:20:00) Bili Total: 0.7 mg/dL (12/09/24 16:20:00) Troponin HS: 3.7 pg/mL Low (12/09/24 16:20:00) Glucose Cap: 84 mg/dL (12/09/24 16:10:00) POC Device SN: [id number] (12/09/24 16:10:00) POC User ID: [id number] (12/09/24 16:10:00) POC Username: POC Username (12/09/24 16:10:00) UA Spec Desc: Clean Catch (12/09/24 17:24:00) UA Color: Colorless Abnormal (12/09/24 17:24:00) UA Clarity: Clear (12/09/24 17:24:00) UA Spec Grav: 1.025 (12/09/24 17:24:00) UA pH: 7.5 (12/09/24 17:24:00) UA Protein: Negat (12/09/24 17:24:00) UA Glucose: Negat (12/09/24 17:24:00) UA Ketones: Negat (12/09/24 17:24:00) UA Bili: Negat (12/09/24 17:24:00) UA Blood: Negat (12/09/24 17:24:00) UA Nitrite: Negat (12/09/24 17:24:00) UA Urobilinogen: Negat (12/09/24 17:24:00) UA Leuk Est: Negat (12/09/24 17:24:00) Diagnostic Results No qualifying data available. EKG Results EC12/09/24: SINUS BRADYCARDIA No ectopy no ST elevation BORDERLINE ECG Signed By: Vic Maldonado DO 12/09/2024 16:39:24 Result Comment: Electronical ly Signed By: Vic Maldonado DO\.br\Date and Time Signed: 12/09/24 17:57 EST BB DRAW & HOLD Collected: 4:36 PM Status: F Source: [facility] TYPE CODE TESTS RESULT OUT OF RANGE REFERENCE UNITS LAB 16823725([facility]) BB D&H Sample drawn for Blood Ba Normal Performed By: #### [id number] #### [facility] [address] Collected: 12/09/2024 4:20 PM Status: F Source: [facility] TYPE CODE TESTS RESULT OUT OF RANGE REFERENCE UNITS LAB 2345-7([facility]) GLUCOSE:MCNC:P T:SER/PLAS:QN: 87 Normal 55-199 mg/dL LAB 3094-0([facility]) UREA NITROGEN:MCNC: PT:SER/PLAS:QN : 14 Normal 5-21 mg/dL LAB 2160-0([facility]) CREATININE:MCN C:PT:SER/PLAS: QN: 1.1 Normal 0.5-1.3 mg/dL LAB 79899-6([facility]) CALCIUM:MCNC:P T:SER/PLAS:QN: 9.7 Normal 8.9-11.1 mg/dL LAB 2951-2([facility]) SODIUM:SCNC:PT :SER/PLAS:QN: 135 Normal 135-145 mmol/L LAB 2823-3([facility]) POTASSIUM:SCNC :PT:SER/PLAS:Q N: 4.5 Normal 3.5-5.3 mmol/L LAB 2075-0([facility]) CHLORIDE:SCNC: PT:SER/PLAS:QN : 103 Normal 101-111 mmol/L LAB 2028-9([facility]) CARBON DIOXIDE:SCNC:P T:SER/PLAS:QN: 25 Normal 21-31 mmol/L LAB 6768-6([facility]) ALKALINE PHOSPHATASE:CC NC:PT:SER/PLAS :QN: 105 High 21-98 Int._Unit /L LAB 1975-2([facility]) BILIRUBIN:MCNC :PT:SER/PLAS:Q N: 0.7 Normal 0.0-1.1 mg/dL LAB 1751-7([facility]) ALBUMIN:MCNC:P T:SER/PLAS:QN: 4.3 Normal 3.3-5.0 gm/dL LAB 2885-2([facility]) PROTEIN:MCNC:P T:SER/PLAS:QN: 7.3 Normal 6.0-7.8 gm/dL LAB 1744-2([facility]) ALANINE AMINOTRANSFERA SE:CCNC:PT:SER /PLAS:QN:NO ADDITION OF P-5'-P 18 Normal 6-46 Int._Unit /L LAB 1920-8([facility]) ASPARTATE AMINOTRANSFERA SE:CCNC:PT:SER /PLAS:QN: 20 Normal 5-43 Int._Unit /L LAB 3097-3([facility]) UREA NITROGEN/CREAT ININE:MRTO:PT: SER/PLAS:QN: 13 Normal 10-20 No Units LAB 67250-1([facility]) ANION GAP:SCNC:PT:SE R/PLAS:QN: 12 Normal 6-16 mEq/L LAB 04055-3([facility]) GLOBULIN:MCNC: PT:SER:QN:CALC ULATED 3.0 Normal 1.4-4.0 gm/dL LAB 59938-5([facility]) ALBUMIN/GLOBUL IN:MCRTO:PT:SE R:QN: 1.4 Normal 1.1-2.2 Performed By: #### [id number] # ### [facility] [address] [place] [address] TROPONIN 0 HR. Collected: 4:20 PM Status: F Source: [facility] TYPE CODE TESTS RESULT OUT OF RANGE REFERENCE UNITS LAB 82380912([facility]) Troponin HS 3.70 Low 15.90-38.40 pg/mL Result Comment: The 95% CI ( Confidence Interval) PPV (Positive Predictive Value) for myocardial infarction in females is 38 pg/mL, in males 51 pg/mL. The results should be used in conjunction with clinical conditions of myocardial infarction. (Access High Sensitivity Troponin I Instructions For Use, Jamar Yovanny, May 2018) Performed By: #### [id number] #### [facility] [address] [place] [address] CBC W/ AUTO DIFF Collected: 12/09/2024 4:20 PM Statu s: F Source: [facility] TYPE CODE TESTS RESULT OUT OF RANGE REFERENCE UNITS LAB 00782-5([facility]) LEUKOCYTES^^SAUL ECTED FOR NUCLEATED ERYTHROCYTES:NCN C:PT:BLD:QN:AUTO MATED COUNT 8.5 Normal 4.0-11.0 E9/L LAB 789-8([facility]) ERYTHROCYTES:NCN C:PT:BLD:QN:AUTO MATED COUNT 5.3 Normal 4.3-5.9 E12/L LAB 718-7(INC) HEMOGLOBIN:MCNC: PT:BLD:QN: 16.0 Normal 13.5-17.5 gm/dL LAB 4544-3(LOINC) HEMATOCRIT:VFR:P T:BLD:QN:AUTOMAT ED COUNT 45.8 Normal 37.7-49.0 % LAB 788-0(LOINC) ERYTHROCYTE DISTRIBUTION WIDTH:RATIO:PT:R BC:QN:AUTOMATED COUNT 13.0 Normal 10.9-14.2 % LAB 785-6(LOINC) ERYTHROCYTE MEAN CORPUSCULAR HEMOGLOBIN:ENTMA SS:PT:RBC:QN:AUT OMATED COUNT 30.1 Normal 27.0-34.0 pg LAB 786-4(LOINC) ERYTHROCYTE MEAN CORPUSCULAR HEMOGLOBIN CONCENTRATION:MC NC:PT:RBC:QN:AUT OMATED COUNT 34.9 Normal 31.4-36.0 gm/dL LAB 787-2(LOINC) ERYTHROCYTE MEAN CORPUSCULAR VOLUME:ENTVOL:PT :RBC:QN:AUTOMATE D COUNT 86.4 Normal 80.0-100.0 fL LAB 14892-3(LOINC) PLATELET MEAN VOLUME:ENTVOL:PT :BLD:QN:AUTOMATE D COUNT 7.6 Normal 6.4-10.8 fL LAB 777-3(LOINC) PLATELETS:NCNC:P T:BLD:QN:AUTOMAT ED COUNT 279.0 Normal 150.0-500.0 E9/L LAB 70834-9(INC) NEUTROPHILS/100 LEUKOCYTES:NFR:P T:BLD:QN: 67.5 Normal 36.0-75.0 % LAB 731-0(INC) LYMPHOCYTES:NCNC :PT:BLD:QN:AUTOM ATED COUNT 18.4 Normal 14.0-50.0 % LAB 742-7(INC) MONOCYTES:NCNC:P T:BLD:QN:AUTOMAT ED COUNT 0.9 Normal 0.2-1.0 E9/L LAB 713-8([facility]) EOSINOPHILS/100 LEUKOCYTES:NFR:P T:BLD:QN:AUTOMAT ED COUNT 0.7 Normal 0.0-8.0 % LAB 704-7(INC) BASOPHILS:NCNC:P T:BLD:QN:AUTOMAT ED COUNT 2.5 High 0.0-2.0 % LAB 751-8(INC) NEUTROPHILS:NCNC :PT:BLD:QN:AUTOM ATED COUNT 5.7 Normal 2.0-7.5 E9/L LAB 04709-3(INC) LYMPHOCYTES:NCNC :PT:BLD:QN: 1.6 Normal 1.0-4.0 E9/L LAB 03302-4(LOINC) EOSINOPHILS:NCNC :PT:BLD:QN: 0.1 Normal 0.0-0.5 E9/L LAB 91078-1(INC) BASOPHILS/LEUKOC YTES:NFR.DF:PT:B LD:QN:AUTOMATED COUNT 0.2 Normal 0.0-0.2 E9/L Performed By: #### [id number] # ### [facility] [address] [place] [address] PT & PTT Collected: 5 4:20 PM Status: F Source: [facility] TYPE CODE TESTS RESULT OUT OF RANGE REFERENCE UNITS LAB 5902-2([facility]) COAGULATION TISSUE FACTOR INDUCED:TIME:P T:PPP:QN:COAG 10.7 Normal 9.4-12.5 second(s ) Result Comment: 15 days - 4 weeks 1 - 5 months 6 -11 months 1 ??? 5 years 6 ??? 10 years 11 -17 years Mean: 11.2 (9.5 ??? 12.6) Mean: 11.0 (9.7 ??? 12.8) Mean: 11.0 (9.8 ??? 13.0) Mean: 11.3 (9.9 ??? 13.4) Mean: 11.7 (10.0 ??? 14.6) Mean: 11.8 (10.0 - 14.1) Pediatric Reference ranges were obtained from a study by [place]. prepared from 1437 samples obtained at 7 different centers using the same coagulation reagent and instrumentation as [facility]. Currently there are no coagulation studies available worldwide for children to 14 days, and no normal ranges. LAB 06935-5([facility]) COAGULATION SURFACE INDUCED:TIME:P T:PPP:QN:COAG 33.3 Normal 25.1-36.5 second(s ) Result Comment: Parameter 15 days - 4 weeks 1 - 5 months 6 - 11 months 1 - 5 years 6 - 10 years 11 - 17 years PTT Mean: 35.4 (27.6-45.6) Mean: 33.5 (24.8-40.7) Mean: 32.4 (25.1-40.7) Mean: 31.6 (24.0-39.2) Mean: 31.6 (26.9-38.7) Mean: 31.0 (24.6-38.4) Pediatric Reference ranges were obtained from a study by [place] al. prepared from 1437 samples obtained at 7 different centers using the same coagulation reagent and instrumentation as [facility]. Currently there are no coagulation studies available worldwide for children to 14 days, and no normal ranges. Heparin therapeutic range (represented by Anti-Factor Xa activity of 0.2 - 0.4 U/mL) corresponds to PTT of 56.6 - 109.0 sec. LAB 6301-6(INC) COAGULATION TISSUE FACTOR INDUCED.INR:RE LTIME:PT:PPP:Q N:COAG 0.96 Unknown Result Comment: INR results are specifically intended to assess patients stabilized on long-term Anticoagulation therapy suggested INR???s ???Less Intensive Anticoagulation??? 2.0 ??? 3.0 Conventional Range 3.0 ??? 4.5 Performed By: #### [id number] #### [facility] [address] [place] [address] EGFR Collected: 4:20 PM Status: F Source: [facility] TYPE CODE TESTS RESULT OUT OF RANGE REFERENCE UNITS LAB 58794020([facility]) eGFR 84 Normal >=59 mL/min/1 .7 3 m2 Performed By: #### [id number] #### [facility] [address] [place] [address] XR CHEST SINGLE VIEW Observed: 4:19 PM Status: F Source: [facility] Exam Date/Time: 12/09/2024 16:20 EST Reason for Exam: Chest pain Report IMPRESSION: PROBABLE CALCIFIED GRANULOMA RIGHT MIDLUNG. COMPARISON WITH OLD FILMS WOULD BE HELPFUL. F THIS CANNOT BE OBTAINED, AND IF CLINICAL CONCERN WARRANTS, EITHER SHORT-TERM FOLLOW-UP CHEST RADIOGRAPH IN 3-6 MONTHS, OR CT OF THE CHEST MAY BE OBTAINED FOR FURTHER EVALUATION RULE OUT MALIGNANCY. CHEST RADIOGRAPH. CLINICAL HISTORY: Chest pain COMPARISON: NONE. FINDINGS: Osseous structures intact. Cardiopericardial silhouette normal. Pulmonary vasculature normal. 6 mm nodule right fifth intercostal space. Lungs otherwise clear. Ordering Provider: Haylie Caceres FINAL REPORT Dictated: 12/10/2024 11:40 am James Hi MD Signed (Electronic Signature): 12/10/2024 11:40 am Signed by: James Hi MD Transcribed by: NILO Technologist: MARISA CT HEAD OR BRAIN W/O CONTRAST Observed: 12/09/2024 4:13 PM Status: F Source: [facility] Exam Date/Time: 12/09/2024 16:19 EST Reason for Exam: Stroke Report IMPRESSION: NO ACUTE FINDINGS. FINDINGS DISCUSSED VIA TELEPHONE WITH DR. MALDONADO IN THE EMERGENCY DEPARTMENT BY DR.ARCHANA XIAO, OF [facility], AT 1746 HOURS, DECEMBER 09, 2024. CT BRAIN WITHOUT INTRAVENOUS CONTRAST MEDIUM. HISTORY: RAPID RESPONSE. RULE OUT STROKE.. TECHNICAL FACTORS: CT imaging of the brain was obtained and formatted as 5 mm contiguous axial images. 2.5 mm contiguous axial images were obtained through the osseous structures. Sagittal and coronal reconstruction obtained during postprocessing. Comparison: None. Findings: Extra-axial spaces: Normal. Intracranial hemorrhage: None. Ventricular system: Without anomaly. Basal Cisterns: Normal. Cerebral Parenchyma: Without anomaly. Midline Shift: None. Cerebellum: Normal. Paranasal sinuses and mastoid air cells: Normal. Visualized Orbits: Normal. All CT scans at this facility use dose modulation, iterative reconstruction, and/or weight based dosing when appropriate to reduce radiation dose to as low as reasonably achievable. Report Ordering Provider: Haylie Caceres FINAL REPORT Dictated: 12/10/2024 9:40 am James Hi MD Signed (Electronic Signature): 12/10/2024 9:40 am Signed by: James Hi MD Transcribed by: NILO Technologist: PRAVEEN CAPILLARY GLUCOSE POC Collected: 12/09/2024 4:10 PM Status: F Source: [facility] TYPE CODE TESTS RESULT OUT OF RANGE REFERENCE UNITS LAB 2340-8([facility]) GLUCOSE:MCNC: PT:BLD:SEMIQN :TEST STRIP.AUTOMAT ED 84 Normal 55-99 mg/dL Result Comment: Notified RN/ Performed By: #### [id number] #### [facility] [address] [place] [address] L Observed: 11/21/2024 9:39 AM Status: F Source: [facility] ----- ------- Specimen: [id number] Received: 11/21/24 Status: BARBIE Garzaabel Num: [id number] Spec Type: Surgical Subm Dr: Noelle Colunga MD Tissues: A Colon Biopsy (CECAL POLYPS) B Colon Biopsy (ASCENDING COLON POLYP) C Colon Biopsy (DESCENDING COLON POLYP) Procedures: HE/6, Gross/Micro L4/3 ----- ------- Age/ Patient Sex Location Account Attending Physician ----- ------- Eleazar Morgan /[facility] [id number] Noelle Colunga MD ----- ------- SPEC NUM: [id number] RECD: 11/21/24 STATUS: BARBIE DENIA NUM: [id number] PRINCESS: 11/21/24 [facility] DR: Noelle Colunga MD ENTERED: 11/21/[address]: SPEC TYPE: Surgical DEPT: S ENTERED BY: [id number] RECV BY: [id number] ORDERED: HE/6, Gross/Micro L4/3 ORDERED: HE/6, Gross/Micro L4/3 Pathological Diagnosis A. Colon, cecum, polypectomy: - Benign colonic mucosa with lymphoid aggregates and focal hyperplastic changes. - No evidence of adenomatous polyp identified. B. Colon, ascending, polypectomy: - Fragments of tubular adenoma. C. Colon, descending, polypectomy: - Benign colonic mucosa with focal adenomatous changes. Clinical Information Screening, colon polyps. Gross Description Part A is received in formalin labeled with the patients name, date of , and cecal polyps are three dash-saleh, focally erythematous, friable, 0.2, 0.3 and 0.3 cm in greatest dimension polypoid fragments. The specimen is entirely submitted in a single cassette. (1, ns, S20-592 A) Part B is received in formalin labeled with the patients name, date of , and ascending colon are four dash-saleh, focally erythematous, friable, 0.3 to 0.5 cm in greatest dimension ----- ------- Specimen: [id number] Received: 11/21/24 Status: BARBIE Denia Num: [id number] Spec Type: Surgical Subm Dr: Noelle Colunga MD Tissues: A Colon Biopsy (CECAL POLYPS) B Colon Biopsy (ASCENDING COLON POLYP) C Colon Biopsy (DESCENDING COLON POLYP) Procedures: HE/6, Gross/Micro L4/3 ----- ------- Patient: Eleazar Morgan [id number] (Continued) ----- ------- Specimen: [id number] Received: 11/21/24 (Continued) Gross Description (Continued) Signed (signature on file) Jose Mattson MD 11/22/24 1019 ----- ------- Specimen: [id number] Received: 11/21/24 Status: SALLYIris Loza Num: [id number] Spec Type: Surgical Subm Dr: Noelle Colunga MD Tissues: A Colon Biopsy (CECAL POLYPS) B Colon Biopsy (ASCENDING COLON POLYP) C Colon Biopsy (DESCENDING COLON POLYP) Procedures: HE/6, Gross/Micro L4/3 ----- ------- Patient: Eleazar Morgan [id number] (Continued) ----- ------- Specimen: [id number] Received: 11/21/24 (Continued) Gross Description (Continued) polypoid fragments. The specimen is entirely submitted in a single cassette. (1, ns, Z38- 942 B) Part C is received in formalin labeled with the patients name, date of , and descending colon is a dash-saleh, focally erythematous, friable, 0.7 cm in greatest dimension polypoid strip. The specimen is entirely submitted in a single cassette. (1, ns, C99-162 C) Microscopic Description A-C: Microscopic examination is performed. CPT Codes 63835 x3 ----- ------- ----- ------- Specimen: [id number] Received: 11/21/24 Status: BARBIE Garzaabel Num: [id number] Spec Type: Surgical Subm Dr: Noelle Colunga MD Tissues: A Colon Biopsy (CECAL POLYPS) B Colon Biopsy (ASCENDING COLON POLYP) C Colon Biopsy (DESCENDING COLON POLYP) Procedures: HE/6, Gross/Micro L4/3 ----- ------- Patient: Eleazar Morgan [id number] (Continued) ----- ------- Signed (signature on file) Jose Mattson MD 11/22/24 1019 ALLERGIES DATE TYPE / CODE NAME / CODE REACTION SEVERITY SOURCE 11/21/2024 Drug Allergy/4160 56268(SNOMED CT) hydrocodone/F00 6922488(RXNORM) labored breathing Moderate (Severity Modifier) (Qualifier Value) [facility] 11/21/2024 Drug Allergy/4160 20609(SNOMED CT) acetaminophen/F 842884674(RXNOR M) labored breathing Moderate (Severity Modifier) (Qualifier Value) [facility] /[id number] (SNOMED CT) Alisha [address] [facility] ENCOUNTERS ADMIT/DISCHARGE ACCOUNT NUMBER ADMITTING ENCOUNTER CLASS LOCATION SOURCE 03/14/2025/03/14/20 [id number] Ambulatory Building:BSR NEURO [facility] 01/17/2025/01/18/20 [id number] Ambulatory Building:BSR NEURO [facility] 12/09/2024 [id number] OJOSUEKWU, Mbanefo Ambulatory [facility]Buildin[facility]oom: G409Nad: 01 [facility] 12/09/2024/12/10/19 [id number] MAYITO, Mbanefo Ambulatory [facility]Build[facility]: G254Wzu: 01 [facility] 12/09/2024 [id number] Emergency FTMCBuilding: EDRoom: ED-07Bed: CD:[id number] [facility] 12/09/2024 [id number] MAYITO Mbrajivfo Ambulatory FTMCBuilding: FT.EDHOLDRoom : 07Bed: A [facility] 11/21/2024/11/21/19 [id number] Noelle [facility] 05/31/2024/05/31/20 24 [id number] Ambulatory Building:KATARZYNA Simmons [facility] EPIC PAYERS ENCOUNTER GUARANTOR PAYER SUBSCRIBER SOURCE 03/14/2025 ELEAZAR PENCEDOB: [place] [address]Gor: (HP) Primary Insurance:JEYSON gi Number: [id number] Date:2015-08-19 ELEAZAR PENCEDOB: [id number] [place] [address] [facility] EPIC 01/17/2025 ELEAZAR PENCEDOB: [place] [address]Zmc: (HP) Primary Insurance:Manolo erwiny Number: [id number] Date:2015-08-19 ELEAZAR PENCEDOB: [id number] [place] [address] [facility] EPIC 12/09/2024 ELEAZAR A PENCEDOB: [address] MAIN STTel: (HP) Primary Insurance:[facility] CLAIMPolicy Number: [id number] Date:2024-12-09 ELEAZAR A [facility] 12/09/2024 ELEAZAR A PENCEDOB: [address] MA[address] STTel: (HP) Primary Insurance:[facility] CLAIMPolicy Number: [id number] Date:2024-12-09 [facility]/09/2024 ELEAZAR A PENCEDOB: [address] MAIN STTel: (HP) Primary Insurance:[facility] CLAIMPolicy Number: [id number] Date:2024-12-09 [facility] A [facility] 12/09/2024 ELEAZAR A PENCEDOB: [address] MA[address] STTel: (HP) Primary Insurance:[facility] CLAIMPolicy Number: [id number] Date:2024-12-09 ELEAZAR QUINN [facility] 11/21/2024 Eleazar Hayes [address] [place] [address]Djv: (HP) Primary Insurance:[employer] for LifePolicy Number: [id number] e Date:[id number] [address]NR: Eleazar Hayes PenceDOB: [id number] [place] [address]Bra: (HP) [facility] 11/21/2024 Secondary Insurance:Self PayPolicy Number: Effective Date:2024-09-26 NOT GIVENUNK [facility] 05/31/2024 ELEAZAR PENCEDOB: [place] [address]Rmu: (HP) [facility] Number: [id number] e Date:2015-08-19 ELEAZAR PENCEDOB: [id number] [place] [address] [facility] EPIC
--- OUTSIDE RECORDS SUMMARY | 2025-03-14 13:40 | XMS_ITS | Encounter Summary ---
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 Role Phone Gertrudis Pham NP Primary Care Provider Gita Oliva Unavailable Reason for Visit * Reason Comments Decreased Visual Acuity Encounter Details Date Type Department Care Team (Late Contact Info) Description 03/14/2025 1:40 PM EDT Office Visit [facility] [place] [address] [place] [phone] Gita Oliva PA [address] [place] [address] Ocular migraine (CMS/HCC) (Primary Dx); Transient visual loss of left eye Social History Tobacco Use Types Packs/Day Years Used Date Smoking Tobacco: Former Cigarettes 1 10 0 11/25/2002 - 06/13/2012 Smokeless Tobacco: Former Chew Quit: 06/13/2012 Tobacco Cessation:Counseling Given: Not Answered Alcohol Use Standard Drinks/Week Comments Not Currently 0 (1 standard drink = 0.6 oz pur e alcohol) Sex and Gender Information Value Date Recorded Sex Assigned at Not on file Legal Sex Male 7:16 PM EDT Gender Identity Not on file Sexual Orientation Not on file documented as of this encounter Last Filed Vital Signs Vital Sign Reading Time Taken Comments Blood Pressure 162/108 03/14/2025 1:35 PM EDT Pulse 52 03/14/2025 1:35 PM EDT Temperature - - Respiratory Rate - - Oxygen Saturation 99% 03/14/2025 1:35 PM EDT Inhaled Oxygen Concentration - - Weight 97.1 kg (214 lb) 03/14/2025 1:35 PM EDT Height 175.3 cm (5' 9 ) 03/14/2025 1:35 PM EDT Body Mass Index 31.6 03/14/2025 1:35 PM EDT documented in this encounter Progress Notes * SCOTT Bowling - 03/14/2025 1:40 PM EDT Images from the original note were not included. Subjective Eleazar Morgan is a 44 y.o. 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 TONSILLECTOMY Family History Problem Relation Name Age of Onset Anxiety disorder Mother Renetta No Known Problems Sister x2 No Known Problems Brother x3 Social History Tobacco Use Smoking status: Former Current packs/day: 0.00 Average packs/day: 1 pack/day for 10.0 years (10.0 ttl pk-yrs) Types: Cigarettes Start date: 11/25/2002 Quit date: 06/13/2012 Years since quittin.7 Smokeless tobacco: Former Types: Chew Quit date: 06/13/2012 Substance Use Topics Alcohol use: Not Currently Medication Documentation Review Audit Reviewed by Bren Navarro LPN (Licensed Nurse) on 03/14/25 at 1335 Medication Order Taking? Sig Documenting Provider Last Dose Status atenolol (Tenormin) 50 MG tablet [id number] No Take 50 mg by mouth Daily Mel Roque MD Taking Active citalopram (CeleXA) 10 MG tablet [id number] No Take 10 mg by mouth 1 (one) time each day at the same time Mel Roque MD Taking Active citalopram (CeleXA) 20 MG tablet [id number] No Take 20 mg by mouth 1 (one) time each day at the same time Mel oRque MD Taking Active losartan (Cozaar) 25 MG tablet [id number] No Take 25 mg by mouth Daily Mel Roque MD Taking Active omega-3 (fish oil) 1000 MG capsule [id number] No Take 1,000 mg by mouth Daily Mel Roque MD Taking Active HPI Acute Neurological Problem Pertinent negatives include no chest pain, coughing, fatigue, headaches, myalgias, nausea or vomiting. He has had a couple of episodes since the last appt with a kalediscope in his peripheral vision both eyes. He notes this lasted 20-30 minutes. His symptoms in his eyes were not accompanied by a headache. He states that he sleeps well at night. He denies nausea and vomiting with the headaches. He denies photophobia and phonophobia. This is not influencing his ADLs. He notes that he does get daily headaches. He takes Tylenol and Motrin almost daily and this helps intermittently. He notes these are located all over . He notes that he does not always see a pattern with his headaches and visual changes. He at times has his visual changes around 9-10pm. His BP is high today but this is more controlled at home. He is following with his PCP for BP. ROS Review of Systems Constitutional: Negative for appetite change and fatigue. HENT: Negative for tinnitus and voice change. Eyes: Negative for photophobia and visual disturbance. Respiratory: Negative for apnea, cough and shortness of breath. Cardiovascular: Negative for chest pain and palpitations. Gastrointestinal: Negative for nausea and vomiting. Musculoskeletal: Negative for back pain and myalgias. Neurological: Negative for dizziness, seizures, syncope, light-headedness and headaches. Psychiatric/Behavioral: Negative for confusion. Objective Visit Vitals BP (!) 162/108 Pulse 52 Ht 5' 9 Wt 214 lb SpO2 99% BMI 31.60 kg/m?? Smoking Status Former BSA 2.17 m?? Neurological Exam Mental Status Awake, alert and oriented to person, place and time. Oriented to person, place, time and situation.Recent and remote memory are intact. Speech is normal. Language is fluent with no aphasia. Attention and concentration are normal. Cranial Nerves CN II: Visual delgado full to confrontation. CN III, IV, : Abnormal extraocular movements: Left esotropia. Normal lids and orbits bilaterally.Pupils equal round and reactive to light bilaterally. CN VII: Right: There is no facial weakness. Left: There is no facial weakness. CN VIII: Hearing is normal. CN IX, X: Palate elevates symmetrically CN XI: Shoulder shrug strength is normal. CN XII: Tongue midline without atrophy or fasciculations. Sensory Light touch is normal in upper and lower extremities. Coordination Xuunuw-ms-fray, rapid alternating movements and sdnw-di-kiql normal bilaterally without dysmetria. Gait Normal casual, toe, heel and tandem gait. 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 LUE Strength deltoid, biceps, triceps, wrist extensors, wrist extensors, wrist flexor, zipper machine operator strength 5/5. RLE Strength illopsoas, quadriceps, tibialis anterior, and gastrocnemius strength 5/5. LLE Strength illopsoas, quadriceps, tibialis anterior, and gastrocnemius strength 5/5. Tone Normal tone x4 extremities. Reflexes: RUE biceps reflex 2, LUE biceps reflex 2, RLE knee reflex 2, LLE knee reflex 2, Assessment and Plan Diagnoses and all orders for this visit: Ocular migraine (CMS/HCC) - divalproex (Depakote) 125 MG EC tablet; Take 1 tablet (125 mg) by mouth in the morning and 1 tablet (125 mg) before bedtime. Do not crush, chew, or split. Transient visual loss of left eye Patient presented to [facility] 12/09/2024 after he experienced episodic headachesfor the prior 2 weeks and then developed left visual field impairment with blurred vision and kaleidoscope vision in the peripheral aspect of his eye, possibly due to ocular migraine. He notes this lasted for around 45 minutes and then resolved. He then had a repeat episode which lasted 15 minutes. He denied focally unilateral symptoms. CT of the brain revealed no evidence of acute infarct or hemorrhage. CTA of the head and neck revealed no evidence of large vessel intracranial or extracranial cerebral artery stenosis or occlusion. MRI of the brain was unremarkable. Aspirin was started for secondary stroke prevention for now. He notes he has seen an eye doctor as well and was told everything looked okay . He continues with intermittent kaleidescope vision to is periphery. These are not directly associated with concurrent migraines but he does note that he gets daily headaches. He has tried Tylenol and Motrin OTC and at times this is beneficial, and at times, they are not. Plan: Trial Depakote 125mg PO BID for headache prevention. I counseled the patient on the side effects of medications. Continue to follow with PCP for blood pressure management. He denies current chest pain or shortness of breath. He will remain on his antihypertensives as prescribed by PCP. I counseled the patient on stroke signs and symptoms and advised the patient to go immediately to the emergency room should these symptoms develop. The patient states understanding. Follow up 2 months documented in this encounter Plan of Treatment Upcoming Encounters Date Type Department Care Team (Late st Contact Info) Description 06/20/2025 3:40 PM EDT Office Visit [facility] [address] [place] [phone] Gita Neal NP [address] [place], [place] documented as of this encounter Visit Diagnoses Diagnosis Ocular migraine (CMS/[facility])- Primary Variants of migraine, not elsewhere classified, without mention of intractable migraine without mention of status migrainosus Transient visual loss of left eye documented in this encounter Care Teams Jewelry Casting Model Maker Relationship Specialty Start Date End Date Gertrudis Pham NP [address] [facility] [place] [address] PCP - General Family Medicine 05/31/24 Gita Oliva PA [address] [place] [address] Physician Senior Agricultural Assistant Neurology 01/17/25 documented as of this encounter
[2025-03-16 15:28] VITALS: BP 137/87; PULSE 57; TEMP 36.7; O2SAT 98; BMI 31.9
--- NOTE | 2025-03-16 15:39 | XR_ITS ---
The [address] [address] Patient Name: MONICA ARAMBULA MRN: [id number] date: 1980 Sex: M Assigned Patient Location: ER Current Patient Location: ED.MAIN Accession/Order Number: [id number] Exam Date: 03/16/2025 16:15 Report Date: 03/16/2025 16:16 At the request of: HARESH CHAVEZ Procedure: XR elbow LT min 3V 3 views leftelbow plain film COMPARISON :None HISTORY: Left elbow pain. Fell. ACUTE FINDINGS: None DEGENERATIVE CHANGE: Unremarkable SOFT TISSUE FINDINGS: Unremarkable JOINT EFFUSION: None POSTOP CHANGES: None BONE MINERALIZATION: Adequate XR/XR elbow LT min 3V IMPRESSION: No acute displaced fracture Impression dictated by: David Crawford M.D. 03/16/2025 4:16 PM Dictation Location: [place] [address] Electronically authenticated by: [id number] Y Date: 03/16/2025 16:16
--- NOTE | 2025-03-16 15:39 | ED.UPPEXIN1 ---
Documented by User: SCOTT Galarza 03/16/25 16:18 HPI HPI - Extremity Injury (Upper) General Chief Complaint: Extremity Injury, Upper Stated Complaint: LEFT UPPER EXTREMITY PAIN Time Seen by Provider: 03/16/25 15:26 Source: patient Mode of arrival: walk-in Limitations: no limitations History of Present Illness HPI narrative: Patient is a 44-year-old male who presents to the ER for evaluation of left elbow pain. Patient states on Wednesday he was doing [employer] and his elbow came down hard on a structure. No skin injury but he has noticed some bruising swelling and tenderness to the very tip of his olecranon. He is right-hand dominant. He denies any pain to the distal radius wrist or proximal shoulder. Patient denies the need for any additional pain medications but is concerned about injury to his elbow with persistent symptoms over the past 3 to 4 days. Kvng any head or neck injuries and does bijal to stay in shape as a hobby MD complaint: injury to: Reports left and elbow Hand dominance: right Place: Reports other (dojo) Severity: mild Relieving factors: Reports none Exacerbating factors: Reports movement of extremity Context: Denies fall Associated symptoms: Reports denies other symptoms Related Data Home Medications ?Medication ?Instructions ?Recorded ?Confirmed atenolol 50 mg tablet 50 mg PO Q24H 06/19/23 03/16/25 citalopram 10 mg/5 mL oral solution 10 mg PO DAILY 06/19/23 03/16/25 losartan 25 mg tablet 50 mg PO DAILY 03/16/25 03/16/25 Previous Rx's ?Medication ?Instructions ?Recorded ondansetron 4 mg disintegrating 4 mg PO Q6H PRN nausea and 11/23/24 tablet vomiting #20 tabs Allergies Allergy/AdvReac Type Severity Reaction Status Date / Time hydrocodone (From [facility]) Allergy Unknown Unknown Verified 11/23/24 04:23 Opioid HPI Opioid Management Most Recent Pain and Opioid Data: Last Pain Scale 5 Today, 15:36 Review of Systems ROS Constitutional Denies: fever, chills or change in weight Eyes Denies: change in vision Ears, nose, mouth, and throat Denies: throat pain, neck pain or throat swelling Cardiovascular Denies: chest pain, palpitations or edema Respiratory Denies: shortness of breath or cough Musculoskeletal Reports: joint pain (left elbow); Denies: back pain, neck pain or extremity pain Integumentary/Breast Denies: rash, itching or redness Neurological Denies: headache Psychiatric Denies: anxiety PFSH PFSH Social History Smoking status: Former smoker Little interest or pleasure in doing things: not at all Feeling down, depressed, or hopeless: not at all Exam Narrative Exam Narrative: Nurse's notes and vital signs reviewed. Patient is not hypoxic. General: The patient appears well and in no apparent distress. Patient is resting comfortably on cart. Skin: Warm, dry, no pallor noted. Head: Normocephalic, atraumatic Eye: Normal conjunctiva Respiratory: Patient is in no distress Musculoskeletal: The elbow noted for bruising minimal swelling directly over the olecranon process. Wrist shows no obvious deformity. Denies pain with syndesmotic compression of the distal forearm or wrist, proximal forearm mildly tender but no pain to the radial head majority of pain is localized to the olecranon process distal triceps appears intact with patient able to extend his elbow and flex with full pronation supination. There was mild swelling noted to ip of olecranon with no bursal effusion. The patient has full range of motion despite pain. The patient had no tenderness in the anatomical snuff box. The patient had no pain with axial loading of the thumb. Pulses are intact at brachial and radial 2+. There was no deficit at shoulder. The patient has normal capillary refill to all distal digits. The patient has no evidence of cyanosis or mottling. The patient is able to flex and extend all digits without difficulty. Neurological: A&O x4, normal sensory, normal motor Psychiatric: Cooperative Constitutional Vital Signs, click to edit/add: Last Vital Signs Temp 98.1 F 03/16/25 15:28 Pulse 57 L 03/16/25 15:28 Resp 18 03/16/25 15:28 BP 137/87 03/16/25 15:28 Pulse Ox 98 03/16/25 15:28 Course Vital Signs Vital signs: Vital Signs Temperature 98.1 F 03/16/25 15:28 Pulse Rate 57 L 03/16/25 15:28 Respiratory Rate 18 03/16/25 15:28 Blood Pressure 137/87 03/16/25 15:28 Pulse Oximetry 98 05/23/25 15:28 Temperature 98.1 F 03/16/25 15:28 Pulse Rate 57 L 03/16/25 15:28 Respiratory Rate 18 03/16/25 15:28 Blood Pressure 137/87 03/16/25 15:28 Pulse Oximetry 98 03/16/25 15:28 MDM - Extremity Injury (Upper) MDM Narrative Medical decision making narrative: Ice pack applied on arrival patient declines the need for additional pain medication but he is agreeable to x-ray to rule out fracture. 3 view x-ray right left elbow shows no acute fracture no significant effusion minimal soft tissue swelling directly over the olecranon there is no significant bursal swelling but contusion is present we discussed ice and [id number] Motrin patient declines the need for any prescription medication he will continue to take it easy with the elbow until symptoms improve he is given the name of local orthopedic for follow-up if symptoms do not continue to improve with conservative care. Patient may return to the ER if symptoms worsen or new symptoms develop was thankful for time spent at bedside .. He is aware that the x-ray was preliminary read and will call if any discrepancy with radiologist Imaging Data xray left elbow: Radiologist's impression: ITS Impressions Elbow X-Ray 03/16/25 15:39 IMPRESSION: No acute displaced fracture Impression dictated by: David Crawford M.D. 03/16/2025 4:16 PM Dictation Location: [place] [address] Electronically authenticated by: [id number] Y Date: 03/16/2025 16:16 Discharge Plan Discharge Chief Complaint: Extremity Injury, Upper Clinical Impression: Contusion of left elbow, Elbow pain, left Patient Disposition: Home, Self-Care Time of Disposition Decision: 16:14 Condition: Good Prescriptions / Home Meds: No Action citalopram 10 mg/5 mL solution 10 mg PO DAILY atenolol 50 mg tablet 50 mg PO Q24H losartan 25 mg tablet 50 mg PO DAILY ondansetron 4 mg tablet,disintegrating 4 mg PO Q6H PRN (Reason: nausea and vomiting) Qty: 20 0RF Print Language: Citizen [place] Instructions: Contusion in Adults (ED) Additional Instructions: Dr. Cole ortho- works with Dr. Costa. call Wednesday for appt if needed Referrals: CHON GUERRERO [Primary Care Provider, Unknown] - 1 week Scar Costa MD [Physician, Orthopedics] - As needed Discharge Date/Time: 03/16/25 16:32 Documented by User: David Mcclure MD 03/16/25 18:51 HPI HPI - Extremity Injury (Upper) General Chief Complaint: Extremity Injury, Upper Stated Complaint: LEFT UPPER EXTREMITY PAIN Time Seen by Provider: 03/16/25 15:26 Related Data Home Medications ?Medication ?Instructions ?Recorded ?Confirmed atenolol 50 mg tablet 50 mg PO Q24H 06/19/23 03/16/25 citalopram 10 mg/5 mL oral solution 10 mg PO DAILY 06/19/23 03/16/25 losartan 25 mg tablet 50 mg PO DAILY 03/16/25 03/16/25 Previous Rx's ?Medication ?Instructions ?Recorded ondansetron 4 mg disintegrating 4 mg PO Q6H PRN nausea and 11/23/24 tablet vomiting #20 tabs Allergies Allergy/AdvReac Type Severity Reaction Status Date / Time hydrocodone (From [facility]) Allergy Unknown Unknown Verified 11/23/24 04:23 Opioid HPI Opioid Management Most Recent Pain and Opioid Data: Last Pain Scale 5 Today, 15:36 PFSH PFSH Social History Smoking status: Former smoker Little interest or pleasure in doing things: not at all Feeling down, depressed, or hopeless: not at all Exam Constitutional Vital Signs, click to edit/add: Last Vital Signs Temp 98.1 F 03/16/25 15:28 Pulse 57 L 03/16/25 15:28 Resp 18 03/16/25 15:28 BP 137/87 03/16/25 15:28 Pulse Ox 98 03/16/25 15:28 Course Vital Signs Vital signs: Vital Signs Temperature 98.1 F 03/16/25 15:28 Pulse Rate 57 L 03/16/25 15:28 Respiratory Rate 18 03/16/25 15:28 Blood Pressure 137/87 03/16/25 15:28 Pulse Oximetry 98 03/16/25 15:28 Temperature 98.1 F 03/16/25 15:28 Pulse Rate 57 L 03/16/25 15:28 Respiratory Rate 18 03/16/25 15:28 Blood Pressure 137/87 03/16/25 15:28 Pulse Oximetry 98 03/16/25 15:28 MDM - Extremity Injury (Upper) MDM Narrative Medical decision making narrative: Ice pack applied on arrival patient declines the need for additional pain medication but he is agreeable to x-ray to rule out fracture. 3 view x-ray right left elbow shows no acute fracture no significant effusion minimal soft tissue swelling directly over the olecranon there is no significant bursal swelling but contusion is present we discussed ice and [id number]-izlhpti Motrin patient declines the need for any prescription medication he will continue to take it easy with the elbow until symptoms improve he is given the name of local orthopedic for follow-up if symptoms do not continue to improve with conservative care. Patient may return to the ER if symptoms worsen or new symptoms develop was thankful for time spent at bedside .. He is aware that the x-ray was preliminary read and will call if any discrepancy with radiologist I, Dr Mcclure, have reviewed the above progress note and course of action in the ER; agree with the above. I have personally gone over history and physical, and discussed disposition and treatment plan with the PA. Imaging Data xray left elbow: Radiologist's impression: ITS Impressions Elbow X-Ray 03/16/25 15:39 IMPRESSION: No acute displaced fracture Impression dictated by: David Crawford M.D. 03/16/2025 4:16 PM Dictation Location: [place] [address] Electronically authenticated by: [id number] Y Date: 03/16/2025 16:16 Discharge Plan Discharge Chief Complaint: Extremity Injury, Upper Clinical Impression: Contusion of left elbow, Elbow pain, left Patient Disposition: Home, Self-Care Time of Disposition Decision: 16:14 Condition: Good Prescriptions / Home Meds: No Action citalopram 10 mg/5 mL solution 10 mg PO DAILY atenolol 50 mg tablet 50 mg PO Q24H losartan 25 mg tablet 50 mg PO DAILY ondansetron 4 mg tablet,disintegrating 4 mg PO Q6H PRN (Reason: nausea and vomiting) Qty: 20 0RF Print Language: Citizen [place] Instructions: Contusion in Adults (ED) Additional Instructions: Dr. Cole ortho- works with Dr. Costa. call Wednesday for appt if needed Referrals: CHON GUERRERO [Primary Care Provider, Unknown] - 1 week Scar Costa MD [Physician, Orthopedics] - As needed Discharge Date/Time: 03/16/25 16:32
--- OUTSIDE RECORDS SUMMARY | 2025-03-16 15:45 | XMS_ITS | Continuity of Care Document ---
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 5.0 11/30 Specimen Type: BLOOD No comment entered. Ordering Provider: RODDY MASSEY R Report Released Date/Time: Dec 15, 2023 01:51 PM Reporting Lab: [address] [phone] Performing Lab: [address] [phone] [facility] CBC NEUTROPHIL S [#/VOLUME] IN BLOOD 3.9 10*3/uL 1.9 - 8.6 11/30 Specimen Type: BLOOD No comment entered. Ordering Provider: RODDY MASSEY Report Released Date/Time: Dec 15, 2023 01:51 PM Reporting Lab: [place] [phone] Performing Lab: [place] [id number] CBC BASOPHILS [#/VOLUME] IN BLOOD BY AUTOMATED COUNT 0.1 10*3/uL 0.0 - 0.3 11/30 Specimen Type: BLOOD No comment entered. Ordering Provider: RODDY MASSEY Report Released Date/Time: Dec 15, 2023 01:51 PM Reporting Lab: [place] [phone] Performing Lab: [place] [id number] CBC MONOCYTES [#/VOLUME] IN BLOOD BY AUTOMATED COUNT 0.5 10*3/uL 0.1 - 0.9 11/30 Specimen Type: BLOOD No comment entered. Ordering Provider: RODDY MASSEY Report Released Date/Time: Dec 15, 2023 01:51 PM Reporting Lab: [place] [phone] Performing Lab: [place] [id number] CBC EOSINOPHIL S [#/VOLUME] IN BLOOD BY AUTOMATED COUNT 0.1 10*3/uL 0.0 - 0.3 11/30 Specimen Type: BLOOD No comment entered. Ordering Provider: RODDY MASSEY Report Released Date/Time: Dec 15, 2023 01:51 PM Reporting Lab: [place] [phone] Performing Lab: [place] [id number] CBC PLATELET MEAN VOLUME [ENTITIC VOLUME] IN BLOOD BY AUTOMATED COUNT 8.1 fL 7.4 - 11.4 11/30 Specimen Type: BLOOD No comment entered. Ordering Provider: RODDY MASSEY Report Released Date/Time: Dec 15, 2023 01:51 PM Reporting Lab: [place] [phone] Performing Lab: [place] [phone] [place] [address] LIPID PROFILE CHOLESTERO L [MASS/VOLU ME] IN SERUM OR PLASMA 201 mg/dL 135 - 200 12/07 H Specimen Type: PLASMA Comment: TRIGLYCERID E REF RANGE: NORMAL <150 mg/dL BORDERLINE HIGH: 150-199 TRIGLYCERID E mg/dL HIGH: 200-499 mg/dL VERY HIGH: >=500 mg/dL CREATININE eGFR was calculated using the CKD-EPI 2020 equation. Ordering Provider: ORDDY MASSEY Report Released Date/Time: Oct 14, 2023 02:53 PM Reporting Lab: [place] [phone] Performing Lab: [address] LIPID PROFILE CHOLESTERO L IN LDL [MASS/VOLU ME] IN SERUM OR PLASMA BY DIRECT ASSAY 119.0 mg/dL 0 - 110 12/07 H Specimen Type: PLASMA Comment: TRIGLYCERID E REF RANGE: NORMAL <150 mg/dL BORDERLINE HIGH: 150-199 TRIGLYCERID E mg/dL HIGH: 200-499 mg/dL VERY HIGH: >=500 mg/dL CREATININE eGFR was calculated using the CKD-EPI 2020 equation. Ordering Provider: RODDY MASSEY Report Released Date/Time: Oct 14, 2023 02:53 PM Reporting Lab: [place] [phone] Performing Lab: [place] [phone] LIPID PROFILE CHOLESTERO L IN HDL [MASS/VOLU ME] IN SERUM OR PLASMA 36 mg/dL 40 - 60 12/07 L Specimen Type: PLASMA Comment: TRIGLYCERID E REF RANGE: NORMAL <150 mg/dL BORDERLINE HIGH: 150-199 TRIGLYCERID E mg/dL HIGH: 200-499 mg/dL VERY HIGH: >=500 mg/dL CREATININE eGFR was calculated using the CKD-EPI 2020 equation. Ordering Provider: RODDY MASSEY Report Released Date/Time: Oct 14, 2023 02:53 PM Reporting Lab: [place] [phone] Performing Lab: [place] [phone] [facility] LIPID PROFILE TRIGLYCERI DE [MASS/VOLU ME] IN SERUM OR PLASMA 176 mg/dL 0 - 149 12/07 H Specimen Type: PLASMA Comment: TRIGLYCERID E REF RANGE: NORMAL <150 mg/dL BORDERLINE HIGH: 150-199 TRIGLYCERID E mg/dL HIGH: 200-499 mg/dL VERY HIGH: >=500 mg/dL CREATININE eGFR was calculated using the CKD-EPI 2020 equation. Ordering Provider: RODDY MASSEY Report Released Date/Time: Oct 14, 2023 02:53 PM Reporting Lab: [place] [phone] Performing Lab: [place] [phone] [place] [address] COMPREHE NSIVE METABOLI C PANEL ALBUMIN [MASS/VOLU ME] IN SERUM OR PLASMA 3.7 g/dL 3.2 - 4.8 12/07 Specimen Type: PLASMA Comment: TRIGLYCERID E REF RANGE: NORMAL <150 mg/dL BORDERLINE HIGH: 150-199 TRIGLYCERID E mg/dL HIGH: 200-499 mg/dL VERY HIGH: >=500 mg/dL CREATININE eGFR was calculated using the CKD-EPI 2020 equation. Ordering Provider: RODDY MASSEY Report Released Date/Time: Oct 14, 2023 02:53 PM Reporting Lab: [place] [phone] Performing Lab: [place] [phone] COMPREHE NSIVE METABOLI C PANEL ALKALINE PHOSPHATAS E [ENZYMATIC ACTIVITY/V OLUME] IN SERUM OR PLASMA 104 U/L 46 - 116 12/07 Specimen Type: PLASMA Comment: TRIGLYCERID E REF RANGE: NORMAL <150 mg/dL BORDERLINE HIGH: 150-199 TRIGLYCERID E mg/dL HIGH: 200-499 mg/dL VERY HIGH: >=500 mg/dL CREATININE eGFR was calculated using the CKD-EPI 2020 equation. Ordering Provider: RODDY MASSEY Report Released Date/Time: Oct 14, 2023 02:53 PM Reporting Lab: [place] [phone] Performing Lab: [place] [phone] [place] [address] COMPREHE NSIVE METABOLI C PANEL ALANINE AMINOTRANS FERASE [ENZYMATIC ACTIVITY/V OLUME] IN SERUM OR PLASMA 17 U/L 10 - 45 12/07 Specimen Type: PLASMA Comment: TRIGLYCERID E REF RANGE: NORMAL <150 mg/dL BORDERLINE HIGH: 150-199 TRIGLYCERID E mg/dL HIGH: 200-499 mg/dL VERY HIGH: >=500 mg/dL CREATININE eGFR was calculated using the CKD-EPI 2020 equation. Ordering Provider: RODDY MASSEY Report Released Date/Time: Oct 14, 2023 02:53 PM Reporting Lab: [place] [phone] Performing Lab: [address] COMPREHE NSIVE METABOLI C PANEL ASPARTATE AMINOTRANS FERASE [ENZYMATIC ACTIVITY/V OLUME] IN SERUM OR PLASMA 18 U/L 0 - 33.9 12/07 Specimen Type: PLASMA Comment: TRIGLYCERID E REF RANGE: NORMAL <150 mg/dL BORDERLINE HIGH: 150-199 TRIGLYCERID E mg/dL HIGH: 200-499 mg/dL VERY HIGH: >=500 mg/dL CREATININE eGFR was calculated using the CKD-EPI 2020 equation. Ordering Provider: RODDY MASSEY Report Released Date/Time: Oct 14, 2023 02:53 PM Reporting Lab: [place] [phone] Performing Lab: [place] [phone] COMPREHE NSIVE METABOLI C PANEL UREA NITROGEN [MASS/VOLU ME] IN SERUM OR PLASMA 15 mg/dL - 12/07 Specimen Type: PLASMA Comment: TRIGLYCERID E REF RANGE: NORMAL <150 mg/dL BORDERLINE HIGH: 150-199 TRIGLYCERID E mg/dL HIGH: 200-499 mg/dL VERY HIGH: >=500 mg/dL CREATININE eGFR was calculated using the CKD-EPI 2020 equation. Ordering Provider: RODDY MASSEY Report Released Date/Time: Oct 14, 2023 02:53 PM Reporting Lab: [place] [phone] Performing Lab: [place] [phone] [place] [address] COMPREHE NSIVE METABOLI C PANEL CALCIUM [MASS/VOLU ME] IN SERUM OR PLASMA 9.3 mg/dL 8.7 - 10.4 12/07 Specimen Type: PLASMA Comment: TRIGLYCERID E REF RANGE: NORMAL <150 mg/dL BORDERLINE HIGH: 150-199 TRIGLYCERID E mg/dL HIGH: 200-499 mg/dL VERY HIGH: >=500 mg/dL CREATININE eGFR was calculated using the CKD-EPI 2020 equation. Ordering Provider: RODDY MASSEY Report Released Date/Time: Oct 14, 2023 02:53 PM Reporting Lab: [place] [phone] Performing Lab: [address] COMPREHE NSIVE METABOLI C PANEL CREATININE [MASS/VOLU ME] IN SERUM OR PLASMA 1.1 mg/dL 0.70 - 1.30 12/07 Specimen Type: PLASMA Comment: TRIGLYCERID E REF RANGE: NORMAL <150 mg/dL BORDERLINE HIGH: 150-199 TRIGLYCERID E mg/dL HIGH: 200-499 mg/dL VERY HIGH: >=500 mg/dL CREATININE eGFR was calculated using the CKD-EPI 2020 equation. Ordering Provider: RODDY MASSEY Report Released Date/Time: Oct 14, 2023 02:53 PM Reporting Lab: [place] [phone] Performing Lab: [place] [id number] COMPREHE NSIVE METABOLI C PANEL CARBON DIOXIDE, TOTAL [MOLES/VOL UME] IN SERUM OR PLASMA 25 mmol/L - 12/07 Specimen Type: PLASMA Comment: TRIGLYCERID E REF RANGE: NORMAL <150 mg/dL BORDERLINE HIGH: 150-199 TRIGLYCERID E mg/dL HIGH: 200-499 mg/dL VERY HIGH: >=500 mg/dL CREATININE eGFR was calculated using the CKD-EPI 2020 equation. Ordering Provider: RODDY MASSEY Report Released Date/Time: Oct 14, 2023 02:53 PM Reporting Lab: [place] [phone] Performing Lab: [place] [phone] [facility] COMPREHE NSIVE METABOLI C PANEL GLUCOSE [MASS/VOLU ME] IN SERUM OR PLASMA 89 mg/dL 74 - 106 12/07 Specimen Type: PLASMA Comment: TRIGLYCERID E REF RANGE: NORMAL <150 mg/dL BORDERLINE HIGH: 150-199 TRIGLYCERID E mg/dL HIGH: 200-499 mg/dL VERY HIGH: >=500 mg/dL CREATININE eGFR was calculated using the CKD-EPI 2020 equation. Ordering Provider: RODDY MASSEY Report Released Date/Time: Oct 14, 2023 02:53 PM Reporting Lab: [place] [phone] Performing Lab: [place] [phone] COMPREHE NSIVE METABOLI C PANEL PROTEIN [MASS/VOLU ME] IN SERUM OR PLASMA 6.9 g/dL 6.4 - 8.5 12/07 Specimen Type: PLASMA Comment: TRIGLYCERID E REF RANGE: NORMAL <150 mg/dL BORDERLINE HIGH: 150-199 TRIGLYCERID E mg/dL HIGH: 200-499 mg/dL VERY HIGH: >=500 mg/dL CREATININE eGFR was calculated using the CKD-EPI 2020 equation. Ordering Provider: RODDY MASSEY Report Released Date/Time: Oct 14, 2023 02:53 PM Reporting Lab: [place] [phone] Performing Lab: [place] [phone] COMPREHE NSIVE METABOLI C PANEL SODIUM [MOLES/VOL UME] IN SERUM OR PLASMA 137 mmol/L 136 - 148 12/07 Specimen Type: PLASMA Comment: TRIGLYCERID E REF RANGE: NORMAL <150 mg/dL BORDERLINE HIGH: 150-199 TRIGLYCERID E mg/dL HIGH: 200-499 mg/dL VERY HIGH: >=500 mg/dL CREATININE eGFR was calculated using the CKD-EPI 2020 equation. Ordering Provider: RODDY MASSEY Report Released Date/Time: Oct 14, 2023 02:53 PM Reporting Lab: [place] [phone] Performing Lab: [place] [phone] [place] [address] COMPREHE NSIVE METABOLI C PANEL CHLORIDE [MOLES/VOL UME] IN SERUM OR PLASMA 105 mmol/L 98 - 107 12/07 Specimen Type: PLASMA Comment: TRIGLYCERID E REF RANGE: NORMAL <150 mg/dL BORDERLINE HIGH: 150-199 TRIGLYCERID E mg/dL HIGH: 200-499 mg/dL VERY HIGH: >=500 mg/dL CREATININE eGFR was calculated using the CKD-EPI 2020 equation. Ordering Provider: RODDY MASSEY R Report Released Date/Time: Oct 14, 2023 02:53 PM Reporting Lab: [place] [phone] Performing Lab: [place] [phone] COMPREHE NSIVE METABOLI C PANEL BILIRUBIN. TOTAL [MASS/VOLU ME] IN SERUM OR PLASMA 0.7 mg/dL 0.3 - 1.2 12/07 Specimen Type: PLASMA Comment: TRIGLYCERID E REF RANGE: NORMAL <150 mg/dL BORDERLINE HIGH: 150-199 TRIGLYCERID E mg/dL HIGH: 200-499 mg/dL VERY HIGH: >=500 mg/dL CREATININE eGFR was calculated using the CKD-EPI 2020 equation. Ordering Provider: RODDY MASSEY Report Released Date/Time: Oct 14, 2023 02:53 PM Reporting Lab: [place] [phone] Performing Lab: [place] [id number] COMPREHE NSIVE METABOLI C PANEL POTASSIUM [MOLES/VOL UME] IN SERUM OR PLASMA 4.2 mmol/L 3.5 - 5.1 12/07 Specimen Type: PLASMA Comment: TRIGLYCERID E REF RANGE: NORMAL <150 mg/dL BORDERLINE HIGH: 150-199 TRIGLYCERID E mg/dL HIGH: 200-499 mg/dL VERY HIGH: >=500 mg/dL CREATININE eGFR was calculated using the CKD-EPI 2020 equation. Ordering Provider: RODDY MASSEY Report Released Date/Time: Oct 14, 2023 02:53 PM Reporting Lab: [place] [phone] Performing Lab: [place] [phone] [facility] COMPREHE NSIVE METABOLI C PANEL ANION GAP IN SERUM OR PLASMA 11.2 mmol/L 10 - 12/07 Specimen Type: PLASMA Comment: TRIGLYCERID E REF RANGE: NORMAL <150 mg/dL BORDERLINE HIGH: 150-199 TRIGLYCERID E mg/dL HIGH: 200-499 mg/dL VERY HIGH: >=500 mg/dL CREATININE eGFR was calculated using the CKD-EPI 2020 equation. Ordering Provider: RODDY MASSEY Report Released Date/Time: Oct 14, 2023 02:53 PM Reporting Lab: [place] [phone] Performing Lab: [place] [phone] COMPREHE NSIVE METABOLI C PANEL GLOMERULAR FILTRATION RATE/1.73 SQ M.PREDICTE D [VOLUME RATE/AREA] IN SERUM, PLASMA OR BLOOD BY CREATININE -BASED FORMULA (CKD-EPI 2020) 85 mL/min 12/07 Specimen Type: PLASMA Comment: TRIGLYCERID E REF RANGE: NORMAL <150 mg/dL BORDERLINE HIGH: 150-199 TRIGLYCERID E mg/dL HIGH: 200-499 mg/dL VERY HIGH: >=500 mg/dL CREATININE eGFR was calculated using the CKD-EPI 2020 equation. Ordering Provider: RODDY MASSEY Report Released Date/Time: Oct 14, 2023 02:53 PM Reporting Lab: [place] [phone] Performing Lab: [place] [id number] URINALYS IS SPECIFIC GRAVITY OF URINE 1.020 1.016 - 1.022 12/07 Specimen Type: URINE No comment entered. Ordering Provider: RODDY MASSEY Report Released Date/Time: Oct 14, 2023 02:53 PM Reporting Lab: [place] [phone] Performing Lab: [place] [id number] URINALYS IS GLUCOSE [MASS/VOLU ME] IN URINE BY TEST STRIP Negative mg/dL 12/07 Specimen Type: URINE No comment entered. Ordering Provider: SHILPA,AL EX R Report Released Date/Time: Oct 14, 2023 02:53 PM Reporting Lab: [place] [phone] Performing Lab: [place] [phone] [place] [address] URINALYS IS PROTEIN [MASS/VOLU ME] IN URINE BY TEST STRIP Negative mg/dL - 29 12/07 Specimen Type: URINE No comment entered. Ordering Provider: RODDY MASSEY R Report Released Date/Time: Oct 14, 2023 02:53 PM Reporting Lab: [address] [phone] Performing Lab: [place] [phone] [place] [address] URINALYS IS PH OF URINE BY TEST STRIP 5.0 5.0 - 8.0 12/07 Specimen Type: URINE No comment entered. Ordering Provider: RODDY MASSEY R Report Released Date/Time: Oct 14, 2023 02:53 PM Reporting Lab: [place] [phone] Performing Lab: [place] [phone] [place] [address] URINALYS IS NITRITE [PRESENCE] IN URINE BY TEST STRIP Negative 12/07 Specimen Type: URINE No comment entered. Ordering Provider: RODDY MASSEY Report Released Date/Time: Oct 14, 2023 02:53 PM Reporting Lab: [place] [phone] Performing Lab: [place] [phone] [place] [address] URINALYS IS LEUKOCYTE ESTERASE [PRESENCE] IN URINE BY TEST STRIP Negative 12/07 Specimen Type: URINE No comment entered. Ordering Provider: RODDY MASSEY R Report Released Date/Time: Oct 14, 2023 02:53 PM Reporting Lab: [address] [phone] Performing Lab: [place] [phone] [facility] URINALYS IS CLARITY OF URINE Clear 12/07 Specimen Type: URINE No comment entered. Ordering Provider: RODDY MASSEY R Report Released Date/Time: Oct 14, 2023 02:53 PM Reporting Lab: [place] [phone] Performing Lab: [place] [id number] URINALYS IS BILIRUBIN. TOTAL [MASS/VOLU ME] IN URINE BY TEST STRIP Negative mg/dL - 0.4 12/07 Specimen Type: URINE No comment entered. Ordering Provider: RODDY MASSEY Report Released Date/Time: Oct 14, 2023 02:53 PM Reporting Lab: [place] [phone] Performing Lab: [place] [id number] URINALYS IS HEMOGLOBIN [PRESENCE] IN URINE BY TEST STRIP Negative mg/dL <0.05 - 0.05 12/07 Specimen Type: URINE No comment entered. Ordering Provider: RODDY MASSEY Report Released Date/Time: Oct 14, 2023 02:53 PM Reporting Lab: [place] [phone] Performing Lab: [place] [phone] [place] [address] URINALYS IS UROBILINOG EN [MASS/VOLU ME] IN URINE Negative mg/dL - 1 12/07 Specimen Type: URINE No comment entered. Ordering Provider: RODDY MASSEY Report Released Date/Time: Oct 14, 2023 02:53 PM Reporting Lab: [place] [phone] Performing Lab: [place] [id number] URINALYS IS KETONES [MASS/VOLU ME] IN URINE BY TEST STRIP Negative mg/dL - 9 12/07 Specimen Type: URINE No comment entered. Ordering Provider: RODDY MASSEY Report Released Date/Time: Oct 14, 2023 02:53 PM Reporting Lab: [place] [phone] Performing Lab: [place] [phone] [facility] URINALYS IS COLOR OF URINE Light-Ye llow 12/07 Specimen Type: URINE No comment entered. Ordering Provider: RODDY MASSEY R Report Released Date/Time: Oct 14, 2023 02:53 PM Reporting Lab: [place] [phone] Performing Lab: [place] [phone] [place] [address] CBC LEUKOCYTES [#/VOLUME] IN BLOOD BY AUTOMATED COUNT 6.8 10*3/uL 3.6 - 11.0 12/07 Specimen Type: BLOOD No comment entered. Ordering Provider: RODDY MASSEY R Report Released Date/Time: Oct 14, 2023 02:53 PM Reporting Lab: [place] [phone] Performing Lab: [place] [id number] CBC ERYTHROCYT ES [#/VOLUME] IN BLOOD BY AUTOMATED COUNT 5.15 10*6/uL 4.47 - 5.83 12/07 Specimen Type: BLOOD No comment entered. Ordering Provider: RODDY MASSEY R Report Released Date/Time: Oct 14, 2023 02:53 PM Reporting Lab: [place] [phone] Performing Lab: [place] [id number] CBC HEMOGLOBIN [MASS/VOLU ME] IN BLOOD 15.4 g/dL 13.6 - 17.4 12/07 Specimen Type: BLOOD No comment entered. Ordering Provider: RODDY MASSEY R Report Released Date/Time: Oct 14, 2023 02:53 PM Reporting Lab: [address] [phone] Performing Lab: [place] [phone] [place] [address] CBC HEMATOCRIT [VOLUME FRACTION] OF BLOOD BY AUTOMATED COUNT 45.4 40.0 - 51.0 12/07 Specimen Type: BLOOD No comment entered. Ordering Provider: RODDY MASSEY R Report Released Date/Time: Oct 14, 2023 02:53 PM Reporting Lab: [place] [phone] Performing Lab: [address] [phone] [facility] CBC MCV [ENTITIC VOLUME] BY AUTOMATED COUNT 88.1 fL 80.0 - 96.0 12/07 Specimen Type: BLOOD No comment entered. Ordering Provider: RODDY MASSEY Report Released Date/Time: Oct 14, 2023 02:53 PM Reporting Lab: [address] [phone] Performing Lab: [place] [phone] [place] [address] CBC MCH [ENTITIC MASS] BY AUTOMATED COUNT 29.9 pg 27.0 - 31.0 12/07 Specimen Type: BLOOD No comment entered. Ordering Provider: RODDY MASSEY Report Released Date/Time: Oct 14, 2023 02:53 PM Reporting Lab: [place] [phone] Performing Lab: [place] [id number] CBC MCHC [MASS/VOLU ME] BY AUTOMATED COUNT 33.9 g/dL 31.5 - 36.5 12/07 Specimen Type: BLOOD No comment entered. Ordering Provider: RODDY MASSEY Report Released Date/Time: Oct 14, 2023 02:53 PM Reporting Lab: [place] [phone] Performing Lab: [place] [id number] CBC PLATELETS [#/VOLUME] IN BLOOD BY AUTOMATED COUNT 237 10*3/uL 150 - 400 12/07 Specimen Type: BLOOD No comment entered. Ordering Provider: RODDY MASSEY R Report Released Date/Time: Oct 14, 2023 02:53 PM Reporting Lab: [address] [address] Performing Lab: [place] [id number] CBC LYMPHOCYTE S/100 LEUKOCYTES IN BLOOD BY AUTOMATED COUNT 25.2 21.0 - 51.0 12/07 Specimen Type: BLOOD No comment entered. Ordering Provider: RODDY MASSEY R Report Released Date/Time: Oct 14, 2023 02:53 PM Reporting Lab: [place] [phone] Performing Lab: [place] [phone] [facility] CBC MONOCYTES/ 100 LEUKOCYTES IN BLOOD BY AUTOMATED COUNT 9.5 4.0 - 8.0 12/07 H Specimen Type: BLOOD No comment entered. Ordering Provider: RODDY MASSEY Report Released Date/Time: Oct 14, 2023 02:53 PM Reporting Lab: [place] [phone] Performing Lab: [place] [phone] [place] [address] CBC NUCLEATED ERYTHROCYT ES/100 LEUKOCYTES [RATIO] IN BLOOD BY MANUAL COUNT 0.1 /100{WBC s} 12/07 Specimen Type: BLOOD No comment entered. Ordering Provider: RODDY MASSEY Report Released Date/Time: Oct 14, 2023 02:53 PM Reporting Lab: [place] [phone] Performing Lab: [place] [phone] [place] [address] CBC ERYTHROCYT E DISTRIBUTI ON WIDTH [RATIO] BY AUTOMATED COUNT 12.9 11.2 - 15.8 12/07 Specimen Type: BLOOD No comment entered. Ordering Provider: RODDY MASSEY Report Released Date/Time: Oct 14, 2023 02:53 PM Reporting Lab: [place] [phone] Performing Lab: [place] [phone] [place] [address] CBC NEUTROPHIL S/100 LEUKOCYTES IN BLOOD BY AUTOMATED COUNT 63.0 54.0 - 78.0 12/07 Specimen Type: BLOOD No comment entered. Ordering Provider: RODDY MASSEY Report Released Date/Time: Oct 14, 2023 02:53 PM Reporting Lab: [place] [phone] Performing Lab: [place] [phone] [facility] CBC EOSINOPHIL S/100 LEUKOCYTES IN BLOOD BY AUTOMATED COUNT 1.4 0.0 - 3.0 12/07 Specimen Type: BLOOD No comment entered. Ordering Provider: RODDY MASSEY R Report Released Date/Time: Oct 14, 2023 02:53 PM Reporting Lab: [place] [id number] Performing Lab: [place] [id number] [place] [address] CBC BASOPHILS/ 100 LEUKOCYTES IN BLOOD BY AUTOMATED COUNT 0.9 0.0 - 3.0 12/07 Specimen Type: BLOOD No comment entered. Ordering Provider: RODDY MASSEY R Report Released Date/Time: Oct 14, 2023 02:53 PM Reporting Lab: [address] [id number] Performing Lab: [place] [id number] [facility] CBC LYMPHOCYTE S [#/VOLUME] IN BLOOD BY AUTOMATED COUNT 1.7 10*3/uL 0.8 - 5.0 12/07 Specimen Type: BLOOD No comment entered. Ordering Provider: RODDY MASSEY Report Released Date/Time: Oct 14, 2023 02:53 PM Reporting Lab: [place] [id number] Performing Lab: [place] [id number] [place] [address] CBC NEUTROPHIL S [#/VOLUME] IN BLOOD 4.3 10*3/uL 1.9 - 8.6 12/07 Specimen Type: BLOOD No comment entered. Ordering Provider: RODDY MASSEY Report Released Date/Time: Oct 14, 2023 02:53 PM Reporting Lab: [place] [id number] Performing Lab: [place] [id number] [facility] CBC BASOPHILS [#/VOLUME] IN BLOOD BY AUTOMATED COUNT 0.1 10*3/uL 0.0 - 0.3 12/07 Specimen Type: BLOOD No comment entered. Ordering Provider: RODDY MASSEY R Report Released Date/Time: Oct 14, 2023 02:53 PM Reporting Lab: [address] [id number] Performing Lab: [place] [id number] [facility] CBC MONOCYTES [#/VOLUME] IN BLOOD BY AUTOMATED COUNT 0.6 10*3/uL 0.1 - 0.9 12/07 Specimen Type: BLOOD No comment entered. Ordering Provider: RODDY MASSEY Report Released Date/Time: Oct 14, 2023 02:53 PM Reporting Lab: [address] [phone] Performing Lab: [place] [id number] [facility] CBC EOSINOPHIL S [#/VOLUME] IN BLOOD BY AUTOMATED COUNT 0.1 10*3/uL 0.0 - 0.3 12/07 Specimen Type: BLOOD No comment entered. Ordering Provider: RODDY MASSEY Report Released Date/Time: Oct 14, 2023 02:53 PM Reporting Lab: [place] [id number] Performing Lab: [place] [id number] [place] [address] CBC PLATELET MEAN VOLUME [ENTITIC VOLUME] IN BLOOD BY AUTOMATED COUNT 8.4 fL 7.4 - 11.4 12/07 Specimen Type: BLOOD No comment entered. Ordering Provider: RODDY MASSEY Report Released Date/Time: Oct 14, 2023 02:53 PM Reporting Lab: [place] [id number] Performing Lab: [place] [id number] [facility] Vital Signs Combined list of inpatient and outpatient Vital Signs from Department of Defense and Veterans Affairs, ranging from 12 months to all on record, depending upon the facility. Vital Sign Value Date Comments Source SYSTOLIC BLOOD PRESSURE 114 07/04/2024 14:39:43 [facility] DIASTOLIC BLOOD PRESSURE 69 07/04/2024 14:39:43 [facility] PULSE OXIMETRY 96 07/04/2024 14:39:43 [facility] HEIGHT 69 07/04/2024 14:39:43 [facility] TEMPERATURE 97.6 07/04/2024 14:39:43 [facility] PULSE 51 07/04/2024 14:39:43 [facility] RESPIRATION 16 07/04/2024 14:39:43 [facility] Encounters Combined list of: 1) Encounters from Department of Veterans Affairs facilities going backup to the last 18 months, not all VA inpatient encounters are included; 2) Encounters from the Department of Defense facilities going backup to 280 months. Location Location Details Encounter Type Encounter Number Reason For Visit Attending Provider ADM Date DC Date Status Disposition Source Jeanine [place](Urolog [place]) OUTPATIENT [id number] seeks [facility] kristyjam ROLAND JIMENEZ 07/07 Released w/o Limitations [place]Urol [place] Theater Facility OUTPATIENT [id number] 05/27 Released w/o Limitations Theater Fac[facility] OUTPATIENT [id number] 07/09 Released w/o Limitations Theater Facilit y Theater Facility OUTPATIENT [id number] 08/20 Released w/o Limitations Theater Facilit y [place]ine [place]Hear[place] Conserv[place] ([facility])) OUTPATIENT [id number] POST DPELOYM CHON RANDALL 11/16 Released w/o Limitations [place]Hear [place] Conserv [place]ion ([facility])) [place]ine [place]utz [place](ZZPhys ical Exam ([facility])) OUTPATIENT [id number] ets MARLI Nazario 01/15 Released w/o Limitations [place]ine [place](ZZPh ysical Exam ([facility])) [place]([facility] Optometry ) OUTPATIENT [id number] CAROLYN Morrissey 01/15 Released w/o Limitations [place]ine Lutz [place]([facility]) [place] OUTPATIENT [id number] ets REX JOSHI 01/20 Released w/o Limitations [place]([facility]ear[place] Conservat ion ([facility])) OUTPATIENT [id number] follow up QUIQUE CARROLL 01/20 Released w/o Limitations [place]ine [place]utz [place](Hear [place] Conserv ation ([place] [facility])) EV CB OFFICE O/P EST MOD 30 MIN [id number] Diagnos is: ICD-10- CM I10 Essenti al (primar y) hyperte nsion SHILPA,A EVELYN R 12/15 [place] [facility] OFF[facility] O/P EST MOD 30 MIN [id number] Diagnos is: ICD-10- CM F43.12 Post-tr aumatic stress disorde r, chronic CORE,DANET TE L 07/04 [place] [facility] Outpatient Encounter [id number] 08/09 [facility] Outpatient Encounter [id number] 10/30 [facility] Outpatient Encounter [id number] 11/21 [facility] EV [facility] OFFICE O/P EST MOD 30 MIN [id number] Diagnos is: ICD-10- CM F43.12 Post-tr aumatic stress disorde r, chronic CORE,DANET TE L 12/04 [place] [facility] Outpatient Encounter [id number] 12/06 [facility] Outpatient Encounter [id number] 02/05 [facility] Outpatient Encounter [id number] 02/06 [facility] Procedures Combined list of: 1) Procedures from Department of Veterans Affairs facilities going back up to thelast 18 months, not all VA non-surgical procedures are included; 2) All procedures from the Department of Defense facilities. Procedure Procedure Type Code Date Perfomer Comments [facility] e Threshold Audiogram (Pure Tone) Threshold Audiogram (Pure Tone) 35611 6 QUIQUE CARROLL [facility] Threshold Audiogram (Pure Tone) Threshold Audiogram (Pure Tone) 35520 6 CHON PIERRE DoD Circumcision No Clamp/Device/Dorsal Slit Older Than 28 Days 4 ROLAND JIMENEZ [facility] OPHTHALMOLOGICAL SERVICES: MEDICAL EXAMINATION AND EVALUATION, WITH INITIATION OR CONTINUATION OF DIAGNOSTIC AND TREATMENT PROGRAM; INTERMEDIATE, ESTABLISHED PATIENT 3 DoD OPHTHALMOLOGICAL SERVICES: MEDICAL EXAMINATION AND EVALUATION WITH INITIATION OF DIAGNOSTIC AND TREATMENT PROGRAM; INTERMEDIATE, NEW PATIENT 3 DoD FITTING OF SPECTACLES, EXCEPT FOR APHAKIA; MONOFOCAL 0 DoD IMMUNIZATION ADMINISTRATION (INCLUDES PERCUTANEOUS, INTRADERMAL, SUBCUTANEOUS, OR INTRAMUSCULAR INJECTIONS); EACH ADDITIONAL VACCINE (SINGLE OR COMBINATION VACCINE/TOXOID) 2 DoD IMMUNIZATION ADMINISTRATION (INCLUDES PERCUTANEOUS, INTRADERMAL, SUBCUTANEOUS, OR INTRAMUSCULAR INJECTIONS); EACH ADDITIONAL VACCINE (SINGLE OR COMBINATION VACCINE/TOXOID) 1 DoD TYPHOID VACCINE, CAPSULAR POLYSACCHARIDE (VICPS), FOR INTRAMUSCULAR USE 1 DoD PHLEBOTOMY, THERAPEUTIC (SEPARATE PROCEDURE) 1 DoD INFLUENZA VIRUS VACCINE, TRIVALENT, LIVE (LAIV3), FOR INTRANASAL USE 0 DoD RANGE OF MOTION MEASUREMENTS AND REPORT (SEPARATE PROCEDURE); EACH EXTREMITY (EXCLUDING HAND) OR EACH TRUNK SECTION (SPINE) 0 DoD PURE TONE AUDIOMETRY (THRESHOLD); AIR ONLY 6 DoD PURE TONE AUDIOMETRY (THRESHOLD); AIR ONLY 6 DoD TYPHOID VACCINE, CAPSULAR POLYSACCHARIDE (VICPS), FOR INTRAMUSCULAR USE 4 DoD UNLISTED OTORHINOLARYNGOLOGICAL SERVICE OR PROCEDURE 4 DoD INJECTION, RANITIDINE HYDROCHLORIDE, 25 MG 4 DoD CIRCUMCISION, SURGICAL EXCISION OTHER THAN CLAMP, DEVICE, OR DORSAL SLIT; OLDER THAN 28 DAYS OF AGE 09 4 DoD PSYCHIATRIC DIAGNOSTIC INTERVIEW EXAMINATION 4 [facility] PSYCHIATRIC DIAGNOSTIC INTERVIEW EXAMINATION 4 DoD DETERMINATION OF VENOUS PRESSURE 3 DoD INDIVIDUAL PSYCHOTHERAPY, INSIGHT ORIENTED, BEHAVIOR MODIFYING AND/OR SUPPORTIVE, IN AN OFFICE OR OUTPATIENT FACILITY, APPROXIMATELY 45 TO 50 MINUTES [id number] WITH THE PATIENT 3 DoD UNLISTED SPECIAL SERVICE, PROCEDURE OR REPORT 3 DoD SKIN TEST; TUBERCULOSIS, INTRADERMAL 3 [facility] PSYCHIATRIC DIAGNOSTIC INTERVIEW EXAMINATION 3 [facility] INDIVIDUAL PSYCHOTHERAPY, INSIGHT ORIENTED, BEHAVIOR MODIFYING AND/OR SUPPORTIVE, IN AN OFFICE OR OUTPATIENT FACILITY, APPROXIMATELY 75 TO 80 MINUTES [id number] WITH THE PATIENT 3 [facility] INDIVIDUAL PSYCHOTHERAPY, INSIGHT ORIENTED, BEHAVIOR MODIFYING AND/OR SUPPORTIVE, IN AN OFFICE OR OUTPATIENT FACILITY, APPROXIMATELY 20 TO 30 MINUTES [id number] WITH THE PATIENT 2 [facility] IMMUNIZATION ADMINISTRATION (INCLUDES PERCUTANEOUS, INTRADERMAL, SUBCUTANEOUS, OR INTRAMUSCULAR INJECTIONS); 1 VACCINE (SINGLE OR COMBINATION VACCINE/TOXOID) 2 [facility] PURE TONE AUDIOMETRY (THRESHOLD); AIR ONLY 2 [facility] Social History Combined list of available smoking, tobacco, and other social history from Department of Defense and Veterans Affairs facilities. Social History Type Response Date Comment [facility] e Tobacco smoking status [facility] VA-TOBACCO FORMER USER 07/07/2023 EV [facility] History of tobacco use RI-TOBACCO QUIT 1 5 YRS OR MORE 07/07/2023 EV [facility] History of tobacco use RI-TOBACCO QUIT 5 TO < 15 YRS 06/24/2022 EV [facility] History of tobacco use VA-TOBACCO NEVER USED 05/10/2019 EV [facility] History of tobacco use VA-TOBACCO FORMER USER 04/04/2018 [facility] History of tobacco use TOBACCO [place] NON USER 6 [facility] History of tobacco use TOBACCO [place] NON USER 4 [facility] History of tobacco use LIFETIME NON-USER OF TOBACCO 09/22/2012 [facility] History of tobacco use QUIT TOBACCO IN T HE LAST 12 MONTHS 10/16/2011 [facility] History of tobacco use CURRENT TOBACCO USER 01/07/2011 [facility] History of tobacco use QUIT TOBACCO >12 MO and <7 YRS AGO 03/19/2010 [facility] History of tobacco use QUIT TOBACCO IN T HE LAST 12 MONTHS 05/31/2009 [facility] History of tobacco use CURRENT TOBACCO USER 04/02/2009 [facility] History of tobacco use CURRENT TOBACCO USER 05/15/2008 [facility] History of tobacco use CURRENT TOBACCO USER 05/03/2008 [facility] History of tobacco use TOBACCO [place] NON USER 7 [facility] History of tobacco use CURRENT TOBACCO USER 03/07/2007 [facility] This section is an empty social history section. DoD Plan of Care List of future care activities from Department of Veterans Affairs facilities. Additional future care activities may be listed in the Assessment and Plan section. Date/Time Care Activity Care Activity Detail Facili ty 05/28/2025 AMBULATORY - PSYCHIATRY AMBULATORY - PSYC HIATRY [facility] Advance Directives List of completed, amended, or rescinded Advance Directives on record at Department of Veterans Affairs facilities. An actual copy of the Directive is not included. Date Advance Directive Provider Source 02/18/2016 ADVANCE DIRECTIVE DISCUSSION ABDULLAHI VILLAGOMEZ [facility]
--- OUTSIDE RECORDS SUMMARY | 2025-03-16 15:46 | XMS_ITS | Clinical Summary ---
Author Organization [facility] Address [id number] [address] [place] [address] Care Team Providers Care Food Service Director Name Role Phone Reji Brunson DO Primary Care Provider [phone] Allergies Active Allergy Reactions Criticality Noted Date Comments Hydrocodone-Acetaminophen Anaphylaxis High 5 Oxycodone Anaphylaxis High 02/16/2015 Shellfish Containing Products 2018 Medications citalopram (CeleXA) 20 mg tablet Take 20 mg by mouth daily. Active fluticasone propionate (FLONASE) 50 mcg/actuation nasal sprayIndications :Allergic rhinitis, unspecified seasonality, unspecified trigger,Post-blair al drainage Administer 1 spray into each nostril daily. 15.8 mL 12 9 Active Active Problems Problem Noted Date Diagnosed Date Post-nasal drainage 09/06/2019 Social History Tobacco Use Types Packs/Day Years Used Date Smoking Tobacco: Never Smokeless Tobacco: Never Alcohol Use Standard Drinks/Week Comments Not Currently 0 (1 standard drink = 0.6 oz pur e alcohol) AUDIT-C Answer Date Recorded Frequency of Alcohol Consumption Never 09/06/2019 Average Number of Drinks Not on file 019 Frequency of Binge Drinking Not on file 08/25 Childcare Answer Date Recorded Childcare Unknown 04/05/2019 Employment Answer Date Recorded Employment Unknown 04/05/2019 Purpose - Life Answer Date Recorded Purpose and direction in life Unknown Sex and Gender Information Value Date Recorded Sex Assigned at Not on file Legal Sex Male 3:21 PM EDT Gender Identity Not on file Sexual Orientation Not on file Last Filed Vital Signs Vital Sign Reading Time Taken Comments Blood Pressure 124/82 09/06/2019 3:14 PM EST Pulse - - Temperature - - Respiratory Rate - - Oxygen Saturation - - Inhaled Oxygen Concentration - - Weight 97.5 kg (215 lb) 09/06/2019 3:14 PM EST Height 175.3 cm (5' 9 ) 09/06/2019 3:14 PM EST Body Mass Index 31.75 09/06/2019 3:14 PM EST Plan of Treatment Health Maintenance Due Date Last Done Comments Depression Screening 1991 Tobacco Screening 1991 Adult BMI Screening 1997 DTaP,Tdap and Td Vaccines (1 - Tdap) 1998 Influenza Vaccine 06/25/2025 Medical Devices Not on file Insurance [place] [id number] Care Teams Food Service Director Relationship Specialty Start Date End Date Reji Brunson DO PCP - General Family Medicine 09/06/19
--- OUTSIDE RECORDS SUMMARY | 2025-03-16 15:47 | XMS_ITS | Encounter Summary ---
Author Organization [facility] Address [address] [facility] [place] [address] Care Team Providers Care Sprayer Automatic Spray Machine Name Role Phone Gertrudis Pham NP Primary Care Provider Gita Oliva Unavailable Encounter Details Date Type Department Care Team (Late Contact Info) Description 03/14/2025 Bamboo flowsheet [facility] [address] [phone] Gita Oliva PA [address] [place] [address] Social History Tobacco Use Types Packs/Day Years Used Date Smoking Tobacco: Former Cigarettes 1 10 0 11/25/2002 - 06/13/2012 Smokeless Tobacco: Former Chew Quit: 06/13/2012 Alcohol Use Standard Drinks/Week Comments Not Currently 0 (1 standard drink = 0.6 oz pur e alcohol) Sex and Gender Information Value Date Recorded Sex Assigned at Not on file Legal Sex Male 7:16 PM EDT Gender Identity Not on file Sexual Orientation Not on file documented as of this encounter Plan of Treatment Upcoming Encounters Date Type Department Care Team (Late Contact Info) Description 06/20/2025 3:40 PM EDT Office Visit [facility] [address] [phone] Gita Neal NP [address] documented as of this encounter Visit Diagnoses Not on filedocumented in this encounter Care Teams Sprayer Automatic Spray Machine Relationship Specialty Start Date End Date Gertrudis Pham NP [address] [facility] [place] [address] [place] [address] PCP - General Family Medicine 05/31/24 Gita Oliva PA [address] [place] [address] Physician Biological Technician Neurology 01/17/25 documented as of this encounter
--- OUTSIDE RECORDS SUMMARY | 2025-03-16 15:47 | XMS_ITS | Clinical Summary ---
Author Organization [facility] Address [address] [place] [address] Care Team Providers Care Machinist Set Up Name Role Phone Unavailable Primary Care Provider Unavailabl e Allergies Active Allergy Reactions Criticality Noted Date Comments Oxycodone Anaphylaxis High 02/16/2015 Hydrocodone-Acetaminophen Anaphylaxis High 5 Medications ibuprofen (ADVIL;MOTRIN) 200 MG tablet Take 200 mg by mouth every 6 hours as needed for Pain Active Active Problems Problem Noted Date Diagnosed Date Post-traumatic stress disorder, chronic 11/21/19 16 Social History Tobacco Use Types Packs/Day Years Used Date Smoking Tobacco: Former Alcohol Use Standard Drinks/Week Comments No 0 (1 standard drink = 0.6 oz pur e alcohol) Sex and Gender Information Value Date Recorded Sex Assigned at Not on file Legal Sex Male 9:53 PM EST Gender Identity Not on file Sexual Orientation Not on file Last Filed Vital Signs Vital Sign Reading Time Taken Comments Blood Pressure 149/73 12/31/2015 4:21 PM EST Pulse 72 12/31/2015 6:07 PM EST Temperature 36.4 C (97.6 F) 12/31/2015 4:21 PM EST Respiratory Rate 18 12/22/2015 11:55 AM EST Oxygen Saturation 100% 12/31/2015 4:21 PM EST Inhaled Oxygen Concentration - - Weight 71.7 kg (158 lb) 12/22/2015 11:55 AM EST Height 174 cm (5' 8.5 ) 11/21/2015 9:01 AM EST Body Mass Index 23.67 11/21/2015 9:01 AM EST Plan of Treatment Not on file Insurance [facility]
--- OUTSIDE RECORDS SUMMARY | 2025-03-16 15:47 | XMS_ITS | Encounter Summary ---
Author Name [facility] [place] Organization [facility] [place] Address [address] [place] [address] Care Team Providers Care Graphic Pre Press Trades Worker Name Role Phone JAIME BROOKS Primary Care [...] Fiore's Name Patient's Relationship to Policy Fiore [facility] 2024 [facility] Oct 25, 2024 [facility] [id number] [phone] PRICILLA ARAMBULA PATIENT Selected Encounter This section includes the information on record at [place] for the Encounter. Date/Time Encounter Type Encounter Description Reason Pro vider Source IHE Encounter Template Text not used by VA Advance Directives: All historical and current Section Date Range: From patient's date of to the date document was created. This section includes ALL of a patient's completed or amended VA Advance and Rescinded Directives. The entries below indicate that a directive exists for the patient, but an actual copy is not included with this document. The data comes from all [place] facilities. Date Advance Directives Provider Source Feb 18, 2016 ADVANCE DIRECTIVE DISCUSSION ABDULLAHI VILLAGOMEZ [facility]
--- OUTSIDE RECORDS SUMMARY | 2025-03-16 15:47 | XMS_ITS | Clinical Summary ---
Author Organization [facility] Address [address] [place] [address] Care Team Providers Care Industrial Hygienist Name Role Phone Unavailable Primary Care Provider Unavailabl e Social History Tobacco Use Types Packs/Day Years Used Date Smoking Tobacco: Never Assessed Sex and Gender Information Value Date Recorded Sex Assigned at Not on file Legal Sex Male 11:27 AM EDT Gender Identity Not on file Sexual Orientation Not on file Plan of Treatment Not on file
--- OUTSIDE RECORDS SUMMARY | 2025-03-16 15:47 | XMS_ITS | Encounter Summary ---
Author Organization [facility] Address [address] [facility] [place] [address] Care Team Providers Care Mixing House Operator Name Role Phone Gertrudis Pham NP Primary Care Provider Gita Oliva PA Unavailable Encounter Details Date Type Department Care Team (Latest Contact Info) Description 03/13/2025 Travel Social History Tobacco Use Types Packs/Day Years [...] Visit [facility] [address] [place] [phone] Gita Neal NP [address] [place], [place] documented as of this encounter Visit Diagnoses Not on filedocumented in this encounter Care Teams Mixing House Operator Relationship Specialty Start Date End Date Gertrudis Pham NP [address] [place] [address] [address] PCP - General Family Medicine 05/31/24 Gita Oliva PA [address] [facility] [address] [place] [address] Physician Embedded Developer Neurology 01/17/25 documented as of this encounter
--- OUTSIDE RECORDS SUMMARY | 2025-03-16 15:47 | XMS_ITS | Clinical Summary ---
Author Organization [facility] Address [address] [place] [address] Care Team Providers Care Nurse Leader Name Role Phone Gertrudis Pham NP Primary Care Provider Gita Oliva Unavailable Allergies Active Allergy Reactions Criticality Noted Date Comments Hydrocodone 03/27/2024 Other Reaction(s): labored breathing Hydrocodone-Acetaminophen Anaphylaxis High 3 Oxycodone Anaphylaxis High 01/17/2013 Other Reaction(s): Unknown, Unknown Reaction Shellfish Allergy 05/31/2024 Medications losartan (Cozaar) 25 MG tablet Take 25 mg by mouth Daily 03/27/2024 Active atenolol (Tenormin) 50 MG tablet Take 50 mg by mouth Daily 03/27/2024 Active citalopram (CeleXA) 20 MG tablet Take 20 mg by mouth 1 (one) time each day at the same time Active citalopram (CeleXA) 10 MG tablet Take 10 mg by mouth 1 (one) time each day at the same time Active omega-3 (fish oil) 1000 MG capsule Take 1,000 mg by mouth Daily 03/27/2024 Active divalproex (Depakote) 125 MG EC tabletIndicatio ns:Ocular migraine (CMS/HCC) Take 1 tablet (125 mg) by mouth in the morning and 1 tablet (125 mg) before bedtime. Do not crush, chew, or split. 60 tablet 1 03/14/2025 Active Active Problems Problem Noted Date Diagnosed Date Anxiety 05/31/2024 Hypertriglyceridemia 05/31/2024 Other chronic pain 05/31/2024 Primary hypertension 05/31/2024 Wellness examination 05/31/2024 Post-nasal drainage 09/06/2019 Post-traumatic stress disorder, chronic 11/21/19 16 Encounters Date Type Department Care Team Description 03/14/2025 1:40 PM EDT Office Visit [facility]NE [facility] [address] [place] [phone] Gita Oliva PA Ocular migraine (CMS/HCC) (Primary Dx); Transient visual loss of left eye 03/14/2025 Bamboo flowsheet [facility] [address] [place] [phone] Gita Oliva PA 03/13/2025 Travel 01/17/2025 2:00 PM EDT Office Visit [facility] [address] [place] [phone] Gita Oliva PA Transient visual loss of left eye (Primary Dx) 01/17/2025 Bamboo flowsheet [facility] [address] [place] [phone] Gita Oliva PA 01/15/2025 Travel from Last 3 Months Family History Medical History Relation Name Comments No Known Problems Brother x3 Anxiety disorder Mother Renetta No Known Problems Sister x2 Relation Name Status Comments Brother Alive Father Mother Renetta Alive Sister Alive Social History Tobacco Use Types Packs/Day Years [...] Mass Index 31.6 03/14/2025 1:35 PM EDT Plan of Treatment Upcoming Encounters Date Type Department Care Team (Late st Contact Info) Description 06/20/2025 3:40 PM EDT Office Visit [facility]ONNE ALVA [address] [place] [phone] Gita Neal NP [address] [place], [place] Insurance Care Teams Nurse Leader Relationship Specialty Start Date End Date Gertrudis Pham NP [address] [facility] [address] [place], [place] [phone] PCP - General Family Medicine 05/31/24 Gita Oliva PA [address] [place] [address] Physician Junior Graphic Designer Neurology 01/17/25
== END 2025-03-16 16:32 | disposition home or self-care (01) ==
PROVIDERS: Emergency Provider Emergency Medicine; PCP Nurse Practitioner Family
DX: S50.02XA Contusion of left elbow, initial encounter (principal); Y93.75 Activity, martial arts; M25.522 Pain in left elbow; Z87.891 Personal history of nicotine dependence
CPT/HCPCS: 73080; 99281

== ENCOUNTER 2025-08-11 00:58 | Emergency (ER) | payer OTHER, SELFPAY ==
[2025-08-11] VITALS (23 sets, daily range): BP systolic 128–153; BP diastolic 75–99; PULSE 47–57; TEMP 36.6; O2SAT 99–100; BMI 70.0
--- OUTSIDE RECORDS SUMMARY | 2025-08-11 01:11 | XMS_ITS | CCD ---
Author Organization [facility] Care Team Providers Care Rn Psych Name Role Phone MARITZA HOANGTorZEKE Unavailable Unavailable NO REFERRING DR Gallardo Unavailable FERMIN EPPERSON Unavailable Unavailable VEL CHING Unavailable Unavailable Reji Hughes Unavailable Reji Hughes Primary Care Physician GISSELL, DR DENT Admitting Unavailable ELLEN, DR [...] RASHEED Admitting Unavailable FRAN, GREG Attending Unavailable GREG RASHEED Consulting Unavailable LIVE LOWERY Consulting Unavailable ELLEN, DR LEI Primary Care Unavailable HILARIO CHEEK Admitting Unavailable ADIA, HILARIO Attending Unavailable HILARIO CHEEK Consulting Unavailable KARMEN, DR CATARINA Gonzalez Admitting Unavailberyl HUGHES, DR LEI Primary Care Unavailable KARMEN, DR CATARINA Gonzalez Attending UnavailSCOTT Parra Consulting Unavailable Mahnaz Castillo Unavailable Gertrudis Pham Unavailable [phone] Gertrudis Pham APRN Primary Care Provider Noelle Colunga MD Attending Provider Gertrudis Pham Primary Care Unavailable Noelle Colunga Attending Unavailable Keanu, Noelle Admitting Unavailable Vic Maldonado Attending Unavailable Karson RIVERS Admitting Unavailable Karson RIVERS Attending Unavailable Gus Lyn Consulting Unavailable MD Gus Lyn Consulting Unavailable Levelland, Gus Consulting Unavailable Levelland, Gus Consulting Unavailable Levelland, Gus Consulting Unavailable Levelland, Gus Consulting Unavailable Levelland, Gus Consulting Unavailable Levelland, Gus Consulting Unavailable Levelland, Gus Consulting Unavailable Levelland, Gus Consulting Unavailable OJUKWU, Mbanefo Admitting Unavailable OJUKWU, Mbanefo Attending Unavailable GERTRUDIS PHAM Primary Care Physician [phone] Gertrudis Pham NP Primary Care Provider Gita Philip Unavailable GITA OLIVA Attending Unavailable GUS LYN Referring Unavailable GITA OLIVA Attending Unavailable SILVIA MAST Attending Unavailable Allergies Allergy Classification Reported Allergen(s) Allergy Type Date of Onset Reaction(s) Facility Acetaminophen (1 source) Acetaminophen Drug Allergy 4 labored breathing [facility] Opioid Agonists (2 sources) HYDROcodone Drug Allergy 4 labored breathing, Unknown Reaction [facility] (13 sources) HYDROcodone; Translations: [HYDROCODONE] Drug Allergy 4 labored breathing [facility] Repository (1 source) Mushroom (edible); Translations: [MUSHROOMS] Propensity to adverse reactions (disorder) [facility] Repository (13 sources) oxyCODONE; Translations: [OXYCODONE] Drug Allergy 3 Anaphylaxis [facility] Repository (1 source) Shellfish; Translations: [SHELLFISH DERIVED] Propensity to adverse reactions (disorder) [facility] Repository (1 source) OPIATES; Translations: [OPIATES] Propensity to adverse reactions (disorder) [facility] Repository (9 sources) Acetaminophen / HYDROcodone; Translations: [acetaminophen-hy drocodone] Drug Allergy 3 Dyspnea (finding), Anaphylaxis [facility] Work Phone: (7 sources) Shellfish Propensity to adverse reactions to drug [address] [facility] Work Phone: (10 sources) Acetaminophen / HYDROcodone; Translations: [Vicodin] Drug Allergy 5 labored breathing [facility] Repository (1 source) oxyCODONE Drug Allergy 5 [facility] (1 source) Shellfish Drug allergy (disorder) 0 [facility] Rep[facility] (5 sources) Acetaminophen; Translations: [acetaminophen] Drug Allergy 5 labored breathing [facility] Medications Current Medications Medication Drug Class(es) Dates Sig (Normalized) Sig (Original) 0.5 ML semaglutide 0.5 MG/ML Auto-Injector [Wegovy] (2 sources) Start: 09-28-2023 inject 0.25 mg by subcutaneous injection every week Wegovy 0.25 MG/0.5ML 0.25mg Subcutaneous Once a week for 30 days E78.1, Z68.32 Sep, Active aspirin 81 mg chewable tablet (4 sources) Platelet Aggregation Inhibitor, Nonsteroidal Anti-inflammatory Drug Start: 12-18-2024 take 1 tablet by mouth once daily Aspirin 81 mg tablet,chewable Active 81 MG PO Daily December 18, 2024 1:00am Start: 12-10-2024 take 1 tablet by carole th once daily aspirin 81 mg Oral EC Tab 81 mg = 1 tab(s), Oral, Daily, # 60 tab(s), Refills(s) 0 Start Date: 12/10/24 Status: Ordered calcium carbonate 500 mg chewable tablet (1 source) calcium carbonat e 500 MG Chew Tab tablet Chew 500 mg daily. Active citalopram 30 MG Oral Capsule (20 sources) Serotonin Reuptake Inhibitor Start: 12-09-2024 take 1 capsule by mouth once daily citalopram 30 mg oral capsule 30 mg = 1 cap(s), Oral, Daily, Refills(s) 0 Start Date: 12/09/24 Status: Ordered Start: 03-14-2024 take 30 mg by mouth once daily Citalopram 10 mg/5 mL solution Active 30 MG PO Daily March 14, 2024 12:00am take 1 tablet by carole th once daily citalopram (CeleXA) 20 MG tablet Take 20 mg by mouth 1 (one) time each day at the same time Active take 1 tablet by carole th once daily citalopram (CeleXA) 10 MG tablet Take 10 mg by mouth 1 (one) time each day at the same time Active take 15 mL by mouth once daily C italopram Hydrobromide 10 MG/5ML 15 mL Oral daily for 30 days Active CeleXA Active take 30 mg by mouth once daily c italopram 20 MG Tab tablet Take 30 mg by mouth daily. Active diphenhydrAMINE hydrochloride 25 mg oral capsule (9 sources) Histamine-1 Receptor Antagonist Start: 03-14-2024 take 1 capsule by mouth once daily at bedtime as needed Diphenhydramine Hcl 25 mg capsule Active 25 MG PO Daily at bedtime as needed for insomnia March 14, 2024 12:00am take 1 capsule by mo [facility] every twenty-four hours diphenhydrAMINE HCl 25 MG 1 capsule at bedtime as needed Orally Once a day Active docosahexaenoic acid 120 mg / eicosapentaenoic acid 180 mg oral capsule (6 sources) Start: 03-27-2024 take 1 capsule by mouth once daily omega-3 (fish oil) 1000 MG capsule Take 1,000 mg by mouth Daily 03/27/2024 Active Fish Oils (2 sources) take 1 capsule by mouth twice daily Fish Oil 500 MG 1 capsule Orally Twice a day Active fluticasone propionate 0.05 mg/actuat metered dose nasal spray (1 source) Corticosteroid Start: 01-29-2023 take 2 spray(s) nasal route once daily Fluticasone Propionate 50 MCG/ACT 2 sprays Nasally Once a day for 14 day(s) Jan, Active losartan potassium 50 mg oral tablet (20 sources) Angiotensin 2 Receptor Nancy Start: 04-02-2025 take 1 tablet by mouth once daily Losartan 50 mg tablet Active 50 MG PO Daily April 02, 2025 1:17pm Start: 02-17-2024 End: 04-02-2025 take 1 tablet by mouth once daily Losartan 25 mg tablet Discontinued 25 MG PO Daily March 27, 2024 1:25pm September 25, 2024 2:19pm Start: 08-31-2023 take 1 tablet by carole every twenty-four hours Losartan Potassium 25 MG 1 tablet Orally Once a day for 30 days Aug, Active [place] 1-Pes-Qnx-Fish Oil (Fish Oil) 1,200 (144-216) mg capsule (5 sources) Start: 03-27-2024 take 1 capsule by mouth once daily [place] 0-Khh-Gix-Fish Oil (Fish Oil) 1,200 (144-216) mg capsule Active 1 CAP PO Daily March 27, 2024 12:00am Start: 03-27-2024 take 1 capsule by mo uth once daily [place] 2-Bsv-Yov-Fish Oil (Fish Oil) 1,200 (144-216) mg capsule Active 1 CAP PO Daily March 26, 2024 11:00pm Start: 03-27-2024 [place] 3-Dha-Ep a-Fish Oil (Fish Oil) 1,200 (144-216) mg capsule Active CAP PO March 27, 2024 12:00am predniSONE 20 mg oral tablet (1 source) Start: 01-29-2023 take 1 tablet by mouth every twelve hours predniSONE 20 MG 1 tablet Orally bid for 5 day(s) Jan, Active triamcinolone acetonide 1 mg/ml topical cream (8 sources) Corticosteroid Start: 09-25-2024 End: 09-25-2024 Triamcinolone Acetonide 0.1 % cream Active 1 APPLIC TOPICAL Twice daily 80 7 September 25, 2024 2:14pm divalproex sodium 125 mg delayed release oral tablet (2 sources) Mood Stabilizer, Anti-epileptic Agent Start: 03-14-2025 End: 04-13-2025 take 1 tablet by mouth in the morning divalproex (Depakote) 125 MG EC tablet Indications: Ocular migraine (CMS/HCC) Take 1 tablet (125 mg) by mouth in the morning and 1 tablet (125 mg) before bedtime. Do not crush, chew, or split. 60 tablet 1 03/14/2025 04/13/2025 Active Completed/Discontinued Medications Medication Drug Class(es) Dates Sig (Normalized) Sig (Original) atenolol 50 mg oral tablet (20 sources) beta-Adrenergic Nancy Start: 02-17-2024 End: 02-20-2025 take 1 tablet by mouth once daily Atenolol 50 mg tablet Discontinued 50 MG PO Daily 90 90 March 27, 2024 1:25pm September 22, 2024 12:07pm take 1 tablet by carole every twenty-four hours Atenolol 50 MG 1 tablet Oral daily for 90 days Active dextromethorphan hydrobromide 15 mg / guaiFENesin 400 mg / pseudoephedrine hydrochloride 60 mg oral tablet (1 source) alpha-Adrenergic Agonist, Uncompetitive S-impzii-Z-aspartate Receptor Antagonist, Sigma-1 Agonist Start: 12-01-2021 take 4 tablets by mouth every twenty-four hours as needed Capmist DM 60-15-400 MG as needed Orally every 4-6 hours as needed, max 4 tablets in 24 hours for 5 days Nov, Not-Taking metFORMIN hydrochloride 500 mg oral tablet (14 sources) Biguanide Start: 02-17-2024 End: 09-25-2024 take 1 tablet by mouth twice daily Metformin 500 mg tablet Discontinued 500 MG PO Twice daily 180 90 May 29, 2024 3:21pm September 25, 2024 2:06pm Sod Picosulf-Mag Ox-Citric Ac (4 sources) Start: 09-28-2024 End: 12-18-2024 Sod Picosulf-Mag Ox-Citric Ac (Clenpiq) 10 mg-3.5 gram- 12 gram/175 mL solution Discontinued 175 ML PO .COMPLEX 350 September 28, 2024 1:00am December 18, 2024 2:16pm Follow instructions given by office Start: 09-28-2024 End: 12-18-2024 Sod Picosulf-Mag Ox-Citric A c (Clenpiq) 10 mg-3.5 gram- 12 gram/175 mL solution Discontinued 175 ML PO .COMPLEX 350 September 28, 2024 12:00am December 18, 2024 1:16pm Follow instructions given by office Start: 09-28-2024 Sod Picosulf-M ag Ox-Citric Ac (Clenpiq) 10 mg-3.5 gram- 12 gram/175 mL solution Active 175 ML PO .COMPLEX 350 September 28, 2024 12:00am Follow instructions given by office Problems Active Problems Problem Classification Problem Date Documented Date Episodic/Chronic Allergic reactions (7 sources) Eczema; Translations: [Dermatitis, unspecified] 09-25-2024 Episodic Anxiety disorders (20 sources) Anxiety state, unspecified; Translations: [Obsessive-compulsive disorder, unspecified] Onset: 05-21-2015 Chronic Blindness and vision defects (3 sources) Unspecified visual loss; Translations: [H54.7] Onset: 12-09-2024 Chronic Blindness and vision defects (4 sources) Transient visual loss, left eye; Translations: [Transient visual loss] 01-21-2025 Episodic Disorders of lipid metabolism (18 sources) Hypertriglyceridemia; Translations: [Pure hyperglyceridemia] Onset: 05-31-2024 Chronic Esophageal disorders (2 sources) Gastro-esophageal reflux disease with esophagitis; Translations: [Gastro-esophageal reflux disease with esophagitis] Onset: 10-09-2018 Chronic Essential hypertension (20 sources) Essential hypertension; Translations: [Essential (primary) hypertension] Onset: 05-31-2024 Chronic Headache; including migraine (4 sources) Ophthalmic migraine; Translations: [Migraine with aura, not intractable, without status migrainosus] 03-14-2025 Chronic Inflammation; infection of eye (except that caused by tuberculosis or sexually transmitteddisease) (4 sources) Abscess of left upper eyelid; Translations: [ABSCESS LEFT UPPER EYELID] Onset: 09-24-2022 Episodic Nonspecific chest pain (7 sources) Atypical chest pain; Translations: [Other chest pain] 09-25-2024 Episodic Other aftercare (1 source) Other manager intermediate (current) drug therapy; Translations: [OTH ASSISTED CURRENT DRUG THERAPY] Onset: 11-23-2022 Episodic Other aftercare (1 source) Long-term current use of drug therapy; Translations: [Other fpc (current) drug therapy] Onset: 12-09-2024 Episodic Other ear and sense organ disorders (4 sources) Otalgia, left ear; Translations: [OTALGIA LEFT EAR] Onset: 09-02-2022 Episodic Other lower respiratory disease (1 source) Personal history of other diseases of the respiratory system Episodic Other nervous system disorders (15 sources) Chronic pain; Translations: [Other chronic pain] Onset: 05-31-2024 03-27-2024 Chronic Other nervous system disorders (2 [...] mass index (BMI) 32.0-32.9, adult Chronic Other nutritional; endocrine; and metabolic disorders (1 source) Obesity; Translations: [Obesity, unspecified] Onset: 12-09-2024 Chronic Other screening for suspected conditions (not mental disorders or infectious disease) (8 sources) Patient encounter status; Translations: [Encounter for screening for malignant neoplasm of colon] Onset: 11-21-2024 09-25-2024 Episodic Other skin disorders (4 sources) Eruption; Translations: [Rash and other nonspecific skin eruption] 09-25-2024 Episodic Otitis media and related conditions (1 source) Unspecified nonsuppurative otitis media, right ear Episodic Residual codes; unclassified (4 sources) Family history of cardiac disorder; Translations: [Family history of ischemic heart disease and other diseases of the circulatory system] 09-25-2024 Episodic Residual codes; unclassified (3 sources) Family history of ischemic heart disease and [...] COUGH, UNSPECIFIED; Translations: [COUGH, UNSPECIFIED] Onset: 09-02-2022 Unclassified (3 sources) R51.9; Translations: [R51.9] Onset: 12-09-2024 Viral infection (1 source) COVID-19; Translations: [COVID-19] [...] MASS AND LUMP NECK] Onset: 06-22-2022 Episodic Other upper respiratory infections (8 sources) Acute upper respiratory infection, unspecified; Translations: [Acute pharyngitis, unspecified] Onset: 09-06-2019 Episodic Unclassified (1 source) COUGH, UNSPECIFIED; Translations: [COUGH, UNSPECIFIED] Onset: 08-31-2022 Results Test Name Value Interpretation Reference Range Facility [id number] 12-11-2024 HbA1c (Bld) [Mass fraction] 5.2 % Normal <=5.9 [facility] Comment on above: Performed By: #### [id number] #### [facility] [address] [place] [address] CHEMISTRYOrdered By: SYSTEM SYSTEM on 12-10-2024 Cholesterol [Mass/Vol] 183 mg/dL Normal 120 - 200 mg/dL [facility] Cholesterol in HDL [Mass/Vol] 37 mg/dL Invalid Interpretation Code [facility] Comment on above: Result Comment: '>= 60 LOW RISK' '<= 40 HIGH RISK' Cholesterol in LDL [Mass/Vol] 86 mg/dL Normal <=129mg/dL [facility] Cholesterol in VLDL [Mass/Vol] 50 mg/dL High 7 - 40 mg/dL [facility] Triglyceride [Mass/Vol] 250 mg/dL High <=149mg/dL Remisol Chem CT Head or Brain w/o Contras ton 12-10-2024 CT Head or Brain w/o Contrast Exam Date/Time: 12/09/2024 16:19 EST Reason for Exam: Stroke Report IMPRESSION: NO ACUTE FINDINGS. FINDINGS DISCUSSED VIA TELEPHONE WITH DR. MALDONADO IN THE EMERGENCY DEPARTMENT BY DR.ARCHANA XIAO, OF [facility], AT 1746 HOURS, DECEMBER 09, 2024. CT [...] Hi MD Transcribed by: NILO Technologist: PRAVEEN Gage [facility] CTA Headon 12-10-2024 CTA Head Exam Date/Time: 12/09/2024 17:21 EST Reason for [...] Hi MD Transcribed by: NILO Technologist: PRAVEEN Gage [facility] CTA Neckon 12-10-2024 CTA Neck Exam Date/Time: 12/09/2024 17:21 EST Reason for [...] Hi MD Transcribed by: NILO Technologist: PRAVEEN Rajan [facility] Inpatient Clinical Summaryon 12-10-2024 Inpatient Clinical Summary Inpatient Clinical Summary [place] [id number] Clinical Summary Person Information: Name: MONICA MORGAN Age: 44 Years : 1980 Sex: Male PCP: GERTRUDIS PHAM CNP Marital Status: Phone: [phone] Race: White Ethnicity: Non- or Language: Yoruba Visit Id: Visit Reason: Vision changes; BLURRED VISION Speciality: Acuity: Enc Type: Observation Med Service: Medical Arrival: 12/09/2024 15:55:32 Discharge: Dispo Type: Admitted as IP to this Hosp Address: [facility] [id number] Provider Notes: Diagnosis: 3:Hypertension; 4:Obesity; 5:On deep [...] every day. Care Team Members: Attending Physician: MAYITO LAUREN, Karson Consulting Physician: Gus Lyn MD Referring Physician: Follow up: With: Address: When: Gus Lyn [facility], [place] [address] [place] (1) Within 2 to 4 weeks Comments: Call for followup appointment With: Address: When: GERTRUDIS PHAM Within 5 to 7 days Comments: Call for followup appointment Patient Education Information: [facility] Inpatient Patient Summaryon 12-10-2024 Inpatient Patient Summary Inpatient Patient Summary MONICA MORGAN :1980 Visit Date:12/09/2024 Inpatient Discharge Instructions Your Care Team Admitting Physician - Karson RIVERS MD Consulting Physician - Gus Lyn MD Reason for Your Visit vision changes [...] Up Appointments after Discharge Follow Up with Gus Lyn When: Within 2 to 4 weeks Comments: Call for [facility]up [facility] [place] [address] [place] (1) Follow Up with GERTRUDIS PHAM When: Within 5 to 7 days Comments: Call for followup appointment Medications What How Much When Instructions Next Dose New aspirin (aspirin 81 mg Oral EC Tab) 1 Tablets By Mouth Every day Printed Prescription 02-17 am Unchanged atenolol (atenolol 50 mg Tab) [...] E9/L (12/09/24 16:20:00) Glucose Lvl: 87 mg/dL (12/09/24:20:00) RBC: 5.3 E12/L (12/09/24:20:00) BUN: 14 mg/dL (12/09/24:20:00) HGB: 16 gm/dL (12/09/24:20:00) Creatinine: 1.1 mg/dL (12/09/24::00) Hct: 45.8 % (12/09/24:) BUN/Creat Ratio: 13 (12/09/24:20:00) MCV: 86.4 fL (12/09/24:20:00) Sodium Lvl: 135 mmol/L (12/09/24:20:00) MCH: 30.1 pg (12/09/24:20:00) Potassium Lvl: 4.5 mmol/L (12/09/24:20:00) MCHC: 34.9 gm/dL (12/09/24:20:00) Chloride: 103 mmol/L (12/09/24:20:00) RDW: 13 % (12/09/24:20:00) CO2: 25 mmol/L (12/09/24:20:00) Platelet: 279 E9/L (12/09/24:20:00) AGAP: 12 mEq/L (12/09/24:20:00) MPV: 7.6 fL (12/09/24:20:00) Calcium Lvl: 9.7 mg/dL (12/09/24:20:00) Allergies Vicodin (Shortness of breath) Education Materials [...] may get warning signs (an aura). An au (more content not included)... [facility] Inpatient Patient Summary Inpatient Patient Summary [address] [address] Patient Discharge Instructions PERSON INFORMATION Name: MONICA MORGAN Date of : 1980 Current Date: 12/10/2024 09:21:39 PHYSICIANS Admitting Physician: MAYITO LAUREN, Karson Primary Care Physician: GERTRUDIS PHAM CNP PCP Phone Number: [phone] Comment: Discharge Diagnosis: 3:Hypertension; 4:Obesity; 5:On deep vein thrombosis (DVT) prophylaxis Condition at Discharge: Improved MONICA MORGAN has been given the following list [...] results: None Follow up: With: Address: When: Gus Lyn [facility] [place] [phone] [place] ([facility] Within 2 to 4 weeks Comments: Call for followup appointment With: Address: When: GERTRUDIS PHAM Within 5 to 7 days Comments: Call for followup appointment In the event that this physician does not participate in your insurance network, please consult with your insurance company to find a nearby participating provider. Comment: TYESHA Broussard GARY A, have received the attached patient education materials/instructio ns and have verbalized understanding: Patient Signature Date [...] to serve you. Thank you for choosing [facility] Interdisciplinary Note - PTo n 12-10-2024 Interdisciplinary Note - PT Interdisciplinary Note - PT PT Screen performed. Pt functioning at [place] level. States all symptoms have resolved. Pt observed ambulating and performing steps with [place]. No further PT services needed [facility] Comment on above: Other Comment: PT Ev aluation performed Lipid Panelon 12-10-2024 Cholesterol [Mass/Vol] 183 mg/dL Normal 120-200 [facility] Comment on above: Performed By: #### 2 [id number] ####[facility] [address] [place] [address] Cholesterol in HDL [Mass/Vol] 37 mg/dL Invalid Interpretation Code [facility] Comment on above: Result Comment: '>= 60 LOW RISK' '<= 40 HIGH RISK' Performed By: #### 2 [id number] ####[facility] [address] [place] [address] Cholesterol in LDL [Mass/Vol] 86 mg/dL Normal <=129 [facility] Comment on above: Performed By: #### 2 [id number] ####[facility] [address] [place] [address] Cholesterol in VLDL [Mass/Vol] 50 mg/dL High 7-40 [facility] Comment on above: Performed By: #### 2 [id number] ####[facility] [address] [place] [address] Triglyceride [Mass/Vol] 250 mg/dL High <=149 [facility] Comment on above: Performed By: #### 2 [id number] ####[facility] [address] [place] [address] MRI Brain w/o Contraston MRI Brain w/o Contrast Exam Date/Time: 12/10/2024 13:04 EST Reason for [...] tissues are unremarkable. Report Ordering Provider: Karson RIVERS FINAL REPORT Dictated: 12/10/2024 1:20 pm Eugenio Kumar MD Signed (Electronic Signature): 12/10/2024 1:20 pm Signed by: Eugenio Kumar MD Transcribed by: NILO Technologist: DARSHANA [facility] Patient Education - Texton 0 12-10-2024 Patient Education - Text Patient Education - Text [facility] XR Chest Single Viewon 12-10 XR Chest Single View Exam Date/Time: 12/09/2024 16:20 EST Reason for [...] intercostal space. Lungs otherwise clear. Ordering Provider: Nicki, Haylie FINAL REPORT Dictated: 12/10/2024 11:40 am James Hi MD Signed (Electronic Signature): 12/10/2024 11:40 am Signed by: James Hi MD Transcribed by: NILO Technologist: MARISA Rajan [facility] BB Draw & [place] 12-09-2024 BB D&H Sample drawn for Blood Ba [facility] Comment on above: Performed By: #### 1 [id number] #### [facility] [address] [place] [address] CBC w/ Auto Diffon 5 Basophils/100 WBC (Bld) 2.5 % High 0.0-2.0 [facility] Comment on above: Performed By: #### 2 [id number] #### [facility] [address] [place] [address] Basophils/Leukocytes Auto (Bld) [Pure # fraction] 0.2 E9/L Normal 0.0-0.2 [facility] Comment on above: Performed By: #### 2 [id number] #### [facility] [address] [place] [address] Eosinophils (Bld) [#/Vol] 0.1 E9/L Normal 0.0-0.5 [facility] Comment on above: Performed By: #### 2 [id number] #### [facility] [address] [place] [address] Eosinophils/100 WBC (Bld) 0.7 % Normal 0.0-8.0 [facility] Comment on above: Performed By: #### 2 [id number] #### [facility] [address] [place] [address] Erythrocyte distribution width (RBC) [Ratio] 13.0 % Normal 10.9-14.2 [facility] Comment on above: Performed By: #### 2 [id number] #### [facility] [address] [place] [address] Hematocrit (Bld) [Volume fraction] 45.8 % Normal 37.7-49.0 [facility] Comment on above: Performed By: #### 2 [id number] #### [facility] [address] [place] [address] Hemoglobin (Bld) [Mass/Vol] 16.0 g/dL Normal 13.5-17.5 [facility] Comment on above: Performed By: #### 2 [id number] #### [facility] [address] [place] [address] Lymphocytes (Bld) [#/Vol] 1.6 E9/L Normal 1.0-4.0 [facility] Comment on above: Performed By: #### 2 [id number] #### [facility] [address] [place] [address] Lymphocytes/100 WBC (Bld) 18.4 % Normal 14.0-50.0 [facility] Comment on above: Performed By: #### 2 [id number] #### [facility] [address] [place] [address] MCH (RBC) [Entitic mass] 30.1 pg Normal 27.0-34.0 [facility] Comment on above: Performed By: #### 2 [id number] #### [facility] [address] [place] [address] MCHC (RBC) [Mass/Vol] 34.9 g/dL Normal 31.4-36.0 [facility] Comment on above: Performed By: #### 2 [id number] #### [facility] [address] [place] [address] MCV (RBC) [Entitic vol] 86.4 fL Normal 80.0-100.0 [facility] Comment on above: Performed By: #### 2 [id number] #### [facility] [address] [place] [address] Monocytes (Bld) [#/Vol] 0.9 E9/L Normal 0.2-1.0 [facility] Comment on above: Performed By: #### 2 [id number] #### [facility] [address] [place] [address] Neutrophils (Bld) [#/Vol] 5.7 E9/L Normal 2.0-7.5 [facility] Comment on above: Performed By: #### 2 [id number] #### [facility] [address] [place] [id number] Neutrophils/100 WBC (Bld) 67.5 % Normal 36.0-75.0 [facility] [facility] Comment on above: Performed By: #### 2 [id number] #### [facility] [address] [place] [address] [id number] Platelet mean volume (Bld) [Entitic vol] 7.6 fL Normal 6.4-10.8 [facility] Comment on above: Performed By: #### 2 [id number] #### [facility] [address] [place] [address] [id number] Platelets (Bld) [#/Vol] 279.0 E9/L Normal 150.0-500.0 [facility] Comment on above: Performed By: #### 2 [id number] #### [facility] [address] [place] [address] [id number] RBC (Bld) [#/Vol] 5.3 E12/L Normal 4.3-5.9 [facility] Comment on above: Performed By: #### 2 [id number] #### [facility] [address] [place] [address] 51193 WBC corrected for nucl RBC Auto (Bld) [#/Vol] 8.5 E9/L Normal 4.0-11.0 [facility] Comment on above: Performed By: #### 2 [id number] #### [facility] [address] [place] [address] 12694 CHEMISTRYOrdered By: SYSTEM SYSTEM on 12-09-2024 Albumin [Mass/Vol] 4.3 g/dL Normal 3.3 - 5.0 gm/dL [facility] Chem Albumin/Globulin [Mass ratio] 1.4 {ratio} Normal 1.1 - 2.2 [facility] Chem ALP [Catalytic activity/Vol] 105 [iU]/d High 21 - 98 Int._Unit/L Remisol Chem ALT No additional P-5'-P [Catalytic activity/Vol] 18 [iU]/d Normal 6 - 46 Int._Unit/L [facility] Chem Anion gap [Moles/Vol] 12 mmol/L Normal 6 - 16 mEq/L R emisol Chem AST [Catalytic activity/Vol] 20 [iU]/d Normal 5 - 43 Int._Unit/L [facility] Chem Bilirubin [Mass/Vol] 0.7 mg/dL Normal 0.0 - 1 .1 mg/dL [facility] Chem Calcium [Mass/Vol] 9.7 mg/dL Normal 8.9 - 11. 1 mg/dL [facility] Chem Chloride [Moles/Vol] 103 mmol/L Normal 101 - 1 11 mmol/L [facility] Chem CO2 [Moles/Vol] 25 mmol/L Normal 21 - 31 mmol/L [facility] Chem Creatinine [Mass/Vol] 1.1 mg/dL Normal 0.5 - 1.3 mg/dL [facility] Chem eGFR 84 mL/min/1.73 m2 Normal >=59mL/min /1 .73 m2 [facility] Chem Globulin (S) [Mass/Vol] 3.0 g/dL Normal 1.4 - 4.0 gm/dL [facility] Glucose [Mass/Vol] 87 mg/dL Normal 55 - 199 mg/dL [facility] Chem Potassium [Moles/Vol] 4.5 mmol/L Normal 3.5 - 5.3 mmol/L [facility] Chem Protein [Mass/Vol] 7.3 g/dL Normal 6.0 - 7.8 gm/dL [facility] Chem Sodium [Moles/Vol] 135 mmol/L Normal 135 - 145 mmol/L [facility] Chem Troponin HS 3.70 pg/mL Low 15.90 - 38.40 pg/mL [facility] Comment on above: Interpretive Data: T he 95% CI (Confidence Interval) PPV (Positive Predictive Value) for myocardial infarction in females is 38 pg/mL, in males 51 pg/mL. The results should be used in conjunction with clinical conditions of myocardial infarction. (Access High Sensitivity Troponin I Instructions For Use, Jamar Yovanny, May 2018) Urea nitrogen [Mass/Vol] 14 mg/dL Normal 5 - 21 mg/dL [facility] Chem Urea nitrogen/Creatinine [Mass ratio] 13 mg/mg Normal 10 - 20 [facility] Chem CHEMISTRYOrdered By: Lab ROP User on 12-09-2024 Glucose [Mass/Vol] 84 mg/dL Normal 55 - 99 mg/dL [facility] POC Subsection Comment on above: Result Comment: Mariam morin RN/ POC Username ARPAN EMELINA Invalid Interpretation Code [facility] POC Subsection Sodium [Moles/Vol] [id number] mmol/L Invalid Interpretation Code [facility] POC Subsection Sodium [Moles/Vol] [id number] mmol/L Invalid Interpretation Code [facility] POC Subsection CMPon 12-09-2024 Albumin [Mass/Vol] 4.3 g/dL Normal 3.3-5.0 [facility] Comment on above: Performed By: #### 2 [id number] #### [facility] [address] [place] [address] Albumin/Globulin (S) [Mass conc ratio] 1.4 Normal 1.1-2.2 [facility] Comment on above: Performed By: #### 2 [id number] #### [facility] [address] [place] [address] ALP [Catalytic activity/Vol] 105 Int._Unit/L High 21-98 [facility] Comment on above: Performed By: #### 2 [id number] #### [facility] [address] [place] [address] ALT No additional P-5'-P [Catalytic activity/Vol] 18 Int._Unit/L Normal 6-46 [facility] Comment on above: Performed By: #### 2 [id number] #### [facility] [address] [place] [address] Anion gap [Moles/Vol] 12 mmol/L Normal 6-16 [facility] Comment on above: Performed By: #### 2 [id number] #### [facility] [address] [place] [address] AST [Catalytic activity/Vol] 20 Int._Unit/L Normal 5-43 [facility] Comment on above: Performed By: #### 2 [id number] #### [facility] [address] [place] [address] Bilirubin [Mass/Vol] 0.7 mg/dL Normal 0.0-1.1 [facility] Comment on above: Performed By: #### 2 [id number] #### [facility] [address] [place] [address] Calcium [Mass/Vol] 9.7 mg/dL Normal 8.9-11.1 [facility] Comment on above: Performed By: #### 2 [id number] #### [facility] [address] [place] [address] Chloride [Moles/Vol] 103 mmol/L Normal 101-111 [facility] Comment on above: Performed By: #### 2 [id number] #### [facility] [address] [place] [address] CO2 [Moles/Vol] 25 mmol/L Normal 21-31 [facility] Comment on above: Performed By: #### 2 [id number] #### [facility] [address] [place] [address] Creatinine [Mass/Vol] 1.1 mg/dL Normal 0.5-1.3 [facility] Comment on above: Performed By: #### 2 [id number] #### [facility] [address] [place] [address] Globulin (S) [Mass/Vol] 3.0 g/dL Normal 1.4-4.0 [facility] Comment on above: Performed By: #### 2 [id number] #### [facility] [address] [place] [address] Glucose [Mass/Vol] 87 mg/dL Normal 55-199 [facility] Comment on above: Performed By: #### 2 [id number] #### [facility] [address] [place] [address] Potassium [Moles/Vol] 4.5 mmol/L Normal 3.5-5.3 [facility] Comment on above: Performed By: #### 2 [id number] #### [facility] [address] [place] [address] Protein [Mass/Vol] 7.3 g/dL Normal 6.0-7.8 [facility] Comment on above: Performed By: #### 2 [id number] #### [facility] [address] [place] [address] Sodium [Moles/Vol] 135 mmol/L Normal 135-145 [facility] Comment on above: Performed By: #### 2 [id number] #### [facility] [address] [place] [address] Urea nitrogen [Mass/Vol] 14 mg/dL Normal 5-21 [facility] Comment on above: Performed By: #### 2 [id number] #### [facility] [address] [place] [address] Urea nitrogen/Creatinine [Mass ratio] 13 No Units Normal 10-20 [facility] Comment on above: Performed By: #### 2 [id number] #### [facility] [address] [place] [address] COAGULATIONOrdered By: Frankie Heard on 12-09-2024 aPTT Coag (PPP) [Time] 33.3 s Normal 25.1 - 36.5 second(s) [facility] Auto Coag Comment on above: Interpretive Data: Dilip osuna 15 days - 4 weeks 1 - 5 months 6 - 11 months 1 - 5 years 6 - 10 years 11 - 17 years PTT Mean: 35.4 (27.6-45.6) Mean: 33.5 (24.8-40.7) Mean: 32.4 (25.1-40.7) Mean: 31.6 (24.0-39.2) Mean: 31.6 (26.9-38.7) Mean: 31.0 (24.6-38.4) Pediatric Reference ranges were obtained from a study by Manish Johnson et al. prepared from 1437 samples obtained at 7 different centers using the same coagulation reagent and instrumentation as [facility]. Currently there are no coagulation studies available worldwide for children to 14 days, and no normal ranges. Heparin therapeutic range (represented by Anti-Factor Xa activity of 0.2 - 0.4 U/mL) corresponds to PTT of 56.6 - 109.0 sec. INR Coag (PPP) [Relative time] 0.96 {INR} Invalid Interpretation Code [facility] Auto Coag Comment on above: Interpretive Data: I NR results are specifically intended to assess patients stabilized on long-term Anticoagulation therapy suggested INR s Less Intensive Anticoagulation 2.0 3.0 Conventional Range 3.0 4.5 PT Coag (PPP) [Time] 10.7 s Normal 9.4 - 1 2.5 second(s) [facility] Coag Comment on above: Interpretive Data: 1 5 days - 4 weeks 1 - 5 months 6 -11 months 1 5 years 6 10 years 11 -17 years Mean: 11.2 (9.5 12.6) Mean: 11.0 (9.7 12.8) Mean: 11.0 (9.8 13.0) Mean: 11.3 (9.9 13.4) Mean: 11.7 (10.0 14.6) Mean: 11.8 (10.0 - 14.1) Pediatric Reference ranges were obtained from a study by [place] al. prepared from 1437 samples obtained at 7 different centers using the same coagulation reagent and instrumentation as [facility]. Currently there are no coagulation studies available worldwide for children to 14 days, and no normal ranges. Capillary Glucose POCon 11-25 Glucose [Mass/Vol] 84 mg/dL Normal 55-99 [facility] Comment on above: Result Comment: Mariam morin RN/ Performed By: #### 2 [id number] #### [facility] [address] [place] [address] ED Clinical Summaryon 2024 ED Clinical Summary ED Clinical Summary [address] [address] ED Clinical Summary Person Information Name: MONICA MORGAN [facility] Age: 44 Years : 1980 Sex: Male Language: Yoruba PCP: GERTRUDIS PHAM CNP Marital Status: Phone: [phone] Visit Id: Visit Reason: Vision changes; BLURRED VISION Speciality: Acuity: 2 Enc Type: Observation Med Service: Medical Arrival: 12/09/2024 15:55:32 Discharge: LOS: 000 03:53 Checkin: 12/09/2024 15:55:32 Checkout: 12/09/2024 19:48:21 Dispo Type: Admitted as IP to this [facility] EVENTS: Event Name Event Status Request Date/Time [...] 12/09/2024 19:48:21 12/09/2024 19:48:21 12/09/2024 19:48:21 ADDRESS: [address] [place] [phone] PHYS DOC NOTES: MEDICAL INFORMATION: Prescriptions Given: PATIENT EDUCATION INFORMATION: Instructions: Follow up: DIAGNOSIS: 3:Hypertension; 4:Obesity; 5:On deep vein thrombosis (DVT) prophylaxis Normal [facility] ED Note-Physicianon 12-09-19 ED Note-Physician ED Note-Physician Basic Information Time Seen: Vic [...] 30 minutes exclusive from separate billable procedures IDr. Maldonado had a [id number] interaction with the patient. I personally performed [...] (12/09/24 16:20:00) RBC: 5.3 E12/L (12/09/24 16:20:00) (more content not included)... Normal [facility] Comment on above: Result Comment: Elec tronically Signed By: Evelio Cardenas MS, III\.br\Electronically Co-Signed By: Vic Maldonado DO\.br\Date and Time Co-Signed: 12/09/24 17:57 EST Result Comment: Elec tronically Signed By: Vic Maldonado DO\.br\Date and Time Signed: 12/09/24 17:57 EST ED Patient Education Noteon 12-09-2024 ED Patient Education Note ED Patient Education Note Normal [facility] ED Patient Summaryon 025 ED Patient Summary ED Patient Summary [place] [id number] Patient Discharge Instructions Person Information Name: MONICA MORGAN Age: 44 Years Arrival Date: 12/09/2024 15:55:32 Discharge Diagnosis: 3:Hypertension; 4:Obesity; 5:On deep vein thrombosis (DVT) prophylaxis Primary Care Physician: GERTRUDIS PHAM CNP Provider Information Primary Provider: Vic Maldonado DO [employer] Manager:None The exam and treatment you received in the Emergency Department were for an urgent problem and are not intended as complete care. It is important that you follow up with a doctor, nurse practitioner, or physician???s assistant women's rowing coach for ongoing care. If your symptoms become worse or you do not improve as expected and you are unable to reach your usual health care provider, you should return to the Emergency Department. We are available 24 hours a day. MONICA MORGAN has been given the following list [...] opioids can be used to help relieve jvisqaki-pa-rwpxcq pain and are often prescribed following a [...] guidance from the Food and Drug Administration (www.fda.gov/Drugs/R esourcesForYou). ??? Visit www.cdc.gov/drugover dose to learn about the risks of opioids abuse and overdose. ??? If you believe you may be struggling with addiction, tell your health rn palliative care and ask for guidance or call [facility]???S National Helpline at 6-329-268-HELP. v Source: US Department of Health and (more content not included)... Normal [facility] HEMATOLOGYOrdered By: SYSTEM SYSTEM on 12-09-2024 Basophils/100 WBC (Bld) 2.5 % High 0.0 - 2.0 % [facility] Heme Basophils/Leukocytes Auto (Bld) [Pure # fraction] 0.2 E9/L Normal 0.0 - 0.2 E9/L [facility] Eosinophils (Bld) [#/Vol] 0.1 E9/L Normal 0.0 - 0.5 E9/L [facility] Eosinophils/100 WBC (Bld) 0.7 % Normal 0.0 - 8.0 % [facility] Erythrocyte distribution width (RBC) [Ratio] 13.0 % Normal 10.9 - 14.2 % [facility] Hematocrit (Bld) [Volume fraction] 45.8 % Normal 37.7 - 49.0 % [facility] Hemoglobin (Bld) [Mass/Vol] 16.0 g/dL Normal 13.5 - 17.5 gm/dL [facility] Lymphocytes (Bld) [#/Vol] 1.6 E9/L Normal 1.0 - 4.0 E9/L [facility] Lymphocytes/100 WBC (Bld) 18.4 % Normal 14.0 - 50.0 % [facility] MCH (RBC) [Entitic mass] 30.1 pg Normal 27.0 - 34.0 pg [facility] MCHC (RBC) [Mass/Vol] 34.9 g/dL Normal 31.4 - 36.0 gm/dL [facility] MCV (RBC) [Entitic vol] 86.4 fL Normal 80.0 - 100.0 fL [facility] Monocytes (Bld) [#/Vol] 0.9 E9/L Normal 0.2 - 1.0 E9/L [facility] Monocytes/100 WBC (Bld) 10.9 % Normal 4.0 - 14.0 % [facility] Neutrophils (Bld) [#/Vol] 5.7 E9/L Normal 2.0 - 7.5 E9/L [facility] Neutrophils/100 WBC (Bld) 67.5 % Normal 36.0 - 75.0 % [facility] Platelet mean volume (Bld) [Entitic vol] 7.6 fL Normal 6.4 - 10.8 fL [facility] Platelets (Bld) [#/Vol] 279.0 E9/L Normal 150.0 - 500.0 E9/L [facility] RBC (Bld) [#/Vol] 5.3 E12/L Normal 4.3 - 5.9 E12/L [facility] WBC corrected for nucl RBC Auto (Bld) [#/Vol] 8.5 E9/L Normal 4.0 - 11.0 E9/L [facility] PT & PTTon 12-09-2024 aPTT Coag (PPP) [Time] 33.3 second(s) Normal 25.1-36.5 [facility] Comment on above: Result Comment: Para meter 15 days - 4 weeks 1 - 5 months 6 - 11 months 1 - 5 years 6 - 10 years 11 - 17 years PTT Mean: 35.4 (27.6-45.6) Mean: 33.5 (24.8-40.7) Mean: 32.4 (25.1-40.7) Mean: 31.6 (24.0-39.2) Mean: 31.6 (26.9-38.7) Mean: 31.0 (24.6-38.4) Pediatric Reference ranges were obtained from a study by Manish Johnson et al. prepared from 1437 samples obtained at 7 different centers using the same coagulation reagent and instrumentation as [facility]. Currently there are no coagulation studies available worldwide for children to 14 days, and no normal ranges. Heparin therapeutic range (represented by Anti-Factor Xa activity of 0.2 - 0.4 U/mL) corresponds to PTT of 56.6 - 109.0 sec. Performed By: #### 1 [id number] #### [facility] [address] [place] [address] INR Coag (PPP) [Relative time] 0.96 {INR} Invalid Interpretation Code [facility] Comment on above: Result Comment: INR results are specifically intended to assess patients stabilized on long-term Anticoagulation therapy suggested INR???s ???Less Intensive Anticoagulation??? 2.0 ??? 3.0 Conventional Range 3.0 ??? 4.5 Performed By: #### 1 [id number] #### [facility] [address] [place] [address] PT Coag (PPP) [Time] 10.7 second(s) Normal 9.4-12.5 [facility] Comment on above: Result Comment: 15 d ays - 4 weeks 1 - 5 months 6 -11 months 1 ??? 5 years 6 ??? 10 years 11 -17 years Mean: 11.2 (9.5 ??? 12.6) Mean: 11.0 (9.7 ??? 12.8) Mean: 11.0 (9.8 ??? 13.0) Mean: 11.3 (9.9 ??? 13.4) Mean: 11.7 (10.0 ??? 14.6) Mean: 11.8 (10.0 - 14.1) Pediatric Reference ranges were obtained from a study by Manish Johnson et al. prepared from 1437 samples obtained at 7 different centers using the same coagulation reagent and instrumentation as [facility]. Currently there are no coagulation studies available worldwide for children to 14 days, and no normal ranges. Performed By: #### 1 [id number] #### [facility] [address] [place] [address] Troponin 0 Hr.on 12-09-2024 Troponin HS 3.70 pg/mL Low 15.90-38.40 [facility] Comment on above: Result Comment: The 95% CI (Confidence Interval) PPV (Positive Predictive Value) for myocardial infarction in females is 38 pg/mL, in males 51 pg/mL. The results should be used in conjunction with clinical conditions of myocardial infarction. (Access High Sensitivity Troponin I Instructions For Use, Jamar Cuba, May 2018) Performed By: #### 1 [id number] #### [facility] [address] [place] [address] UA with Cult Rflxon 12-09-19 25 Bilirubin Ql (U) Negative Normal Negative [facility] Comment on above: Performed By: #### 4 [id number] #### [facility] [address] [place] [address] Clarity (U) Clear Normal Clear [facility] Comment on above: Performed By: #### 4 [id number] #### [facility] [address] [place] [address] Color (U) Colorless Abnormal Yellow [facility] Comment on above: Result Comment: Micr oscopic readings are only performed on those samples that meet specific criteria set forth by [facility]. Performed By: #### 4 [id number] #### [facility] [address] [place] [address] Glucose Ql (U) Negative Normal Negative [facility] Comment on above: Performed By: #### 4 [id number] #### [facility] [address] [place] [address] Hemoglobin Auto test strip (U) [Mass/Vol] Negative Normal Negative [facility] Comment on above: Performed By: #### 4 [id number] #### [facility] [address] [place] [address] Ketones Auto test strip Ql (U) Negative Normal Negative [facility] Comment on above: Performed By: #### 4 [id number] #### [facility] [address] [place] [address] Leukocyte esterase Auto test strip Ql (U) Negative Normal Negative [facility] Comment on above: Performed By: #### 4 [id number] #### [facility] [address] [place] [address] Nitrite Auto test strip Ql (U) Negative Normal Negative [facility] Comment on above: Performed By: #### 4 [id number] #### [facility] [address] [place] [address] pH (U) 7.5 [pH] Invalid Interpretation Code 5.0-9.0 [facility] Comment on above: Performed By: #### 4 [id number] #### [facility] [address] [place] [address] Protein Ql (U) Negative Normal Negative [facility] Comment on above: Performed By: #### 4 [id number] #### [facility] [address] [place] [address] Specific gravity (U) [Rel density] 1.025 Invalid Interpretation Code 1.005-1.030 [facility] Comment on above: Performed By: #### 4 [id number] #### [facility] [address] [place] [address] Urobilinogen (U) [Mass/Vol] Negative Normal Negative [facility] Comment on above: Performed By: #### 4 [id number] #### [facility] [address] [place] [address] Type of Urine collection method Clean Catch Normal [facility] Comment on above: Performed By: #### 4 [id number] #### [facility] [address] [place] [address] URINALYSISOrdered By: SYSTEM SYSTEM on 12-09-2024 Bilirubin Ql (U) Negative Normal Negativemg/ d L [facility] UA Auto SS Clarity (U) Clear (12/09/24 5:24 PM) Normal Clear [facility] UA Auto SS Color (U) Colorless 1 *ABN* (12/09/24 5:24 PM) Invalid Interpretation Code Yellow [facility]A Auto SS Comment on above: Interpretive Data: M icroscopic readings are only performed on those samples that meet specific criteria set forth by [facility]. Glucose Ql (U) Negative Normal Negativemg/d L [facility] UA Auto SS Hemoglobin Auto test strip (U) [Mass/Vol] Negative Normal Negativemg/d L [facility] UA Auto SS Ketones Auto test strip Ql (U) Negative Normal Negativemg/d L [facility] UA Auto SS Leukocyte esterase Auto test strip Ql (U) Negative Normal NegativeLeu/ uL [facility] UA Auto SS Nitrite Auto test strip Ql (U) Negative Normal Negativemg/d L [facility] UA Auto SS pH (U) 7.5 *NA* (12/09/24 5:24 PM) Invalid Interpretation Code 5.0 - 9.0 [facility] UA Auto SS Protein Ql (U) Negative Normal Negativemg/d L [facility] UA Auto SS Specific gravity (U) [Rel density] 1.025 *NA* (12/09/24 5:24 PM) Invalid Interpretation Code 1.005 - 1.030 [facility] UA Auto SS Urobilinogen (U) [Mass/Vol] Negative Normal Negativemg/d L [facility] UA Auto SS URINALYSISOrdered By: Veto Caceres on 12-09-2024 UA Spec Desc Clean Catch (12/09/24 5:24 PM) Normal [facility] UA Auto SS eGFRon 12-09-2024 eGFR 84 mL/min/1.73 m2 Normal >=59 [facility] Comment on above: Performed By: #### 1 [id number] #### [facility] [address] [place] [address] Basophils/100 WBC Manual cnt (Bld)on 11-23-2024 Basophils/100 WBC (Bld) Basophils/100 leukocytes in Blood by Manual count Low 0.2-2.0 [facility] Eosinophils/100 WBC Manual c nt (Bld)on 11-23-2024 Eosinophils/100 WBC (Bld) Eosinophils/100 leukocytes in Blood by Manual count Low 0.9-7.0 [facility] Erythrocyte distribution wid th Auto (RBC) [Ratio]on 11-23-2024 Erythrocyte distribution width (RBC) [Ratio] Erythrocyte distribution width [Ratio] by Automated count 11.0-15.0 [facility] Estimated glomerular filtrat ion rate (GFR) non- Americanon 11-23-2024 GFR/1.73 sq M.predicted among non-blacks MDRD (S/P/Bld) [Vol rate/Area] Estimated glomerular filtration rate (GFR) non- Low >=60 mL/min/1.73m 2 [facility] Hematocrit Auto (Bld) [Volum e fraction]on 11-23-2024 Hematocrit (Bld) [Volume fraction] Hematocrit [Volume Fraction] of Blood by Automated count 42.0-54.0 [facility] Hemoglobin [Mass/volume] in Bloodon 11-23-2024 Hemoglobin (Bld) [Mass/Vol] Hemoglobin [Mass/volume] in Blood 14.0-18.0 [facility] - Chemistry and C hemistry - challengeon 11-23-2024 Calcium [Mass/Vol] 9.2 mg/dL 8.5-10.1 [facility] Chloride [Moles/Vol] 102 mmol/L 98-107 [facility] CO2 [Moles/Vol] 21.5 mmol/L 21.0-32.0 [facility] Creatinine [Mass/Vol] 1.38 mg/dL High 0.70-1.30 [facility] GFR/1.73 sq M.predicted MDRD (S/P/Bld) [Vol rate/Area] mL/min/{1.73_m2} >=60 mL/min/1.73m 2 [facility] Glucose [Mass/Vol] 154 mg/dL High 74-106 [facility] Potassium [Moles/Vol] 4.2 mmol/L 3.5-5.1 [facility] Sodium [Moles/Vol] 138 mmol/L 136-145 [facility] Urea nitrogen [Mass/Vol] 19.0 mg/dL High 7.0-18.0 [facility] Urea nitrogen/Creatinine [Mass ratio] 13.8 mg/mg [facility] - Hematology and Cell countson 11-23-2024 Lymphocytes/100 WBC (Bld) 5.0 % Low 20.5-60.0 [facility] Monocytes/100 WBC (Bld) 7.0 % 1.7-12.0 [facility] - Microbiology an d Antimicrobial susceptibilityon 11-23-2024 SARS-CoV-2 (COVID-19) RNA MARIELLA+probe Ql (Unsp spec) Negative NEGATIVE [facility] Comment on above: This test has not be en FDA cleared or approved, but has beenauthorized by the FDA under an Emergency Use Authorization(EUA) for use by authorized laboratories certified underIA that meet the requirements to perform moderate or highcomplexity testing. This test has been authorized only forthe detection of proteins from SARS-CoV-2, not for any otherviruses or pathogens. The emergency use of this test isauthorized for the duration of the declaration thatcircumstances exist justifying the authorization ofemergency use of in vitro diagnostic tests for detectionand/or diagnosis of Covid-19 under section 564(b)(1) of theAct, 21 U.S.C. 360bbb-3(b)(1), unless the declaration isterminated or authorization is revoked sooner. Leukocytes [#/volume] correc jose f for nucleated erythrocytes in Blood by Automated counon 11-23-2024 WBC corrected for nucl RBC Auto (Bld) [#/Vol] Leukocytes [#/volume] corrected for nucleated erythrocytes in Blood by Automated coun High 4.0-11.0 [facility] MCH Auto (RBC) [Entitic mass ]on 11-23-2024 MCH (RBC) [Entitic mass] MCH [Entitic mass] by Automated count 25.9-34.0 [facility] MCHC Auto (RBC) [Mass/Vol]on 11-23-2024 MCHC (RBC) [Mass/Vol] MCHC [Mass/volume] by Automated count High 29.9-35.2 [facility] MCV Auto (RBC) [Entitic vol] on 11-23-2024 MCV (RBC) [Entitic vol] MCV [Entitic volume] by Automated count 80.0-94.0 [facility] No Panel Informationon 11-23 Absolute Basophils (Manual) 0.00 10 3/uL 0.00-0.10 [facility] Band Neutrophils # (Manual) 0.6 10 3/uL High 0.0-0.3 [facility] Eosinophils # (Manual) 0.00 10 3/uL 0.00-0.70 [facility] Lymphocytes # (Manual) 0.61 10 3/uL Low 1.20-3.80 [facility] Monocytes # (Manual) 0.86 10 3/uL High 0.30-0.80 [facility] [facility] Neutrophils # (Manual) 10.82 10 3/uL High 1.4-6.5 [facility] Bedside Influenza Type A Antigen Negative [facility] Comment on above: Negative for Flu A p rotein antigen. Infection due to Flu Acannot be ruled out. Flu A antigen in the sample may bebelow the detection limit of the test. Bedside Influenza Type B Antigen Negative [facility] Comment on above: Negative for Flu B p rotein antigen. Infection due to Flu Bcannot be ruled out. Flu B antigen in the sample may bebelow the detection limit of the test. Platelet mean volume Auto (B ld) [Entitic vol]on 11-23-2024 Platelet mean volume (Bld) [Entitic vol] Platelet mean volume [Entitic volume] in Blood by Automated count 9.5-13.5 [facility] Platelets Auto (Bld) [#/Vol] on 11-23-2024 Platelets (Bld) [#/Vol] Platelets [#/volume] in Blood by Automated count 150-450 [facility] RBC Auto (Bld) [#/Vol]on RBC (Bld) [#/Vol] Erythrocytes [#/volume] in Blood by Automated count 4.70-6.10 [facility] Segmented neutrophils/100 WB C Manual cnt (Bld)on 11-23-2024 Segmented neutrophils/100 WBC (Bld) Manual blood segmented neutrophils/100 leukocytes High 43.0-75.0 [facility] Serum or plasma anion gap de terminationon 11-23-2024 Anion gap [Moles/Vol] Serum or plasma anion gap determination [facility] Onesimo 11-21-2024 L Specimen: [id number] Received: 11/21/24 Status: BARBIE Núñez Num: [id number] Spec Type: Surgical Subm Dr: Noelle Colunga MD Tissues: A Colon Biopsy (CECAL POLYPS) B Colon Biopsy (ASCENDING COLON POLYP) C Colon Biopsy (DESCENDING COLON POLYP) Procedures: HE/6, Gross/Micro L4/3 Age/ Patient Sex Location Account Attending Physician Monica Morgan 44/M [id number] Noelle Colunga MD SPEC NUM: [id number] RECD: 11/21/24 STATUS: BARBIE NÚÑEZ NUM: [id number] PRINCESS: 11/[birth year]/24[address] [facility] DR: Noelle Colunga MD ENTERED: 11/21/[address] [facility] DR: NELY TYPE: Surgical DEPT: S ENTERED BY: [id number] RECV BY: [id number] ORDERED: HE/6, Gross/Micro L4/3 ORDERED: HE/6, Gross/Micro [...] submitted in a single cassette. (1, ns, [id number] A) Part B is received in formalin labeled with the patients name, date of , and ascending colon are four dash-saleh, focally erythematous, friable, 0.3 to 0.5 cm in greatest dimension Specimen: [id number] Received: 11/21/24 Status: BARBIE Núñez Num: [id number] Spec Type: Surgical Subm Dr: Noelle Colunga MD Tissues: A Colon Biopsy (CECAL POLYPS) B Colon Biopsy (ASCENDING COLON POLYP) C Colon Biopsy (DESCENDING COLON POLYP) Procedures: HE/6, Gross/Micro L4/3 Patient: Monica Morgan [id number] (Continued) Specimen: [id number] Received: 11/21/24 (Continued) Gross Description (Continued) Signed (signature on file) Jose Mattson MD 11/22/24 1019 Specimen: [id number] Received: 11/21/24 Status: BARBIE Núñez Num: [id number] Spec Type: Surgical Subm Dr: Noelle Colunga MD Tissues: A Colon Biopsy (CECAL POLYPS) B Colon Biopsy (ASCENDING COLON POLYP) C Colon Biopsy (DESCENDING COLON POLYP) Procedures: HE/6, Gross/Micro L4/3 Patient: Monica Morgan [id number] (Continued) Specimen: [id number] Received: 11/21/24 (Continued) Gross Description (Continued) polypoid fragments. The specimen is entirely submitted in a single cassette. (1, ns, [id number] B) Part C is received in formalin labeled with the patients name, date of , and descending colon is a dash-saleh, focally erythematous, friable, 0.7 cm in greatest dimension polypoid strip. The specimen is entirely submitted in a single cassette. (1, ns, [id number] C) Microscopic Description A-C: Microscopic examination is performed. CPT Codes 28527 x3 Specimen: [id number] Received: 11/21/24-1044 Status: BARBIE Núñez Num: [id number] Spec Type: Surgical Subm Dr: Noelle Colunga MD Tissues: A Colon Biopsy (CECAL POLYPS) B Colon Biopsy (ASCENDING COLON POLYP) C Colon Biopsy (DESCENDING COLON POLYP) Procedures: HE/6, Gross/Micro L4/3 Patient: Monica Morgan [id number] (Continued) Signed (signature on file) Jose Mattson MD 11/22/24 1019 Normal [facility] Quick Strepon 01-29-2023 S. pyogenes Org specific cx Ql (Throat) Negative Project Repat Other Quick Strep Project Repat Other [facility]on SARS-CoV-2 (COVID-19) RNA MARIELLA+probe Ql (Unsp spec) Detected Critically abnormal NOT DETECTED [facility] Comment on above: Result Comment: This test is not yet approved or cleared by the [place] FDA. When there are no FDA-approved or cleared tests available, and other criteria are met, FDA can make tests available under an emergency access mechanism called an Emergency Use Authorization (EUA). The EUA for this test is supported by the Data Migration Lead of Health and Human Service's declaration that [...] used). Performed By: #### C VDTBH #### [facility] [address] [place] [address] Dr. Cosmo Portillo GROUP A STREP CULTUREon S. pyogenes Ag Ql (Unsp spec) Culture Observations: NEGATIVE FOR GROUP A STREPTOCOCCUS. Normal [facility] Comment on above: Performed By: #### G RASTCX #### [facility] [address] [address] [address] Cosmo Portillo STREPT SCREENon 08-31-2022 STREP SCREEN A Negative Normal NEGATIVE [facility] Comment on above: Performed By: #### S SCRN #### [facility] [address] [address] [address] NECK ST W [...] submandibular, and thyroid glands. LYMPH NODES: No pathological-appeari ng or enlarged lymph nodes. VASCULATURE: No suspicious abnormality. BONES: Straightening of the normal lordotic curvature; positioning versus muscle spasm. 6-7 and moderate degenerative disc disease. OTHER: No additional imaging findings. IMPRESSION: 1. No appreciable abnormal findings to account for patient's history. Electronically authenticated by: GUS MENDEZ Date: 2022-06-22 15:41 Normal [facility] US THYROIDon 05-22-2022 US THYROID EXAMINATION: US [...] by: GUS MENDEZ Date: 2022-05-22 17:20 Normal [facility] AMYLASEon 12-30-2021 Amylase [Catalytic activity/Vol] 50 U/L Normal 31-110 [facility] Comment on above: Performed By: #### S SCRN #### [facility] [address] [place] [address] Dr. Cosmo Portillo CARDIAC ROLAND 3-6on 2 CK [Catalytic activity/Vol] 50 U/L Critically low 55-170 [facility] Comment on above: Performed By: #### C MREP #### [facility] [address] [address] [address] Cosmo Portillo CK.MB [Mass/Vol] 0.68 ng/mL Normal <=2.37 [facility] Comment on above: Performed By: #### C MREP #### [facility] [address] [place] [address] Dr. Cosmo Portillo HSTROP 5.5 pg/mL Normal 4.0-42.2 [facility] Comment on above: Result Comment: CUT- OFF POINTS HAVE BEEN ESTABLISHED BASED ON THE FOURTH UNIVERSAL DEFINITIONS OF MYOCARDIAL INFARCTION. THE UPPER REFERENCE LIMIT (URL) OF TROPONIN, DEFINED THE 99TH PERCENTILE OF cTnI DISTRIBUTION IN A REFERENCE POPULATION, HAS BEEN CONFIRMED THE DECISION THRESHOLD FOR MS DIAGNOSIS. Performed By: #### C MREP #### [facility] [address] [address] [address] Cosmo Portillo CARDIAC ROLAND ADMITon 022 CK [Catalytic activity/Vol] 52 U/L Critically low 55-170 [facility] Comment on above: Performed By: #### C MADM, CMP, DEYSI, LIPA #### [facility] [address] [place] [address] Dr. Cosmo Portillo CK.MB [Mass/Vol] 0.64 ng/mL Normal <=2.37 [facility] Comment on above: Performed By: #### C MADM, CMP, DEYSI, LIPA #### [facility] [address] [address] [address] Cosmo Portillo HSTROP 5.6 pg/mL Normal 4.0-42.2 [facility] Comment on above: Result Comment: CUT- OFF POINTS HAVE BEEN ESTABLISHED BASED ON THE FOURTH UNIVERSAL DEFINITIONS OF MYOCARDIAL INFARCTION. THE UPPER REFERENCE LIMIT (URL) OF TROPONIN, DEFINED THE 99TH PERCENTILE OF cTnI DISTRIBUTION IN A REFERENCE POPULATION, HAS BEEN CONFIRMED THE DECISION THRESHOLD FOR MS DIAGNOSIS. Performed By: #### C MADM, CMP, DEYSI, LIPA #### [facility] [address] [place] [address] Dr. Cosmo Portillo MAKENZIE 29.0 ng/mL Normal <=121.0 [facility] Comment on above: Performed By: #### C MADM, CMP, DEYSI, LIPA #### [facility] [address] [place] [address] Dr. Cosmo Portillo CBC AUTO DIFFon 12-30-2021 BASO # 0.1 103/ul Normal 0.0-0.1 [facility] Comment on above: Performed By: #### C BC #### [facility] [address] [address] [address] Cosmo Portillo Basophils/100 WBC (Bld) 1.0 % Normal 0.2-2.0 [facility] Comment on above: Performed By: #### C BC #### [facility] [address] [place] [address] Dr. Cosmo Portillo EO # 0.2 103/ul Normal 0.0-0.7 [facility] Comment on above: Performed By: #### C BC #### [facility] [address] [address] [address] Cosmo Portillo Eosinophils/100 WBC (Bld) 2.4 % Normal 0.9-7.0 [facility] Comment on above: Performed By: #### C BC #### [facility] [address] [place] [address] Dr. Cosmo Portillo Erythrocyte distribution width (RBC) [Ratio] 12.0 % Normal 11.0-15.0 [facility] Comment on above: Performed By: #### C BC #### [facility] [address] [place] [address] Dr. Cosmo Portillo Hematocrit (Bld) [Volume fraction] 43.7 % Normal 42.0-54.0 [facility] Comment on above: Performed By: #### C BC #### [facility] [address] [place] [address] Dr. Cosmo Portillo Hemoglobin (Bld) [Mass/Vol] 15.2 g/dL Normal 14.0-18.0 [facility] Comment on above: Performed By: #### C BC #### [facility] [address] [place] [address] Dr. Cosmo Portillo IG # 0.06 10e3/ul Critically high 0.00-0.03 [facility] Comment on above: Performed By: #### C BC #### [facility] [address] [place] [address] Dr. Cosmo Portillo IG % 0.7 % Critically high 0.0-0.5 [facility] Comment on above: Performed By: #### C BC #### [facility] [address] [place] [address] Dr. Cosmo Portillo LYMPH # 2.5 103/ul Normal 1.2-3.8 [facility] Comment on above: Performed By: #### C BC #### [facility] [address] [place] [address] Dr. Cosmo Portillo Lymphocytes/100 WBC (Bld) 29.1 % Normal 20.5-60.0 [facility] Comment on above: Performed By: #### C BC #### [facility] [address] [place] [address] Dr. Cosmo Portillo MANUAL DIFF REQ NO Normal [facility] Comment on above: Performed By: #### C BC #### [facility] [address] [place] [address] Dr. Cosmo Portillo MCH (RBC) [Entitic mass] 29.7 pg Normal 25.9-34.0 [facility] Comment on above: Performed By: #### C BC #### [facility] [address] [place] [address] Dr. Cosmo Portillo MCHC (RBC) [Mass/Vol] 34.8 g/dL Normal 29.9-35.2 [facility] Comment on above: Performed By: #### C BC #### [facility] [address] [place] [address] Dr. Cosmo Portillo MCV (RBC) [Entitic vol] 85.4 fL Normal 80.0-94.0 [facility] Comment on above: Performed By: #### C BC #### [facility] [address] [place] [address] Dr. Cosmo Portillo MONO # 0.7 103/ul Normal 0.3-0.8 [facility] Comment on above: Performed By: #### C BC #### [facility] [address] [place] [address] Dr. Cosmo Portillo Monocytes/100 WBC (Bld) 8.8 % Normal 1.7-12.0 [facility] Comment on above: Performed By: #### C BC #### [facility] [address] [place] [address] Dr. Cosmo Portillo NEUT # 4.9 103/ul Normal 1.4-6.5 [facility] Comment on above: Performed By: #### C BC #### [facility] [address] [place] [address] Dr. Cosmo Portillo Neutrophils/100 WBC (Bld) 58.0 % Normal 43.0-75.0 [facility] Comment on above: Performed By: #### C BC #### [facility] [address] [place] [address] Dr. Cosmo Portillo Platelet mean volume (Bld) [Entitic vol] 9.2 fL Critically low 9.5-13.5 [facility] Comment on above: Performed By: #### C BC #### [facility] [address] [place] [address] Dr. Cosmo Portillo PLT 236 103/ul Normal 150-450 [facility] Comment on above: Performed By: #### C BC #### [facility] [address] [place] [address] Dr. Cosmo Portillo RBC 5.12 106/ul Normal 4.70-6.10 [facility] Comment on above: Performed By: #### C BC #### [facility] [address] [place] [address] Dr. Cosmo Portillo WBC 8.4 103/ul Normal 4.0-11.0 [facility] Comment on above: Performed By: #### C BC #### [facility] [address] [place] [address] Dr. Cosmo Portillo LIPASEon 12-30-2021 Lipase [Catalytic activity/Vol] 141.0 U/L Normal 23.0-300.0 [facility] Comment on above: Performed By: #### C MADM, CMP, DEYSI, LIPA #### [facility] [address] [place] [address] Dr. Cosmo Portillo PROF 14(COMP METB)on Albumin [Mass/Vol] 3.5 g/dL Normal 3.5-5.0 [facility] Comment on above: Performed By: #### S SCRN #### [facility] [address] [address] [address] Cosmo Portillo Albumin/Globulin [Mass ratio] 0.9 {ratio} Normal [facility] Comment on above: Performed By: #### S SCRN #### [facility] [address] [address] [address] Cosmo Portillo ALP [Catalytic activity/Vol] 126 U/L Normal 38-126 [facility] Comment on above: Performed By: #### S SCRN #### [facility] [address] [address] [address] Cosmo Portillo ALT [Catalytic activity/Vol] 22 U/L Normal 21-72 [facility] Comment on above: Performed By: #### S SCRN #### [facility] [address] [address] [address] Cosmo Portillo Anion gap [Moles/Vol] 11.6 mmol/L Normal [facility] Comment on above: Performed By: #### S SCRN #### [facility] [address] [place] [address] Dr. Cosmo Portillo AST [Catalytic activity/Vol] 17 U/L Normal 17-59 [facility] Comment on above: Performed By: #### S SCRN #### [facility] [address] [place] [address] Dr. Cosmo Portillo Bilirubin [Mass/Vol] 0.5 mg/dL Normal 0.2-1.3 [facility] Comment on above: Performed By: #### S SCRN #### [facility] [address] [address] [address] Cosmo Portillo Calcium [Mass/Vol] 9.1 mg/dL Normal 8.4-10.2 [facility] Comment on above: Performed By: #### S SCRN #### [facility] [address] [place] [address] Dr. Cosmo Portillo Chloride [Moles/Vol] 100 mmol/L Normal 98-107 [facility] Comment on above: Performed By: #### S SCRN #### [facility] [address] [address] [address] Cosmo Portillo CO2 [Moles/Vol] 25.2 mmol/L Normal 22.0-30.0 [facility] Comment on above: Performed By: #### S SCRN #### [facility] [address] [address] [address] Cosmo Portillo Creatinine [Mass/Vol] 1.20 mg/dL Normal 0.66-1.25 [facility] Comment on above: Performed By: #### S SCRN #### [facility] [address] [address] [address] Cosmo Portillo EGFR-AF ANGUILLAN >60 Normal >=60 [facility] Comment on above: Performed By: #### S SCRN #### [facility] [address] [address] [address] Cosmo Portillo EGFR-NON AF ANGUILLAN >60 Normal >=60 [facility] Comment on above: Performed By: #### S SCRN #### [facility] [address] [address] [address] Cosmo Portillo Globulin (S) [Mass/Vol] 3.9 g/dL Normal [facility] Comment on above: Performed By: #### S SCRN #### [facility] [address] [address] [address] Cosmo Portillo Glucose [Mass/Vol] 116 mg/dL Critically high 74-106 [facility] Comment on above: Performed By: #### S SCRN #### [facility] [address] [address] [address] Cosmo Portillo Potassium [Moles/Vol] 3.8 mmol/L Normal 3.4-5.0 [facility] Comment on above: Performed By: #### S SCRN #### [facility] [address] [address] [address] Cosmo Portillo Protein [Mass/Vol] 7.4 g/dL Normal 6.1-8.2 [facility] Comment on above: Performed By: #### S SCRN #### [facility] [address] [address] [address] Cosmo Portillo Sodium [Moles/Vol] 133 mmol/L Critically low 137-145 [facility] Comment on above: Performed By: #### S SCRN #### [facility] [address] [address] [address] Comso Portillo Urea nitrogen [Mass/Vol] 19.0 mg/dL Normal 9.0-20.0 [facility] Comment on above: Performed By: #### S SCRN #### [facility] [address] [address] [address] Cosmo Portillo Urea nitrogen/Creatinine [Mass ratio] 15.8 mg/mg Normal [facility] Comment on above: Performed By: #### S SCRN #### [facility] [address] [address] [address] Cosmo Portillo XR ABD FLAT UP_PA [...] by: LIVE LOWERY Date: 2021-12-30 02:08 Normal [facility] CBCon 10-09-2018 ABSOLUTE BAS 0.1 X10 Normal [facility] Comment on above: Result Comment: Test ing performed at [place] [address] Performed By: #### L IPA2, ACBC, CHEM7F, ITROT, LIVR ####Testing [place] [address] ABSOLUTE EOS 0.10 X10 Normal [facility] Comment on above: Performed By: #### L IPA2, ACBC, CHEM7F, ITROT, LIVR ####[place] [address] ABSOLUTE NEUTROPHIL COUNT 4.7 x10 Normal 1.0-7.0 [facility] Comment on above: Performed By: #### L IPA2, ACBC, CHEM7F, ITROT, LIVR ####[place] [address] Basophils/100 WBC Auto (Bld) 1.0 % Normal 0.0-2.0 [facility] Comment on above: Performed By: #### L IPA2, ACBC, CHEM7F, ITROT, LIVR ####[place] [address] DTYPE AUTO DIFF Normal [facility] Comment on above: Performed By: #### L IPA2, ACBC, CHEM7F, ITROT, LIVR ####[place] [address] Eosinophils/100 WBC Auto (Bld) 1.4 % Normal 0.0-11.0 [facility] Comment on above: Performed By: #### L IPA2, ACBC, CHEM7F, ITROT, LIVR ####[place] [address] Lymphocytes Auto #/vol (Bld) 1.80 X10 Normal [facility] Comment on above: Performed By: #### L IPA2, ACBC, CHEM7F, ITROT, LIVR ####[place] [address] Lymphocytes/100 WBC Auto (Bld) 23.6 % Normal 20.0-55.0 [facility] Comment on above: Performed By: #### L IPA2, ACBC, CHEM7F, ITROT, LIVR ####[place] [address] Monocytes Auto #/vol (Bld) 0.7 X10 Normal [facility] Comment on above: Performed By: #### L IPA2, ACBC, CHEM7F, ITROT, LIVR ####[place] [address] Monocytes/100 WBC Auto (Bld) 9.9 % Normal 0.0-10.0 [facility] Comment on above: Performed By: #### L IPA2, ACBC, CHEM7F, ITROT, LIVR ####[place] [address] Neutrophils/100 WBC Auto (Bld) 64.1 % Normal 37.0-75.0 [facility] Comment on above: Performed By: #### L IPA2, ACBC, CHEM7F, ITROT, LIVR ####[place] [address] Erythrocyte distribution width Auto Ratio (RBC) 13.3 % Normal 11.5-14.5 [facility] Comment on above: Performed By: #### L IPA2, ACBC, CHEM7F, ITROT, LIVR ####[place] [address] Hematocrit Auto Volume Fraction (Bld) 45.8 % Normal 42.0-52.0 [facility] Comment on above: Performed By: #### L IPA2, ACBC, CHEM7F, ITROT, LIVR ####[place] [address] Hemoglobin mass conc (Bld) 16.1 g/dL Normal 14.0-18.0 [facility] Comment on above: Performed By: #### L IPA2, ACBC, CHEM7F, ITROT, LIVR ####[place] [address] MCH Auto Entitic mass (RBC) 29.9 pg Normal 26.0-35.0 [facility] Comment on above: Performed By: #### L IPA2, ACBC, CHEM7F, ITROT, LIVR ####[place] [address] MCHC Auto mass conc (RBC) 35.2 g/dL Normal 27.0-37.0 [facility] Comment on above: Performed By: #### L IPA2, ACBC, CHEM7F, ITROT, LIVR ####[place] [address] MCV Auto Entitic volume (RBC) 84.9 fL Normal 80.0-100.0 [facility] Comment on above: Performed By: #### L IPA2, ACBC, CHEM7F, ITROT, LIVR ####[place] [address] Platelet mean volume Auto Entitic volume (Bld) 7.6 fL Normal 7.4-11.0 [facility] Comment on above: Performed By: #### L IPA2, ACBC, CHEM7F, ITROT, LIVR ####[place] [address] Platelets Auto #/vol (Bld) 237 /cmm Normal 130.0-400.0 [facility] Comment on above: Performed By: #### L IPA2, ACBC, CHEM7F, ITROT, LIVR ####[place] [address] RBC Auto #/vol (Bld) 5.39 /cmm Normal 4.0-6.1 [facility] Comment on above: Performed By: #### L IPA2, ACBC, CHEM7F, ITROT, LIVR ####[place] [address] WBC Auto #/vol (Bld) 7.4 /cmm Normal 3.6-11.0 [facility] Comment on above: Performed By: #### L IPA2, ACBC, CHEM7F, ITROT, LIVR ####[place] [address] CHEM 7 FASTINGon 10-09-2018 Chloride molar conc 104 mmol/L Normal 98-107 [facility] Comment on above: Result Comment: Aiden mares note: Triglyceride levels of 600mg/dL or higher may positively bias chloride results by approximately 2.1 mmol Performed By: #### L IPA2, ACBC, CHEM7F, ITROT, LIVR ####[place] [address] CO2 molar conc 24 mmol/L Normal 22-30 [facility] Comment on above: Performed By: #### L IPA2, ACBC, CHEM7F, ITROT, LIVR ####[place] [address] Creatinine mass conc 1.1 mg/dL Normal 0.7-1.2 [facility] Comment on above: Performed By: #### L IPA2, ACBC, CHEM7F, ITROT, LIVR ####[place] [address] EST. GFR, >60 Normal [facility] Comment on above: Performed By: #### L IPA2, ACBC, CHEM7F, ITROT, LIVR ####[place] [address] EST. GFR,Non >60 Normal [facility] Comment on above: Performed By: #### L IPA2, ACBC, CHEM7F, ITROT, LIVR ####[place] [address] GFR/1.73 sq M predicted among non-blacks MDRD vol rate/area (S/P/Bld) Average GFR for 30-39 years old = 109. Normal [facility] Comment on above: Result Comment: Hub Bander carolyne Kidney disease, GFR = <60.Kidney failure, GFR = <15.The GFR estimate is not adjusted for extreme body surface area or acute process, nor has it been validated for women or ethnic groups other than and .Testing performed at [place] [address] Performed By: #### L IPA2, ACBC, CHEM7F, ITROT, LIVR ####[place] [address] Glucose mass conc 105 mg/dL High 70-100 [facility] Comment on above: Result Comment: NORM AL <100 mg/dLPREDIABETES 101-126 mg/dLDIABETES 126 mg/dL or higher Performed By: #### L IPA2, ACBC, CHEM7F, ITROT, LIVR ####[place] [address] Potassium molar conc 4.0 mmol/L Normal 3.5-5.1 [facility] Comment on above: Performed By: #### L IPA2, ACBC, CHEM7F, ITROT, LIVR ####[place] [address] Sodium molar conc 138 mmol/L Normal 137-145 [facility] Comment on above: Performed By: #### L IPA2, ACBC, CHEM7F, ITROT, LIVR ####[place] [address] Urea nitrogen mass conc (Bld) 13 mg/dL Normal 7-20 [facility] Comment on above: Performed By: #### L IPA2, ACBC, CHEM7F, ITROT, LIVR ####Testing [place] [address] ISTAT TROPONIN Ion 8 Troponin I.cardiac mass conc ng/mL Normal 0-0.08 [facility] Comment on above: Result Comment: Test ing performed at [place] [address] Performed By: #### L IPA2, ACBC, CHEM7F, ITROT, LIVR ####[place] [address] LIPASE,SERUMon 10-09-2018 LIPASE,SERUM 137 U/L Normal 23-300 [facility] Comment on above: Result Comment: Test ing performed at [place] [address] Performed By: #### L IPA2, ACBC, CHEM7F, ITROT, LIVR ####[place] [address] LIVER PANELon 10-09-2018 Albumin mass conc 4.3 g/dL Normal 2.9-5.3 [facility] Comment on above: Performed By: #### L IPA2, ACBC, CHEM7F, ITROT, LIVR ####[place] [address] ALP enzyme act/vol 102 U/L Normal 38-126 [facility] Comment on above: Performed By: #### L IPA2, ACBC, CHEM7F, ITROT, LIVR ####[place] [address] ALT enzyme act/vol 20 U/L Low 21-72 [facility] Comment on above: Result Comment: Test ing performed at [place] [address] Performed By: #### L IPA2, ACBC, CHEM7F, ITROT, LIVR ####[place] [address] AST enzyme act/vol 20 U/L Normal 17-59 [facility] Comment on above: Performed By: #### L IPA2, ACBC, CHEM7F, ITROT, LIVR ####[place] [address] Bilirubin mass conc 0.6 mg/dL Normal 0.2-1.3 [facility] Comment on above: Performed By: #### L IPA2, ACBC, CHEM7F, ITROT, LIVR ####[place] [address] Bilirubin.direct mass conc 0.2 mg/dL Normal 0-0.4 [facility] Comment on above: Performed By: #### L IPA2, ACBC, CHEM7F, ITROT, LIVR ####Testing performed at [address] [address] Protein mass conc 7.5 g/dL Normal 6.3-8.2 [facility] Comment on above: Performed By: #### L IPA2, ACBC, CHEM7F, ITROT, LIVR ####Testing performed at [place] [id number] Vital Signs Date Time Vital Sign Value Performing Clinician Facility 04-02-2025 13:04-0400 Body height 175.26 cm [facility] 04-02-2025 13:04-0400 Body mass index (BMI) [Ratio] 31.6 kg/m2 [facility] 04-02-2025 13:04-0400 Body temperature 97.8 [degF] [facility] 04-02-2025 13:04-0400 Body weight 97.06 kg [facility] 04-02-2025 13:04-0400 Diastolic blood pressure 82 mm[Hg] [facility] 04-02-2025 13:04-0400 Heart rate 63 /min [facility] 04-02-2025 13:04-0400 SaO2% (BldA) [Mass fraction] 97 % [facility] 04-02-2025 13:04-0400 Systolic blood pressure 128 mm[Hg] [facility] 03-15-2025 13:55-0400 Body height 175.26 cm [facility] 03-15-2025 13:55-0400 Body mass index (BMI) [Ratio] 32 kg/m2 [facility] 03-15-2025 13:55-0400 Body temperature 96.3 [degF] [facility] 03-15-2025 13:55-0400 Body weight 98.42 kg [facility] 03-15-2025 13:55-0400 Diastolic blood pressure 96 mm[Hg] [facility] 03-15-2025 13:55-0400 Heart rate 63 /min [facility] 03-15-2025 13:55-0400 SaO2% (BldA) [Mass fraction] 98 % [facility] 03-15-2025 13:55-0400 Systolic blood pressure 124 mm[Hg] [facility] 03-14-2025 13:35-0400 Body height 175.3 cm Gita Lowe PA Work Phone: [facility] 03-14-2025 13:35-0400 Body mass index (BMI) [Ratio] 31.6 kg/m2 Gita Lowe PA Work Phone: [facility] 03-14-2025 13:35-0400 Body weight 97.07 kg Gita Lowe PA Work Phone: [facility] 03-14-2025 13:35-0400 Diastolic blood pressure 108 mm[Hg] Gita Lowe PA Work Phone: [facility] 03-14-2025 13:35-0400 Heart rate 52 /min Gita Lowe PA Work Phone: [facility] 03-14-2025 13:35-0400 SaO2% (BldA) [Mass fraction] 99 % Gita Lowe PA Work Phone: [facility] 03-14-2025 13:35-0400 Systolic blood pressure 162 mm[Hg] Gita Lowe PA Work Phone: [facility] 01-17-2025 13:45-0400 Body height 175.3 cm Gita Lowe PA Work Phone: [facility] 01-17-2025 13:45-0400 Body mass index (BMI) [Ratio] 31.9 kg/m2 Gita Lowe PA Work Phone: [facility] 01-17-2025 13:45-0400 Body weight 97.98 kg Gita Lowe PA Work Phone: [facility] 01-17-2025 13:45-0400 Diastolic blood pressure 90 mm[Hg] Gita Lowe PA Work Phone: [facility] 01-17-2025 13:45-0400 Systolic blood pressure 132 mm[Hg] Gita Lowe PA Work Phone: [facility] 12-18-2024 13:14-0500 Body height 175.26 cm Gertrudis Pham DYE HOUSE WORKER Work Phone: [facility] 12-18-2024 13:14-0500 Body mass index (BMI) [Ratio] 31.4 kg/m2 Gertrudis Pham DYE HOUSE WORKER Work Phone: [facility] 12-18-2024 13:14-0500 Body temperature 97.5 [degF] Gertrudis Schreiberchatoalfredoyahaira DYE HOUSE WORKER Work Phone: [facility] 12-18-2024 13:14-0500 Body weight 96.61 kg Gertrudis Pham APRN Work Phone: [facility] 12-18-2024 13:14-0500 Diastolic blood pressure 80 mm[Hg] Gertrudis Schreiberchatoalfredoyahaira DYE HOUSE WORKER Work Phone: [facility] 12-18-2024 13:14-0500 Heart rate 67 /min Gertrudis Pham APRN Work Phone: [facility] 12-18-2024 13:14-0500 SaO2% (BldA) [Mass fraction] 97 % Gertrudis Pham DYE HOUSE WORKER Work Phone: [facility] 12-18-2024 13:14-0500 Systolic blood pressure 126 mm[Hg] Gertrudis Randallyahaira DYE HOUSE WORKER Work Phone: [facility] 12-10-2024 15:24-0500 Hourly Rounding Mbanefo OJUKWU [facility] 12-10-2024 13:07-0500 Hourly Rounding Mbanefo OJUKWU [facility] 12-10-2024 13:07-0500 Promise to Return Mbanefo OJUKWU [facility] 12-10-2024 12:00-0500 Hourly Rounding Mbanefo OJUKWU [facility] 12-10-2024 12:00-0500 Promise to Return Mbanefo OJUKWU [facility] 12-10-2024 11:09-0500 Heart rate 65 /min Mbanefo OJUKWU [facility] 12-10-2024 11:09-0500 SaO2% (BldA) [Mass fraction] 98 % Mbanefo OJUKWU [facility] 12-10-2024 11:09-0500 Respiratory rate 18 /min Mbanefo OJUKWU [facility] 12-10-2024 11:09-0500 Diastolic blood pressure 77 mm[Hg] Mbanefo OJUKWU [facility] 12-10-2024 11:09-0500 Mean blood pressure 95 mm[Hg] Mbanefo OJUKWU [facility] 12-10-2024 11:09-0500 Systolic blood pressure 132 mm[Hg] Mbanefo OJUKWU [facility] 12-10-2024 11:08-0500 Body temperature 98.06 [degF] Mbanefo OJUKWU [facility] 12-10-2024 11:00-0500 Promise to Return Mbanefo OJUKWU [facility] 12-10-2024 10:10-0500 Body temperature 97.7 [degF] Mbanefo OJUKWU [facility] 12-10-2024 10:10-0500 Diastolic blood pressure 87 mm[Hg] Mbanefo OJUKWU [facility] 12-10-2024 10:10-0500 Heart rate 63 /min Mbanefo OJUKWU [facility] 12-10-2024 10:10-0500 Mean blood pressure 104 mm[Hg] Mbanefo OJUKWU [facility] 12-10-2024 10:10-0500 Respiratory rate 16 /min Mbanefo OJUKWU [facility] 12-10-2024 10:10-0500 SaO2% (BldA) [Mass fraction] 97 % Mbanefo OJUKWU [facility] 12-10-2024 10:10-0500 Systolic blood pressure 137 mm[Hg] Mbanefo OJUKWU [facility] 12-10-2024 08:27-0500 Heart rate 63 /min Mbanefo OJUKWU [facility] 12-10-2024 08:27-0500 SaO2% (BldA) [Mass fraction] 97 % Mbanefo OJUKWU [facility] 12-10-2024 08:27-0500 Respiratory rate 18 /min Mbanefo OJUKWU [facility] 12-10-2024 08:27-0500 Diastolic blood pressure 87 mm[Hg] Mbanefo OJUKWU [facility] 12-10-2024 08:27-0500 Mean blood pressure 104 mm[Hg] Mbanefo OJUKWU [facility] 12-10-2024 08:27-0500 Systolic blood pressure 137 mm[Hg] Mbanefo OJUKWU [facility] 12-10-2024 08:27-0500 Body temperature 97.7 [degF] Mbanefo OJUKWU [facility] 12-10-2024 02:30-0500 Body temperature 98.06 [degF] Mbanefo OJUKWU [facility] 12-10-2024 02:30-0500 Heart rate 63 /min Mbanefo OJUKWU [facility] 12-10-2024 02:30-0500 Mean blood pressure 89 mm[Hg] Mbanefo OJUKWU [facility] 12-09-2024 23:55-0500 Body temperature 97.88 [degF] Mbanefo OJUKWU [facility] 12-09-2024 23:55-0500 Heart rate 65 /min Mbanefo OJUKWU [facility] 12-09-2024 23:55-0500 Mean blood pressure 83 mm[Hg] Mbanefo OJUKWU [facility] 12-09-2024 20:25-0500 Heart rate 57 /min Mbanefo OJUKWU [facility] 12-09-2024 20:25-0500 Mean blood pressure 102 mm[Hg] Mbanefo OJUKWU [facility] 12-09-2024 20:24-0500 Body temperature 98.06 [degF] Mbanefo OJUKWU [facility] 12-09-2024 19:44-0500 Respiratory rate 18 /min Mbanefo OJUKWU [facility] 12-09-2024 19:13-0500 Respiratory rate 18 /min Mbanefo OJUKWU [facility] 12-09-2024 18:11-0500 Respiratory rate 16 /min Mbanefo OJUKWU [facility] 12-09-2024 16:23-0500 gluc 84 mg/dL Mbanefo OJUKWU [facility] 11-21-2024 10:24-0500 Diastolic blood pressure 86 mm[Hg] Gertrudis Pham DYE HOUSE WORKER Work Phone: [facility] 11-21-2024 10:24-0500 Heart rate 50 /min Gertrudis Pham DYE HOUSE WORKER Work Phone: [facility] 11-21-2024 10:24-0500 Respiratory rate 18 /min Gertrudis Pham DYE HOUSE WORKER Work Phone: [facility] 11-21-2024 10:24-0500 SaO2% (BldA) [Mass fraction] 97 % Gertrudis Pham DYE HOUSE WORKER Work Phone: [facility] 11-21-2024 10:24-0500 Systolic blood pressure 156 mm[Hg] Gertrudis Pham DYE HOUSE WORKER Work Phone: [facility] 11-21-2024 08:12-0500 Body height 175.26 cm Gertrudis Pham DYE HOUSE WORKER Work Phone: [facility] 11-21-2024 08:12-0500 Body weight 97.52 kg Gertrudis Pham DYE HOUSE WORKER Work Phone: [facility] 09-25-2024 13:02-0500 Body height 175.26 cm Gertrudis Pham DYE HOUSE WORKER Work Phone: [facility] 09-25-2024 13:02-0500 Body mass index (BMI) [Ratio] 32.1 kg/m2 Gertrudis Schreiberluis DYE HOUSE WORKER Work Phone: [facility] 09-25-2024 13:02-0500 Body temperature 97.6 [degF] Gertrudis Schreiberluis DYE HOUSE WORKER Work Phone: [facility] 09-25-2024 13:02-0500 Body weight 98.54 kg Gertrudis Schreiberluis DYE HOUSE WORKER Work Phone: [facility] 09-25-2024 13:02-0500 Diastolic blood pressure 82 mm[Hg] Gertrudis Schreiberluis DYE HOUSE WORKER Work Phone: [facility] 09-25-2024 13:02-0500 Heart rate 72 /min Gertrudis Schreiberluis DYE HOUSE WORKER Work Phone: [facility] 09-25-2024 13:02-0500 SaO2% (BldA) [Mass fraction] 97 % Gertrudis Schreiberluis DYE HOUSE WORKER Work Phone: [facility] 09-25-2024 13:02-0500 Systolic blood pressure 128 mm[Hg] Gertrudis Schreiberluis DYE HOUSE WORKER Work Phone: [facility] 03-27-2024 13:12-0400 Body height 175.26 cm [facility] 03-27-2024 13:12-0400 Body mass index (BMI) [Ratio] 32.1 kg/m2 [facility] 03-27-2024 13:12-0400 Body weight 98.88 kg [facility] 03-27-2024 13:12-0400 Diastolic blood pressure 80 mm[Hg] [facility] 03-27-2024 13:12-0400 Heart rate 61 /min [facility] 03-27-2024 13:12-0400 SaO2% (BldA) [Mass fraction] 98 % [facility] 03-27-2024 13:12-0400 Systolic blood pressure 112 mm[Hg] [facility] 09-28-2023 13:00-0500 Body height 175.26 cm Gertrudis Randallr Other [employer] Other 09-28-2023 13:00-0500 Body mass index (BMI) [Ratio] 32.78 kg/m2 Gertrudis Shawacher Other [employer] Other 09-28-2023 13:00-0500 Body weight 100.7 kg Gertrudis Shawacher Other [employer] Other 09-28-2023 13:00-0500 Diastolic blood pressure 82 mm[Hg] Gertrudis Shawacher Other [employer] Other 09-28-2023 13:00-0500 SaO2% (BldA) [Mass fraction] 98 % Gertrudis Schreiberchatoacher Other [employer] Other 09-28-2023 13:00-0500 Systolic blood pressure 126 mm[Hg] Gertrudis Shawacher Other [employer] Other 08-31-2023 13:00-0500 Body height 175.26 cm Gertrudis Randallr Other [employer] Other 08-31-2023 13:00-0500 Body mass index (BMI) [Ratio] 32.63 kg/m2 Gertrudis Shawacher Other [employer] Other 08-31-2023 13:00-0500 Body weight 100.25 kg Gertrudis Shawacher Other [employer] Other 08-31-2023 13:00-0500 Diastolic blood pressure 84 mm[Hg] Gertrudis Schreiberchatoacher Other [employer] Other 08-31-2023 13:00-0500 SaO2% (BldA) [Mass fraction] 96 % Gertrudis Ankit Other [employer] Other 08-31-2023 13:00-0500 Systolic blood pressure 144 mm[Hg] Gertrudis Ankit Other [employer] Other 05-26-2023 13:00-0400 Body height 175.26 cm Gertrudis Ankit Other [employer] Other 05-26-2023 13:00-0400 Body mass index (BMI) [Ratio] 33.67 kg/m2 Gertrudis Ankit Other [employer] Other 05-26-2023 13:00-0400 Body weight 103.42 kg Gertrudis Ankit Other [employer] Other 05-26-2023 13:00-0400 Diastolic blood pressure 70 mm[Hg] Gertrudis Ankit Other [employer] Other 05-26-2023 13:00-0400 Systolic blood pressure 120 mm[Hg] Gertrudis Ankit Other [employer] Other 01-29-2023 10:05-0400 Body height 175.26 cm Mahnaz Castillo Other [employer] Other 01-29-2023 10:05-0400 Body mass index (BMI) [Ratio] 34.05 kg/m2 Mahnaz Castillo Other [employer] Other 01-29-2023 10:05-0400 Body temperature 96.4 [degF] Mahnaz Castillo Other [employer] Other 01-29-2023 10:05-0400 Body weight 104.6 kg Mahnaz Castillo Other [employer] Other 01-29-2023 10:05-0400 Diastolic blood pressure 92 mm[Hg] Mahnaz Castillo Other [employer] Other 01-29-2023 10:05-0400 Respiratory rate 18 /min Mahnaz Castillo Other [employer] Other 01-29-2023 10:05-0400 SaO2% (BldA) [Mass fraction] 99 % Mahnaz Castillo Other [employer] Other 01-29-2023 10:05-0400 Systolic blood pressure 130 mm[Hg] Mahnaz Castillo Other [employer] Other 06-04-2022 12:34-0400 Body temperature 98.42 [degF] Vel Rubio [facility] 06-04-2022 12:34-0400 Diastolic blood pressure 96 mm[Hg] Vel Rubio [facility] 06-04-2022 12:34-0400 Heart rate 68 /min Vel Rubio [facility] 06-04-2022 12:34-0400 Respiratory rate 18 /min Vel Rubio [facility] 06-04-2022 12:34-0400 SaO2% (BldA) [Mass fraction] 97 % Vel Rubio [facility] 06-04-2022 12:34-0400 Systolic blood pressure 150 mm[Hg] Vel Rubio [facility] Encounters Encounter Date Encounter Type Care Provider Facility Start: 04-02-2025 End: 04-02-2025 ambulatory [facility] Work Phone: Start: 04-02-2025 End: 04-02-2025 Encounter for general adult medical examination without abnormal findings [facility] Start: 04-02-2025 End: 04-02-2025 Patient encounter procedure [facility] Work Phone: Start: 03-20-2025 Non-patient / Non-visit [facility] Work Phone: Start: 03-15-2025 End: 03-15-2025 ambulatory [facility] Work Phone: Start: 03-15-2025 End: 03-15-2025 Patient encounter procedure [facility] Work Phone: Start: 03-14-2025 End: 03-14-2025 Bamboo flowsheet Gita Lowe PA Work Phone: [facility] [place] Start: 03-14-2025 End: 03-14-2025 Bamboo flowsheet Gita Lowe PA Work Phone: [facility] Start: 03-14-2025 End: 03-14-2025 Office outpatient visit 25 minutes Gita Lowe PA Work Phone: [facility] [place] Comment on above: Ocular migraine (CMS /HCC) (Primary Dx); Transient visual loss of left eye Start: 03-14-2025 End: 03-14-2025 ambulatory GITA LOWE Not Available Start: 01-17-2025 End: 01-17-2025 Bamboo flowsheet Gita Lowe PA Work Phone: [facility] Start: 01-17-2025 End: 01-17-2025 Bamboo flowsheet Gita Lowe PA Work Phone: [facility] [place] Start: 01-17-2025 End: 01-17-2025 Office outpatient visit 25 minutes Gita CHAVEZ Work Phone: [facility] [place] Comment on above: Transient visual los s of left eye (Primary Dx) Start: 01-17-2025 End: 01-17-2025 ambulatory GITA OLIVA Not Available Start: 12-18-2024 End: 12-18-2024 ambulatory Gertrudis Pham DYE HOUSE WORKER Work Phone: [facility] Work Phone: Start: 12-18-2024 End: 12-18-2024 Patient encounter procedure Gertrudis Pham DYE HOUSE WORKER Work Phone: [facility] Work Phone: Start: 12-11-2024 Non-patient / Non-visit Odalys Pham DYE HOUSE WORKER Work Phone: [facility] Work Phone: Start: 12-09-2024 End: 12-10-2024 ambulatory Mbanefo ODILMAU Facility:[facility] Start: 12-09-2024 Emergency department patient visit Vic Maldonado Facility:[facility] Start: 12-09-2024 End: 12-10-2024 Observation [facility] OMIKEWU [facility] Start: 11-24-2024 Non-patient / Non-visit Wandaf salty Schreiberrbacher DYE HOUSE WORKER Work Phone: [facility] Work Phone: Start: 11-23-2024 Non-patient / Non-visit Jennif er Abdoulrbacher DYE HOUSE WORKER Work Phone: [facility] Work Phone: Start: 11-22-2024 Non-patient / Non-visit Jennif er Abdoulrbacher DYE HOUSE WORKER Work Phone: [facility] Work Phone: Start: 11-21-2024 Non-patient / Non-visit Odalys Pham DYE HOUSE WORKER Work Phone: [facility] Work Phone: Start: 11-21-2024 End: 11-21-2024 Admission to same day surgery center Gertrudis Pham DYE HOUSE WORKER Work Phone: [facility] Work Phone: Start: 11-21-2024 End: 11-21-2024 ambulatory Gertrudis Pham DYE HOUSE WORKER Work Phone: [facility] Work Phone: Start: 09-25-2024 End: 09-25-2024 Patient encounter procedure Gertrudis Pham DYE HOUSE WORKER Work Phone: [facility] Work Phone: Start: 09-19-2024 Non-patient / Non-visit Odalys Pham DYE HOUSE WORKER Work Phone: [facility] Work Phone: Start: 05-31-2024 Patient encounter status Gita CHAVEZ Work Phone: [facility] Start: 05-31-2024 End: 05-31-2024 ambulatory SILVIA MAST Not Available Start: 03-27-2024 Patient encounter status [facility] Start: 03-27-2024 End: 03-27-2024 ambulatory [facility] Work Phone: Start: 03-27-2024 End: 03-27-2024 Encounter for general adult medical examination without abnormal findings [facility] Start: 03-27-2024 End: 03-27-2024 Patient encounter procedure [facility] Work Phone: Start: 02-17-2024 Non-patient / Non-visit [facility] [employer] [facility] Work Phone: Start: 09-30-2023 End: 09-30-2023 ambulatory Gertrudis Ankit Other [employer] Other Start: 09-30-2023 Telephone encounter Gertrudis Alicja dutton [facility] Start: 09-28-2023 End: 09-28-2023 ambulatory Gertrudis Ankit Other [employer] Other Start: 09-28-2023 Office outpatient vi sit 15 minutes Gertrudis Pham [facility] Start: 08-31-2023 End: 08-31-2023 ambulatory Gertrudis Pham Other [employer] Other Start: 08-31-2023 Office outpatient vi sit 15 minutes Gertrudis Pham [facility] Start: 05-26-2023 End: 05-26-2023 ambulatory Gertrudis Ankit Other [employer] Other Start: 05-26-2023 Encounter for genera l adult medical examination without abnormal findings Gertrudis Pham [facility] Start: 05-26-2023 Periodic preventive med est patient 40-64yrs Gertrudis Pham [facility] Start: 01-29-2023 End: 01-29-2023 ambulatory Mahnaz Castillo Other [employer] Other Start: 01-29-2023 Office outpatient vi sit 15 minutes Mahnaz Castillo [facility] Start: 11-21-2022 End: 11-21-[address] JAILENE BORERRO Facility:[facility] Start: 09-24-2022 End: 09-24-[address] CATARINA PERAZA Facility:[facility] Start: 08-31-2022 End: 08-31-[address] REJI HUGHES Facility:[facility] Start: 06-22-2022 End: 06-23-[address] SILVIA MAST Facility:[facility] Start: 06-04-2022 End: 06-04-2022 Emergency department patient visit Vel Rubio [facility] Start: 05-22-2022 End: 05-23-[address] REJI HUGHES Facility:[facility] Start: 12-30-2021 End: 12-30-[address] REJI HUGHES Facility:[facility] Start: 10-11-2018 End: 10-11-2018 Patient encounter procedure Historical Provider [facility] Start: 10-09-2018 End: 10-09-2018 Emergency department patient visit VEL CHING [facility] Start: 05-21-2015 End: 05-21-2015 Emergency department patient visit HOANGGOKUL SALAS Facility:[facility] Procedures Date Procedure Procedure Detail Performing Clinician Start: 11-21-2024 Screening colonoscopy Kobe Pham APRN Work Phone: Start: 10-09-2018 End: 10-09-2018 CARDIAC RHYTHM Historical Provider Tonsillectomy and adenoidectomy Karson RIVERS Plan of Treatment Date Care Activity Detail Author Start: 06-20-2025 End: 06-20-2025 Patient encounter procedure 06/20/2025 3:40 PM EDT Office Visit [facility] [address] [place], [place] [address] [address] Gita Neal NP [address] [place], [place] [facility] Start: 03-14-2025 End: 03-14-2025 Patient encounter procedure [facility] Comment on above: Arrived Start: 01-17-2025 End: 01-17-2025 Patient encounter procedure 01/17/2025 2:00 PM EDT Office Visit [facility] [address] [place] [address] Gita Oliva PA [address] [place] [address] Arrived [facility] Comment on above: Arrived Start: 11-21-2024 [facility] Start: 09-25-2024 Patient referral [facility] Work Phone: Start: 06-25-2018 Influenza vaccination INFLUENZA VACC INE (#1) [facility] Work Phone: Start: 1998 Third diphtheria, te tanus and acellular pertussis (DTaP) vaccination TDAP (ADULT) [facility] Work Phone: Start: 1997 Tetanus vaccination TETANUS [facility] Work Phone: Start: 1992 HIV screening HIV SCREENING DISCUSSION [facility] Work Phone: Cardiovascular stres s testing [facility] Patient Education Hemorrhoids Co onesimo polyps Know your Meds [facility] Work Phone: Patient referral [facility] Work Phone: Payers Date Payer Category Payer Self-pay 2015 () [id number] 2015 [facility] of [facility] e ( and others) [id number] 1979 Unknown [id number] 1979 Unknown [id number] 1979 Unknown [id number] [id number] 1979 Unknown [id number] [id number] .593 1979 Unknown [id number] [id number] .593 1979 Unknown [id number] [id number] .593 1979 Unknown [id number] [id number] .727 1979 Unknown [id number] [id number] .727 1979 Unknown [id number] [id number] .727 1979 Unknown [id number] [id number] .727 1979 Unknown [id number] [id number] .[id number] 1979 Unknown [id number] 1980 Unknown [id number] 1960 [employer] ( and others) [id number] Unknown [id number] Unknown [id number] Social History Date Type Detail Facility Start: 10-09-2018 End: 11-21-2024 Tobacco smoking status MSIS Former smoker [facility] Start: 1980 Sex Assigned At Not on file [employer] Work Phone: Tobacco smoking status No Smokin g Status Entered [facility] Start: 05-31-2024 End: 03-14-2025 Sex Assigned At Male [facility] Start: 03-27-2024 Tobacco smoking stat us NHIS Never smoked tobacco (finding) [facility] Start: 1980 Sex Assigned At Male [facility] Start: 11-21-2024 Sex Patient sex un known (finding) [facility] Start: 12-18-2024 End: 04-02-2025 Sex Male (finding) [facility] Start: 11-25-2002 End: 06-13-2012 History of tobacco use Current smoker [facility] Start: 11-25-2002 End: 06-13-2012 History of tobacco use Cigarette Smoker [facility] Start: 05-31-2024 Tobacco use and exposure Smokeless tobacco non-user [facility] Start: 05-31-2024 End: 03-14-2025 Alcoholic beverage intake Ex-drinker (finding) [facility] Start: 05-31-2024 End: 03-14-2025 History of Social function [facility] Start: 01-17-2025 Tobacco use and exposure Former smokeless tobacco user [facility] End: 06-13-2012 History of tobacco use Chews Tobacco [facility] Goals Date Patient Goal Desired Activity /State Functional Status Date Assessment Result Facility 12-09-2024 Functional Status No [facility] 12-09-2024 Functional Status [facility] 06-04-2022 Functional Status N/A [facility] Clinical Notes 06-04-2022 to 03-15-2025 Note Date & Type Note Facility 03-15-2025 Evaluation note Diagnosis Onset Date Resolution Primary hypertension acute March 15, 2025 1:45pm Anxiety acute April 02, 2025 1:00pm Hypertriglyceridemia acute April 02, 2025 1:00pm Primary hypertension acute April 02, 2025 1:00pm PTSD (post-traumatic stress disorder) acute April 02, 2025 1:00pm Wellness examination acute April 02, 2025 1:00pm [facility] Work Phone: 1(300) 997-656605-22-2025 Evaluation note* Diagnosis Onset Date Resolution Status Admit Date Anxiety acute March 15, 2025 1:45pm Atypical chest pain acute February 232024 1:45pm Eczema acute March 15, 2025 1:45pm Family history of heart disease acut e March 15, 2025 1:45pm Primary hypertension acute March 15, 2025 1:45pm PTSD (post-traumatic stress disorder) acute March 15, 2025 1 :45pm Screening for colon cancer acute March 15, 2025 1:45pm [facility] Work Phone: 1(319) 855-912105-21-2025 History of Present illness Narrative* SCOTT Bowling - 03/14/2025 1:40 PM EDT Images from the original note were not included. Subjective Monica Morgan is a 44 y.o. year old male Chief Complaint Patient presents with Decreased Visual Acuity Past Medical History: Diagnosis Date Migraine November Vision loss November Past Surgical History: Procedure Laterality Date ADENOIDECTOMY LIPOMA RESECTION Left Shoulder OTHER SURGICAL HISTORY ICT SU[employer] TEST ENGINEERS removal TONSILLECTOMY Family History Problem Relation Name [...] Dose Status atenolol (Tenormin) 50 MG tablet [id number] No Take 50 mg by mouth Daily Silvia Mast MD Taking Active citalopram (CeleXA) 10 MG tablet [id number] No Take 10 mg by mouth 1 (one) time each day at the same time Silvia Mast MD Taking Active citalopram (CeleXA) 20 MG tablet [id number] No Take 20 mg by mouth 1 (one) time each day at the same time Silvia Mast MD Taking Active losartan (Cozaar) 25 MG tablet [id number] No Take 25 mg by mouth Daily Silvia Mast MD Taking Active omega-3 (fish oil) 1000 MG capsule [id number] No Take 1,000 mg by mouth Daily Silvia Mast MD Taking Active HPI Acute Neurological Problem [...] Wt 214 lb SpO2 99% BMI 31.60 kg/m Smoking Status Former BSA 2.17 m Neurological Exam Mental Status Awake, alert and [...] normal in upper and lower extremities. Coordination Wbrqrd-kf-hdxb, rapid alternating movements and ewlr-tj-gxiu normal bilaterally without dysmetria. Gait Normal casual, toe, heel and tandem gait. Motor Examination RUE Strength deltoid, biceps, triceps, wrist extensors, wrist extensors, wrist flexor, washer cutter strength 5/5. LUE Strength deltoid, biceps, triceps, wrist extensors, wrist extensors, wrist flexor, washer cutter strength 5/5. RLE Strength illopsoas, quadriceps, tibialis [...] loss of left eye Patient presented to [facility] 12/09/2024 after he experienced episodic headachesfor [...] Follow up 2 months [id number] Discharge instructions Patient Education 12/10/2024 15:26:42 Migraine Headache, Xocj-cw-Pmxj Migraine Headache A migraine headache is a very strong throbbing pain on one or both sides of your head. This type ofheadache can also cause other symptoms. It can last from 4 hours to 3 days. Talk with your doctor about what things may bring on (trigger) this condition. What are the causes? The exact cause of a migraine is not known. This condition may be brought on or caused by: Smoking. Medicines, such as: ?Medicine used to treat chest pain (nitroglycerin). ? control pills. ?Estrogen. ?Some blood pressure medicines. Certain substances in some foods or drinks. Foods and drinks, such as: ?Cheese. ?Chocolate. ?Alcohol. ?Caffeine. Doing physical activity that is very hard. Other things that may trigger a migraine headache include: Periods. . Hunger. Stress. Getting too much or too little sleep. Weather changes. Feeling tired (fatigue). What increases the risk? Being [age] years old. Being female. Having a family history of migraine headaches. Being . Having a mental health condition, such as being sad (depressed) or feeling worried or nervous (anxious). Being very overweight (obese). What are the signs or symptoms? A throbbing pain. This pain may: ?Happen in any area of the head, such as on one or both sides. ?Make it hard to do daily activities. ?Get worse with physical activity. ?Get worse around bright lights, loud noises, or smells. Other symptoms may include: ?Feeling like you may vomit (nauseous). ?Vomiting. ?Dizziness. Before a migraine headache starts, you may get warning signs (an aura). An aura may include: ?Seeing flashing lights or having blind spots. ?Seeing bright spots, halos, or zigzag lines. ?Having tunnel vision or blurred vision. ?Having numbness or a tingling feeling. ?Having trouble talking. ?Having weak muscles. After a migraine ends, you may have symptoms. These may include: ?Tiredness. ?Trouble thinking (concentrating). How is this treated? Taking medicines that: ?Relieve pain. ?Relieve the feeling like you may vomit. ?Prevent migraine headaches. Treatment may also include: ?Acupuncture. ?Lifestyle changes like avoiding foods that bring on migraine headaches. ?Learning ways to control your body functions (biofeedback). ?Therapy to help you know and deal with negative thoughts (cognitive behavioral therapy). Follow these instructions at home: Medicines Take nkzf-yai-gxkmvpq and prescription medicines only as told by your doctor. If told, take steps to prevent problems with pooping (constipation). You may need to: ?Drink enough fluid to keep your pee (urine) pale yellow. ?Take medicines. You will be told what medicines to take. ?Eat foods that are high in fiber. These include beans, whole grains, and fresh fruits and vegetables. ?Limit foods that are high in fat and sugar. These include fried or sweet foods. Ask your doctor if you should avoid driving or using machines while you are taking your medicine. Lifestyle Do not drink alcohol. Do not smoke or use any products that contain nicotine or tobacco. If you need help quitting, ask your doctor. Get 7 9 hours of sleep each night, or the amount recommended by your doctor. Find ways to deal with stress, such as meditation, deep breathing, or yoga. Try to exercise often. This can help lessen how bad and how often your migraines happen. General instructions Keep a journal to find out what may bring on your migraine headaches. This can help you avoid thosethings. For example, write down: ?What you eat and drink. ?How much sleep you get. ?Any change to your medicines or diet. If you have a migraine headache: ?Avoid things that make your symptoms worse, such as bright lights. ?Lie down in a dark, quiet room. ?Do not drive or use machinery. ?Ask your doctor what activities are safe for you. Where to find more information Coalition for Headache and Migraine Patients (CHAMP): headachemigraine.org [place] Migraine Foundation: americanmigrainefoundation.org National Headache Foundation: headaches.org Contact a doctor if: You get a migraine headache that is different or worse than others you have had. You have more than 15 days of headaches in one month. Get help right away if: Your migraine headache gets very bad. Your migraine headache lasts more than 72 hours. You have a fever or stiff neck. You have trouble seeing. Your muscles feel weak or like you cannot control them. You lose your balance a lot. You have trouble walking. You faint. You have a seizure. This information is not intended to replace advice given to you by your health care provider. Make sure you discuss any questions you have with your health care provider. Document Revised: 06/07/2023 Document Reviewed: 06/07/2023 [employer] Patient Education 2023 [employer]. 12/10/2024 15:26:35 Visual Disturbances Visual Disturbances A visual disturbance is any problem that interferes with your normal vision. This can affect one eye or both eyes. Some types of visual disturbances come and go without treatment and do not cause a permanent problem. Other visual disturbances may be a sign of an eye emergency or a medical emergency. Visual disturbances include: Blurred vision. Being unable to see certain colors. Being sensitive to light. Double vision in one eye or both eyes. Partial vision loss (visual field deficit). Being unaware of objects on one side of the body (visual spatial inattention). Rhythmic eye movements that you cannot control (nystagmus). Short-term or long-term blindness. Seeing: ?Floating spots or lines (floaters). ?Flashing or shimmering lights. ?Zigzagging lines or stars. ?The floor as tilted (visual midline shift). ?Things that are not really there (hallucinations). Causes of visual disturbances include: Dry eyes. Eye infection. The thin membrane at the back of the eye from the eyeball (retinal detachment). High blood pressure. Migraine. Glaucoma. Ischemic stroke. Cerebral aneurysm. Diabetes. It is important to get your eyes checked by a health care provider or eye healthcare insurance sales agent (screw machine hand or label machine operator) as soon as possible to determine the cause of your visual disturbance. Follow these instructions at home: Take ztkb-rwc-gcoiiue and prescription medicines only as told by your health care provider. Do not use any products that contain nicotine or tobacco. These products include cigarettes, chewing tobacco, and vaping devices, such as e-cigarettes. If you need help quitting, ask your health careprovider. To lower your risk of the problems that can lead to visual disturbances: ?Eat a balanced diet that includes fruits and vegetables, whole grains, lean meat, and low-fat dairy. ?Maintain a healthy weight. Work with your health care provider to lose weight if you need to. ?Exercise regularly. Ask your health care provider what activities are safe for you. Do not drive if you have trouble seeing. Ask your health care provider for guidance about when it is and is not safe for you to drive. Keep all follow-up visits. This is important. Contact a health care provider if: Your visual disturbance changes or becomes worse. Get help right away if: You have new visual disturbances. You suddenly see flashing lights or floaters. You suddenly have a dark area in your field of vision, especially in the lower part. This can lead to a loss of central vision. You suddenly lose vision in one or both eyes. You have any symptoms of a stroke. BE FAST is an easy way to remember the main warning signs of astroke: ?B - Balance. Signs are dizziness, sudden trouble walking, or loss of balance. ?E - Eyes. Signs are trouble seeing or a sudden change in vision. ?F - Face. Signs are sudden weakness or numbness of the face, or the face or eyelid drooping on oneside. ?A - Arms. Signs are weakness or numbness in an arm. This happens suddenly and usually on one side of the body. ?S - Speech. Signs are sudden trouble speaking, slurred speech, or trouble understanding what people say. ?T - Time. Time to call emergency services. Write down what time symptoms started. Have other signs of a stroke, such as: ?A sudden, severe headache with no known cause. ?Nausea or vomiting. ?A seizure. These symptoms may represent a serious problem that is an emergency. Do not wait to see if the symptoms will go away. Get medical help right away. Call your local emergency services (911 in the [place] Do not drive yourself to the hospital. Summary A visual disturbance is any problem that interferes with your normal vision. It is important to get your eyes checked by a health care provider or eye healthcare insurance sales agent to determine what kind of visual disturbance you have. Some visual disturbances may be a sign of an eye emergency or medical emergency. This information is not intended to replace advice given to you by your health care provider. Make sure you discuss any questions you have with your health care provider. Document Revised: 10/28/2023 Document Reviewed: 02/12/2022 [employer] Patient Education 2023 [employer]. Follow Up Care 12/09/2024 15:57:41 With:Gus Lyn Address: [place] [address] [place] [phone] (1) When:2 to 4 weeks Comments:Call for followup appointment With:GERTRUDIS PHAM Address:Unknown When:5 to 7 days Comments:Call for followup appointment [facility] 02-16-2025 NoteDischarge Summary Admission and Discharge Information Admitting Physician - Karson RIVERS MD Consulting Physician - Gus Lyn MD Admitting Diagnoses: 1. Visual loss, 12/09/2024 [...] with headache. He was subsequently admitted to [facility] with transient visual loss and headache secondary to migraine with aura to rule out stroke. Acute stroke was ruled out with negative CT scan of the brain, CTA head and neckand negative MRI of the brain. He was [...] Oral, Daily Follow-up With When Contact Information Gus Lyn Within 2 to 4 weeks [place] [phone] Business (1) Additional Instructions: Call for followup appointment GERTRUDIS PHAM Within 5 to 7 days Additional Instructions: Call for followup appointment Patient Education Migraine Headache, Spps-id-Qgwe Visual DisturbancesNewark HospitalComment on above:Result Comment: Electronically Signed By: MAYITO LAUREN, Karson\.br\Date and Time Signed: 12/10/24 15:49 [id number] Evaluation + Plan noteExtracted from: Title:Discharge Note Author:Karson RIVERS MD ate:12/10/24 Stable Home Discharge Diet(s): Low Sodium- 2000 mg (12/10/24 09:20:00) Prescriptions aspirin 81 mg Oral EC Tab, 81 mg= 1 tab(s), Oral, Daily Home atenolol 50 mg Tab, 50 mg= 1 tab(s), Oral, Daily citalopram 30 mg oral capsule, 30 mg= 1 cap(s), Oral, Daily diphenhydrAMINE 25 mg Cap, 25 mg= 1 cap(s), Oral, Once a day (at bedtime) losartan 25 mg Tab, 25 mg= 1 tab(s), Oral, Daily With When Contact Information Gus Lyn Within 2 to 4 weeks [place] [address] [address] [place] [phone] [place] (1) Additional Instructions: Call for followup appointment GERTRUDIS PHAM Within 5 to 7 days Additional Instructions: Call for followup appointment Migraine Headache, Nlub-vr-Lgtv Visual Disturbances Extracted from: Title:APSO Note Author:Karson RIVERS MD Date: 44-year-old male former ciga rette smoker with history of hypertension presented with transient loss of vision on the left side associated with headache and admitted with visual loss and headache to rule out stroke. 1. Visual loss (H54.7: Unspecified visual loss) Transient visual loss with headache likely secondary to migraine with aura. However rule out stroke. Neurology consult reviewed by me. I spoke with neurologist. I appreciate and agree recommendations. MRI of the brain pending. Continue on aspirin, Lipitor. Ordered: [facility] Hospital Care/Day Moderate 35 Minutes 57020 2. Headache (R51.9: Headache, unspecified) Secondary to migraine. Improved. Ordered: [facility] Hospital Care/Day Moderate 35 Minutes 54667 3. Hypertension (I10: Essential (primary) hypertension) Blood pressure controlled. Continue on atenolol and losartan. Ordered: [facility] Hospital Care/Day Moderate 35 Minutes 59550 4. Obesity (E66.9: Obesity, unspecified) Recommend therapeutic lifestyle modification changes. Ordered: [facility] Care/Day Moderate 35 Minutes 92802 5. On deep vein thrombosis (DVT) prophylaxis (Z79.899: Other manager intermediate (current) drug therapy) Heparin. Disposition: Pending MRI of the brain. I discussed the diagnosis and plan of care with the patient at the bedside. Moderate level of MDM based on addressing above issues. This documentation was transcribed using voice recognition software. Several attempts were made to ensure accuracy. However inadvertent computerized salt machine operator errors may be present. Karson Rivers. Hospitalist. Orders: acetaminophen, 650 mg = 2 [...] Measures Up ad [place] Vital Signs Weight Extracted from: Title:Consult Note-neurology Author:Caesar XIONG N ichole Date:12/10/24 The patient is a 44 year old [...] deep vein thrombosis (DVT) prophylaxis (Z79.899: Other manager intermediate (current) drug therapy) Extracted from: Title:Admission H & P Author:MAYITO LAUREN, Eileenanefo Date:12/09/24 44-year-old male former ciga rette smoker with history of hypertension presented with transient loss of vision on the left side associated with headache and is being admitted with visual loss and headache to rule out stroke. 1. Visual loss (H54.7: Unspecified visual loss) Transient visual loss with headache likely secondary to migraine however rule out stroke. Admit to regular medical floor. I ordered MRI of the brain. Neurology consulted. Started patient on aspirin, Lipitor. Neurochecks. Bedside dysphagia test done. Patient does not have dysphagia. Ordered: Initial Hospital Care/Day Moderate 55 Minutes 99914 2. Headache (R51.9: Headache, unspecified) May be secondary to migraine headache versus uncontrolled hypertension. Improved. Treated with ketorolac in the emergency room. Continue as needed pain medications. Ordered: Initial Hospital Care/Day Moderate 55 Minutes 03651 3. Hypertension (I10: Essential (primary) hypertension) Continue on atenolol 50 mg daily and losartan 25 mg daily Ordered: Initial Hospital Care/Day Moderate 55 Minutes 76199 4. Obesity (E66.9: Obesity, unspecified) Recommend therapeutic lifestyle modification changes. Ordered: Initial Hospital Care/Day Moderate 55 Minutes 87022 5. On deep vein thrombosis (DVT) prophylaxis (Z79.899: Other manager intermediate (current) drug therapy) Heparin. Disposition: The patient [...] made to ensure accuracy. However inadvertent computerized salt machine operator errors may be present. Karson Rivers. Hospitalist. Orders: acetaminophen, 650 mg = 2 [...] Measures Up ad [place] Vital Signs Weight Extracted from: Title:ED Note Author:Theresa MS III, Evelio Blas Date:12/09/24 Headache (R51.9: Headache, u nspecified) Visual loss (H54.7: Unspecified visual loss) Orders: [...] ED Physician consult Hospitalist for continued care Diagnostic Tests Pending * HgbA1c 12/10/24 [facility] [id number] NoteInterdisciplinary Note - PT PT Evaluation completed with an AMPA score of . Pt reports his vision symptoms have resolved and denies any other symptoms. Pt functioning at [place] level and able to perform steps, Independently. No further [facility] needed[facility] NoteInterdisciplinary Note - OT Pt seen this date for OT evaluation. AMPA score . pt is IND for all functional mobility and ADL performance with visual symptoms resolved. No skilled OT needs at this time.[facility] Note Consultation Note Chief Complaint vision changes around [...] 36.8 ???C(Oral) HR: 63(Peripheral) RR: 18 BP: 124/71SpO2: 99% HT: 175.26 cm WT: 94.7 kg [...] sensation in all 4 extremities. Cerebellar exam: Omkumx-vu-bahk reveals no ataxia. Gait is normal. The neurological exam was performed by a healthcare professional which was witnessed and supervisedby me via video telemedicine visit consented to by the patient or appropriate patient claims service representative. Date/Time:12/10/24 0755 Level of Consciousness: Alert = 0 Current month and age: Answers both correctly = 0 Open and close eyes/washer cutter release hand: Obeys both correctly = 0 [...] process. Other possible etiologies include migraine headache ormigraine variant contributing to the patient's symptoms. The [...] for now. I'll make further recommendations based onpatient's clinical course and above evaluation. 1. Visual loss (H54.7: Unspecified visual loss) 2. Headache (R51.9: Headache, unspecified) 3. Hypertension (I10: Essential (primary) hypertension) 4. Obesity (E66.9: Obesity, unspecified) 5. On deep vein thrombosis (DVT) prophylaxis (Z79.899: Other fpc (current) drug therapy) Problem List/Past Medical His (more content not included)...[facility]Comment on above:Result Comment: Electronically Signed By: Brittney Maynard RN\.br\Date and Time Signed: 12/10/24 07:19 EST\.br\Electronically Co- Signed By: Gus Lyn MD\.br\Date and Time Co-Signed: 12/10/24 09:55 EST\.br\Electronically Co-Signed By: Brittney Maynard RN02-16-2025 Note Consultation Note Chief Complaint vision changes around [...] 36.8 ???C(Oral) HR: 63(Peripheral) RR: 18 BP: 124/71SpO2: 99% HT: 175.26 cm WT: 94.7 kg [...] sensation in all 4 extremities. Cerebellar exam: Cdjofc-kf-qmoj reveals no ataxia. Gait is normal. The neurological exam was performed by a healthcare professional which was witnessed and supervisedby me via video telemedicine visit consented to by the patient or appropriate patient claims service representative. Date/Time:12/10/24 0755 Level of Consciousness: Alert = 0 Current month and age: Answers both correctly = 0 Open and close eyes/washer cutter release hand: Obeys both correctly = 0 [...] process. Other possible etiologies include migraine headache ormigraine variant contributing to the patient's symptoms. The [...] for now. I'll make further recommendations based onpatient's clinical course and above evaluation. 1. Visual loss (H54.7: Unspecified visual loss) 2. Headache (R51.9: Headache, unspecified) 3. Hypertension (I10: Essential (primary) hypertension) 4. Obesity (E66.9: Obesity, unspecified) 5. On deep vein thrombosis (DVT) prophylaxis (Z79.899: Other fpc (current) drug therapy) Problem List/Past Medical His (more content not included)...[facility] HospitalComment on above:Result Comment: Electronically Signed By: Brittney Maynard RN\.br\Date and Time Signed: 12/10/24 07:19 EST\.br\Electronically Co- Signed By: Gus Lyn MD\.br\Date and Time Co-Signed: 12/10/24 09:55 EST 12-10-2024 NoteProgress Note-Physician Assessment/Plan 44-year-old male former cigarette smoker with history of hypertension presented with transient lossof vision on the left side associated with [...] brain pending. Continue on aspirin, Lipitor. Ordered: [facility] Care/Day Moderate 35 Minutes [id number] 2. Headache (R51.9: Headache, unspecified) Secondary to migraine. Improved. Ordered: [facility] Care/Day Moderate 35 Minutes 18813 3. Hypertension (I10: Essential (primary) hypertension) Blood pressure controlled. Continue on atenolol and losartan. Ordered: [facility] Care/Day Moderate 35 Minutes 52625 4. Obesity (E66.9: Obesity, unspecified) Recommend therapeutic lifestyle modification changes. Ordered: [facility] Care/Day Moderate 35 Minutes 82938 5. On deep vein thrombosis (DVT) prophylaxis (Z79.899: Other fpc (current) drug therapy) Heparin. Disposition: Pending MRI of the brain. I discussed the diagnosis and plan of care with the patient at the bedside. Moderate level of MDM based on addressing above issues. This documentation was transcribed using voice recognition software. Several attempts were made to ensure accuracy. However inadvertent computerized salt machine operator errors may be present. Karson Rivers. Hospitalist. Orders: acetaminophen, 650 mg = 2 tab(s), Tab, Oral, q6hr PRN Pain, Routine, Start date 12/09/24 18:23:00 EST, 12/09/24 18:23:00 EST Al hydroxide/Mg hydroxide/simethicone, 30 mL, Susp-Oral, Oral, q6hr PRN Indigestion, Routine, Startdate 12/09/24 18:23:00 EST atenolol, 50 mg = [...] normal psychiatric thoughts. Objective Vitals & Measurements (more content not included)...[facility]:Result Comment: Electronically Signed By: MAYITO LAUREN, [employer]unders[employer]\.br\Date and Time Signed: 12/10/24 09:18 [id number] NoteHistory and Physical Chief Complaint vision changes around 1400. pt says it felt like he was gonna pass out. denies pain. History of Present Illness 44-year-old male former cigarette smoker with history of hypertension presented with transient lossof vision on the left side associated with [...] admitted with visual loss and headache to ruleout stroke. Review of Systems Constitutional: no fever, [...] no food allergies, no recurrent infections, no impairedimmunity Additional ROS info: Except as noted in [...] 16:20:00) Lymph Auto: 18.4 % (12/09/24 16:20:00) Teller Auto: 10.9 % (12/09/24 16:20:00) Eos Auto: 0.7 % (12/09/24 16:20:00) Basophil Auto: 2.5 % High (12/09/24 16:20:00) Neutro Absolute: 5.7 E9/L (12/09/24 16:20:00) Lymph Absolute: 1.6 E9/L (12/09/24 16:20:00) Teller Absolute: 0.9 E9/L (12/09/24 16:20:00) Eos Absolute: [...] (12/09/24 16:20:00) A/G Ratio: 1.4 (12/09/24 16:20:00) (more content not included)...[facility]:Result Comment: Electronically Signed By: MAYITO LAUREN, Karson\.br\Date and Time Signed: 12/09/24 18:26 [id number] [place] [address] Colonoscopy Procedure Report Signed Patient: Monica Morgan MR#: [id number] 1622 : 1980 Acct:[id number] Age/Sex: 44 / M Adm Date: 5 Loc: Room: Type: [facility] Attending Dr: Noelle Colunga MD Copies to: MD Gertrudis Pierre, DYE HOUSE WORKER, [employer]S SALESMAN~ Colonoscopy Date/Provider 11/21/2024 Noelle Colunga MD Colonoscopy Findings: Procedure: Colonoscopy with polypectomy Indication: 44-year-old man here for screening colonoscopy Pre-operative diagnosis: Colon cancer screening Post-operative diagnosis: Colonic polyps, internal hemorrhoids. Sedation: propofol per anesthesia dept O2 oximetry, hemodynamic monitoring was performed pre, during, and post procedure. Patient was identified, H&P completed, patient was given full explanation of the procedure as well as associatedrisks and written consent wasobtained prior to procedure. Patient expressed complete understanding of the procedure as well as alternatives to the procedure and to anesthesia and agreed to proceed with the procedure as indicated. Patient was immediately reassessed prior to IV sedation. Under IV sedation, patient was placed in the left lateral decubitus position. Digital rectal exam was performed and normal. Colonoscope was inserted and passed proximally to the cecum, which was identified by the ileocecal valve, appendiceal orifice and cecal floor. Colonoscope was slowly withdrawnwith the findings as below. Thompsons bowel prep score was good. Findings: Terminal ileum: Normal Cecum: 4 polyps(1-2 mm) removed using cold forceps Ascending colon: A 5 mm polyp removed using cold snare. A 1 mm polyp removed using cold forceps Hepatic flexure: Normal. Transverse colon: Normal. Splenic flexure: Normal. Descending colon: A 5 mm polyp removed using cold snare Sigmoid colon: Normal. Rectum: Normal. Retroflexed views: Rectum did show internal hemorrhoids. Biopsy taken:No Complications: None EBL:None Recommendations: -Repeat colonoscopy in 3 years -Follow up pathology Following a period of recovery, patient was seen and given full explanation of the procedure. Patient tolerated the procedure well and will be discharged in satisfactory, stable condition. Noelle Colunga M.D. Documented By: Noelle Colunga MD 11/21/24 0934 Signed By: 11/21/24 0952 [facility]01-28-2025 [place] [address] Gastroenterology H&P Signed Patient: Monica Morgan MR#: [id number] 1622 : 1980 Acct:[id number] Age/Sex: 44 / M Adm Date: Loc: Room: Type: [facility] Attending Dr: Noelle Colunga MD Copies to: MD Gertrudis Pierre, DYE HOUSE WORKER, [employer]S SALESMAN~ Date of Service: 11/21/2024 HISTORY & PHYSICAL: Patient's history with special attention to the cardiovascular, pulmonary systems and the current problem was reviewed with the patient immediately prior to the procedure. Present medications and doses reviewed in the EMR. Allergies and pertinent laboratory tests were also re viewedat this time in the EMR. The physical [...] By: Noelle Colunga MD 11/21/2425 Signed By: 11/21/24 0934 [facility]12-02-2024 Evaluation note* Diagnosis Onset Date Resolution Status Admit Date Anxiety acute September 25, 2024 1:01pm Atypical chest pain acute Decem 2023 1:01pm Eczema acute September 25, 2024 1:01pm Family history of heart disease acut e September 25, 2024 1:01pm Hypertriglyceridemia acute Dece 2023 1:01pm Primary hypertension acute Dece 2023 1:01pm PTSD (post-traumatic stress disorder) acute September 25 1:01pm Screening for colon cancer acute September 25, 2024 1:01pm [facility] Work Phone: [phone] Evaluation note* Encounter Date Diagnosis Assessment Notes [...] changes and monitor patient closely with diabetic logistic specialist. -Begin 0.25 Wegovy every week. The patient will stop the Wegovy any significant nausea, vomiting, abdominal pain or other side effects. Intial weight is 222 [employer] Other 11-07-2023 Evaluation note* Encounter Date Diagnosis [...] You have been given relevant education handouts. [employer] Other 08-02-2023 Evaluation note* Encounter Date Diagnosis [...] like follow-up with chest x-ray. Order placed. [employer] Other 04-07-2023 Evaluation note* Encounter Date Diagnosis [...] no improvement in 2 to 3 days [employer] Other 08-11-2022 Hospital Discharge instructions Patient Education [...] to any changes in your nodule. Take mzbu-[id number]-djrrqzt and prescription medicines only as told by [...] 09/03/2005 Document Revised: 05/26/2019 Document Reviewed: 05/29/2019 [employer] Patient Education 2020 [employer] Follow Up Care 06/04/2022 12:26:56 With:Silvia Mast Address: [address] [place] [address], [address] [place] [address]- Business (1) When:06/07/2022 12:40:08 [facility]08-11-2022 Evaluation + Plan noteExtracted from: Title:ED Note Author:Steve Jean Baptiste PA-C te:06/04/22 Thyroid nodule (E04.1: Nonto xic single thyroid nodule) [facility] Other Evaluation note* Diagnosis Onset Date Resolution Status Anxiety acute Hypertriglyceridemia acute Other chronic pain acute Primary hypertension acute PTSD (post-traumatic stress disorder) acute Wellness examination acute [facility] Work Phone: Evaluation note* Diagnosis Transient visual loss of left eye- Primary [facility] Diagnosis Ocular migraine (CMS/HCC)- Primary Variants of migraine, not elsewhere classified, without mention of intractable migraine without mention of status migrainosus Transient visual loss of left eye documented in this encounter [facility] Author Noelle Colunga [facility] Note Date/Time November 21, 2024 9 :34am [facility] [address] [place] [address] Gastroenterology H&P Signed Patient: Monica Morgan MR#: [id number] 1622 : 1980 Acct:[id number] Age/Sex: 44 / M Adm Date: 5 Loc: Room: Type: [facility] Attending Dr: Noelle Colunga MD Copies to: MD Gertrudis Pierre APRN, PARTS SALESMAN~ Date of Service: 11/21/2024 HISTORY & PHYSICAL: [...] Colunga M.D. Documented By: Noelle Colunga MD 11/21/24924 Signed By: <Electronically signed by Noelle Colunga MD> 11/21/2443 [facility] Work Phone: History general Narrative - Reported* Type Description Date Medical History PTSD Medical History anxiety Surgical History peritonsillar abscess Surgical History tonsillectomy and adenoidectomy Surgical History lipoma Hospitalization History see above [employer] Other Hospital course Narrative No data available for this section [facility] Additional Instructions DISCHARGE INSTRUCTIONS FOR [...] NOT operate machinery such as power tools, [employer] mowers, snow blowers, sewing machines, etc. for [...] years. -Follow up with PCP. -Office number [phone]. [facility] Work Phone: Progress note No data available for this section [facility] Summary Purpose Family History Relationship Condition Age at Onset Recorded Date/T santino father Unknown Relationship Condition Age at Onset Recorded Date/T santino father Unknown grandparent Diabetes mellitus Unknown Heart disease Unknown Advance Directives Advance Directive Response Recorded Date/ Time Advance [...] 25, 2024 1:01pm PTSD (post-traumatic stress disorder) Toussaint2023 1:01pm Screening for colon cancer September 25, 2024 1:01pm Chief Complaint Admit Date CC Adult Risk Stratification September 192023 12:27pm 6 month f/u September 25, 2024 1 :01pm Screening November 21, 2024 7 :50am Screening November 21, 2024 9 :25am Amb Documentation November 22, 2024 2 :30pm Amb Documentation November 24, 2024 9 :30am Amb Documentation December 11, 2024 11:53am [facility]: visual changes/headache November 262024 1:00pm Chief Complaint Admit Date BP Concerns March 15, 2025 1:45p m Reason for Visit Admit Date Anxiety March 15, 2025 1:45p m Atypical chest pain March 15, 2025 1:45p m Eczema March 15, 2025 1:45p m Family history of heart disease February 1:45pm Primary hypertension March 15, 2025 1:45 pm PTSD (post-traumatic stress disorder) Ma y 2024 1:45pm Screening for colon cancer March 15 1:45pm Chief Complaint Admit Date BP Concerns March 15, 2025 1:45p m Amb Documentation March 20, 2025 11:13 am Wellness April 02, 2025 1:00p m Reason for Visit Admit Date Primary hypertension March 15, 2025 1:45 pm Anxiety April 02, 2025 1:00p m Hypertriglyceridemia April 02, 2025 1:00 pm Primary hypertension April 02, 2025 1:00 pm PTSD (post-traumatic stress disorder) Ju 2024 1:00pm Wellness examination April 02, 2025 1:00 pm Additional Source Comments (unrecognized sect ion and [...] section and content) DATE CREATED AUTHOR 04/20/2018 [facility] DATE CREATED AUTHOR AUTHOR'S ORGANIZ ATION 10/13/2018 [facility] DATE CREATED AUTHOR AUTHOR'S ORGANIZ ATION 11/23/2022 [facility] DATE CREATED AUTHOR AUTHOR'S ORGANIZ ATION 12/02/2024 [facility] DATE CREATED AUTHOR AUTHOR'S ORGANIZ ATION 12/11/2024 [facility] DATE CREATED AUTHOR AUTHOR'S ORGANIZ ATION 12/12/2024 [facility] DATE CREATED AUTHOR AUTHOR'S ORGANIZ ATION 03/21/2025 [facility] Care Team (unrecognized sect ion and content) Team Status: Active Member Role Status Dates Gertrudis Pham APRN DRILL SERGEANT-C Primary Care Provider Active Team Status: Active Member Role Status Dates Reji Hughes DO Primary Care Provider Active Start: February 17, 2024 PAULETTE Antonio Attending Provider Active Start : February 17, 2024 Team Status: Inactive Member Role Status Dates Gertrudis Pham APRN DRILL SERGEANT-C Primary Care Provider, Attending Provider Active Start: March 27, 2024 End: March 27, 2024 Team Status: Active Member Role Status Dates Gertrudis Pham APRN DRILL SERGEANT-C Primary Care Provider, Attending Provider Active Start: September 19, 2024 Team Status: Inactive Member Role Status Dates Gertrudis Pham APRN DRILL SERGEANT-C Primary Care Provider, Attending Provider Active Start: September 25, 2024 End: September 25, 2024 Team Status: Inactive Member Role Status Dates Gertrudis Pham APRN DRILL SERGEANT-C Primary Care Provider Active Start: October End: November 21, 2024 Noelle Colunga MD Attending Provider Active Start: November 21, 2024 End: November 21, 2024 Team Status: Active Member Role Status Dates Gertrudis Pham APRN DRILL SERGEANT-C Primary Care Provider Active Start: October Noelle Colunga MD Attending Provider, Other Provider Active Start: November 21, 2024 Team Status: Active Member Role Status Dates Gertrudis Pham APRN DRILL SERGEANT-C Primary Care Provider Active Start: October Deysi Ellis CMA Attending Provider Active St art: November 22, 2024 Team Status: Active Member Role Status Dates Gertrudis Pham APRN DRILL SERGEANT-C Primary Care Provider Active Start: October David Whitehead DO Attending Provider Active S tart: November 23, 2024 Team Status: Active Member Role Status Dates Gertrudis Pham APRN DRILL SERGEANT-C Primary Care Provider Active Start: October Marlene Rubio CMA Attending Provider Active Start: November 24, 2024 Team Status: Active Member Role Status Dates Gertrudis Pham APRN DRILL SERGEANT-C Primary Care Provider Active Start: December [id number] Marlene Rubio CMA Attending Provider Active Start: December 11, 2024 Team Status: Inactive Member Role Status Dates Gertrudis Pham APRN NP-Debbie Primary Care Provider, Attending Provider Active Start: December 18, 2024 End: December 18, 2024 Rn Psych Relationship Specialty Start Date End Date Gertrudis Pham NP [address] [facility] [address] [place], [place] [id number] PCP - General Family Medicine 05/31/24 Gita Oliva PA [address] [facility] [address] [place] [id number] Physician Lens Blank [facility] Neurology 01/17/25 Rn Psych Relationship Specialty Start Date End Date Gertrudis Pham NP [facility] [place], [place] [id number] PCP - General Family Medicine 05/31/24 Gita Oliva PA [address] [facility] [address] [place], [place] [id number] Physician Lens Blank Gauger Neurology 01/17/25 Rn Psych Relationship Specialty Start Date End Date Gertrudis Pham NP [address] [place], [place] [id number] PCP - General Family Medicine 05/31/24 Gita Oliva PA [address] [place], [place] [id number] Physician Lens Blank [facility]auger Neurology 01/17/25 Team Status: Inactive Member Role Status Dates Gertrudis Pham APRN DRILL SERGEANT-C Primary Care Provider, Attending Provider Active Start: March 15, 2025 End: March 15, 2025 Team Status: Active Member Role Status Dates Gertrudis Pham APRN DRILL SERGEANT-C Primary Care Provider Active Start: March 20, 2025 Marlene Rubio CMA Attending Provider Active Start: March 20, 2025 Team Status: Inactive Member Role Status Dates Gertrudis Pham APRN DRILL SERGEANT-C Primary Care Provider, Attending Provider Active Start: April 02, 2025 End: April 02, 2025 REASON FOR VISIT (unrecogniz ed section and content) Reason Comments Hospital Follow-up Reason Comments Decreased Visual Acuity Goals (unrecognized section and content) Goals may [...] BE BASED ON THE PRIMARY CLINICAL RECORDS. [employer] provides no warranty or guarantee of the accuracy or completeness of information in this document.
--- NOTE | 2025-08-11 01:20 | ECG_ITS ---
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 Measurements Intervals [place] Rate: 49 P: 43 FL: 194 QRS: 59 QRSD: 92 T: 27 QT: 444 QTc: 414 Interpretive Statements [address] DEPRESSION, INFERIOR LEADS abnormal ECG Compared to ECG 12/30/2021 01:02:[address] DEPRESSION is now present Electronically Signed On 08-12-2025 10:48:01 EDT by PHILL CABRERA M.D.
--- NOTE | 2025-08-11 01:37 | XR_ITS ---
The [place] [id number] Patient Name: MONICA ARAMBULA MRN: [id number] date: 1980 Sex: M Assigned Patient Location: ER Current Patient Location: Accession/Order Number: [id number] Exam Date: 08/11/2025 01:35 Report Date: 08/11/2025 08:28 At the request of: GREG RASHEED MD Procedure: XR chest 1V XR chest 1V 08/11/2025 1:44 AM SIGNS AND SYMPTOMS: ^chest pain PROTOCOL: Frontal radiograph of the chest COMPARISON: 06/08/2023 FINDINGS: The trachea is midline. The heart and mediastinal structures are within normal limits. There is a calcified granuloma in the right mid chest. The lung parenchyma is clear. The bony thorax is intact. XR/XR chest 1V IMPRESSION: No acute cardiopulmonary pathology. Impression dictated by: Loi Joel M.D. 08/11/2025 8:28 AM Dictation Location: [place] [address] Electronically authenticated by: [id number] Y Date: 08/11/2025 08:28
--- NOTE | 2025-08-11 01:38 | ED_ITS ---
HPI HPI - General Adult General Chief complaint: Anxiety Stated complaint: heartburn/panic attack Time Seen by Provider: 08/11/25 01:34 Source: patient Mode of arrival: walk-in History of Present Illness HPI narrative: past history of anxiety and GERD. Woke up tonight with heart burn and became anxious. Now presents for evaluation. No associated shortness of breath. States he has had similar discomfort in the past. We discussed giving GI cocktail and he ask to not give lidocaine because this makes his anxiety worse also Related Data Home Medications ?Medication ?Instructions ?Recorded ?Confirmed atenolol 50 mg tablet 50 mg PO Q24H 06/19/2308/11 citalopram 10 mg/5 mL oral solution 10 mg PO DAILY 08/11/25 losartan 25 mg tablet 50 mg PO DAILY 03/16/2507/25 diphenhydramine HCl 25 mg capsule 25 mg PO DAILY PRN a nxiety 08/11/25 08/11/25 (Benadryl) Previous Rx's ?Medication ?Instructions ?Recorded ondansetron 4 mg disintegrating 4 mg PO Q6H PRN nausea and 11/23/24 tablet vomiting #20 tabs Allergies Allergy/AdvReac Type Severity Reaction Status Date / Time hydrocodone (From [facility]) Allergy Unknown Unknown Verified 08/11/25 01:21 Opioid HPI Opioid Management Most Recent Opioid Data: Last Pain Scale 5 03/16/25, 15:36 Review of Systems ROS Status of ROS 10 or more systems reviewed and unremark able except as noted in history and below PFSH PFSH Social History Smoking status: Former smoker Little interest or pleasure in doing things: not at all Feeling down, depressed, or hopeless: not at all Exam Constitutional Vital Signs, click to edit/add: Last Vital Signs Temp 97.8 F 08/11/25 01:17 Pulse 54 L 08/11/25 01:17 Resp 16 08/11/25 01:17 BP 153/99 H 08/11/25 01:17 Pulse Ox 99 08/11/25 01:17 O2 Del Method Room Air 08/11/25 01:17 Common normals: no apparent distress, average body habitus, oriented x3, no limitations, healthy appearing, alert and well nourished [facility] Common normals: normocephalic and head/scalp atraumatic Eye Common normals: EOMs intact bilaterally and conjunctivae normal Respiratory Common normals: normal respiratory effort, no retractions, no use of accessory muscles and clear to auscultation bilaterally Cardio Common normals: regular rate, regular rhythm, S1 normal heart sound and S2 normal heart sound GI Common normals: Normal to inspection, nondistended, normoactive bowel sounds present and soft to palpation Extremity Common normals: normal to inspection and full ROM Neuro Common normals: oriented x3, CN's II-XII intact bilaterally and moves all extremities Psych Appearance: grossly normal Course Vital Signs Vital signs: Vital Signs Temperature 97.8 F 08/11/25 01:17 Pulse Rate 54 L 08/11/25 01:17 Respiratory Rate 16 08/11/25 01:17 Blood Pressure 153/99 H 08/11/25 01:17 Pulse Oximetry 99 08/11/25 01:17 Oxygen Delivery Method Room Air 08/11/25 01:17 Temperature 97.8 F 08/11/25 01:17 Pulse Rate 54 L 08/11/25 01:17 Respiratory Rate 16 08/11/25 01:17 Blood Pressure 153/99 H 08/11/25 01:17 Pulse Oximetry 99 08/11/25 01:17 Oxygen Delivery Method Room Air 08/11/25 01:17 Medical Decision Making MDM Narrative Medical decision making narrative: past history of anxiety and GERD. Awakened from his sleep with heart burn and his anxiety kicked in. Came to ER. Pain resolved with GI cocktail. EKG with findings of low voltage and bradycardia. Normal cxray and serial troponin neg x 2. Patient discharged home in improved condition Lab Data Labs: Lab Results 08/11/25 08/11/25 Range/Units 01:30 04:00 WBC 7.5 (4.0-11.0) 10^3/uL RBC 5.43 (4.70-6.10) 10^6/uL Hgb 16.1 (14.0-18.0) g/dL Hct 47.1 (42.0-54.0) % MCV 86.7 (80.0-94.0) fL MCH 29.7 (25.9-34.0) pg MCHC 34.2 (29.9-35.2) g/dL RDW 12.2 (11.0-15.0) % Plt Count 233 (150-450) 10^3/uL MPV 9.8 (9.5-13.5) fL Neut % (Auto) 46.2 (43.0-75.0) % Lymph % (Auto) 39.4 (20.5-60.0) % [place] % (Auto) 10.7 (1.7-12.0) % Eos % (Auto) 2.1 (0.9-7.0) % Baso % (Auto) 0.9 (0.2-2.0) % Neut # (Auto) 3.4 (1.4-6.5) 10^3/uL Lymph # (Auto) 2.9 (1.2-3.8) 10^3/uL [place] # (Auto) 0.8 (0.3-0.8) 10^3/uL Eos # (Auto) 0.2 (0.0-0.7) 10^3/uL Baso # (Auto) 0.1 (0.0-0.1) 10^3/uL Abs Immat Gran (auto) 0.05 H (0.00-0.03) 10^3/uL Imm/Tot Granulo (auto) 0.7 H (0.0-0.5) % D-Dimer <0.19 (<=0.59) mg/L FEU Sodium 139 (136-145) mmol/L Potassium 4.0 (3.5-5.1) mmol/L Chloride 105 (98-107) mmol/L Carbon Dioxide 26.6 (21.0-32.0) mmol/L Anion Gap 11.4 BUN 22.0 H (7.0-18.0) mg/dL Creatinine 1.01 (0.70-1.30) mg/dL Est GFR ( Amer) >60 (>=60 mL/min/1.73m^2) Est GFR (Non-Af Amer) >60 (>=60 mL/min/1.73m^2) BUN/Creatinine Ratio 21.8 Glucose 101 (74-106) mg/dL Calcium 9.0 (8.5-10.1) mg/dL Troponin I High Sens 6.9 5.3 (4.0-76.1) pg/mL Discharge Plan Discharge Chief Complaint: Anxiety Clinical Impression: Chest pain due to GERD Patient Disposition: Home, Self-Care Prescriptions / Home Meds: No Action citalopram 10 mg/5 mL solution 10 mg PO DAILY atenolol 50 mg tablet 50 mg PO Q24H losartan 25 mg tablet 50 mg PO DAILY ondansetron 4 mg tablet,disintegrating 4 mg PO Q6H PRN (Reason: nausea and vomiting) Qty: 20 0RF diphenhydramine HCl [Benadryl] 25 mg capsule 25 mg PO DAILY PRN (Reason: anxiety) Print Language: Macedonian Instructions: GERD (Gastroesophageal Reflux Disease) (ED) Additional Instructions: follow up with your doctor next week for recheck Referrals: CHON GUERRERO [Primary Care Provider, Unknown] - 1 week
[2025-08-11 01:43] LABS: Hematocrit 47.1 % (42.0-54.0); Hemoglobin 16.1 g/dL (14.0-18.0); Immature Granulocytes Abs Auto 0.05 10^3/uL (0.00-0.03); Immature Granulocytes Pct Auto 0.7 % (0.0-0.5); Lymphocytes Absolute Auto 2.9 10^3/uL (1.2-3.8); Mean Corpuscular HGB Conc 34.2 g/dL (29.9-35.2); Mean Corpuscular Hemoglobin 29.7 pg (25.9-34.0); Mean Corpuscular Volume 86.7 fL (80.0-94.0); Platelet Count 233 10^3/uL (150-450); Red Blood Count 5.43 10^6/uL (4.70-6.10); White Blood Count 7.5 10^3/uL (4.0-11.0)
[2025-08-11] MEDS: lidocaine HCL 15 ML, MAG HYDROX/ALUMINUM HYD/SIMETH 30 ML, HYOSCYAMINE SULFATE 0.25 MG PO (01:56)
[2025-08-11 02:00] LABS: Anion Gap 11.4; Blood Urea Nitrogen 22.0 mg/dL (7.0-18.0); Calcium 9.0 mg/dL (8.5-10.1); Carbon Dioxide 26.6 mmol/L (21.0-32.0); Chloride 105 mmol/L (98-107); Estimated GFR (African America >60 (>=60 mL/min/1.73m^2); Estimated GFR (Non-African Ame >60 (>=60 mL/min/1.73m^2); Glucose 101 mg/dL (74-106); Potassium 4.0 mmol/L (3.5-5.1); Sodium 139 mmol/L (136-145)
--- NOTE | 2025-08-11 03:15 | PC.NURSE ---
patient reports woken up with burning in back of his esophagus. Thinks he is having heart burn. long hx of panic disorder/anxiety. states he thinks the heartburn kicked up his anxiety. reports burning from back of throat into chest. states hes been worked up for this. takes all antianxiety medications as prescribed and states that his medications have been helping.
== END 2025-08-11 05:15 | disposition home or self-care (01) ==
PROVIDERS: Emergency Provider Internal Medicine; PCP Nurse Practitioner Family
DX: K21.9 Gastro-esophageal reflux disease without esophagitis (principal); R07.9 Chest pain, unspecified; F41.9 Anxiety disorder, unspecified; Z87.891 Personal history of nicotine dependence
CPT/HCPCS: 36415; 71045; 80048; 84484; 85025; 85378; 93005; 99284